=== PATIENT | female | born 1945 | race Caucasian/White ===

== ENCOUNTER 2017-05-06 08:13 | Inpatient (IN) | payer MEDICARE ==
[~2017-05-06] VITALS: Ht 162.6 cm; Wt 113.0 kg
[~2017-05-06 08:13] MED LIST: AMLODIPINE BESY10 MG PO; CEFDINIR300 MG PO; GABAPENTIN300 MG PO; GOLYTELY SOLU4000 ML PO; HUMALOG100 UNIT/1 SC; HYDROCODON-ACE1 EA11 PO; ISOSORBIDE MONO30 M1 PO; LEVEMIR100 UNIT/1 SC; LOSARTAN POTAS100 MG PO; METRONIDAZOLE500 MG PO; OMEPRAZOLE40 MG PO; SIMVASTATIN40 MG PO; TOPROL XL100 MG PO; TRESIBA; TRIAMTERENE-HCTZ1 EA PO; VICTOZA 2-0.6 MG/0.1 SQ
[2017-05-06] MEDS ORDERED: DILTIAZEM HCL 100 ML IV STA (08:25)
[2017-05-06] MEDS ORDERED: DILTIAZEM HCL 100 ML IV ONE (08:30)
[2017-05-06] MEDS ORDERED: DILTIAZEM HCL 5 MG/ML 5 ML VIAL IV ONE ×2 (08:30)
[2017-05-06] MEDS ORDERED: SODIUM CHLORIDE 0.9% 1000ML 1,000 ML IV SCH (08:30)
[2017-05-06 08:39] LABS: BASOPHILS % 0.2 % (0.0-1.0); EOSINOPHILS % 0.1 % (0.0-6.0); HEMATOCRIT 47.3 % (34.2-44.1); HEMOGLOBIN 15.9 g/dL (12.0-16.0); LYMPHOCYTES # (AUTO) 3.3 (1.0-3.2); LYMPHOCYTES % 21.8 % (18.0-39.1); MEAN CORPUSCULAR HEMOGLOBIN 29.8 pg (28-32); MEAN CORPUSCULAR HGB CONC 33.6 g/dL (31-35); MEAN CORPUSCULAR VOLUME 88.7 fL (81-99); MONOCYTES # (AUTO) 0.8 (0.2-0.8); MONOCYTES % 5.2 % (4.4-11.3); NEUTROPHILS # (AUTO) 10.9 (2.1-6.9); NEUTROPHILS % 72.3 % (38.7-80.0); PLATELET COUNT 213 x10e3/uL (140-360); RED BLOOD COUNT 5.33 x10e6/uL (3.6-5.1); RED CELL DISTRIBUTION WIDTH 13.5 % (11.7-14.4)
[2017-05-06] MEDS ORDERED: AMIODARONE HCL 100 ML IV ONE (08:41)
[2017-05-06] MEDS ORDERED: METOPROLOL TARTRATE INJ 1 MG/ML VIAL IV ONE (08:45)
[2017-05-06 08:51] LABS: ALANINE AMINOTRANSFERASE 13 IU/L (0-55); ALBUMIN 4.2 g/dL (3.5-5.0); ALBUMIN/GLOBULIN RATIO 1.2 (0.8-2.0); ALKALINE PHOSPHATASE 69 IU/L (40-150); ANION GAP 19.2 mmol/L (8-16); BLOOD UREA NITROGEN 6 mg/dL (7-26); BUN/CREATININE RATIO 8 (6-25); CALCIUM 9.2 mg/dL (8.4-10.2); CARBON DIOXIDE 25 mmol/L (22-29); CHLORIDE 101 mmol/L (98-107); CREATININE, SERUM 0.79 mg/dL (0.57-1.11); EST GLOMERULAR FILTRATION RATE > 60 ML/MIN (60-); GLUCOSE 167 mg/dL (74-118); MAGNESIUM 1.3 MG/DL (1.3-2.1); PHOSPHORUS 3.6 MG/DL (2.3-4.7); POTASSIUM 3.2 mmol/L (3.5-5.1); SODIUM 142 mmol/L (136-145)
[2017-05-06 09:10] LABS: THYROID STIMULATING HORMONE 1.904 uIU/mL (0.350-4.940); TROPONIN I 0.009 ng/mL (0-0.300)
[2017-05-06 09:21] LABS: BILIRUBIN,URINE NEGATIVE (NEGATIVE); CLARITY,URINE CLEAR (CLEAR); COLOR,URINE YELLOW (YELLOW); KETONES,URINE 1+ (NEGATIVE); LEUKOCYTE ESTERASE ,URINE NEGATIVE (NEGATIVE); NITRITE,URINE NEGATIVE (NEGATIVE); PROTEIN,URINE DIPSTICK NEGATIVE (NEGATIVE); URINE UROBILINOGEN 0.2 mg/dL (0.2 - 1)
[2017-05-06 09:33] LABS: EPITHELIAL CELLS,URINE RARE /LPF
[2017-05-06] MEDS: SODIUM CHLORIDE 0.9% 1000ML 1,000 ML IV SCH ×3 (09:34→19:10)
[2017-05-06] MEDS ORDERED: DILTIAZEM HCL 100 ML IV SCH (09:45)
[2017-05-06] MEDS ORDERED: POTASSIUM CHLORIDE 20 MEQ TAB CR PO NR (10:00)
[2017-05-06] MEDS ORDERED: DICYCLOMINE HCL 20 MG/2 ML VIAL IM ONE (10:00)
[2017-05-06] MEDS ORDERED: FAMOTIDINE 20 MG/2 ML VIAL IV NR (10:00)
[2017-05-06] MEDS: DILTIAZEM HCL 100 ML IV SCH ×2 (10:13→12:04)
--- NOTE | 2017-05-06 11:24 | Diagnostic Imaging Report ---
PROCEDURE: A single AP view of the chest. COMPARISON: 12/20/2015 INDICATIONS: SHORTNESS OF BREATH FINDINGS: Lines/tubes: None. Lungs: Bibasilar subsegmental atelectasis. No consolidation or edema. Pleura: There is no pleural effusion or pneumothorax. Heart and mediastinum: Tortuous aorta. The pulmonary arteries are prominent. Bones: No acute bony abnormality. IMPRESSION: No evidence of infection or edema. Dictated by: Michel Chua M.D. on 05/06/2017 at 11:33 Electronically approved by: Michel Chua M.D. on 05/06/2017 at 11:33
[2017-05-06] MEDS ORDERED: ASPIRIN 81 MG CHEW TAB PO ONE (12:30)
[2017-05-06] MEDS ORDERED: MORPHINE SULFATE 2 MG/ML SYR IV PRN (12:30)
[2017-05-06] MEDS ORDERED: SODIUM CHLORIDE FLUSH 10 ML SYR INJ PRN (12:30)
[2017-05-06 13:31] VITALS: BP 132/97
[2017-05-06] MEDS: FAMOTIDINE 20 MG/2 ML VIAL IV SCH (17:29)
[2017-05-06 17:51] LABS: CREATINE KINASE MB 1.2 ng/mL (0.00-5.00); TROPONIN I 0.03 ng/mL (0-0.300)
[2017-05-06] MEDS: MORPHINE SULFATE 4 MG/ML SYR IV PRN (19:11)
[2017-05-06] MEDS: ONDANSETRON HCL INJ 2 MG/ML VIAL IV PRN (19:11)
[2017-05-06] MEDS ORDERED: METFORMIN HCL500 MG PO (19:16)
[2017-05-07 02:01] LABS: BASOPHILS % 0.1 % (0.0-1.0); EOSINOPHILS # (AUTO) 0.1 (0.0-0.4); EOSINOPHILS % 0.8 % (0.0-6.0); HEMATOCRIT 39.1 % (34.2-44.1); LYMPHOCYTES # (AUTO) 2.3 (1.0-3.2); LYMPHOCYTES % 25.7 % (18.0-39.1); MEAN CORPUSCULAR HGB CONC 33.2 g/dL (31-35); MEAN CORPUSCULAR VOLUME 90.3 fL (81-99); MONOCYTES # (AUTO) 0.5 (0.2-0.8); MONOCYTES % 5.3 % (4.4-11.3); NEUTROPHILS # (AUTO) 6.1 (2.1-6.9); NEUTROPHILS % 67.9 % (38.7-80.0); PLATELET COUNT 156 x10e3/uL (140-360); RED BLOOD COUNT 4.33 x10e6/uL (3.6-5.1); RED CELL DISTRIBUTION WIDTH 13.7 % (11.7-14.4)
[2017-05-07] MEDS: ONDANSETRON HCL INJ 2 MG/ML VIAL IV PRN ×3 (02:01→17:07)
[2017-05-07] MEDS: MORPHINE SULFATE 4 MG/ML SYR IV PRN ×3 (02:01→17:07)
[2017-05-07 02:10] LABS: INR 0.97; PROTHROMBIN TIME 13.4 seconds (11.9-14.5)
[2017-05-07 02:11] LABS: PARTIAL THROMBOPLASTIN TIME 30.5 seconds (23.8-35.5)
[2017-05-07 02:21] LABS: ALANINE AMINOTRANSFERASE 10 IU/L (0-55); ALBUMIN 3.4 g/dL (3.5-5.0); ALBUMIN/GLOBULIN RATIO 1.2 (0.8-2.0); ALKALINE PHOSPHATASE 55 IU/L (40-150); ANION GAP 14.5 mmol/L (8-16); BLOOD UREA NITROGEN 6 mg/dL (7-26); BUN/CREATININE RATIO 9 (6-25); CALCIUM 8.1 mg/dL (8.4-10.2); CARBON DIOXIDE 27 mmol/L (22-29); CHLORIDE 106 mmol/L (98-107); CHOL/HDL RATIO 1.7 (3.0-3.6); CHOLESTEROL 76 MD/DL (0-199); CREATINE KINASE 81 IU/L (29-168); CREATININE, SERUM 0.67 mg/dL (0.57-1.11); EST GLOMERULAR FILTRATION RATE > 60 ML/MIN (60-); GLUCOSE 117 mg/dL (74-118); HDL CHOLESTEROL 45 MG/DL (40-60); POTASSIUM 3.5 mmol/L (3.5-5.1); SODIUM 144 mmol/L (136-145); TRIGLYCERIDES 108 MG/DL (0-149)
[2017-05-07 02:22] LABS: LDL CHOLESTEROL 9 MG/DL (60-130)
[2017-05-07 02:27] LABS: TROPONIN I 0.016 ng/mL (0-0.300)
[2017-05-07] MEDS ORDERED: DIPHENHYDRAMINE HCL 25 MG CAP PO ONE (06:00)
--- NOTE | 2017-05-07 06:49 | Diagnostic Imaging Report ---
CHEST SINGLE (PORTABLE), 05/07/2017 5:00 AM Technique: CHEST SINGLE (PORTABLE) Comparison: None available. Clinical history: Shortness of breath Findings: See Impression Impression: 1. Mildly enlarged cardiac silhouette. 2. Bibasilar opacities which may reflect atelectasis. Aspiration or infection could be considered in the proper clinical context. 3. No significant effusion. No pneumothorax. Signed by: Dr Nancy Rizzo MD on 05/07/2017 6:45 AM
[2017-05-07 07:16] VITALS: BP 127/63
[2017-05-07] MEDS: SODIUM CHLORIDE 0.9% 1000ML 1,000 ML IV SCH ×2 (07:30→20:43)
[2017-05-07] MEDS: ASPIRIN 81 MG ENTERIC COATED PO SCH (08:54)
[2017-05-07] MEDS: FAMOTIDINE 20 MG/2 ML VIAL IV SCH ×2 (08:54→20:41)
[2017-05-07] MEDS ORDERED: DEXTROSE 50% SYRINGE 50 ML IV PRN (10:15)
--- NOTE | 2017-05-07 10:56 | History and Physical ---
PRIMARY CARE PHYSICIAN: Dr. Griffin Zuniga CHIEF COMPLAINT: Chest palpitations and shortness of breath. HISTORY OF PRESENT ILLNESS: This is a 72-year-old woman with a history of diabetes mellitus, type 2 and hypertension, now developing shortness of breath and chest palpitations prompting her visit to the hospital. She does admit to some discomfort with urination. No fever, chills or sweats. She has no history of atrial fibrillation or heart disease. Here, she was found to be in atrial fibrillation with rapid ventricular response. She received Cardizem drip and this has been turned off. She has converted to a normal sinus rhythm. PAST MEDICAL HISTORY: Diabetes mellitus, type 2, hypertension, IBS. PAST SURGICAL HISTORY: Hysterectomy, tonsillectomy, cholecystectomy, appendectomy, stomach stapling. ALLERGIES: PER ELECTRONIC MEDICAL RECORDS. FAMILY HISTORY/SOCIAL HISTORY: Patient is . She has 2 children. No alcohol, illicits or cigarettes. MEDICATIONS: Per electronic medical record. REVIEW OF SYSTEMS: Denies any dizziness. PHYSICAL EXAMINATION VITAL SIGNS: Have been reviewed. GENERAL: A tired-appearing woman resting in bed. HEENT: Anicteric. Pupils respond to light. No oral lesions. CARDIOVASCULAR: Normal S1 and S2. ABDOMEN: Soft, nontender and nondistended. BACK: She has mild erythema of the midback region, but no rashes visible. EXTREMITIES: No edema. She has dry skin. NEUROLOGICAL: Alert and oriented times 3. Moving all extremities. LABS: Reviewed. MEDICATIONS: Reviewed. ASSESSMENT AND PLAN: This is a 72-year-old woman with: 1. Sepsis with hypotension, tachycardia, low-grade fever, and leukocytosis: She did have dysuria, but her urinalysis is negative. Will start her on ceftriaxone. She received intravenous fluids, and will follow up cultures. 2. Atrial fibrillation with rapid ventricular response: Received Cardizem drip, and now heart rate is better. Will continue diltiazem. Echocardiogram showed normal left ventricular ejection fraction. Will place cardiology consultation. TSH was normal at 1.9. 3. Diabetes mellitus, type 2: Will obtain hemoglobin A1c and lipid panel. 4. Rash on the back secondary to medications: She received Benadryl yesterday, and now rash has resolved. Will monitor closely. 5. Physical deconditioning: Will get physical therapy on board. 6. Hypertension: Treated. She is currently on calcium channel lindsay. Will monitor blood pressure. 7. Hypokalemia: Has been treated and resolved. 8. Prophylaxis: Will use Pepcid and will anticoagulate with Lovenox. 9. Disposition: Follow up. Job#: [id number] RI
[2017-05-07] MEDS ORDERED: CEFTRIAXONE SOD 1 GM VIAL IV SCH (11:00)
[2017-05-07] MEDS: INSULIN REGULAR, HUMAN 100 UNIT/1 ML 3ML VIAL SQ SCH ×3 (11:14→21:00)
[2017-05-07] MEDS: ENOXAPARIN SODIUM INJ 100 MG/ML SYR SC SCH (11:20)
[2017-05-07] MEDS ORDERED: CEFTRIAXONE SOD 1 GM VIAL ONE (11:23)
[2017-05-07 11:45] VITALS: BP 96/75
[2017-05-07] MEDS ORDERED: DIPHENHYDRAMINE HCL INJ 1 ML ONE (16:59)
[2017-05-07 17:54] VITALS: BP 151/74
[2017-05-07 18:00] VITALS: BP 151/74
[2017-05-07 20:00] VITALS: BP 138/67
[2017-05-07 20:13] VITALS: BP 138/67
[2017-05-08] VITALS (8 sets, daily range): BP systolic 142–166; BP diastolic 67–83
[2017-05-08] MEDS: MORPHINE SULFATE 4 MG/ML SYR IV PRN ×3 (06:03→20:58)
[2017-05-08] MEDS: SODIUM CHLORIDE 0.9% 1000ML 1,000 ML IV SCH (06:07)
[2017-05-08] MEDS: INSULIN REGULAR, HUMAN 100 UNIT/1 ML 3ML VIAL SQ SCH ×4 (07:30→20:48)
[2017-05-08 08:31] LABS: ANION GAP 11.5 mmol/L (8-16); BLOOD UREA NITROGEN 5 mg/dL (7-26); BUN/CREATININE RATIO 8 (6-25); CALCIUM 8.1 mg/dL (8.4-10.2); CARBON DIOXIDE 27 mmol/L (22-29); CHLORIDE 105 mmol/L (98-107); CREATININE, SERUM 0.64 mg/dL (0.57-1.11); EST GLOMERULAR FILTRATION RATE > 60 ML/MIN (60-); GLUCOSE 120 mg/dL (74-118); POTASSIUM 3.5 mmol/L (3.5-5.1); SODIUM 140 mmol/L (136-145)
[2017-05-08 08:41] LABS: BASOPHILS % 0.2 % (0.0-1.0); EOSINOPHILS # (AUTO) 0.3 (0.0-0.4); EOSINOPHILS % 4.4 % (0.0-6.0); HEMATOCRIT 36.8 % (34.2-44.1); HEMOGLOBIN 12.1 g/dL (12.0-16.0); LYMPHOCYTES # (AUTO) 1.4 (1.0-3.2); LYMPHOCYTES % 24.3 % (18.0-39.1); MEAN CORPUSCULAR HGB CONC 32.9 g/dL (31-35); MEAN CORPUSCULAR VOLUME 91.1 fL (81-99); MONOCYTES # (AUTO) 0.4 (0.2-0.8); MONOCYTES % 6.5 % (4.4-11.3); NEUTROPHILS # (AUTO) 3.7 (2.1-6.9); NEUTROPHILS % 64.4 % (38.7-80.0); PLATELET COUNT 175 x10e3/uL (140-360); RED BLOOD COUNT 4.04 x10e6/uL (3.6-5.1); RED CELL DISTRIBUTION WIDTH 13.7 % (11.7-14.4)
--- NOTE | 2017-05-08 08:47 | Consultation ---
DATE OF CONSULTATION: REQUESTING PHYSICIAN: REASON FOR CONSULTATION: Chest pain. HISTORY OF PRESENT ILLNESS: Ms. Jiang is a 72-year-old lady with a past medical history as listed below. Reportedly, developed chest pain on Tuesday, and she had some severe chest pain on . Patient states that the chest pain lasted for about an hour or so all across her chest. She was short of breath. She felt like her heart was pounding. However, she states that she decided not to come to the hospital. She had more episodes yesterday, and so came here. She gets weak and tired. No abdominal pain, vomiting or diarrhea. Patient was noted to be in AFib with rapid ventricular rate. She was given Cardizem and started on a Cardizem drip. She was also given metoprolol. REVIEW OF SYSTEMS CONSTITUTIONAL: Has some fatigue and weakness. HEENT: No headache, blurring of vision, seizures, or syncope. CARDIOVASCULAR: Had chest pain and some dyspnea. Had palpitations. No orthopnea or PND. RESPIRATORY: No cough, fever or expectoration. GI: No abdominal pain, vomiting or diarrhea. : No dysuria, frequency or incontinence. ALLERGIES: LISINOPRIL. MEDICATIONS: See list. PAST MEDICAL HISTORY: History of hypertension and history of diabetes mellitus. She has had a stress test, however, years back. SOCIAL HISTORY: Does not smoke. Drinks alcohol occasionally. FAMILY HISTORY: Noncontributory. PHYSICAL EXAMINATION GENERAL: Obese lady, alert, oriented, and not in any obvious distress. VITALS: Heart rate is 76, blood pressure 96/75, respiratory rate 20. HEENT: Atraumatic. NECK: No JVD, bruit, thyromegaly, or lymphadenopathy. CARDIOVASCULAR: First and 2nd heart sounds heard. No murmurs, rubs or gallops appreciated. CHEST: Decreased air entry at the bases. No adventitious sounds appreciated. ABDOMEN: Obese and nontender. EXTREMITIES: No edema. LABS: Initial EKG showed atrial fibrillation at 185 beats per minute. Normal axis. Normal intervals. Nonspecific ST-T changes. EKG from today showed sinus rhythm at 69 beats per minute. Normal axis. Normal intervals. Poor R-wave progression V1 to V3, nonspecific ST-T changes. Sodium is 144, potassium 3.5, chloride 106, bicarb is 27, BUN is 6, creatinine 0.67, glucose is 117. INR 0.7. Total bilirubin 0.9, AST is 15, ALT 10, alk phos is 55. Chest x-ray shows mild enlarged cardiac silhouette and bibasilar opacities. May reflect atelectasis. IMPRESSION 1. Atrial fibrillation with rapid ventricular rate. 2. Chest pain. 3. History of hypertension. 4. History of diabetes mellitus. 5. Obesity. PLAN 1. Patient has converted to a sinus rhythm. 2. Cardiac enzymes are normal. 3. Discontinue Cardizem drip and continue low-dose metoprolol. 4. If blood pressure is on the lower side, will add digoxin. 5. Continue with Lovenox. 6. Get echocardiogram to assess LV function and valvular function. 7. TSH is normal. 8. Further cardiac workup depending on clinical course. Discussed my impression and plan of manage with the patient. She understands. As always, I appreciate and thank you very much for the referral. Job#: [id number] APRIL
[2017-05-08] MEDS: ENOXAPARIN SODIUM INJ 100 MG/ML SYR SC SCH ×2 (09:11→20:48)
[2017-05-08] MEDS: FAMOTIDINE 20 MG/2 ML VIAL IV SCH ×2 (09:11→17:30)
[2017-05-08] MEDS: ASPIRIN 81 MG ENTERIC COATED PO SCH (09:11)
--- NOTE | 2017-05-08 12:16 | Progress Note ---
DATE: May 08, 2017 TIME: 10:50 a.m. OVERNIGHT: Feeling better. REVIEW OF SYSTEMS: Denies any dizziness. PHYSICAL EXAMINATION VITAL SIGNS: Reviewed. GENERAL: A tired-appearing woman resting in bed. HEENT: Anicteric. CARDIOVASCULAR: Normal S1 and S2. LUNGS: Moderate breath sounds. BACK: She has mild erythema, which is resolving. EXTREMITIES: No edema. SKIN: Dry. PSYCHIATRIC: Normal affect. NEUROLOGICAL: Alert and oriented times 3. Moving all extremities. LABS: Reviewed. MEDICATIONS: Reviewed. ASSESSMENT: A 72-year-old woman with: 1. Sepsis. 2. Atrial fibrillation with rapid ventricular response. 3. Diabetes mellitus, type 2. 4. Rash on the back. 5. Physical deconditioning. 6. Hypertension. 7. Hypokalemia. PLAN 1. Leukocytosis has resolved. 2. Hemoglobin A1c is 5.1, LDL 9 and triglycerides 108. 3. Remove Hawk. 4. All cultures remain negative. 5. Continue Lovenox treatment dose. Likely transition her to vitamin K or oral anticoagulant. Will defer to cardiology. 6. Continue ceftriaxone. Job#: [id number] APRIL
[2017-05-08] MEDS ORDERED: CEFTRIAXONE SOD 1 GM VIAL IV SCH (12:45)
[2017-05-08] MEDS: CEFTRIAXONE SOD 1 GM VIAL IV SCH (13:01)
[2017-05-09 00:31] VITALS: BP 133/66
[2017-05-09 05:07] VITALS: BP 128/60
--- NOTE | 2017-05-09 06:36 | Progress Note ---
DATE: May 09, 2017 TIME: 5:15 a.m. OVERNIGHT: Feeling a little better. REVIEW OF SYSTEMS: Denies any dizziness. No bowel movement. Denies any shortness of breath. PHYSICAL EXAMINATION VITAL SIGNS: Reviewed. GENERAL: A tired-appearing woman resting in bed. HEENT: Anicteric. CARDIOVASCULAR: Normal S1 and S2. LUNGS: Moderate breath sounds. ABDOMEN: Soft, nontender and nondistended. EXTREMITIES: No edema. SKIN: Dry. PSYCHIATRIC: Normal affect. NEUROLOGICAL: Alert and oriented times 3. LABS: Reviewed. MEDICATIONS: Reviewed. ASSESSMENT: A 72-year-old woman with: 1. Sepsis. 2. Atrial fibrillation with rapid ventricular response. 3. Diabetes mellitus, type 2. 4. Rash on back. 5. Physical deconditioning. 6. Hypertension. 7. Hypokalemia. 8. Constipation. PLAN 1. Hemoglobin A1c is 5.1, LDL 90 and triglycerides 108. 2. Cardizem drip has since been discontinued. Patient is on low-dose beta lindsay. Add bowel regimen. 3. Obtain labs this morning. 4. Patient can be transitioned to non-vitamin K oral anticoagulant. Possible discharge home. Will follow up cardiology recommendations in this regard. 5. Echocardiogram showed normal left ventricular ejection fraction. No pericardial effusion. Job#: [id number] APRIL
[2017-05-09 07:10] LABS: BASOPHILS % 0.2 % (0.0-1.0); EOSINOPHILS # (AUTO) 0.2 (0.0-0.4); EOSINOPHILS % 4.4 % (0.0-6.0); HEMATOCRIT 38.7 % (34.2-44.1); HEMOGLOBIN 12.7 g/dL (12.0-16.0); LYMPHOCYTES # (AUTO) 1.9 (1.0-3.2); LYMPHOCYTES % 35.1 % (18.0-39.1); MEAN CORPUSCULAR HEMOGLOBIN 29.9 pg (28-32); MEAN CORPUSCULAR HGB CONC 32.8 g/dL (31-35); MEAN CORPUSCULAR VOLUME 91.1 fL (81-99); MONOCYTES # (AUTO) 0.4 (0.2-0.8); MONOCYTES % 7.2 % (4.4-11.3); NEUTROPHILS # (AUTO) 2.9 (2.1-6.9); NEUTROPHILS % 52.5 % (38.7-80.0); PLATELET COUNT 190 x10e3/uL (140-360); RED BLOOD COUNT 4.25 x10e6/uL (3.6-5.1); RED CELL DISTRIBUTION WIDTH 13.7 % (11.7-14.4)
[2017-05-09] MEDS: INSULIN REGULAR, HUMAN 100 UNIT/1 ML 3ML VIAL SQ SCH ×4 (07:30→20:22)
[2017-05-09 07:41] LABS: ANION GAP 14.5 mmol/L (8-16); BLOOD UREA NITROGEN 5 mg/dL (7-26); BUN/CREATININE RATIO 8 (6-25); CALCIUM 8.6 mg/dL (8.4-10.2); CARBON DIOXIDE 27 mmol/L (22-29); CHLORIDE 105 mmol/L (98-107); CREATININE, SERUM 0.64 mg/dL (0.57-1.11); EST GLOMERULAR FILTRATION RATE > 60 ML/MIN (60-); GLUCOSE 112 mg/dL (74-118); POTASSIUM 3.5 mmol/L (3.5-5.1); SODIUM 143 mmol/L (136-145)
[2017-05-09] MEDS: ENOXAPARIN SODIUM INJ 100 MG/ML SYR SC SCH ×2 (08:26→20:32)
[2017-05-09] MEDS: ASPIRIN 81 MG ENTERIC COATED PO SCH (08:26)
[2017-05-09] MEDS: SENNOSIDES 8.6 MG TAB PO SCH ×2 (08:26→17:24)
[2017-05-09] MEDS: DOCUSATE SODIUM 100 MG CAP PO SCH ×2 (08:26→17:24)
[2017-05-09] MEDS: FAMOTIDINE 20 MG/2 ML VIAL IV SCH ×2 (08:26→17:24)
[2017-05-09 08:45] VITALS: BP 195/84
[2017-05-09] MEDS: ISOSORBIDE MONONITRATE 30 MG TAB CR PO SCH (11:33)
[2017-05-09] MEDS: AMLODIPINE BESYLATE 10 MG TAB PO SCH (11:33)
[2017-05-09] MEDS: LOSARTAN POTASSIUM 100 MG TAB PO SCH (11:33)
[2017-05-09] MEDS: CEFTRIAXONE SOD 1 GM VIAL IV SCH (13:02)
[2017-05-09] MEDS ORDERED: HYDRALAZINE HCL 20 MG/ML VIAL IV PRN (13:15)
[2017-05-09] MEDS ORDERED: TRIAMTERENE/HCTZ 37.5-25 MG TAB PO ONE (13:15)
[2017-05-09] MEDS: ONDANSETRON HCL INJ 2 MG/ML VIAL IV PRN (13:47)
[2017-05-09] MEDS: MORPHINE SULFATE 4 MG/ML SYR IV PRN (13:47)
[2017-05-09] MEDS ORDERED: METOPROLOL SUCCINATE 50 MG PO SCH (17:00)
[2017-05-09] MEDS: METOPROLOL SUCCINATE 50 MG TAB XL PO SCH (17:24)
[2017-05-09 20:00] VITALS: BP 148/83
[2017-05-10] VITALS (8 sets, daily range): BP systolic 144–183; BP diastolic 71–86
[2017-05-10] MEDS: INSULIN REGULAR, HUMAN 100 UNIT/1 ML 3ML VIAL SQ SCH ×4 (07:30→20:25)
[2017-05-10] MEDS ORDERED: COLACE100 M1 PO (07:57)
[2017-05-10] MEDS ORDERED: SENOKOT8.6 MG PO (07:57)
[2017-05-10] MEDS ORDERED: TRIAMTERENE-HCTZ1 EA PO (07:57)
[2017-05-10] MEDS ORDERED: ASPIRIN EC81 MG PO (07:57)
[2017-05-10] MEDS ORDERED: REGADENOSON 0.4 MG/5 ML SYR IV ONE (08:13)
[2017-05-10] MEDS: FAMOTIDINE 20 MG/2 ML VIAL IV SCH ×2 (09:00→16:45)
[2017-05-10] MEDS: DOCUSATE SODIUM 100 MG CAP PO SCH ×2 (09:00→16:45)
[2017-05-10] MEDS: ASPIRIN 81 MG ENTERIC COATED PO SCH (09:00)
[2017-05-10] MEDS: METOPROLOL SUCCINATE 50 MG TAB XL PO SCH ×2 (09:00→16:45)
[2017-05-10] MEDS: SENNOSIDES 8.6 MG TAB PO SCH ×2 (09:00→16:45)
[2017-05-10] MEDS ORDERED: LOSARTAN POTASSIUM 100 MG TAB PO SCH (09:00)
[2017-05-10] MEDS: GABAPENTIN 300 MG CAP PO SCH ×3 (09:00→20:25)
[2017-05-10] MEDS ORDERED: ISOSORBIDE MONONITRATE 30 MG TAB CR PO SCH (09:00)
[2017-05-10] MEDS ORDERED: AMLODIPINE BESYLATE 10 MG TAB PO SCH (09:00)
[2017-05-10] MEDS ORDERED: POTASSIUM CHLORIDE 20 MEQ TAB CR PO STA (09:02)
--- NOTE | 2017-05-10 09:04 | Progress Note ---
DATE: May 10, 2017 TIME: 7:56 a.m. OVERNIGHT: No events. REVIEW OF SYSTEMS: Denies any dizziness. PHYSICAL EXAMINATION: VITAL SIGNS: Reviewed. GENERAL APPEARANCE: Tired-appearing woman resting in bed. HEENT: Anicteric. CARDIOVASCULAR: Normal S1 and S2. LUNGS: Moderate breath sounds. ABDOMEN: Soft, nontender, nondistended. EXTREMITIES: No edema. SKIN: Dry. PSYCHIATRIC: Normal affect. LABS: Reviewed. MEDICATIONS: Reviewed. ASSESSMENT: A 72-year-old woman: 1. Sepsis. 2. Atrial fibrillation with rapid ventricular response. 3. Diabetes mellitus type 2. 4. Rash on back. 5. Physical deconditioning. 6. Hypertension. 7. Hypokalemia. 8. Constipation. PLAN: 1. Hemoglobin A1c 5.1, LDL 90, triglycerides 108. 2. Received Cardizem drip, doing better now. Continue beta lindsay. 3. Follow up completion of stress testing. 4. Echocardiogram showed normal left ventricular ejection fraction, no pericardial effusion. 5. Discharge planning if stress test negative today. Plan to discharge later today. Job#: [id number]
--- NOTE | 2017-05-10 12:21 | Cardiology Report ---
DATE OF STUDY: LEXISCAN NUCLEAR STRESS TEST INDICATION: Chest pain. DESCRIPTION OF PROCEDURE: After informed consent, patient was brought to the stress lab. She was given 28 mCi of technetium 99 Myoview and myocardial perfusion SPECT images obtained in the horizontal long axis, short axis, and vertical long axis. The next day, patient was given 0.4 mg of Lexiscan over 10 seconds. Patient was given 28 mCi of technetium 99 Myoview and myocardial perfusion SPECT images were obtained in horizontal long axis, short axis, and vertical long axis. Gating images were also obtained. Patient tolerated the procedure without any complications. A 2-day protocol was performed because patient was obese. REPORT: Baseline EKG shows sinus rhythm at 61 beats per minute. Normal axis. Normal intervals. No acute ST-T changes. PARAMETERS 1. Resting heart rate is 70 beats per minute. 2. Maximum heart rate is 96 beats per minute. 3. Resting blood pressure 175/81 mmHg. 4. Maximum blood pressure 175/81 mmHg. REASON FOR TERMINATION: Endpoint obtained. INTERPRETATION 1. Negative chest pain. 2. Negative for arrhythmias. 3. Blood pressure response consistent with Lexiscan. 4. No significant ST-T changes seen during Lexiscan infusion compared to baseline. 5. Analysis of SPECT images reveals uniform radioisotope uptake in all segments of myocardium without any significant perfusion defects. CONCLUSION 1. No evidence significant ischemia or infarction on this study. 2. No wall motion abnormalities. 3. Overall ejection fraction is 76%. Job#: [id number] PAT
[2017-05-10] MEDS ORDERED: POTASSIUM CHLORIDE 20 MEQ TAB CR PO SCH (12:30)
[2017-05-10] MEDS: LOSARTAN POTASSIUM 100 MG TAB PO SCH (12:30)
[2017-05-10] MEDS: ISOSORBIDE MONONITRATE 30 MG TAB CR PO SCH (12:31)
[2017-05-10] MEDS: TRIAMTERENE/HCTZ 37.5-25 MG TAB PO SCH (12:31)
[2017-05-10] MEDS: AMLODIPINE BESYLATE 10 MG TAB PO SCH (12:32)
[2017-05-10] MEDS: ENOXAPARIN SODIUM INJ 100 MG/ML SYR SC SCH ×2 (12:32→20:25)
[2017-05-10] MEDS ORDERED: MORPHINE SULFATE 2 MG/ML SYR ONE (13:27)
[2017-05-10] MEDS: ONDANSETRON HCL INJ 2 MG/ML VIAL IV PRN (13:36)
[2017-05-10] MEDS: CEFTRIAXONE SOD 1 GM VIAL IV SCH (13:36)
[2017-05-10] MEDS: MORPHINE SULFATE 4 MG/ML SYR IV PRN (13:37)
[2017-05-10] MEDS ORDERED: MORPHINE SULFATE 2 MG/ML SYR IV PRN (16:15)
[2017-05-10] MEDS: METRONIDAZOLE 500MG/NS 100ML 100 ML IV SCH (22:23)
[2017-05-11] VITALS: BP 142/66
[2017-05-11 04:00] VITALS: BP 132/60
[2017-05-11] MEDS: METRONIDAZOLE 500MG/NS 100ML 100 ML IV SCH (06:08)
[2017-05-11] MEDS ORDERED: FLAGYL500 MG PO (06:38)
[2017-05-11] MEDS ORDERED: XARELTO20 MG PEG (06:46)
[2017-05-11] MEDS: INSULIN REGULAR, HUMAN 100 UNIT/1 ML 3ML VIAL SQ SCH (07:30)
[2017-05-11 07:41] VITALS: BP 146/76
--- NOTE | 2017-05-11 08:01 | Discharge Summary ---
PRINCIPAL DIAGNOSES: 1. Sepsis. 2. Atrial fibrillation with rapid ventricular response. 3. Diabetes mellitus type 2. 4. Rash on the back due to drug reaction. 5. Physical deconditioning. 6. Negative stress test. 7. Constipation and diarrhea. 8. Electrolyte derangement with hypokalemia. SECONDARY DIAGNOSIS: Diabetes mellitus type 2. CHIEF COMPLAINT: Chest palpitation. HISTORY OF PRESENT ILLNESS: A 72-year-old woman with chest palpitation. Please refer to the H and P for further details. HOSPITAL COURSE: Patient found to have chest palpitation, found to have atrial fibrillation with rapid ventricular response, treated with medication regimen, Cardizem drip, beta blockade. She underwent stress testing, which was negative. She had developed a rash on her back due to antibiotic reaction. Physical deconditioning treated with physical therapy. She had also constipation and then diarrhea, likely this is just related to medication regimen. I have given her Flagyl and obtained stool for C. diff testing. Hypokalemia was replaced. Echocardiogram showed normal left ventricular ejection fraction, no pericardial effusion. Patient is doing better and currently appropriate for discharge. Will follow up. DISCHARGE MEDICATIONS: Per electronic medical record. Discharge medications include Xarelto and omeprazole. FOLLOWUP: With primary care doctor in 1 week and follow up with ground equipment mechanic in 2 weeks. CONDITION ON DISCHARGE: Stable and improving. DISCHARGE LOCATION: Home. PRANAV BUCKLEY MD Job#: [id number]
[2017-05-11] MEDS: FAMOTIDINE 20 MG/2 ML VIAL IV SCH (08:41)
[2017-05-11] MEDS: ASPIRIN 81 MG ENTERIC COATED PO SCH (08:41)
[2017-05-11] MEDS: AMLODIPINE BESYLATE 10 MG TAB PO SCH (08:42)
[2017-05-11] MEDS: GABAPENTIN 300 MG CAP PO SCH (08:42)
[2017-05-11] MEDS: DOCUSATE SODIUM 100 MG CAP PO SCH (08:42)
[2017-05-11] MEDS: TRIAMTERENE/HCTZ 37.5-25 MG TAB PO SCH (08:42)
[2017-05-11] MEDS: SENNOSIDES 8.6 MG TAB PO SCH (08:42)
[2017-05-11] MEDS: ISOSORBIDE MONONITRATE 30 MG TAB CR PO SCH (08:42)
[2017-05-11] MEDS: LOSARTAN POTASSIUM 100 MG TAB PO SCH (08:42)
[2017-05-11] MEDS: METOPROLOL SUCCINATE 50 MG TAB XL PO SCH (08:44)
[2017-05-11 09:59] VITALS: BP 146/76
== END 2017-05-11 10:27 | disposition home or self-care (01) | DRG 872 ==
LOC: ER 08:13 → ERHOLD 13:26 → MED/SURG3 05-07 17:18
PROVIDERS: ADMIT Internal Medicine; ATTEND Internal Medicine
DX: A41.9 Sepsis, unspecified organism (principal); E11.9 Type 2 diabetes mellitus without complications; I48.91 Unspecified atrial fibrillation; Z68.41 Body mass index [BMI] 40.0-44.9, adult; I10 Essential (primary) hypertension; E66.9 Obesity, unspecified; K59.00 Constipation, unspecified; E87.6 Hypokalemia; L27.0 Generalized skin eruption due to drugs and medicaments taken internally; Z79.01 Long term (current) use of anticoagulants; Z79.82 Long term (current) use of aspirin; Z79.4 Long term (current) use of insulin; Y92.230 Patient room in hospital as the place of occurrence of the external cause; R19.7 Diarrhea, unspecified; T50.905A Adverse effect of unspecified drugs, medicaments and biological substances, initial encounter
CPT/HCPCS: 36415; 71045; 78452; 80048; 80053; 80061; 81001; 82550; 82553; 82948; 83036; 83605; 83735; 83880; 84100; 84443; 84484; 85025; 85610; 85730; 87040; 87071; 87086; 87205; 93005; 93017; 93306; 99284; A9502; J0500; J0696; J1200; J1650; J2270; J2405; J7030

== ENCOUNTER → 2017-07-27 | Day surgery (SDC) | payer MEDICARE ==
[2017-07-25 10:22] LABS: BASOPHILS % 0.2 % (0.0-1.0); EOSINOPHILS # (AUTO) 0.1 (0.0-0.4); EOSINOPHILS % 1.5 % (0.0-6.0); LYMPHOCYTES # (AUTO) 2.4 (1.0-3.2); LYMPHOCYTES % 28.7 % (18.0-39.1); MEAN CORPUSCULAR HEMOGLOBIN 29.3 pg (28-32); MEAN CORPUSCULAR HGB CONC 32.5 g/dL (31-35); MEAN CORPUSCULAR VOLUME 90.3 fL (81-99); MONOCYTES # (AUTO) 0.6 (0.2-0.8); MONOCYTES % 7.8 % (4.4-11.3); NEUTROPHILS # (AUTO) 5.1 (2.1-6.9); NEUTROPHILS % 61.6 % (38.7-80.0); PLATELET COUNT 171 x10e3/uL (140-360); RED BLOOD COUNT 4.43 x10e6/uL (3.6-5.1)
[2017-07-25 10:45] LABS: ANION GAP 12.4 mmol/L (8-16); BLOOD UREA NITROGEN 12 mg/dL (7-26); BUN/CREATININE RATIO 15 (6-25); CALCIUM 9.3 mg/dL (8.4-10.2); CARBON DIOXIDE 32 mmol/L (22-29); CHLORIDE 98 mmol/L (98-107); CREATININE, SERUM 0.79 mg/dL (0.57-1.11); EST GLOMERULAR FILTRATION RATE > 60 ML/MIN (60-); GLUCOSE 85 mg/dL (74-118); POTASSIUM 4.4 mmol/L (3.5-5.1); SODIUM 138 mmol/L (136-145)
[~2017-07-27] MED LIST changes: +ASPIRIN EC81 MG PO; +BUPIVACAINE 0.5%/EPI 30 ML SDV INJ ONE; +CLINDAMYCIN PHOS 900MG/ D5W 50 50 ML IV ONE; +COLACE100 M1 PO; +COLESTID1 G PO; +DEXAMETHASONE SOD PHOS INJ 4 MG/ML VIAL ONE; +FENTANYL CITRATE/PF 100MCG/2 ML INJ ONE; +FLAGYL500 MG PO; +KETAMINE HCL INJ 50 MG/ML 10 ML VIAL ONE; +LIDOCAINE 2%/ EPINEPHRINE 20ML MDV ONE; +LIDOCAINE HCL 2% LOCAL INJ 5 ML SDV VIAL INJ ONE; +METFORMIN HCL500 MG PO; +MIDAZOLAM HCL 2 MG/2 ML VIAL ONE; +MYRBETRIQ50 MG PO; +ONDANSETRON HCL INJ 2 MG/ML VIAL ONE; +PIPER-TAZ 3.375 GM 100 ML ONE; +PROPOFOL IV EMULSION 10 MG/ML 20 ML VIAL ONE; +SENOKOT8.6 MG PO; +SEVOFLURANE INHAL SOLN 250 ML PEN BTL ONE; +XARELTO20 MG PEG; +XARELTO20 MG PO; +XIFAXAN550 MG PO; +ZOFRAN ODT4 MG PO
--- OUTSIDE RECORDS SUMMARY | 2017-07-27 06:47 | XMS REPORT | Continuity of Care Document ---
Author Author [facility] Organization [facility] Address [address] [place] [address] Phone Unavailable Care Team Providers Care Distance Education Faculty Liaison Name Role Phone INA JIMENEZ MD PCP Insurance Providers Guarantor Mary Ellen Betancourt Address [address] [place] [address] Email NONE Payer [facility] Policy Number [id number] Subscriber's Name Mary Ellen Betancourt Relationship 18 Self / Same As Patient Group Name RETIRED Effective Date [address] [facility] Policy Number [id number] Subscriber's Name Mary Ellen Betancourt Relationship 18 Self / Same As Patient Group Number [id number] Group Name [facility] Advance Directives Directive Response Recorded Date/Time Does the patient have an advance directive? No 05/07/17 6:00pm If yes, is advance directive on file with [facility]? No 05/07/17 6:00pm If not on file with [facility] will patient provide a copy? No 05/07/17 6:00pm Do you have a Directive to Physician? No 05/06/17 9:52am Do you have a Medical Power of Chemical Research Worker? No 05/06/17 9:52am Do you have an out of hospital Do Not Resuscitate Order? No 05/06/17 9:52am Do you have any special needs we should be aware of? No 05/06/17 9:52am Do you have a support person here with you today? No 05/06/17 9:52am Did patient receive Notice of Privacy Practices? Yes 05/06/17 9:52am Did patient receive patient rights and responsibilities? Yes 05/06/17 9:52am Problems Medical Problem Onset Date Status Atrial fibrillation with rapid ventricular response Unknown COPD (chronic obstructive pulmonary disease) 02/20/2014 Acute Chest pain 02/20/2014 Acute Dehydration 06/21/2015 Acute Diarrhea 12/20/2015 Acute UTI (urinary tract infection) 06/21/2015 Acute Medications Current Home Medications Medication Dose Units Route Directions Days Qty Instructions Start Date Amlodipine Besylate 10 Mg Tablet 10 Mg Oral Daily Aspirin (Aspirin Ec) 81 Mg Tablet.dr 81 Mg Oral Every Morning 30 Days 05/10/17 Docusate Sodium (Colace) 100 Mg Capsule 100 Mg Oral Twice A Day 30 Days 05/10/17 Gabapentin 300 Mg Capsule 300 Mg Oral Three Times A Day 60 Cap Insulin Detemir (Levemir) 100 Unit/1 Ml Vial 50 Subcutaneously Bedtime Insulin Lispro (Humalog) 100 Unit/1 Ml Cartridge 15 Subcutaneously Three Times A Day Isosorbide Mononitrate 30 Mg Tab.er.24h 30 Mg Oral Daily Liraglutide (Victoza 2-Juan Carlos) 0.6 Mg/0.1 Ml Pen.injctr 2.1 Mg Sub-Q Daily Losartan Potassium 100 Mg Tablet 100 Mg Oral Daily Metformin Hcl 500 Mg Tablet 100 Mg Oral Twice A Day 60 Tab Metoprolol Succinate (Toprol Xl) 100 Mg Tab.er.24h 50 Mg Oral Twice A Day Metronidazole (Flagyl) 500 Mg Tablet 250 Mg Oral Three Times A Day 7 Days 05/11/17 Omeprazole 40 Mg Capsule.dr 40 Mg Oral As Needed Rivaroxaban (Xarelto) 20 Mg Tablet 20 Mg Peg Tube Daily 30 Days Sennosides (Senokot) 8.6 Mg Tablet 8.6 Mg Oral Twice A Day 30 Days 05/10/17 Simvastatin 40 Mg Tablet 10 Mg Oral Daily 30 Tab Tresiba 40 Daily Triamterene/Hctz (Triamterene-Hctz 37.5-25 Mg Tb) 1 Ea Tab Mg Oral Daily Triamterene/Hctz (Triamterene-Hctz 37.5-25 Mg Tb) 1 Ea Tab 1 Ea Oral Daily 30 Days 05/10/17 Past Home Medications Medication Directions Ordered Status Cefdinir (Omnicef) 300 Mg Capsule, 300 Mg Oral Twice A Day Discontinued Metronidazole 500 Mg Tablet, 500 Mg Oral Three Times A Day 12/25/15 Discontinued Peg 3350/Na Sulf,Bicarb,Cl/Kcl (Golytely Solution) 4,000 Ml Soln.recon, 4 Ml Oral Once Discontinued Social History Social History Problem Response Recorded Date/Time Onset Date Status Hx Psychiatric Problems No 05/07/2017 6:00pm Not Applicable Not Applicable Hx Eating Disorder No 05/07/2017 6:00pm Not Applicable Not Applicable Hx Substance Use Disorder No 05/07/2017 6:00pm Not Applicable Not Applicable Hx Depression No 05/07/2017 6:00pm Not Applicable Not Applicable Hx Alcohol Use No 05/07/2017 6:00pm Not Applicable Not Applicable Hx Substance Use Treatment No 05/07/2017 6:00pm Not Applicable Not Applicable Hx Physical Abuse No 05/07/2017 6:00pm Not Applicable Not Applicable Smoking Status Start Date Stop Date Never Smoker Hospital Discharge Instructions No hospital discharge instruction information available. Plan of Care Discharge Date 05/11/17 10:27am Disposition HOME, SELF-CARE Instructions/Education Provided Atrial Fibrillation Prescriptions See Medication Section Referrals pcp (Internal Medicine) Order Date: 5-7 Days Entered Date: 05/10/2017 7:59am MAHAD ASHRAF MD (Cardiology) Order Date: 5-7 Days Entered Date: 05/10/2017 7:59am Address: [address] [place] [phone] Additional Instructions/Education Anticoagulant on discharge will be decided by PRIOR to d/c Functional Status Query Response Date Recorded Assistive Devices None May 07, 2017 6:00pm Ambulation Ability Independent May 07, 2017 6:00pm Toileting Ability Independent May 11, 2017 8:59am Allergies, Adverse Reactions, Alerts Allergen Type Severity Reaction Status Last Updated Lisinopril Allergy Mild TONGUE SWELLING, GEN. EDEMA Active 12/31/15 Immunizations No immunization information available. Vital Signs Acute Vital Signs Vital Response Date/Time Temperature (Fahrenheit) 97.0 degrees F (97.6 - 99.5) 05/11/2017 9:59am Pulse Pulse Rate (adult) 61 bpm (60 - 90) 05/11/2017 9:59am Respiratory Rate 18 bpm (12 - 24) 05/11/2017 9:59am Blood Pressure 146/76 mm Hg 05/11/2017 9:59am Height 5 ft 4 in 05/07/2017 6:00pm Weight 249.03 lb 05/10/2017 12:09pm Body Mass Index 42.7 kg/m^2 05/10/2017 12:09pm Results Laboratory Results Test Name Result Units Flags Reference Collection Date/Time Result Date/ Time Comments White Blood Count 5.42 x10e3/uL 4.8-10.8 05/09/2017 6:43am 05/09/2017 7 :23am Red Blood Count 4.25 x10e6/uL 3.6-5.1 05/09/2017 6:43am 05/09/2017 7: 23am Hemoglobin 12.7 g/dL 12.0-16.0 05/09/2017 6:43am 05/09/2017 7:23am Hematocrit 38.7 % 34.2-44.1 05/09/2017 6:43am 05/09/2017 7:23am Mean Corpuscular Volume 91.1 fL 81-99 05/09/2017 6:43am 05/09/2017 7: 23am Mean Corpuscular Hemoglobin 29.9 pg 28-32 05/09/2017 6:43am 05/09/2017 7:23am Mean Corpuscular Hemoglobin Concent 32.8 g/dL 31-35 05/09/2017 6:43am 05/09/2017 7:23am Red Cell Distribution Width 13.7 % 11.7-14.4 05/09/2017 6:43am 2017 7:23am Platelet Count 190 x10e3/uL 140-360 05/09/2017 6:43am 05/09/2017 7: 23am Neutrophils (%) (Auto) 52.5 % 38.7-80.0 05/09/2017 6:43am 05/09/2017 7: 23am Lymphocytes (%) (Auto) 35.1 % 18.0-39.1 05/09/2017 6:43am 05/09/2017 7: 23am Monocytes (%) (Auto) 7.2 % 4.4-11.3 05/09/2017 6:43am 05/09/2017 7: 23am Eosinophils (%) (Auto) 4.4 % 0.0-6.0 05/09/2017 6:43am 05/09/2017 7: 23am Basophils (%) (Auto) 0.2 % 0.0-1.0 05/09/2017 6:43am 05/09/2017 7:23am IM GRANULOCYTES % 0.6 % 0.0-1.0 05/09/2017 6:43am 05/09/2017 7:23am Neutrophils # (Auto) 2.9 2.1-6.9 05/09/2017 6:43am 05/09/2017 7:23am Lymphocytes # (Auto) 1.9 1.0-3.2 05/09/2017 6:43am 05/09/2017 7:23am Monocytes # (Auto) 0.4 0.2-0.8 05/09/2017 6:43am 05/09/2017 7:23am Eosinophils # (Auto) 0.2 0.0-0.4 05/09/2017 6:43am 05/09/2017 7:23am Basophils # (Auto) 0.0 0.0-0.1 05/09/2017 6:43am 05/09/2017 7:23am Absolute Immature Granulocyte (auto 0.03 x10e3/uL 0-0.1 05/09/2017 6: 43am 05/09/2017 7:23am Prothrombin Time 13.4 seconds 11.9-14.5 05/07/2017 1:50am 05/07/2017 2: 13am Prothromb Time International Ratio 0.97 05/07/2017 1:50am 2017 2:13am Oral Anticoagulant Therapy INR Values: 1. Low Intensity Therapy 1.5 - 2.0 2. Moderate Intensity Therapy 2.0 - 3.0 3. High Intensity Therapy(1) 2.5 - 3.5 4. High Intensity Therapy(2) 3.0 - 4.0 5. Panic Value INR > 5.0 Activated Partial Thromboplast Time 30.5 seconds 23.8-35.5 05/07/2017 1: 50am 05/07/2017 2:13am Urine Color YELLOW YELLOW 05/06/2017 9:00am 05/06/2017 9:22am Urine Clarity CLEAR CLEAR 05/06/2017 9:00am 05/06/2017 9:22am Urine Specific [place] 1.015 1.010-1.025 05/06/2017 9:00am 2017 9:22am Urine pH 6 5 - 7 05/06/2017 9:00am 05/06/2017 9:22am Urine Leukocyte Esterase NEGATIVE NEGATIVE 05/06/2017 9:00am 2017 9:22am Urine Nitrite NEGATIVE NEGATIVE 05/06/2017 9:00am 05/06/2017 9:22am Urine Protein NEGATIVE NEGATIVE 05/06/2017 9:00am 05/06/2017 9:22am Urine Glucose (UA) NEGATIVE NEGATIVE 05/06/2017 9:00am 05/06/2017 9: 22am Urine Ketones 1+ H NEGATIVE 05/06/2017 9:00am 05/06/2017 9:22am Urine Urobilinogen 0.2 mg/dL 0.2 - 1 05/06/2017 9:00am 05/06/2017 9: 22am Urine Bilirubin NEGATIVE NEGATIVE 05/06/2017 9:00am 05/06/2017 9: 22am Urine Blood NEGATIVE NEGATIVE 05/06/2017 9:00am 05/06/2017 9:22am Urine WBC NONE /HPF 0-5 05/06/2017 9:00am 05/06/2017 9:33am Urine RBC NONE /HPF 0-5 05/06/2017 9:00am 05/06/2017 9:33am Urine Bacteria NONE /HPF NONE 05/06/2017 9:00am 05/06/2017 9:33am Urine Epithelial Cells RARE /LPF NONE 05/06/2017 9:00am 05/06/2017 9: 33am Sodium Level 143 mmol/L 136-145 05/09/2017 6:43am 05/09/2017 7:45am Potassium Level 3.5 mmol/L 3.5-5.1 05/09/2017 6:43am 05/09/2017 7:45am Chloride Level 105 mmol/L 98-107 05/09/2017 6:43am 05/09/2017 7:45am Carbon Dioxide Level 27 mmol/L 22-29 05/09/2017 6:43am 05/09/2017 7: 45am Anion Gap 14.5 mmol/L 8-16 05/09/2017 6:43am 05/09/2017 7:45am Blood Urea Nitrogen 5 mg/dL L 7-05/09/2017 6:43am 05/09/2017 7:45am Creatinine 0.64 mg/dL 0.57-1.11 05/09/2017 6:43am 05/09/2017 7:45am BUN/Creatinine Ratio 8 6-05/09/2017 6:43am 05/09/2017 7:45am Estimat Glomerular Filtration Rate > 60 ML/MIN 60- 05/09/2017 6:43am 7:45am Ranges were taken from the National Kidney Disease Education Program and the National Kidney Foundation literature. Reference ranges: 60 or greater: Normal 16-59 (for 3 consecutive months): Chronic kidney disease 15 or less: Kidney failure Glucose Level 112 mg/dL 74-118 05/09/2017 6:43am 05/09/2017 7:45am Calcium Level 8.6 mg/dL 8.4-10.2 05/09/2017 6:43am 05/09/2017 7:45am Bedside Glucose 116 mg/dL 70-120 05/11/2017 7:07am 05/11/2017 7:24am Meter ID: [id number] Hemoglobin A1c Percent 5.1 % 4.0-7.0 05/07/2017 1:50am 05/07/2017 10: 42am Lactic Acid Level 25.1 MG/DL H 4.5-19.8 05/06/2017 8:20am 05/06/2017 9: 39am Phosphorus Level 3.6 MG/DL 2.3-4.7 05/06/2017 8:20am 05/06/2017 8:52am Magnesium Level 1.3 MG/DL 1.3-2.1 05/06/2017 8:20am 05/06/2017 8:52am Total Bilirubin 0.9 mg/dL 0.2-1.2 05/07/2017 1:50am 05/07/2017 2:23am Aspartate Amino Transf (AST/SGOT) 15 IU/L 5-34 05/07/2017 1:50am 2017 2:23am Alanine Aminotransferase (ALT/SGPT) 10 IU/L 0-55 05/07/2017 1:50am 2:23am Total Protein 6.2 g/dL L 6.5-8.1 05/07/2017 1:50am 05/07/2017 2:23am Albumin 3.4 g/dL L 3.5-5.0 05/07/2017 1:50am 05/07/2017 2:23am Globulin 2.8 g/dL 2.3-3.5 05/07/2017 1:50am 05/07/2017 2:23am Albumin/Globulin Ratio 1.2 0.8-2.0 05/07/2017 1:50am 05/07/2017 2: 23am Alkaline Phosphatase 55 IU/L 40-150 05/07/2017 1:50am 05/07/2017 2: 23am Triglycerides Level 108 MG/DL 0-149 05/07/2017 1:50am 05/07/2017 2: 23am Cholesterol Level 76 MD/DL 0-199 05/07/2017 1:50am 05/07/2017 2:23am Less than 200 mg/dL Low Risk 201 - 239 mg/dL Borderline Risk 240 mg/dl and greater High Risk LDL Cholesterol 9 MG/DL L 60-130 05/07/2017 1:50am 05/07/2017 2:23am HDL Cholesterol 45 MG/DL 40-60 05/07/2017 1:50am 05/07/2017 2:23am Cholesterol/HDL Ratio 1.7 L 3.0-3.6 05/07/2017 1:50am 05/07/2017 2: 23am B-Type Natriuretic Peptide 25.5 pg/mL 0-100 05/06/2017 8:20am 2017 9:14am Creatine Kinase 81 IU/L 29-168 05/07/2017 1:50am 05/07/2017 2:23am Creatine Kinase MB 1.30 ng/mL 0.00-5.00 05/07/2017 1:50am 05/07/2017 2: 29am Troponin I 0.016 ng/mL 0-0.300 05/07/2017 1:50am 05/07/2017 2:29am Thyroid Stimulating Hormone (TSH) 1.904 uIU/mL 0.350-4.940 05/06/2017 8: 20am 05/06/2017 9:14am Microbiology Results Procedure Source Organism/Result Collection Date/Time Result Date/Time Result Status Blood Culture Blood NO GROWTH AFTER 5 DAYS, FINAL REPORT 05/06/2017 8:20am 05/11/2017 9:29am Final Procedures Procedure Status Date Provider(s) UPPR GI SCOPE W/SUBMUC INJ Completed 12/29/16 ALAN VILLEDA MD Encounters Encounter Location Arrival/Admit Date Discharge/Depart Date Attending Provider Discharged Inpatient [facility] 05/06/17 1:26pm 05/11/17 10:27am PRANAV BUCKLEY MD Registered Surgical Day Care [facility] 12/29/16 8:51am ALAN VILLEDA MD Registered Clinic [facility] 11/18/16 7:24am ALAN VILLEDA MD
--- OUTSIDE RECORDS SUMMARY | 2017-07-27 06:47 | XMS REPORT ---
Author Author [facility] Address Unknown Phone Unavailable Care Team Providers Care Comfort Station Attendant Name Role Phone PRANAV BUCKLEY Unavailable Unavailable Problems This patient has no known problems. Allergies, Adverse Reactions, Alerts This patient has no known allergies or adverse reactions. Medications This patient has no known medications. Results Test Description Test Time Test Comments Text Results Atomic Results Result Comments Stress Test - Treadmill ONLY [address] [address] Patient Name : JARVIS BETANCOURT MR #: [id number] : 1945 Age/Sex: 72/F Adm Physician : PRANAV BUCKLEY MD Admit Date : 05/06/17 Location : [facility]/SURG[facility] Room/Bed : [facility] REPORT: Cardiology Report DATE OF STUDY: LEXISCAN NUCLEAR STRESS TEST INDICATION: Chest pain. DESCRIPTION OF PROCEDURE: After informed consent, patient was brought to the stress lab. She was given 28 mCi of technetium 99 Myoview and myocardial perfusion SPECT images obtained in the horizontal long axis, short axis, and vertical long axis. The next day, patient was given 0.4 mg of Lexiscan over 10 seconds. Patient was given 28 mCi of technetium 99 Myoview and myocardial perfusion SPECT images were obtained in horizontal long axis, short axis, and vertical long axis. Gating images were also obtained. Patient tolerated the procedure without any complications. A 2-day protocol was performed because patient was obese. REPORT: Baseline EKG shows sinus rhythm at 61 beats per minute. Normal axis. Normal intervals. No acute ST-T changes. PARAMETERS 1. Resting heart rate is 70 beats per minute. 2. Maximum heart rate is 96 beats per minute. 3. Resting blood pressure 175/81 mmHg. 4. Maximum blood pressure 175/81 mmHg. REASON FOR TERMINATION: Endpoint obtained. INTERPRETATION 1. Negative chest pain. 2. Negative for arrhythmias. 3. Blood pressure response consistent with Lexiscan. 4. No significant ST-T changes seen during Lexiscan infusion compared to baseline. 5. Analysis of SPECT images reveals uniform radioisotope uptake in all segments of myocardium without any significant perfusion defects. CONCLUSION 1. No evidence significant ischemia or infarction on this study. 2. No wall motion abnormalities. 3. Overall ejection fraction is 76%. Job#: [id number] PAT Signature Date Dictated By: MAHAD ASHRAF MD Transcribed By: SMEDS on 05/10/17 <Electronically signed by MAHAD ASHRAF MD><<Signature on File>>05/18/17 0957 COPY TO: CHEST SINGLE (PORTABLE) [place] [address] Patient Name: JARVIS BETANCOURT MR #: [id number] : 1945 Age/Sex: 72/F Req #: [id number] Adm Physician: PRANAV BUCKLEY MD Ordered by: CL QUILES MD Report #: [id number] Location: [facility] Room/Bed: [place] [address] Procedure: [id number] DX/CHEST SINGLE (PORTABLE) Exam Date: 05/07/17 Exam Time: 0605 REPORT STATUS: Signed CHEST SINGLE (PORTABLE), 05/07/2017 5:00 AM Technique: CHEST SINGLE (PORTABLE) Comparison: None available. Clinical history: Shortness of breath Findings: See Impression Impression: 1. Mildly enlarged cardiac silhouette. 2. Bibasilar opacities which may reflect atelectasis. Aspiration or infection could be considered in the proper clinical context. 3. No significant effusion. No pneumothorax. Signed by : Dr Marleny Rizzo MD on 05/07/2017 6:45 AM Dictated By: MARLENY RIZZO MD 4 Transcribed By: CLIFFORD on 05/07/17644 COPY TO: CL QUILES MD CHEST SINGLE (PORTABLE) [place] [address] Patient Name: JARVIS BETANCOURT MR #: [id number] : 1945 Age/Sex: 72/F Req #: [id number] Adm Physician: Ordered by: CL QUILES MD Report #: [id number] Location: ER Room/Bed: Procedure: [id number] DX/CHEST SINGLE (PORTABLE) Exam Date: 05/06/17 Exam Time: 1000 REPORT STATUS: Signed PROCEDURE: A single AP view of the chest. COMPARISON: 12/20/2015 INDICATIONS: SHORTNESS OF BREATH FINDINGS: Lines/tubes: None. Lungs: Bibasilar subsegmental atelectasis. No consolidation or edema. Pleura: There is no pleural effusion or pneumothorax. Heart and mediastinum: Tortuous aorta. The pulmonary arteries are prominent. Bones: No acute bony abnormality. IMPRESSION: No evidence of infection or edema. Dictated by: Arnaldo Chua M.D. on 05/06/2017 at 11:33 Electronically approved by: Arnaldo Chua M.D. on 05/06/2017 at 11:33 Dictated By: ARNALDO CHUA MD 1133 Transcribed By: JIMMY on 05/06/17 1133 COPY TO: CL QUILES MD
--- NOTE | 2017-08-16 00:06 | Operative Report ---
DATE OF PROCEDURE: July 27, 2017 PREOPERATIVE DIAGNOSIS: Refractory urge incontinence. POSTOPERATIVE DIAGNOSIS: Refractory urge incontinence. OPERATIONS PERFORMED 1. Complete InterStim system implantation with incision and implantation of sudha quadripolar lead electrodes into the left foramen, S3. 2. Fluoroscopic guidance for needle placement. 3. Supervision of fluoroscopy. No radiologist present. 4. Subcutaneous implantation of left sacral nerve neurostimulator. 5. Electronic analysis and complex programming. ANESTHESIA: General. CLINICAL SUMMARY: Mary Ellen Jiang is a 72-year-old woman with refractory urge incontinence. She has failed medications. She failed behavioral therapy. She has failed Kegel exercises. The patient had an excellent test done percutaneously by the office with significant decrease of her urinary symptomatology and incontinence. The patient elected to proceed with implant as planned. She is aware of the risks of bleeding, infection, injury to adjacent structures, need for additional procedures, and the fact she will have a permanent implant. She also understands that she will not be able to undergo MRI testing. She understood all these risks and elected to proceed. OPERATIVE PROCEDURE IN DETAIL: Informed consent was verified. Mary Ellen Jiang was properly identified, taken to operating room, placed on the operating table in the prone position with all pressure points carefully well padded. Pillows were placed under lower abdomen to flatten the sacrum and under the shins to allow the toes to dangle freely. The patient was prepped and draped in usual sterile fashion. C-arm was utilized. Throughout this procedure Marcaine and lidocaine with epinephrine were utilized as a local anesthetic. A needle was introduced into the left foramen S3. The depth was verified fluoroscopically. We also identified proper position by identification of direct observation of the lifting of the perineum or "bellowing" and direct observation of plantar flexion of the great toe utilizing the test stimulator box. The needle stylet was then removed and directional guidewire was then placed confirmed fluoroscopically. The foramen needle was then removed. An incision was then made peripherally to the directional guide and the dilator and introducer sheath were then placed over the directional guidewire and directed to foramen until the opaque marker of the dilator was seen at the midpoint of the sacrum. The dilator obturator was then unlocked and removed. The lead was then placed through the introducer sheath to the 1st white line. Position was checked fluoroscopically. The lead was further tested. The lead was then introduced until 3 electrodes were visible anterior to the sacrum. Each electrode was tested for the same response as above. After satisfactory positioning was confirmed, the introducer sheath was retracted under continuous fluoroscopy. Thus, deploying the lead tines into the perisacral tissue. Further incision was then made into subcutaneous tissues posterior to the iliac crest in the left-hand side and a pocket was developed for the neurostimulator. A tunneling tool was then utilized to take the lead and bring it to the pocket site. The tunneling tool was then removed. The lead was cleansed thoroughly of bodily fluids with sterile water and dried thoroughly. The lead was then inserted into the InterStim pulse generator header with the metal bands aligned and the blue tip clearly visible in the distal portion of pulse generator header. The single set screw was tightened with a hex wrench. The pulse generator was then placed in the subcutaneous pocket following copious irrigation. The programming head was then placed over the implanted neurostimulator and all impedance parameters were within acceptable limits. Both incisions were approximated with absorbable suture in 2 layers. Mastisol, Steri-Strips, and bio-occlusive dressings were applied. The patient was then uneventfully reversed from anesthesia and taken to recovery room in stable condition. There were no complications of procedure. Patient tolerated the procedure well. Sponge, needle, instrument count were correct times 2 at the end of the case. Estimated blood loss was minimal. The patient was then transferred to the recovery room in stable position and then, utilizing the clinician system programmer, the patient was programmed to the lead of optimum sensation and given explicit instructions on utilization of the patient system programmer prior to discharge. Plans will be to follow the patient up in the office and evaluate the success of the procedure. Job#: [id number] CQ cc:INA JIMENEZ MD
== END | disposition home or self-care (01) ==
LOC: OR 06:44
PROVIDERS: ATTEND Urology
DX: N39.46 Mixed incontinence (principal); R35.1 Nocturia; N28.1 Cyst of kidney, acquired; E66.01 Morbid (severe) obesity due to excess calories; Z87.442 Personal history of urinary calculi; N81.89 Other female genital prolapse; N95.2 Postmenopausal atrophic vaginitis; G47.33 Obstructive sleep apnea (adult) (pediatric); I10 Essential (primary) hypertension; I48.91 Unspecified atrial fibrillation; E11.9 Type 2 diabetes mellitus without complications; K31.84 Gastroparesis; K21.9 Gastro-esophageal reflux disease without esophagitis; R15.9 Full incontinence of feces; Z01.812 Encounter for preprocedural laboratory examination; Z79.4 Long term (current) use of insulin; Z79.02 Long term (current) use of antithrombotics/antiplatelets; Z68.41 Body mass index [BMI] 40.0-44.9, adult
CPT/HCPCS: 36415 ×2; 64581; 64590; 76000; 80048; 82948; 85025; 93005; 95972; C1778; C1787; C1894; J1100; J2001 ×2; J2250; J2405; J2543; L8679; L8696

== ENCOUNTER → 2017-08-17 | Day surgery (SDC) | payer MEDICARE ==
[~2017-08-17] MED LIST changes: +BOTULINUM TOXIN TYPE A 100 UNIT VIAL IM ONE; -BUPIVACAINE 0.5%/EPI 30 ML SDV INJ ONE; -CLINDAMYCIN PHOS 900MG/ D5W 50 50 ML IV ONE; -DEXAMETHASONE SOD PHOS INJ 4 MG/ML VIAL ONE; +EPHEDRINE SULFATE INJ 50 MG/10 ML SYR ONE; -KETAMINE HCL INJ 50 MG/ML 10 ML VIAL ONE; -LIDOCAINE 2%/ EPINEPHRINE 20ML MDV ONE; -LIDOCAINE HCL 2% LOCAL INJ 5 ML SDV VIAL INJ ONE; -ONDANSETRON HCL INJ 2 MG/ML VIAL ONE; -PIPER-TAZ 3.375 GM 100 ML ONE; -SEVOFLURANE INHAL SOLN 250 ML PEN BTL ONE
--- OUTSIDE RECORDS SUMMARY | 2017-08-17 10:04 | XMS REPORT ---
Author Author [facility] Address Unknown Phone Unavailable Care Team Providers Care Retail Business Development Manager Name Role Phone PRANAV BUCKLEY Unavailable Unavailable Problems This patient has no known problems. Allergies, Adverse Reactions, Alerts This patient has no known allergies or adverse reactions. Medications This patient has no known medications. Results Test Description Test Time Test Comments Text Results Atomic Results Result Comments Stress Test - Treadmill ONLY [address] [address] Patient Name : JARVIS BETANCOURT MR #: [id number] : 1945 Age/Sex: 72/F Adm Physician : PRANAV BUCKLEY MD Admit Date : 05/06/17 Location : [facility]/SURG[facility] Room/Bed : [facility] REPORT: Cardiology Report DATE OF STUDY: [...] 3. Overall ejection fraction is 76%. Job#: [id number] PAT Signature Date Dictated By: MAHAD ASHRAF MD Transcribed By: SMEDS on 05/10/17 <Electronically signed by MAHAD ASHRAF MD><<Signature on File>>05/18/17 0957 COPY TO: CHEST SINGLE (PORTABLE) [place] [address] Patient Name: JARVIS BETANCOURT MR #: [id number] : 1945 Age/Sex: 72/F Req #: [id number] Adm Physician: PRANAV BUCKLEY MD Ordered by: CL QUILES MD Report #: [id number] Location: [facility] Room/Bed: [place] [address] Procedure: [id number] DX/CHEST SINGLE (PORTABLE) Exam Date: 05/07/17 Exam [...] TO: CL QUILES MD CHEST SINGLE (PORTABLE) [place] [address] Patient Name: JARVIS BETANCOURT MR #: [id number] : 1945 Age/Sex: 72/F Req #: [id number] Adm Physician: Ordered by: CL QUILES MD Report #: [id number] Location: ER Room/Bed: Procedure: [id number] DX/CHEST SINGLE (PORTABLE) Exam Date: 05/06/17 Exam [...] evidence of infection or edema. Dictated by: Arnlado Chua M.D. on 05/06/2017 at 11:33 Electronically approved by: Arnaldo Chua M.D. on 05/06/2017 at 11:33 Dictated By: ARNALDO CHUA MD 1133 Transcribed By: JIMMY on 05/06/17 1133 COPY TO: CL QUILES MD
== END | disposition home or self-care (01) ==
LOC: OR 10:02 → MERGE 11:30
PROVIDERS: ATTEND Internal Medicine Gastroenterology
DX: K29.70 Gastritis, unspecified, without bleeding (principal); K31.84 Gastroparesis; K21.0 Gastro-esophageal reflux disease with esophagitis; K58.0 Irritable bowel syndrome with diarrhea; K44.9 Diaphragmatic hernia without obstruction or gangrene; E11.9 Type 2 diabetes mellitus without complications; I10 Essential (primary) hypertension; E66.01 Morbid (severe) obesity due to excess calories; G47.33 Obstructive sleep apnea (adult) (pediatric); Z79.4 Long term (current) use of insulin; Z68.41 Body mass index [BMI] 40.0-44.9, adult
CPT/HCPCS: 36415; 43236; 43239; 82948; J0587; J2250; 43235

== ENCOUNTER 2018-06-03 09:45 | Inpatient (IN) | payer MEDICARE ==
[~2018-06-03] VITALS: Ht 162.6 cm; Wt 115.4 kg
[~2018-06-03 09:45] MED LIST changes: -BOTULINUM TOXIN TYPE A 100 UNIT VIAL IM ONE; -EPHEDRINE SULFATE INJ 50 MG/10 ML SYR ONE; -FENTANYL CITRATE/PF 100MCG/2 ML INJ ONE; -MIDAZOLAM HCL 2 MG/2 ML VIAL ONE; -PROPOFOL IV EMULSION 10 MG/ML 20 ML VIAL ONE
[2018-06-03] MEDS ORDERED: SODIUM CHLORIDE 0.9% 1000ML 1,000 ML IV STA (10:03)
[2018-06-03 10:22] LABS: BASOPHILS % 0.3 % (0.0-1.0); EOSINOPHILS % 0.4 % (0.0-6.0); HEMATOCRIT 47.1 % (34.2-44.1); HEMOGLOBIN 15.9 g/dL (12.0-16.0); LYMPHOCYTES # (AUTO) 2.9 (1.0-3.2); LYMPHOCYTES % 32.3 % (18.0-39.1); MEAN CORPUSCULAR HEMOGLOBIN 29.2 pg (28-32); MEAN CORPUSCULAR HGB CONC 33.8 g/dL (31-35); MEAN CORPUSCULAR VOLUME 86.4 fL (81-99); MONOCYTES # (AUTO) 0.6 (0.2-0.8); MONOCYTES % 6.9 % (4.4-11.3); NEUTROPHILS # (AUTO) 5.4 (2.1-6.9); NEUTROPHILS % 59.9 % (38.7-80.0); PLATELET COUNT 246 x10e3/uL (140-360); RED BLOOD COUNT 5.45 x10e6/uL (3.6-5.1); RED CELL DISTRIBUTION WIDTH 14.1 % (11.7-14.4)
[2018-06-03 10:43] LABS: ALBUMIN 5.1 g/dL (3.5-5.0); ALBUMIN/GLOBULIN RATIO 1.6 (0.8-2.0); ANION GAP 17.5 mmol/L (8-16); CALCIUM 10.3 mg/dL (8.4-10.2); CREATININE, SERUM 0.92 mg/dL (0.57-1.11); POTASSIUM 3.5 mmol/L (3.5-5.1)
[2018-06-03] MEDS ORDERED: KETOROLAC TROMETHAMINE 30 MG/ML VIAL IV NR (11:00)
[2018-06-03 11:46] LABS: BILIRUBIN,URINE NEGATIVE (NEGATIVE); CLARITY,URINE SL CLOUDY (CLEAR); COLOR,URINE YELLOW (YELLOW); KETONES,URINE NEGATIVE (NEGATIVE); LEUKOCYTE ESTERASE ,URINE 1+ (NEGATIVE); NITRITE,URINE POSITIVE (NEGATIVE); PROTEIN,URINE DIPSTICK NEGATIVE (NEGATIVE); URINE UROBILINOGEN 0.2 mg/dL (0.2 - 1)
[2018-06-03 12:06] LABS: BACTERIA,URINE MANY /HPF; EPITHELIAL CELLS,URINE FEW /LPF; MUCUS,URINE FEW (RARE); RBC,URINE 0-5 /HPF (0-5)
[2018-06-03 12:10] LABS: OCCULT BLOOD STOOL NEGATIVE (NEGATIVE)
[2018-06-03] MEDS ORDERED: METRONIDAZOLE 500MG/NS 100ML 100 ML IV STA (12:43)
[2018-06-03] MEDS ORDERED: CEFTRIAXONE SOD 1 GM/NS 50 ML 50 ML IV ONE (12:45)
[2018-06-03] MEDS ORDERED: MORPHINE SULFATE 5 MG/ML VIAL IV NR (12:45)
[2018-06-03] MEDS ORDERED: ONDANSETRON HCL INJ 2MG/ML 2ML 2 MG/ML VIAL IV NR ×2 (13:00→14:29)
[2018-06-03 13:09] LABS: C DIFFICILE TOXIN A&B AMP PROB **POSITIVE** (NEGATIVE)
[2018-06-03] MEDS ORDERED: MORPHINE SULFATE INJ 4 MG/ML INJ 1ML IV NR (13:15)
--- NOTE | 2018-06-03 13:45 | NUR ---
PATIENT DIAPHORETIC AND NSUSEATED AFTER RECEVING MORPHINE, COOL WASH CLOTH AND EMESIS BAG PROVIDED. NOTIFIED DR BOUDREAUX. NO NEW ORDERS NOTED AT THIS TIME. PATIENT AWAKE AND ALERT. RESP EVEN AND UNLABORED. NO SIGNS OF ACUTE DISTERSS NOTED AT THIS TIME.
--- NOTE | 2018-06-03 13:50 | NUR ---
NOTIFIED DR BOUDREAUX PATIENT C/O CHEST PAIN AND PALPATIONS, SOB AFTER RECEIVING MORPHINE, PATIENT PALE AND DIAPHORETIC. RESP RAPID, EVEN AND UNLABORED.
--- NOTE | 2018-06-03 13:51 | NUR ---
DR BOUDREAUX AT BEDSIDE FOR RE-EVAL. REPEAT EKG ORDERED AT THIS TIME.
--- NOTE | 2018-06-03 13:54 | NUR ---
NOTIFIED DR BOUDREAUX PATIENT IN AFIB RVR.
[2018-06-03] MEDS ORDERED: DILTIAZEM HCL 5 MG/ML 5 ML VIAL IV NR ×4 (14:01→14:29)
[2018-06-03] MEDS ORDERED: DILTIAZEM HCL VIAL 5 ML ONE (14:02)
[2018-06-03] MEDS ORDERED: SODIUM CHLORIDE 0.9% 1000ML 1,000 ML ONE (14:10)
[2018-06-03] MEDS ORDERED: SODIUM CHLORIDE 0.9% 1000ML 1,000 ML IV ONE (14:10)
--- NOTE | 2018-06-03 14:20 | NUR ---
DR BOUDREAUX AT BEDSIDE FOR RE-EVAL AFTER CARDIZEM BOLUS, PATIENT REPORTS DECREASE IN CHEST PAIN AND SOB AFTER RECEIVING CARDIZEM. VERBAL ORDER RECEIVED FOR CARDIZEM 5MG IV BOLUS ONCE.
[2018-06-03] MEDS ORDERED: METOPROLOL TARTRATE 50 MG TAB PO SCH (14:45)
[2018-06-03] MEDS ORDERED: ONDANSETRON HCL INJ 2MG/ML 2ML 2 MG/ML VIAL IV PRN (15:00)
[2018-06-03] MEDS ORDERED: NITROGLYCERIN 0.4 MG SUBL SL PRN (15:00)
[2018-06-03] MEDS ORDERED: SODIUM CHLORIDE FLUSH 10 ML SYR INJ PRN (15:00)
--- NOTE | 2018-06-03 15:00 | NUR ---
PATIENT AWAKE AND ALERT SITTING UP IN BED. RESP EVEN AND UNLABORED. SKIN WARM AND DRY. NO SIGNS OF ACUTE DISTRESS NOTED AT THIS TIME.
[2018-06-03] MEDS: METOPROLOL TARTRATE 25 MG TAB PO SCH (15:34)
[2018-06-03] MEDS: PANTOPRAZOLE 40 MG 10ML VIAL IV SCH (16:20)
--- NOTE | 2018-06-03 17:05 | NUR ---
LATE ENTRY: PATIENT CONVERTED TO SINUS RHYTHM, NOTIFIED DR BOUDREAUX.
--- NOTE | 2018-06-03 17:20 | NUR ---
patient arrived on unit on stretcher. Patient in no distress, call cunningham within reach and bed in lowest position.
[2018-06-03 17:30] VITALS: BP 113/59
[2018-06-03 18:21] VITALS: BP 113/59
[2018-06-03 18:37] VITALS: BP 113/59
[2018-06-03] MEDS: VANCOMYCIN 250MG/5ML ORAL SOLN PO SCH (18:58)
[2018-06-03] MEDS ORDERED: METRONIDAZOLE 500MG/NS 100ML 100 ML IV NR (19:15)
--- NOTE | 2018-06-03 19:20 | NUR ---
walking rounds made with slot shift supervisor nurse, patient aware of change and in no distress. Call cunningham within reach and bed in lowest position.
--- NOTE | 2018-06-03 19:45 | NUR ---
Received patient from day nurse, patient is alert and oriented, introduced myself to patient and patient made aware of the importance of calling for help, patient verbalized understanding. safety and fall precaution maintained as per hospital protocol:bed in lowest position and locked, needed items beside bed and call cunningham placed close to patient, yellow socks on patient, bed alarm set, and room made free of clutter. patient is currently stable will continue to monitor.
[2018-06-03 20:37] VITALS: BP 99/54
--- NOTE | 2018-06-03 22:00 | NUR ---
2000: patient rounded : bed in lowest position and locked, needed items beside bed and call cunningham placed close to patient, yellow socks on patient, bed alarm is on, room is free of clutter. patient is currently stable will continue to monitor. 2200: patient rounded : bed in lowest position and locked, needed items beside bed and call cunningham placed close to patient, yellow socks on patient, bed alarm is on, room is free of clutter. patient is currently stable will continue to monitor.
[2018-06-04] VITALS (8 sets, daily range): BP systolic 102–150; BP diastolic 51–68
[2018-06-04] MEDS: METOPROLOL TARTRATE 25 MG TAB PO SCH ×2 (03:55→18:08)
--- NOTE | 2018-06-04 04:15 | NUR ---
0400: Patient rounded and stable. 0600: patient rounded and stable.
[2018-06-04 05:09] LABS: CREATINE KINASE MB 2.1 ng/mL (0-5.0)
[2018-06-04] MEDS: VANCOMYCIN 250MG/5ML ORAL SOLN PO SCH ×4 (05:26→18:08)
--- NOTE | 2018-06-04 05:51 | NUR ---
Dr. Mattson called for consult, spoke to Sintia at the office.
[2018-06-04 05:57] LABS: BASOPHILS % 0.3 % (0.0-1.0); EOSINOPHILS % 0.3 % (0.0-6.0); HEMATOCRIT 39.8 % (34.2-44.1); LYMPHOCYTES # (AUTO) 2.2 (1.0-3.2); LYMPHOCYTES % 31.6 % (18.0-39.1); MEAN CORPUSCULAR HEMOGLOBIN 29.3 pg (28-32); MEAN CORPUSCULAR HGB CONC 32.7 g/dL (31-35); MEAN CORPUSCULAR VOLUME 89.6 fL (81-99); MONOCYTES # (AUTO) 0.6 (0.2-0.8); MONOCYTES % 7.9 % (4.4-11.3); NEUTROPHILS # (AUTO) 4.2 (2.1-6.9); NEUTROPHILS % 59.8 % (38.7-80.0); PLATELET COUNT 196 x10e3/uL (140-360); RED BLOOD COUNT 4.44 x10e6/uL (3.6-5.1); RED CELL DISTRIBUTION WIDTH 14.2 % (11.7-14.4)
[2018-06-04 06:04] LABS: CREATINE KINASE MB 1.2 ng/mL (0-5.0)
[2018-06-04 06:18] LABS: ANION GAP 13.6 mmol/L (8-16); BLOOD UREA NITROGEN 14 mg/dL (7-26); BUN/CREATININE RATIO 19 (6-25); CALCIUM 8.5 mg/dL (8.4-10.2); CARBON DIOXIDE 25 mmol/L (22-29); CHLORIDE 106 mmol/L (98-107); CHOL/HDL RATIO 1.6 (3.0-3.6); CHOLESTEROL 82 MD/DL (0-199); CREATININE, SERUM 0.75 mg/dL (0.57-1.11); EST GLOMERULAR FILTRATION RATE > 60 ML/MIN (60-); GLUCOSE 106 mg/dL (74-118); HDL CHOLESTEROL 51 MG/DL (40-60); LDL CHOLESTEROL 10 MG/DL (60-130); POTASSIUM 3.6 mmol/L (3.5-5.1); SODIUM 141 mmol/L (136-145); TRIGLYCERIDES 104 MG/DL (0-149)
--- NOTE | 2018-06-04 07:00 | NUR ---
walking rounds done with saw operator nurse, patient aware of change. Call cunningham within reach, patient sitting in bedside chair
--- NOTE | 2018-06-04 07:11 | NUR ---
Patient endorsed to next shift for continuity of care.
[2018-06-04] MEDS: PANTOPRAZOLE 40 MG 10ML VIAL IV SCH ×2 (09:05→18:08)
[2018-06-04 09:27] LABS: CREATINE KINASE MB 2.2 ng/mL (0-5.0)
--- NOTE | 2018-06-04 14:30 | NUR ---
History and Physical CHIEF COMPLAINT: diarrhea HISTORY OF PRESENT ILLNESS: This is a 72-year-old woman, PCP , developed diarrhea for 1 week, and subjective fevers, and A.fib with RVR. PAST MEDICAL HISTORY: Diabetes mellitus, type 2, hypertension, IBS, PAF PAST SURGICAL HISTORY: Hysterectomy, tonsillectomy, cholecystectomy, appendectomy, stomach stapling. ALLERGIES: PER ELECTRONIC MEDICAL RECORDS. FAMILY HISTORY/SOCIAL HISTORY: Patient is . She has 2 children. No alcohol, illicits or cigarettes. MEDICATIONS: Per electronic medical record. REVIEW OF SYSTEMS: Denies any dizziness. PHYSICAL EXAMINATION VITAL SIGNS: Have been reviewed. GENERAL: A tired-appearing woman resting in bed. HEENT: Anicteric. Pupils respond to light. No oral lesions. CARDIOVASCULAR: Normal S1 and S2. ABDOMEN: Soft, Mild tenderness epigastrium; BACK: She has mild erythema of the midback region, but no rashes visible. EXTREMITIES: No edema. She has dry skin. NEUROLOGICAL: Alert and oriented times 3. Moving all extremities. LABS: Reviewed. MEDICATIONS: Reviewed. ASSESSMENT AND PLAN: This is a 72-year-old woman with: 1. C.diff diarrhea 2.A.fib with RVR 3.DM2 4.Dehydration 5.Physical deconditioning 6.HTN PLAN 1.flagyl+vanco 2.IVF 3.Rate control 4.hba1c/lipids 5. 1/2 insulin dose Jonas Moya MD, PhD.
[2018-06-04] MEDS: METRONIDAZOLE 500MG/NS 100ML 100 ML IV SCH ×2 (15:57→21:18)
[2018-06-04] MEDS: GABAPENTIN 300 MG CAP PO SCH ×2 (15:57→21:18)
[2018-06-04] MEDS ORDERED: ACETAMINOPHEN 325 MG TAB PO PRN (16:15)
--- NOTE | 2018-06-04 19:04 | NUR ---
Received patient from day nurse, patient is alert and oriented, introduced myself to patient and patient made aware of the importance of calling for help, patient verbalized understanding. safety and fall precaution maintained as per hospital protocol:bed in lowest position and locked, needed items beside bed and call cunningham placed close to patient, yellow socks on patient, bed alarm set, and room made free of clutter. patient is currently stable will continue to monitor.patient complained of abd pain, Dr. Moya was made aware and he ordered norco, patient also complained of difficulty sleepy, was made aware and he ordered ambien.
--- NOTE | 2018-06-04 19:05 | NUR ---
report given to material handler 2nd shift nurse, patient aware of change. Call cunningham within reach and bed in lowest position
[2018-06-04] MEDS: HYDROCODONE/APAP 5MG-325MG TAB PO PRN (21:18)
[2018-06-04] MEDS: ZOLPIDEM TARTRATE 5 MG TAB PO PRN (21:19)
[2018-06-04] MEDS: INSULIN GLARGINE 100 UNITS/ML VIAL SQ SCH (21:27)
[2018-06-05] VITALS (8 sets, daily range): BP systolic 127–185; BP diastolic 58–89
[2018-06-05] MEDS: VANCOMYCIN 250MG/5ML ORAL SOLN PO SCH ×4 (00:27→18:41)
[2018-06-05] MEDS: METRONIDAZOLE 500MG/NS 100ML 100 ML IV SCH ×3 (05:24→22:00)
--- NOTE | 2018-06-05 06:15 | NUR ---
Report given to day nurse(Masood) for continuity of care.
[2018-06-05] MEDS: PROMETHAZINE 12.5MG/ NACL 0.9% 12.5 MG/50 ML BAG IV PRN ×3 (06:45→20:55)
[2018-06-05] MEDS: HYDROCODONE/APAP 5MG-325MG TAB PO PRN ×3 (06:46→20:55)
--- NOTE | 2018-06-05 09:50 | NUR ---
Pt received resting in bed. Alert and oriented x4 on enteric isolation for C. Diff. Oriented to staff and surroundings, encouraged to press call cunningham if help needed. All meds given as ordered. Emotional support given. Fall precautions maintained. Will monitor
[2018-06-05] MEDS: GABAPENTIN 300 MG CAP PO SCH ×3 (09:59→21:00)
[2018-06-05] MEDS: LOSARTAN POTASSIUM 100 MG TAB PO SCH (09:59)
[2018-06-05] MEDS: PANTOPRAZOLE 40 MG 10ML VIAL IV SCH ×2 (09:59→18:40)
[2018-06-05] MEDS: AMLODIPINE BESYLATE 10 MG TAB PO SCH (10:00)
[2018-06-05] MEDS ORDERED: SODIUM CHLORIDE 0.9% 250ML 250 ML ONE (12:59)
--- NOTE | 2018-06-05 14:05 | NUR ---
Im- Progress note O/N; no events REVIEW OF SYSTEMS: Denies any dizziness. PHYSICAL EXAMINATION VITAL SIGNS: Have been reviewed. GENERAL: A tired-appearing woman resting in bed. HEENT: Anicteric. Pupils respond to light. No oral lesions. CARDIOVASCULAR: Normal S1 and S2. ABDOMEN: Soft, Mild tenderness epigastrium; BACK: She has mild erythema of the midback region, but no rashes visible. EXTREMITIES: No edema. She has dry skin. NEUROLOGICAL: Alert and oriented times 3. Moving all extremities. LABS: Reviewed. MEDICATIONS: Reviewed. ASSESSMENT AND PLAN: This is a 72-year-old woman with: 1. C.diff diarrhea 2.A.fib with RVR 3.DM2 4.Dehydration 5.Physical deconditioning 6.HTN PLAN 1.flagyl+vanco 2.IVF 3.Rate control 4.hba1c/lipids 5. 1/2 insulin dose GNR UTI; cont abx; Jonas Moya MD, PhD.
[2018-06-05] MEDS: METOPROLOL TARTRATE 25 MG TAB PO SCH ×2 (14:16→18:41)
[2018-06-05] MEDS ORDERED: SODIUM CHLORIDE 0.9% 50ML 50 ML ONE (14:25)
[2018-06-05] MEDS ORDERED: CEFTRIAXONE SOD 1 GM/NS 50 ML 50 ML IV SCH (14:30)
--- NOTE | 2018-06-05 16:41 | NUR ---
Nutrition Screen Note RD Recommendation for Physician: -Rec adding GI soft to ADA diet as medically appropriate -Rec probiotics for gut health Plan of Care: RD following, monitoring for tolerance and adequacy Nutrition reason for involvement: Nutrition Risk Trigger MST Primary Diagnose(s): C diff diarrhea PMH: Diabetes mellitus, type 2, hypertension, IBS, PAF Ht: 64in Wt: 244.31lb BMI: 41.9kg/m2 IBW: 120lb RD Assessment: (06/05) Chart reviewed. Labs and meds reviewed. 73yo F, who was admitted for acute diarrhea x 1 week. + C diff. Visited pt in the room. Pt reported fair appetite with 75-100% meal intake. No nausea or vomiting reported. Diarrhea has improved. Pt denied any chewing or swallowing difficulty. No recent weight loss noted with reported UBW ~238lbs. Will continue to monitor and follow. Current Diet: ADA diet Malnutrition Evaluation (06/05) The patient does not meet criteria for a specified degree of malnutrition at this time. Will re-evaluate at follow-up as appropriate. Diet Education Needs Assessment: Diet education not indicated. Nutrition Care Level: low Signed: Marielle Guzman, MS, RD, LD
--- NOTE | 2018-06-05 17:13 | NUR ---
CASE MANAGEMENT INITIAL ASSESSMENT Cyber Software Engineer to bedside to discuss plan of care with patient/family. CM/SW role and care transitions discussed. Anticipated discharge plan discussed along with duration of care. CM/SW discussed patients right to make decisions in care. CM/SW work hours given. Patient lives: HOME Admit/Transfer: ER Hospital/ER visits since last admit: NONE POA/Emergency contact: CHINTAN CEDEÑO / SISTER [phone] Current/Previous Home Health: NONE PCP/Follow-up Care: JIMENEZ Current/Previous DME: NONE Other Services: NONE Employment Status: RETIRED Areas of Concerns: DIARRHEA STOPS Referral Needs: SNF VS HOME HEALTH Education Needs: NONE IMM/MEHTA given and signed (if applicable): Goal for discharge: RETURN HOME SAFELY CM/SW left business card at the bedside with contact information. Name and number was also written on the patients whiteboard. Patient verbalized understanding of discussion. CM will follow-up with ongoing discharge and transition of care needs.
--- NOTE | 2018-06-05 19:20 | NUR ---
Report received from morning nurse. Pt alert and orient to name. Pt lying in bed HOB 60 degrees. c/o lower abdomen throbbing pain, 8/10. No acute distress noted. Call cunningham within reach. Will continue to monitor.
[2018-06-05] MEDS: ZOLPIDEM TARTRATE 5 MG TAB PO PRN (20:55)
[2018-06-05] MEDS: INSULIN GLARGINE 100 UNITS/ML VIAL SQ SCH (21:00)
[2018-06-06] VITALS (8 sets, daily range): BP systolic 121–169; BP diastolic 56–70
[2018-06-06] MEDS: VANCOMYCIN 250MG/5ML ORAL SOLN PO SCH ×4 (00:14→16:46)
[2018-06-06] MEDS: METRONIDAZOLE 500MG/NS 100ML 100 ML IV SCH ×3 (05:45→23:01)
[2018-06-06] MEDS: HYDROCODONE/APAP 5MG-325MG TAB PO PRN ×2 (05:54→17:25)
[2018-06-06 06:16] LABS: BASOPHILS % 0.5 % (0.0-1.0); EOSINOPHILS # (AUTO) 0.2 (0.0-0.4); EOSINOPHILS % 3.8 % (0.0-6.0); HEMOGLOBIN 12.8 g/dL (12.0-16.0); LYMPHOCYTES # (AUTO) 2.1 (1.0-3.2); LYMPHOCYTES % 36.2 % (18.0-39.1); MEAN CORPUSCULAR HEMOGLOBIN 29.4 pg (28-32); MEAN CORPUSCULAR HGB CONC 32.8 g/dL (31-35); MEAN CORPUSCULAR VOLUME 89.7 fL (81-99); MONOCYTES # (AUTO) 0.5 (0.2-0.8); MONOCYTES % 8.1 % (4.4-11.3); NEUTROPHILS % 51.2 % (38.7-80.0); PLATELET COUNT 206 x10e3/uL (140-360); RED BLOOD COUNT 4.35 x10e6/uL (3.6-5.1); RED CELL DISTRIBUTION WIDTH 14.5 % (11.7-14.4)
[2018-06-06 06:37] LABS: ALANINE AMINOTRANSFERASE 12 IU/L (0-55); ALBUMIN 3.9 g/dL (3.5-5.0); ALBUMIN/GLOBULIN RATIO 1.7 (0.8-2.0); ALKALINE PHOSPHATASE 60 IU/L (40-150); ANION GAP 11.7 mmol/L (8-16); BLOOD UREA NITROGEN 10 mg/dL (7-26); BUN/CREATININE RATIO 13 (6-25); CARBON DIOXIDE 26 mmol/L (22-29); CHLORIDE 110 mmol/L (98-107); CREATININE, SERUM 0.78 mg/dL (0.57-1.11); EST GLOMERULAR FILTRATION RATE > 60 ML/MIN (60-); GLUCOSE 121 mg/dL (74-118); MAGNESIUM 1.8 MG/DL (1.3-2.1); POTASSIUM 3.7 mmol/L (3.5-5.1); SODIUM 144 mmol/L (136-145)
[2018-06-06] MEDS ORDERED: KEFLEX500 MG PO (06:51)
[2018-06-06] MEDS ORDERED: FLAGYL500 MG PO (06:51)
[2018-06-06] MEDS ORDERED: VANCOCIN HCL250 MG PO (06:51)
--- NOTE | 2018-06-06 06:53 | NUR ---
Discharge summary ASSESSMENT AND PLAN: This is a 72-year-old woman with: 1. C.diff diarrhea 2.A.fib with RVR 3.DM2 4.Dehydration 5.Physical deconditioning 6.HTN PLAN 1.flagyl+vanco 2.IVF 3.Rate control 4.hba1c/lipids 5. 1/2 insulin dose GNR UTI; cont abx; d/c home f/u pcp 1 week condition Stable d/c >35mins Jonas Moya MD, PhD.
[2018-06-06] MEDS: LOSARTAN POTASSIUM 100 MG TAB PO SCH (09:09)
[2018-06-06] MEDS: PANTOPRAZOLE 40 MG 10ML VIAL IV SCH ×2 (09:09→16:45)
[2018-06-06] MEDS: AMLODIPINE BESYLATE 10 MG TAB PO SCH (09:10)
[2018-06-06] MEDS: GABAPENTIN 300 MG CAP PO SCH ×3 (09:10→20:30)
[2018-06-06] MEDS: METOPROLOL TARTRATE 25 MG TAB PO SCH ×2 (09:10→16:46)
[2018-06-06] MEDS: CHOLESTYRAMINE 4 GM PACKET PO SCH ×4 (09:10→21:30)
--- NOTE | 2018-06-06 09:15 | NUR ---
Pt received resting in bed. Saline lock infiltrated. Saline lock #20 inserted into left AC. All meds given. Call cunningham within reach. Pt is on Contact & Enteric isolation for ESBL in urine & C. Diff. Emotional support given. Call cunningham within reach. Will monitor
[2018-06-06] MEDS: PROMETHAZINE 12.5MG/ NACL 0.9% 12.5 MG/50 ML BAG IV PRN ×2 (09:33→17:25)
[2018-06-06] MEDS: PIPER-TAZ 3.375 GM 50 ML IV SCH ×2 (14:00→21:33)
--- NOTE | 2018-06-06 19:10 | NUR ---
Report received from morning nurse. Pt alert and orient to name. Pt lying right side in bed. Denies pain at this time. No acute distress noted. Call cunningham within reach. Will continue to monitor.
[2018-06-06] MEDS: INSULIN GLARGINE 100 UNITS/ML VIAL SQ SCH (21:33)
[2018-06-07] VITALS (9 sets, daily range): BP systolic 126–178; BP diastolic 58–76
[2018-06-07] MEDS: VANCOMYCIN 250MG/5ML ORAL SOLN PO SCH ×5 (00:30→23:40)
[2018-06-07] MEDS: PROMETHAZINE 12.5MG/ NACL 0.9% 12.5 MG/50 ML BAG IV PRN ×2 (02:15→09:19)
[2018-06-07] MEDS: HYDROCODONE/APAP 5MG-325MG TAB PO PRN ×3 (02:16→20:12)
[2018-06-07] MEDS: PIPER-TAZ 3.375 GM 50 ML IV SCH (06:44)
[2018-06-07] MEDS: METRONIDAZOLE 500MG/NS 100ML 100 ML IV SCH ×3 (07:00→22:02)
--- NOTE | 2018-06-07 07:00 | NUR ---
SHIFT REPORT GIVEN BY NIGHT RN WHILE ROUNDING BS. PT DENIES NEEDS AT THIS TIME.
--- NOTE | 2018-06-07 07:11 | NUR ---
Im- Progress note O/N; no events REVIEW OF SYSTEMS: Denies any dizziness. PHYSICAL EXAMINATION VITAL SIGNS: Have been reviewed. GENERAL: A tired-appearing woman resting in bed. HEENT: Anicteric. Pupils respond to light. No oral lesions. CARDIOVASCULAR: Normal S1 and S2. ABDOMEN: Soft, Mild tenderness epigastrium; BACK: She has mild erythema of the midback region, but no rashes visible. EXTREMITIES: No edema. She has dry skin. NEUROLOGICAL: Alert and oriented times 3. Moving all extremities. LABS: Reviewed. MEDICATIONS: Reviewed. ASSESSMENT AND PLAN: This is a 72-year-old woman with: 1. C.diff diarrhea 2.A.fib with RVR 3.DM2 4.Dehydration 5.Physical deconditioning 6.HTN PLAN 1.flagyl+vanco 2.IVF 3.Rate control 4.hba1c/lipids 5. 1/2 insulin dose GNR UTI; cont abx; ESBL E.coli UTI- start merrem D#04/24; cont questran/vanco/flagyl for c.diff; Pt will consider [facility] for continued care. Jonas Moya MD, PhD.
[2018-06-07] MEDS: METOPROLOL TARTRATE 25 MG TAB PO SCH ×2 (09:00→17:46)
[2018-06-07] MEDS: PANTOPRAZOLE 40 MG 10ML VIAL IV SCH ×2 (09:17→17:45)
[2018-06-07] MEDS: GABAPENTIN 300 MG CAP PO SCH ×3 (09:18→20:12)
[2018-06-07] MEDS: LOSARTAN POTASSIUM 100 MG TAB PO SCH (09:18)
[2018-06-07] MEDS: AMLODIPINE BESYLATE 10 MG TAB PO SCH (09:19)
[2018-06-07] MEDS: CHOLESTYRAMINE 4 GM PACKET PO SCH ×4 (09:19→21:10)
[2018-06-07] MEDS: MEROPENEM 500MG 500 MG in SODIUM CHLORIDE 0.9% 50ML 50 ML IV SCH ×2 (14:57→21:10)
--- NOTE | 2018-06-07 19:05 | NUR ---
SHIFT REPORT RECEIVED BY DAY NURSE. PATIENT C/O PAIN TO ABD. PRN PAIN MED AVAILABLE AT THIS TIME. CALL LIGHT WITHIN REACH AND INSTRUCTED TO CALL FOR ASSISTANCE. PATIENT VERBALIZED UNDERSTANDING.
[2018-06-07] MEDS: INSULIN GLARGINE 100 UNITS/ML VIAL SQ SCH (20:45)
[2018-06-08] VITALS (8 sets, daily range): BP systolic 131–162; BP diastolic 58–76
[2018-06-08] MEDS: VANCOMYCIN 250MG/5ML ORAL SOLN PO SCH ×4 (05:07→23:09)
[2018-06-08] MEDS: MEROPENEM 500MG 500 MG in SODIUM CHLORIDE 0.9% 50ML 50 ML IV SCH ×3 (05:07→21:01)
[2018-06-08] MEDS: METRONIDAZOLE 500MG/NS 100ML 100 ML IV SCH ×3 (05:35→21:56)
[2018-06-08] MEDS: HYDROCODONE/APAP 5MG-325MG TAB PO PRN ×3 (05:45→21:02)
--- NOTE | 2018-06-08 06:44 | NUR ---
Im- Progress note O/N; no events REVIEW OF SYSTEMS: Denies any dizziness. PHYSICAL EXAMINATION VITAL SIGNS: Have been reviewed. GENERAL: A tired-appearing woman resting in bed. HEENT: Anicteric. Pupils respond to light. No oral lesions. CARDIOVASCULAR: Normal S1 and S2. ABDOMEN: Soft, Mild tenderness epigastrium; BACK: She has mild erythema of the midback region, but no rashes visible. EXTREMITIES: No edema. She has dry skin. NEUROLOGICAL: Alert and oriented times 3. Moving all extremities. LABS: Reviewed. MEDICATIONS: Reviewed. ASSESSMENT AND PLAN: This is a 72-year-old woman with: 1. C.diff diarrhea 2.A.fib with RVR 3.DM2 4.Dehydration 5.Physical deconditioning 6.HTN PLAN 1.flagyl+vanco 2.IVF 3.Rate control 4.hba1c/lipids 5. 1/2 insulin dose GNR UTI; cont abx; ESBL E.coli UTI- start merrem D#04/24; cont questran/vanco/flagyl for c.diff; Pt will consider [facility] SNF for continued care. 06/08 D#2 merrem; d/c to snf soon; PICC today. Jonas Moya MD, PhD.
--- NOTE | 2018-06-08 07:00 | NUR ---
SHIFT REPORT GIVEN BY NIGHT RN WHILE ROUNDING BS. PT DENIES NEEDS AT THIS TIME.
[2018-06-08] MEDS: METOPROLOL TARTRATE 25 MG TAB PO SCH ×2 (09:00→17:36)
[2018-06-08] MEDS: PANTOPRAZOLE 40 MG 10ML VIAL IV SCH ×2 (09:13→17:36)
[2018-06-08] MEDS: GABAPENTIN 300 MG CAP PO SCH ×3 (09:14→21:01)
[2018-06-08] MEDS: LOSARTAN POTASSIUM 100 MG TAB PO SCH (09:14)
[2018-06-08] MEDS: AMLODIPINE BESYLATE 10 MG TAB PO SCH (09:15)
[2018-06-08] MEDS: CHOLESTYRAMINE 4 GM PACKET PO SCH ×4 (09:22→21:40)
--- NOTE | 2018-06-08 17:10 | Diagnostic Imaging Report ---
EXAMINATION: CHEST XRAY LINE PLACEMENT INDICATION: Status post PICC COMPARISON: Chest radiograph 05/07/17. FINDINGS: TUBES and LINES: Interval placement of right-sided PICC which terminates in the lower SVC. LUNGS: Lungs are well inflated. Mild patchy bibasilar opacities. PLEURA: No pleural effusion or pneumothorax. HEART AND MEDIASTINUM: The cardiomediastinal silhouette is mildly enlarged and unchanged. There is prominence of the bilateral jeannette, unchanged from prior radiographs, and could reflect pulmonary arterial hypertension. BONES AND SOFT TISSUES: No acute osseous abnormality. UPPER ABDOMEN: No free air under the diaphragm. IMPRESSION: Interval placement of right-sided PICC, which terminates in the lower SVC. No evidence of pneumothorax. Patchy bibasilar opacities, more likely atelectasis than pneumonia. Signed by: Dr. Tyron Sosa MD on 06/08/2018 5:06 PM
--- NOTE | 2018-06-08 19:00 | NUR ---
SHIFT REPORT RECEIVED BY DAY NURSE. PATIENT DENIES NEEDS AT THIS TIME. CALL LIGHT WITHIN REACH AND INSTRUCTED TO CALL FOR ASSISTANCE. PATIENT VERBALIZED UNDERSTANDING.
[2018-06-08] MEDS: ZOLPIDEM TARTRATE 5 MG TAB PO PRN (21:40)
[2018-06-08] MEDS: INSULIN GLARGINE 100 UNITS/ML VIAL SQ SCH (21:51)
[2018-06-09] VITALS (7 sets, daily range): BP systolic 145–197; BP diastolic 65–77
--- NOTE | 2018-06-09 05:25 | NUR ---
Im- Progress note O/N; no events REVIEW OF SYSTEMS: Denies any dizziness. PHYSICAL EXAMINATION VITAL SIGNS: Have been reviewed. GENERAL: A tired-appearing woman resting in bed. HEENT: Anicteric. Pupils respond to light. No oral lesions. CARDIOVASCULAR: Normal S1 and S2. ABDOMEN: Soft, Mild tenderness epigastrium; BACK: She has mild erythema of the midback region, but no rashes visible. EXTREMITIES: No edema. She has dry skin. NEUROLOGICAL: Alert and oriented times 3. Moving all extremities. LABS: Reviewed. MEDICATIONS: Reviewed. ASSESSMENT AND PLAN: This is a 72-year-old woman with: 1. C.diff diarrhea 2.A.fib with RVR 3.DM2 4.Dehydration 5.Physical deconditioning 6.HTN PLAN 1.flagyl+vanco 2.IVF 3.Rate control 4.hba1c/lipids 5. 1/2 insulin dose GNR UTI; cont abx; ESBL E.coli UTI- start merrem D#04/24; cont questran/vanco/flagyl for c.diff; Pt will consider [facility] SNF for continued care. 06/08 D#05/25 merrem; d/c to snf soon; PICC today. 06/09 D#06/22 merrem; cont c.diff tx. Jonas Moya MD, PhD.
--- NOTE | 2018-06-09 05:25 | NUR ---
Im- Progress note O/N; no events REVIEW OF SYSTEMS: Denies any dizziness. PHYSICAL EXAMINATION VITAL SIGNS: Have been reviewed. GENERAL: A tired-appearing woman resting in bed. HEENT: Anicteric. Pupils respond to light. No oral lesions. CARDIOVASCULAR: Normal S1 and S2. ABDOMEN: Soft, Mild tenderness epigastrium; BACK: She has mild erythema of the midback region, but no rashes visible. EXTREMITIES: No edema. She has dry skin. NEUROLOGICAL: Alert and oriented times 3. Moving all extremities. LABS: Reviewed. MEDICATIONS: Reviewed. ASSESSMENT AND PLAN: This is a 72-year-old woman with: 1. C.diff diarrhea 2.A.fib with RVR 3.DM2 4.Dehydration 5.Physical deconditioning 6.HTN PLAN 1.flagyl+vanco 2.IVF 3.Rate control 4.hba1c/lipids 5. 1/2 insulin dose GNR UTI; cont abx; ESBL E.coli UTI- start merrem D#04/24; cont questran/vanco/flagyl for c.diff; Pt will consider [facility] SNF for continued care. 06/08 D#05/25 merrem; d/c to snf soon; PICC today. 06/09 D#06/22 merrem; cont c.diff tx. Jonas Moya MD, PhD.
[2018-06-09] MEDS: VANCOMYCIN 250MG/5ML ORAL SOLN PO SCH ×4 (05:31→23:52)
[2018-06-09] MEDS: PROMETHAZINE 12.5MG/ NACL 0.9% 12.5 MG/50 ML BAG IV PRN ×2 (05:59→22:02)
[2018-06-09] MEDS: MEROPENEM 500MG 500 MG in SODIUM CHLORIDE 0.9% 50ML 50 ML IV SCH (06:10)
[2018-06-09] MEDS: METRONIDAZOLE 500MG/NS 100ML 100 ML IV SCH ×3 (07:07→22:02)
[2018-06-09] MEDS: LOSARTAN POTASSIUM 100 MG TAB PO SCH (08:43)
[2018-06-09] MEDS: GABAPENTIN 300 MG CAP PO SCH ×3 (08:44→21:31)
[2018-06-09] MEDS: AMLODIPINE BESYLATE 10 MG TAB PO SCH (08:44)
[2018-06-09] MEDS: CHOLESTYRAMINE 4 GM PACKET PO SCH ×4 (08:44→21:31)
[2018-06-09] MEDS: METOPROLOL TARTRATE 25 MG TAB PO SCH ×2 (08:44→16:42)
[2018-06-09] MEDS: HYDROCODONE/APAP 5MG-325MG TAB PO PRN (08:54)
[2018-06-09] MEDS: PANTOPRAZOLE 40 MG 10ML VIAL IV SCH ×2 (09:00→16:42)
--- NOTE | 2018-06-09 13:29 | NUR ---
SPOKE WITH PATIENT ABOUT CHOICE FOR SNF, SHE IS WANTING TO CONTINUE CARE WITH DR BUCKLEY AND SELECTED [facility]. SIGNED CHOICE FORM FILED IN CHART. FAXING CLINICALS TO [facility]
[2018-06-09] MEDS: MEROPENEM 500MG/ NS 50ML BAG IV SCH ×2 (14:07→22:02)
[2018-06-09] MEDS: INSULIN GLARGINE 100 UNITS/ML VIAL SQ SCH (21:20)
[2018-06-10] VITALS (9 sets, daily range): BP systolic 141–180; BP diastolic 59–81
[2018-06-10] MEDS: HYDROCODONE/APAP 5MG-325MG TAB PO PRN ×2 (05:37→20:52)
[2018-06-10] MEDS: METRONIDAZOLE 500MG/NS 100ML 100 ML IV SCH ×3 (05:42→22:10)
[2018-06-10] MEDS: MEROPENEM 500MG/ NS 50ML BAG IV SCH ×3 (05:42→22:10)
[2018-06-10] MEDS: VANCOMYCIN 250MG/5ML ORAL SOLN PO SCH ×2 (05:42→12:30)
--- NOTE | 2018-06-10 07:01 | NUR ---
Report given to oncoming nurse,walking round done.
[2018-06-10] MEDS: METOPROLOL TARTRATE 25 MG TAB PO SCH ×2 (08:31→17:59)
[2018-06-10] MEDS: PANTOPRAZOLE 40 MG 10ML VIAL IV SCH ×2 (08:31→17:59)
[2018-06-10] MEDS: LOSARTAN POTASSIUM 100 MG TAB PO SCH (08:31)
[2018-06-10] MEDS: GABAPENTIN 300 MG CAP PO SCH ×3 (08:32→20:52)
[2018-06-10] MEDS: CHOLESTYRAMINE 4 GM PACKET PO SCH ×4 (08:32→20:52)
[2018-06-10] MEDS: AMLODIPINE BESYLATE 10 MG TAB PO SCH (08:32)
--- NOTE | 2018-06-10 09:29 | NUR ---
Im- Progress note O/N; no events REVIEW OF SYSTEMS: Denies any dizziness. PHYSICAL EXAMINATION VITAL SIGNS: Have been reviewed. GENERAL: A tired-appearing woman resting in bed. HEENT: Anicteric. Pupils respond to light. No oral lesions. CARDIOVASCULAR: Normal S1 and S2. ABDOMEN: Soft, Mild tenderness epigastrium; BACK: She has mild erythema of the midback region, but no rashes visible. EXTREMITIES: No edema. She has dry skin. NEUROLOGICAL: Alert and oriented times 3. Moving all extremities. LABS: Reviewed. MEDICATIONS: Reviewed. ASSESSMENT AND PLAN: This is a 72-year-old woman with: 1. C.diff diarrhea 2.A.fib with RVR 3.DM2 4.Dehydration 5.Physical deconditioning 6.HTN PLAN 1.flagyl+vanco 2.IVF 3.Rate control 4.hba1c/lipids 5. 1/2 insulin dose GNR UTI; cont abx; ESBL E.coli UTI- start merrem D#04/24; cont questran/vanco/flagyl for c.diff; Pt will consider [facility] SNF for continued care. 06/08 D#05/25 merrem; d/c to snf soon; PICC today. 06/09 D#06/22 merrem; cont c.diff tx.; 06/10 check UA and labs; possible d/c Jonas Moya MD, PhD.
[2018-06-10 09:45] LABS: BASOPHILS % 0.4 % (0.0-1.0); EOSINOPHILS # (AUTO) 0.3 (0.0-0.4); EOSINOPHILS % 4.2 % (0.0-6.0); HEMATOCRIT 40.9 % (34.2-44.1); HEMOGLOBIN 13.4 g/dL (12.0-16.0); LYMPHOCYTES # (AUTO) 2.1 (1.0-3.2); LYMPHOCYTES % 27.4 % (18.0-39.1); MEAN CORPUSCULAR HEMOGLOBIN 28.5 pg (28-32); MEAN CORPUSCULAR HGB CONC 32.8 g/dL (31-35); MONOCYTES # (AUTO) 0.5 (0.2-0.8); NEUTROPHILS # (AUTO) 4.7 (2.1-6.9); NEUTROPHILS % 61.7 % (38.7-80.0); PLATELET COUNT 177 x10e3/uL (140-360); RED CELL DISTRIBUTION WIDTH 14.1 % (11.7-14.4)
[2018-06-10 10:00] LABS: ANION GAP 13.4 mmol/L (8-16); BLOOD UREA NITROGEN 8 mg/dL (7-26); BUN/CREATININE RATIO 11 (6-25); CARBON DIOXIDE 22 mmol/L (22-29); CHLORIDE 110 mmol/L (98-107); CREATININE, SERUM 0.73 mg/dL (0.57-1.11); EST GLOMERULAR FILTRATION RATE > 60 ML/MIN (60-); GLUCOSE 180 mg/dL (74-118); POTASSIUM 3.4 mmol/L (3.5-5.1); SODIUM 142 mmol/L (136-145)
[2018-06-10 13:06] LABS: BILIRUBIN,URINE NEGATIVE (NEGATIVE); CLARITY,URINE HAZY (CLEAR); COLOR,URINE YELLOW (YELLOW); KETONES,URINE NEGATIVE (NEGATIVE); LEUKOCYTE ESTERASE ,URINE TRACE (NEGATIVE); NITRITE,URINE NEGATIVE (NEGATIVE); PROTEIN,URINE DIPSTICK NEGATIVE (NEGATIVE); URINE UROBILINOGEN 0.2 mg/dL (0.2 - 1)
[2018-06-10] MEDS: PROMETHAZINE 12.5MG/ NACL 0.9% 12.5 MG/50 ML BAG IV PRN (20:02)
[2018-06-10] MEDS: INSULIN GLARGINE 100 UNITS/ML VIAL SQ SCH (20:53)
[2018-06-10] MEDS ORDERED: SODIUM CHLORIDE 0.9% 250ML 250 ML ONE (21:23)
[2018-06-11 00:41] VITALS: BP 132/66
[2018-06-11 04:06] VITALS: BP 138/76
[2018-06-11] MEDS: MEROPENEM 500MG/ NS 50ML BAG IV SCH (06:03)
[2018-06-11] MEDS: METRONIDAZOLE 500MG/NS 100ML 100 ML IV SCH (06:03)
--- NOTE | 2018-06-11 06:50 | NUR ---
Report given to oncoming nurse.
[2018-06-11] MEDS ORDERED: CHOLESTYRAMINE L4 GM PO (07:05)
[2018-06-11] MEDS ORDERED: NITROFURANTOIN100 MG PO (07:05)
--- NOTE | 2018-06-11 07:06 | NUR ---
DISCHARGE SUMMARY ASSESSMENT AND PLAN: This is a 72-year-old woman with: 1. C.diff diarrhea 2.A.fib with RVR 3.DM2 4.Dehydration 5.Physical deconditioning 6.HTN PLAN 1.flagyl+vanco 2.IVF 3.Rate control 4.hba1c/lipids 5. 1/2 insulin dose GNR UTI; cont abx; ESBL E.coli UTI- start merrem D#04/24; cont questran/vanco/flagyl for c.diff; Pt will consider [facility] for continued care. 06/08 D#05/25 merrem; d/c to snf soon; PICC today. 06/09 D#06/22 merrem; cont c.diff tx.; 06/10 check UA and labs; possible d/c D/C HOME D/C >35MINS F/U PCP 1 WEEK STABLE Jonas Moya MD, PhD.
[2018-06-11 07:19] VITALS: BP 176/85
[2018-06-11 08:00] VITALS: BP 176/85
[2018-06-11] MEDS: GABAPENTIN 300 MG CAP PO SCH (08:55)
[2018-06-11] MEDS: LOSARTAN POTASSIUM 100 MG TAB PO SCH (08:55)
[2018-06-11] MEDS: METOPROLOL TARTRATE 25 MG TAB PO SCH (08:55)
[2018-06-11] MEDS: PANTOPRAZOLE 40 MG 10ML VIAL IV SCH (08:55)
[2018-06-11] MEDS: AMLODIPINE BESYLATE 10 MG TAB PO SCH (08:55)
[2018-06-11] MEDS: CHOLESTYRAMINE 4 GM PACKET PO SCH (09:00)
[2018-06-11 11:26] VITALS: BP 153/73
--- NOTE | 2018-06-11 12:30 | NUR ---
Pt discharged at this time. All discharge instructions given to pt and pt verbalized understanding of discharge instructions. 4 prescriptions given to pt and education provided about education. Right upper arm PICC line removed per physician instructions. Pressure dressing applied of insertion site. Minimal bleeding noted to site.
== END 2018-06-11 12:30 | disposition home or self-care (01) | DRG 372 ==
LOC: ER 09:45 → ERHOLD 15:41 → MED/SURG3 17:25
PROVIDERS: ADMIT Internal Medicine; ATTEND Internal Medicine
PROC: 02HV33Z Insertion of Infusion Device into Superior Vena Cava, Percutaneous Approach (ICD-10-PCS; principal; 2018-06-08)
DX: A04.72 Enterocolitis due to Clostridium difficile, not specified as recurrent (principal); N39.0 Urinary tract infection, site not specified; Z68.41 Body mass index [BMI] 40.0-44.9, adult; I48.0 Paroxysmal atrial fibrillation; Z79.01 Long term (current) use of anticoagulants; E11.9 Type 2 diabetes mellitus without complications; E86.0 Dehydration; I10 Essential (primary) hypertension; B96.20 Unspecified Escherichia coli [E. coli] as the cause of diseases classified elsewhere; Z16.12 Extended spectrum beta lactamase (ESBL) resistance; E66.01 Morbid (severe) obesity due to excess calories
CPT/HCPCS: 36415; 36569; 71045; 80048; 80053; 80061; 81001; 81003; 82150; 82270; 82550; 82553; 82948; 83036; 83690; 83735; 84484; 85025; 87045; 87086; 87186; 87493; 93005; 99284; J0696; J1885; J2185; J2270; J2405; J2543; J2550; J7030; J7050

== ENCOUNTER 2018-08-11 10:56 | Emergency (ER) | payer MEDICARE ==
[~2018-08-11] VITALS: Ht 162.6 cm; Wt 115.2 kg
[~2018-08-11 10:56] MED LIST changes: +CHOLESTYRAMINE L4 GM PO; +KEFLEX500 MG PO; +NITROFURANTOIN100 MG PO; +VANCOCIN HCL250 MG PO
--- NOTE | 2018-08-11 11:43 | NUR ---
REC'D PT IN RM 11 WITH C/O "I HURT ALL OVER." PLACED ON THE MONITOR AND VITALS TAKEN. BED LOW/LOCKED AND CALL SANDHU IN HAND. FAMILY AT SIDE
[2018-08-11 11:58] LABS: CLARITY,URINE CLOUDY (CLEAR); COLOR,URINE YELLOW (YELLOW); LEUKOCYTE ESTERASE ,URINE 1+ (NEGATIVE)
[2018-08-11 11:59] LABS: BILIRUBIN,URINE NEGATIVE (NEGATIVE); KETONES,URINE NEGATIVE (NEGATIVE); NITRITE,URINE NEGATIVE (NEGATIVE); PROTEIN,URINE DIPSTICK NEGATIVE (NEGATIVE); URINE UROBILINOGEN 0.2 mg/dL (0.2 - 1)
[2018-08-11 12:01] LABS: BACTERIA,URINE MODERATE /HPF; EPITHELIAL CELLS,URINE MODERATE /LPF
[2018-08-11 12:02] LABS: TRANSITIONAL EPI CELLS,URINE FEW
--- NOTE | 2018-08-11 12:08 | Diagnostic Imaging Report ---
EXAMINATION: CHEST 2 VIEWS INDICATION: Body aches. COMPARISON: Chest radiograph 06/08/2018. FINDINGS: TUBES and LINES: Interval removal of right arm PICC. LUNGS: Lungs are well inflated. Mild patchy bibasilar opacities. No evidence of pulmonary edema. PLEURA: No pleural effusion or pneumothorax. There is possible pleural thickening in the right mid thorax. Unchanged pleural calcifications on the left. HEART AND MEDIASTINUM: The cardiomediastinal silhouette is mildly enlarged and unchanged. There is prominence of the bilateral jeannette, unchanged from prior radiographs, and could reflect pulmonary arterial hypertension. BONES AND SOFT TISSUES: No acute osseous abnormality. UPPER ABDOMEN: No free air under the diaphragm. IMPRESSION: Patchy bibasilar opacities, more likely atelectasis than pneumonia. Possible pleural thickening in the right mid thorax. Chest CT is suggested for further evaluation, and could be performed in the non urgent setting. Signed by: Dr. Tyron Sosa MD on 08/11/2018 12:05 PM
[2018-08-11 12:10] LABS: INFLUENZAE A&B ANTIGEN (RAPID) NEGATIVE (NEGATIVE); STREPTOCOCCUS GRP A ANTIGEN NEGATIVE (NEGATIVE)
[2018-08-11] MEDS ORDERED: CEFTRIAXONE SOD 1 GM VIAL IM ONE (12:30)
== END 2018-08-11 13:06 | disposition home or self-care (01) ==
LOC: ER 10:56
DX: R50.9 Fever, unspecified (principal); N30.91 Cystitis, unspecified with hematuria; I10 Essential (primary) hypertension; E11.9 Type 2 diabetes mellitus without complications; I51.9 Heart disease, unspecified; E78.5 Hyperlipidemia, unspecified
CPT/HCPCS: 71046; 81001; 83518; 87070; 87086; 87186; 87400; 99284; J0696

== ENCOUNTER 2018-10-31 09:47 | Observation (INO) | payer MEDICARE ==
[~2018-10-31] VITALS: Ht 162.6 cm; Wt 99.8 kg
[2018-10-31] MEDS ORDERED: ONDANSETRON HCL INJ 2MG/ML 2ML 2 MG/ML VIAL IV STA (10:47)
[2018-10-31 10:49] LABS: BASOPHILS % 0.3 % (0.0-1.0); EOSINOPHILS % 0.5 % (0.0-6.0); HEMOGLOBIN 14.9 g/dL (12.0-16.0); LYMPHOCYTES # (AUTO) 2.3 (1.0-3.2); LYMPHOCYTES % 28.7 % (18.0-39.1); MEAN CORPUSCULAR HEMOGLOBIN 28.7 pg (28-32); MEAN CORPUSCULAR HGB CONC 33.1 g/dL (31-35); MEAN CORPUSCULAR VOLUME 86.5 fL (81-99); MONOCYTES # (AUTO) 0.5 (0.2-0.8); MONOCYTES % 6.4 % (4.4-11.3); NEUTROPHILS # (AUTO) 5.1 (2.1-6.9); NEUTROPHILS % 63.8 % (38.7-80.0); PLATELET COUNT 197 x10e3/uL (140-360); RED CELL DISTRIBUTION WIDTH 14.1 % (11.7-14.4)
[2018-10-31] MEDS ORDERED: SODIUM CHLORIDE 0.9% 1000ML 1,000 ML IV ONE (11:00)
[2018-10-31 11:09] LABS: ALBUMIN 4.8 g/dL (3.5-5.0); ALBUMIN/GLOBULIN RATIO 1.7 (0.8-2.0); ANION GAP 18.6 mmol/L (8-16); CALCIUM 10.5 mg/dL (8.4-10.2); CREATININE, SERUM 0.95 mg/dL (0.57-1.11); POTASSIUM 3.6 mmol/L (3.5-5.1)
[2018-10-31] MEDS: INSULIN REGULAR, HUMAN 100 UNIT/1 ML 3ML VIAL SQ SCH ×2 (12:00→21:00)
[2018-10-31 12:20] LABS: BILIRUBIN,URINE NEGATIVE (NEGATIVE); CLARITY,URINE CLOUDY (CLEAR); COLOR,URINE YELLOW (YELLOW); KETONES,URINE NEGATIVE (NEGATIVE); LEUKOCYTE ESTERASE ,URINE SMALL (NEGATIVE); NITRITE,URINE POSITIVE (NEGATIVE); PROTEIN,URINE DIPSTICK NEGATIVE (NEGATIVE); URINE UROBILINOGEN 0.2 mg/dL (0.2 - 1)
[2018-10-31] MEDS: VANCOMYCIN 250MG/5ML ORAL SOLN PO SCH ×2 (12:45→17:55)
[2018-10-31] MEDS: SODIUM CHLORIDE 0.9% 1000ML 1,000 ML IV SCH (12:45)
[2018-10-31] MEDS: METRONIDAZOLE 500 MG TAB PO SCH ×2 (12:45→22:25)
[2018-10-31 12:48] LABS: BACTERIA,URINE MANY /HPF; EPITHELIAL CELLS,URINE RARE /LPF; RBC,URINE 0-5 /HPF (0-5); WBC,URINE (MAN) >50 /HPF (0-5)
[2018-10-31] MEDS ORDERED: DEXTROSE 50% SYRINGE 50 ML IV PRN (13:00)
[2018-10-31] MEDS ORDERED: MORPHINE SULFATE 2 MG/ML SYR 1ML IV PRN (13:00)
--- NOTE | 2018-10-31 13:01 | NUR ---
PATIENT STATES SHE IS NOT ALLERGIC TO MORPHINE. SHE HAS REPEATED HERSELF MULTIPLE TIMES AND DOES NOT UNDERSTAND WHY THAT WAS LISTED. REMOVED FROM ALLERGY /ADV REACTIONS
--- NOTE | 2018-10-31 13:38 | NUR ---
ISOLATION PLACED AT BEDSIDE. PATIENT SITTING UP EATING MEAL TRAY
[2018-10-31] MEDS: HYDROMORPHONE 1MG/1ML INJ IV PRN ×2 (15:09→21:26)
[2018-10-31 15:40] VITALS: BP 188/79
[2018-10-31 15:54] VITALS: BP 188/79
--- NOTE | 2018-10-31 16:10 | NUR ---
patient received from ER via stretcher. ambulates well. see admit assess. BP elevated. no complaints or signs of distress at this time.
[2018-10-31 16:16] VITALS: BP 188/79
[2018-10-31] MEDS ORDERED: METFORMIN HCL500 MG PO (16:17)
[2018-10-31] MEDS ORDERED: OMEPRAZOLE40 MG PO (16:17)
[2018-10-31] MEDS ORDERED: HUMALOG100 UNIT/1 SQ (16:17)
[2018-10-31] MEDS ORDERED: XARELTO20 MG PO (16:19)
[2018-10-31] MEDS ORDERED: VICTOZA 2-0.6 MG/0.1 SQ (16:19)
--- NOTE | 2018-10-31 17:40 | NUR ---
History and Physical CHIEF COMPLAINT: diarrhea HISTORY OF PRESENT ILLNESS: This is a 72-year-old woman, PCP , developed diarrhea. Pt has had C.diff in past. PAST MEDICAL HISTORY: Diabetes mellitus, type 2, hypertension, IBS, PAF, C.diff, A.fib PAST SURGICAL HISTORY: Hysterectomy, tonsillectomy, cholecystectomy, appendectomy, stomach stapling. ALLERGIES: PER ELECTRONIC MEDICAL RECORDS. FAMILY HISTORY/SOCIAL HISTORY: Patient is . She has 2 children. No alcohol, illicits or cigarettes. MEDICATIONS: Per electronic medical record. REVIEW OF SYSTEMS: no cp/sob/f/c/s/N/V/REDMAN/vision changes/skin rash/back pain. PHYSICAL EXAMINATION VITAL SIGNS: Have been reviewed. GENERAL: A tired-appearing woman resting in bed. HEENT: Anicteric. Pupils respond to light. No oral lesions. CARDIOVASCULAR: Normal S1 and S2. ABDOMEN: diffuse tenderness, no rebound BACK: nontender EXTREMITIES: No edema. She has dry skin. NEUROLOGICAL: Alert and oriented times 3. Moving all extremities. LABS: Reviewed. MEDICATIONS: Reviewed. ASSESSMENT AND PLAN: This is a 72-year-old woman with: C.diff diarrhea A.fib UTI CARLEY DM2 Severe Obesity BMI 37.8 HTN DM-neuropathy PLAN vanco/flagyl ivf hab1c/lipids AV blockade. SNF [facility]. Jonas Moya MD, PhD.
[2018-10-31] MEDS: PANTOPRAZOLE 40 MG 10ML VIAL IV SCH (17:55)
[2018-10-31 18:02] LABS: CHOL/HDL RATIO 1.4 (3.0-3.6)
[2018-10-31 20:00] VITALS: BP 157/69
[2018-10-31] MEDS: ONDANSETRON HCL INJ 2MG/ML 2ML 2 MG/ML VIAL IV PRN (21:26)
[2018-10-31] MEDS: SIMVASTATIN 20 MG TAB PO SCH (22:25)
[2018-10-31] MEDS: GABAPENTIN 300 MG CAP PO SCH (22:25)
[2018-11-01] VITALS: BP 118/58
--- NOTE | 2018-11-01 | NUR ---
Midnight dose of scheduled PO vancomycin is not available.
[2018-11-01 04:00] VITALS: BP 125/58
[2018-11-01] MEDS: SODIUM CHLORIDE 0.9% 1000ML 1,000 ML IV SCH ×3 (04:20→12:04)
[2018-11-01] MEDS: METRONIDAZOLE 500 MG TAB PO SCH ×3 (05:09→21:59)
[2018-11-01] MEDS: VANCOMYCIN 250MG/5ML ORAL SOLN PO SCH ×5 (06:12→23:59)
--- NOTE | 2018-11-01 06:13 | NUR ---
Spoke with pharmacist regarding PO vancomycin availability. Pharmacist has instructed newspaper writer where vancomycin PO may be obtained. 0600am dose of vancomycin has been administered.
--- NOTE | 2018-11-01 06:41 | NUR ---
report given to day nurse. patient is resting comfortably in bed. bed is in lowest position and call cunningham is within reach.
[2018-11-01 06:44] LABS: BASOPHILS % 0.3 % (0.0-1.0); EOSINOPHILS # (AUTO) 0.1 (0.0-0.4); EOSINOPHILS % 1.5 % (0.0-6.0); HEMATOCRIT 37.8 % (34.2-44.1); HEMOGLOBIN 12.5 g/dL (12.0-16.0); LYMPHOCYTES # (AUTO) 1.8 (1.0-3.2); LYMPHOCYTES % 29.9 % (18.0-39.1); MEAN CORPUSCULAR HEMOGLOBIN 29.1 pg (28-32); MEAN CORPUSCULAR HGB CONC 33.1 g/dL (31-35); MEAN CORPUSCULAR VOLUME 88.1 fL (81-99); MONOCYTES # (AUTO) 0.6 (0.2-0.8); MONOCYTES % 10.1 % (4.4-11.3); NEUTROPHILS # (AUTO) 3.5 (2.1-6.9); NEUTROPHILS % 57.9 % (38.7-80.0); PLATELET COUNT 142 x10e3/uL (140-360); RED BLOOD COUNT 4.29 x10e6/uL (3.6-5.1); RED CELL DISTRIBUTION WIDTH 14.2 % (11.7-14.4)
[2018-11-01 06:46] LABS: ANION GAP 14.2 mmol/L (8-16); BLOOD UREA NITROGEN 9 mg/dL (7-26); BUN/CREATININE RATIO 13 (6-25); CALCIUM 8.8 mg/dL (8.4-10.2); CARBON DIOXIDE 26 mmol/L (22-29); CHLORIDE 104 mmol/L (98-107); EST GLOMERULAR FILTRATION RATE > 60 ML/MIN (60-); GLUCOSE 112 mg/dL (74-118); POTASSIUM 3.2 mmol/L (3.5-5.1); SODIUM 141 mmol/L (136-145)
--- NOTE | 2018-11-01 06:52 | NUR ---
IM- progress note O/N no events REVIEW OF SYSTEMS: no cp/sob/f/c/s/N/V/REDMAN/vision changes/skin rash/back pain. PHYSICAL EXAMINATION VITAL SIGNS: Have been reviewed. GENERAL: A tired-appearing woman resting in bed. HEENT: Anicteric. Pupils respond to light. No oral lesions. CARDIOVASCULAR: Normal S1 and S2. ABDOMEN: diffuse tenderness, no rebound BACK: nontender EXTREMITIES: No edema. She has dry skin. NEUROLOGICAL: Alert and oriented times 3. Moving all extremities. LABS: Reviewed. MEDICATIONS: Reviewed. ASSESSMENT AND PLAN: This is a 72-year-old woman with: C.diff diarrhea A.fib UTI CARLEY DM2 Severe Obesity BMI 37.8 HTN DM-neuropathy PLAN vanco/flagyl ivf hab1c/lipids AV blockade. SNF eval. 11/01 cont care; d/c to snf when approved. Hba1c/LDL 5.2 Jonas Moya MD, PhD.
[2018-11-01 07:30] VITALS: BP 141/63
[2018-11-01] MEDS ORDERED: NON-FORMULARY MEDICATION (Insulin Lispro (Humalog) 15 UNITS) SQ SCH (08:00)
[2018-11-01] MEDS: HYDROMORPHONE 1MG/1ML INJ IV PRN ×2 (08:10→18:07)
[2018-11-01] MEDS: ONDANSETRON HCL INJ 2MG/ML 2ML 2 MG/ML VIAL IV PRN ×2 (08:11→18:06)
[2018-11-01] MEDS: AMLODIPINE BESYLATE 10 MG TAB PO SCH (08:25)
[2018-11-01] MEDS: GABAPENTIN 300 MG CAP PO SCH ×3 (08:25→21:54)
[2018-11-01] MEDS: RIVAROXABAN 20 MG TABLET PO SCH (08:26)
[2018-11-01] MEDS: ISOSORBIDE MONONITRATE 30 MG TAB CR PO SCH (08:26)
[2018-11-01] MEDS: PANTOPRAZOLE 40 MG 10ML VIAL IV SCH (08:26)
[2018-11-01] MEDS: INSULIN LISPRO 100 UNIT/1 ML 3ML VIAL SQ SCH ×3 (08:32→16:51)
[2018-11-01] MEDS: INSULIN REGULAR, HUMAN 100 UNIT/1 ML 3ML VIAL SQ SCH ×4 (08:39→21:56)
[2018-11-01] MEDS ORDERED: SIMVASTATIN 40 MG TAB PO SCH (09:00)
--- NOTE | 2018-11-01 09:40 | NUR ---
Visit made by the Spiritual Care Department Pastoral Visitor, Skye Hidalgo. PV provided pastoral presence, prayer, hospitality, and supportive listening. Pastoral Visitor informed pt/family of the scope of [facility] and availability. WALLACE GUO Signal Integrity Engineer Spiritual Care Department O: [phone] Pager: [phone] ([phone] number calling from)
[2018-11-01 11:30] VITALS: BP 135/60
--- NOTE | 2018-11-01 11:49 | NUR ---
PT SIGNED CHOICE FOR [facility] FILED IN CHART. COPIED CLINICALS, WAITING ON PT NOTES TO BE PUT IN SO I CAN FORWARD TO FACILITY.
--- NOTE | 2018-11-01 17:39 | NUR ---
received report from aJmel, pt arrived to the unit via wheelchair with the tech. no s/s of distress. pt ambulated from wheelchair to bed. complaining of pain. L ac 20g with NS, set pump to 125cc/hr.
--- NOTE | 2018-11-01 19:15 | NUR ---
BS rounds completed with morning nurse. Pt alert to name. Persian Speaking. Pt sitting up in bed HOB 90 degrees. Denies pain at this time. Call cunningham within reach. Bed low and locked. Will continue to monitor. Addendum: 11/01/18 at 1947 by Niko Nevarez RN Not Persian Speaking
[2018-11-01 20:00] VITALS: BP 147/67
[2018-11-01 21:00] VITALS: BP 147/67
[2018-11-01] MEDS: SIMVASTATIN 20 MG TAB PO SCH (21:54)
[2018-11-02] VITALS (8 sets, daily range): BP systolic 133–194; BP diastolic 60–87
[2018-11-02] MEDS: SODIUM CHLORIDE 0.9% 1000ML 1,000 ML IV SCH ×2 (00:09→06:53)
[2018-11-02] MEDS: VANCOMYCIN 250MG/5ML ORAL SOLN PO SCH ×3 (06:00→17:51)
[2018-11-02] MEDS: METRONIDAZOLE 500 MG TAB PO SCH ×3 (06:00→22:00)
[2018-11-02 06:33] LABS: ANION GAP 11.5 mmol/L (8-16); BLOOD UREA NITROGEN 7 mg/dL (7-26); BUN/CREATININE RATIO 9 (6-25); CARBON DIOXIDE 28 mmol/L (22-29); CHLORIDE 106 mmol/L (98-107); CREATININE, SERUM 0.74 mg/dL (0.57-1.11); EST GLOMERULAR FILTRATION RATE > 60 ML/MIN (60-); GLUCOSE 141 mg/dL (74-118); POTASSIUM 3.5 mmol/L (3.5-5.1); SODIUM 142 mmol/L (136-145)
--- NOTE | 2018-11-02 06:34 | NUR ---
IM- progress note O/N no events REVIEW OF SYSTEMS: no cp/sob/f/c/s/N/V/REDMAN/vision changes/skin rash/back pain. PHYSICAL EXAMINATION VITAL SIGNS: Have been reviewed. GENERAL: A tired-appearing woman resting in bed. HEENT: Anicteric. Pupils respond to light. No oral lesions. CARDIOVASCULAR: Normal S1 and S2. ABDOMEN: diffuse tenderness, no rebound BACK: nontender EXTREMITIES: No edema. She has dry skin. NEUROLOGICAL: Alert and oriented times 3. Moving all extremities. LABS: Reviewed. MEDICATIONS: Reviewed. ASSESSMENT AND PLAN: This is a 72-year-old woman with: C.diff diarrhea A.fib UTI CARLEY DM2 Severe Obesity BMI 37.8 HTN DM-neuropathy PLAN vanco/flagyl ivf hab1c/lipids AV blockade. SNF eval. 11/01 cont care; d/c to snf when approved. Hba1c/LDL 5.2/8 11/02 labs pending; d/c to snf when approved Jonas Moya MD, PhD.
[2018-11-02] MEDS ORDERED: FLAGYL500 MG PO (06:36)
[2018-11-02] MEDS ORDERED: VANCOCIN HCL250 MG PO (06:36)
[2018-11-02] MEDS: HYDROMORPHONE 1MG/1ML INJ IV PRN ×2 (06:45→12:40)
--- NOTE | 2018-11-02 07:00 | NUR ---
received am report from nurse, morning rounds done. pt is alert sitting up in bed, no s/s of distress. call light within reach, side rails up.
--- NOTE | 2018-11-02 07:05 | NUR ---
Report given to morning nurse. Pt alert to name. Admin prn Dilaudid for 8/10 generalized pain. No acute distress noted. Call cunningham within reach.
[2018-11-02] MEDS: INSULIN REGULAR, HUMAN 100 UNIT/1 ML 3ML VIAL SQ SCH ×4 (07:30→21:00)
[2018-11-02] MEDS: INSULIN LISPRO 100 UNIT/1 ML 3ML VIAL SQ SCH ×3 (08:00→17:00)
[2018-11-02] MEDS: ISOSORBIDE MONONITRATE 30 MG TAB CR PO SCH (08:00)
[2018-11-02] MEDS: PANTOPRAZOLE 40 MG 10ML VIAL IV SCH (08:00)
[2018-11-02] MEDS: AMLODIPINE BESYLATE 10 MG TAB PO SCH (08:00)
[2018-11-02] MEDS: RIVAROXABAN 20 MG TABLET PO SCH (08:00)
[2018-11-02] MEDS: GABAPENTIN 300 MG CAP PO SCH ×3 (08:00→21:00)
[2018-11-02] MEDS: ONDANSETRON HCL INJ 2MG/ML 2ML 2 MG/ML VIAL IV PRN (12:40)
--- NOTE | 2018-11-02 14:04 | NUR ---
PT DISCUSSED IN BARRIER ROUNDS; WAITING ON AUTH FOR [employer] [place] FOR 14 DAYS OF ABX.
[2018-11-02] MEDS: SIMVASTATIN 20 MG TAB PO SCH (21:00)
[2018-11-03] VITALS: BP 134/64
[2018-11-03] MEDS: SODIUM CHLORIDE 0.9% 1000ML 1,000 ML IV SCH (00:07)
[2018-11-03] MEDS: VANCOMYCIN 250MG/5ML ORAL SOLN PO SCH ×2 (00:41→06:00)
[2018-11-03 04:00] VITALS: BP 158/74
[2018-11-03] MEDS ORDERED: FLAGYL500 MG PO (05:35)
[2018-11-03] MEDS ORDERED: PROBIOTIC & AC1 EACH PO (05:36)
[2018-11-03] MEDS: HYDROMORPHONE 1MG/1ML INJ IV PRN (06:00)
[2018-11-03] MEDS: METRONIDAZOLE 500 MG TAB PO SCH (06:00)
--- NOTE | 2018-11-03 07:33 | NUR ---
Hand off report received at pt's bedside from VALENTINA Moreno. Pt is AAOx4, in no acute distress noted, resp even and unlabored. Pt educated on safety, instructed to use the call light for assistance, bed is in lowest position, locked, SR upx2 and all personal items are within reach. Pt informed of discharge order and waiting for family member for transport.
[2018-11-03 07:58] VITALS: BP 152/72
--- NOTE | 2018-11-03 08:15 | NUR ---
Discharge instructions, prescriptions for new home meds discussed with pt, instructed her on indication, action, and possible side effects of meds, she is also instructed to make make an appointment to see her primary care physician for after hospitalization follow up. She provided with written discharge instructions. Pt verbalized understanding of all instructions given.
--- NOTE | 2018-11-03 08:20 | NUR ---
Discharge order clarified with Dr Griffin Mcdaniel by Teodora, Charge nurse, per Dr Mcdaniel, pt is going home and not to rehab.
--- NOTE | 2018-11-03 08:25 | NUR ---
CALLED FLOOR AND GAVE ROOM NUMBER AT 356 PM YESTERDAY FOR PT TO GO TO [facility], ROOM [address] INA ROSS. CALLED THIS MORNING TO SEE WHY PT DID NOT GO TO FACILITY, NURSE WILL GET INFORMATION AND UPDATE.
--- NOTE | 2018-11-03 09:06 | NUR ---
CALLED DR BUCKLEY, HE STATES PT CAN GO HOME WITH PO, CALLED FACILITY AND LET THEM KNOW.
--- NOTE | 2018-11-03 21:33 | NUR ---
D/C summary Principal dx: C.diff diarrhea A.fib UTI CARLEY Secondary Dx: DM2 Severe Obesity BMI 37.8 HTN DM-neuropathy PLAN vanco/flagyl ivf hab1c/lipids AV blockade. SNF eval. 11/01 cont care; d/c to snf when approved. Hba1c/LDL 5.2/8 11/02 labs pending; d/c to snf when approved d/c home f/u pcp 1 week stable d/c>35mins Jonas Moya MD, PhD.
[2018-11-13] MEDS ORDERED: LOPERAMIDE2 MG PO (18:02)
[2018-11-13] MEDS ORDERED: CEFDINIR300 MG PO (18:05)
== END 2018-11-03 10:29 | disposition home or self-care (01) ==
LOC: ER 09:47 → ERHOLD 12:20 → IMCU 15:20 → MED/SURG3 11-01 17:28
PROVIDERS: ADMIT Internal Medicine; ATTEND Internal Medicine
DX: A04.72 Enterocolitis due to Clostridium difficile, not specified as recurrent (principal); E86.0 Dehydration; N39.0 Urinary tract infection, site not specified; E11.40 Type 2 diabetes mellitus with diabetic neuropathy, unspecified; E66.9 Obesity, unspecified; Z68.37 Body mass index [BMI] 37.0-37.9, adult; E66.01 Morbid (severe) obesity due to excess calories; N17.9 Acute kidney failure, unspecified
CPT/HCPCS: 36415 ×4; 80048 ×2; 80053; 80061; 81001; 82948 ×4; 83036; 85025 ×2; 87493; 93005; 96361; 97110; 97116 ×2; 97162; 99284; C9113 ×3; G0378 ×4; J1170 ×4; J1817; J2270; J2405 ×3; J7030 ×3; 96360

== ENCOUNTER 2018-11-07 10:24 | Inpatient (IN) | payer MEDICARE ==
[~2018-11-07] VITALS: Ht 162.6 cm; Wt 99.8 kg
[~2018-11-07 10:24] MED LIST changes: +HUMALOG100 UNIT/1 SQ; +PROBIOTIC & AC1 EACH PO
[2018-11-07] MEDS ORDERED: ONDANSETRON HCL INJ 2MG/ML 2ML 2 MG/ML VIAL IV STA (10:30)
[2018-11-07] MEDS ORDERED: DICYCLOMINE HCL 20 MG/2 ML VIAL IM ONE (10:30)
[2018-11-07] MEDS ORDERED: SODIUM CHLORIDE 0.9% 1000ML 1,000 ML IV STA (10:30)
--- NOTE | 2018-11-07 10:54 | NUR ---
PATIENT AMBULATORY TO ER ROOM 2 WITH STANDBY ASSISTANCE,TOELRATED WELL. DISROBED GOWNED, PLACED ON BEDSIDE CARDIAC,NIBP AND SPO2 MONITOR. NO SIGNS OF ACUTE DISTRESS NOTED AT THIS TIME. RESP EVEN AND UNLABORED. SKIN WARM AND DRY. EDUCATED PATIENT ON THE CUURENT PLAN OF CARE, VERBALIZED UNDERSTANDING.
--- NOTE | 2018-11-07 11:09 | NUR ---
XRAY AT BEDSIDE FOR CXR.
--- NOTE | 2018-11-07 11:19 | NUR ---
LAB CALLED TO NOTIFY BLOOD SPECIMEN HEMOLYZED, NOTIFIED LAB PATIENT STUCK MULTIPLE TIMES. NOTIFIED RAIL DOWELING MACHINE OPERATOR TO RECOLLECT.
--- NOTE | 2018-11-07 11:30 | Diagnostic Imaging Report ---
EXAMINATION: CHEST SINGLE (PORTABLE) INDICATION: Pain COMPARISON: Chest radiograph of 08/11/2018 FINDINGS: LINES/TUBES:None LUNGS:The lungs are well-inflated. There is perihilar fullness and indistinctness of the pulmonary vasculature. New approximately 1 cm nodular opacities at the right lung base. PLEURA:No pleural effusion or pneumothorax. MEDIASTINUM:Cardiomediastinal silhouette is stably enlarged. BONES/SOFT TISSUES:No acute osseous injury. ABDOMEN:No free air under the diaphragm. IMPRESSION: Mild pulmonary edema. Approximately 1 cm nodular opacities at the right lung base were nonvisualized on prior chest radiographs. Follow-up with chest CT on a nonurgent basis is recommended for further evaluation. Signed by: Jovon Amaral MD on 11/07/2018 11:27 AM
--- NOTE | 2018-11-07 11:35 | NUR ---
BLOOD RECOLLECTED FROM RIGHT UPPER ARM, TOLERATED WELL. NO SIGNS OF ACUTE DISTRESS NOTED AT THIS TIME.
[2018-11-07 11:45] LABS: BASOPHILS % 0.3 % (0.0-1.0); EOSINOPHILS # (AUTO) 0.1 (0.0-0.4); EOSINOPHILS % 0.6 % (0.0-6.0); HEMATOCRIT 43.9 % (34.2-44.1); HEMOGLOBIN 14.6 g/dL (12.0-16.0); LYMPHOCYTES # (AUTO) 3.1 (1.0-3.2); LYMPHOCYTES % 30.6 % (18.0-39.1); MEAN CORPUSCULAR HGB CONC 33.3 g/dL (31-35); MEAN CORPUSCULAR VOLUME 87.3 fL (81-99); MONOCYTES # (AUTO) 0.7 (0.2-0.8); MONOCYTES % 7.2 % (4.4-11.3); NEUTROPHILS # (AUTO) 6.2 (2.1-6.9); PLATELET COUNT 221 x10e3/uL (140-360); RED BLOOD COUNT 5.03 x10e6/uL (3.6-5.1); RED CELL DISTRIBUTION WIDTH 14.4 % (11.7-14.4)
--- NOTE | 2018-11-07 11:47 | NUR ---
NOTIFIED DR HUNTER PULMONARY EDEMA NOTED ON CXR AND NS BOLUS STOPPED, 300ML NS GIVEN. VERBAL ORDER RECEIVED: NS IV @ 125ML/HR.
[2018-11-07] MEDS: SODIUM CHLORIDE 0.9% 1000ML 1,000 ML IV SCH ×5 (11:57→21:18)
[2018-11-07 12:23] LABS: ALANINE AMINOTRANSFERASE 13 IU/L (0-55); ALBUMIN 4.5 g/dL (3.5-5.0); ALBUMIN/GLOBULIN RATIO 1.6 (0.8-2.0); ALKALINE PHOSPHATASE 64 IU/L (40-150); ANION GAP 18.6 mmol/L (8-16); BLOOD UREA NITROGEN 11 mg/dL (7-26); BUN/CREATININE RATIO 14 (6-25); CALCIUM 9.8 mg/dL (8.4-10.2); CARBON DIOXIDE 23 mmol/L (22-29); CHLORIDE 100 mmol/L (98-107); CREATINE KINASE 85 IU/L (29-168); EST GLOMERULAR FILTRATION RATE > 60 ML/MIN (60-); GLUCOSE 75 mg/dL (74-118); LIPASE 46 U/L (8-78); POTASSIUM 3.6 mmol/L (3.5-5.1); SODIUM 138 mmol/L (136-145)
[2018-11-07 13:16] LABS: BILIRUBIN,URINE NEGATIVE (NEGATIVE); CLARITY,URINE SL CLOUDY (CLEAR); COLOR,URINE YELLOW (YELLOW); KETONES,URINE NEGATIVE (NEGATIVE); LEUKOCYTE ESTERASE ,URINE MODERATE (NEGATIVE); NITRITE,URINE POSITIVE (NEGATIVE); PROTEIN,URINE DIPSTICK NEGATIVE (NEGATIVE); URINE UROBILINOGEN 0.2 mg/dL (0.2 - 1)
[2018-11-07 13:23] LABS: BACTERIA,URINE MODERATE /HPF; RBC,URINE 0-5 /HPF (0-5)
--- NOTE | 2018-11-07 13:40 | NUR ---
PAITENT AWAKE AND ALERT TALKING TO FAMILY AT BEDSIDE. RESP EVEN AND UNLABORED. SKIN WARM AND DRY. NO SIGNS OF ACUTE DISTRESS NOTED AT THIS TIME. DENIES ANY C/O AT THIS TIME.
--- NOTE | 2018-11-07 13:52 | Diagnostic Imaging Report ---
EXAM: CT Abdomen and Pelvis WITH intravenous contrast INDICATION: Abdominal pain COMPARISON: None. TECHNIQUE: Abdomen and pelvis were scanned utilizing a multidetector helical scanner from the lung base to the pubic symphysis after administration of IV contrast. Coronal and sagittal reformations were obtained. Routine protocol was performed. Scan was performed when during portal venous phase. IV CONTRAST: 100mL of Isovue 370 ORAL CONTRAST: Water COMPLICATIONS: None RADIATION DOSE: Total DLP: 751.9 mGy*cm Dose modulation, iterative reconstruction, and/or weight based adjustment of the mA/kV was utilized to reduce the radiation dose to as low as reasonably achievable. FINDINGS: LOWER THORAX: 9 mm right lower lobe lateral pleural nodularity. No focal consolidation. Fabius pleural calcification along the dome of the left hemidiaphragm. HEPATOBILIARY: No focal liver lesions. Common bile duct is dilated to 11 mm, which can be normal status post cholecystectomy. SPLEEN: No splenomegaly. PANCREAS: No focal masses or ductal dilatation. ADRENALS: No adrenal nodules. KIDNEYS/URETERS: Numerous bilateral renal cysts, the largest of which measure up to 1.7 cm on the left and 1.1 cm on the right. No renal calculi or hydronephrosis. PELVIC ORGANS/BLADDER: Status post hysterectomy. PERITONEUM / RETROPERITONEUM: No free air or fluid. LYMPH NODES: No lymphadenopathy. VESSELS: Unremarkable. GI TRACT: Status post gastric bypass. No abnormal bowel wall thickening. No bowel obstruction. Sigmoid and descending colon diverticulosis with no CT evidence of diverticulitis. BONES AND SOFT TISSUES: No acute osseous injury. Diffuse osteopenia. Moderate degenerative changes of the visualized spine. No suspicious lytic or blastic lesions. Partially visualized implanted neurostimulator device at the left flank with single lead terminating in the presacral soft tissues. IMPRESSION: No acute process in the abdomen or pelvis. Right lower lobe pleural nodularity and chunky pleural calcification along the dome of the left hemidiaphragm. Findings may be related to prior asbestos exposure. Signed by: Jovon Amaral MD on 11/07/2018 1:49 PM
[2018-11-07] MEDS ORDERED: CEFTRIAXONE SOD 1 GM VIAL IV ONE (14:00)
[2018-11-07] MEDS ORDERED: CEFTRIAXONE SOD 1 GM/NS 50 ML 50 ML IV ONE ×2 (14:00→14:01)
--- NOTE | 2018-11-07 14:05 | NUR ---
NOTIFIED DR HUNTER PATIENT C/O ABD PAIN, REQUESTING PAIN MEDICATION. VERBAL ORDER RECEIVED: MORPHINE 4MG IV ONCE AND ZOFRAN 4MG IV ONCE.
[2018-11-07] MEDS ORDERED: DEXTROSE 50% SYRINGE 50 ML IV PRN (14:15)
[2018-11-07] MEDS ORDERED: MORPHINE SULFATE INJ 4 MG/ML INJ 1ML IV NR (14:15)
[2018-11-07] MEDS ORDERED: IOPAMIDOL 370 MG/ML 200 ML INFUS..BTL INJ ONE (14:18)
[2018-11-07] MEDS ORDERED: SODIUM CHLORIDE 0.9% 50ML 50 ML ONE (14:18)
[2018-11-07] MEDS ORDERED: ONDANSETRON HCL INJ 2MG/ML 2ML 2 MG/ML VIAL IV ONE (14:30)
[2018-11-07] MEDS ORDERED: CEFTRIAXONE SOD 1 GM/NS 50 ML 50 ML IV SCH (14:30)
--- NOTE | 2018-11-07 14:30 | NUR ---
PATIENT C/O SYSTEMIC ITCHING AND BILATERAL HANDS "BURNING" AFTER RECEIVING DOSE OF ROCEPHINE,DENIES ITCHING AT THIS TIME. DENIES C/O CHEST PAIN AND SOB. NO SIGNS OF ACUTE DISTRESS NOTED. NOTIFIED ADRIANA SANTOROSMELTER CHARGER, NO NEW ORDERS NOTED AT THIS TIME.
[2018-11-07 15:25] VITALS: BP 133/61
--- NOTE | 2018-11-07 16:00 | NUR ---
pt arrived to unit resp even and unlabored at this time no distress noted , pt has no c/o pain no nausea , no diarrhea, iv site CDI. pt oriented to room and call light , bed in lowest position, bed rail up X2, call light in reach.
[2018-11-07] MEDS: INSULIN REGULAR, HUMAN 100 UNIT/1 ML 3ML VIAL SQ SCH ×2 (16:18→21:00)
[2018-11-07 16:30] VITALS: BP 133/61
[2018-11-07] MEDS: FAMOTIDINE 20 MG/2 ML VIAL IV SCH (17:01)
--- NOTE | 2018-11-07 19:09 | NUR ---
WALKING ROUNDS PERFORMED, RECEIVED PT LAYING SEMI FOWLERS IN BED, AAOX3, RR EVEN AND NON-LABORED, ON ROOM AIR. NO S.SX OF DISTRESS NOTED. LEFT PT LAYING SEMI FOWLERS IN BED, BED IN LOW LOCKED POSITION, SIDE RAILS UPX2, CALL LIGHT AND PHONE WITHIN REACH.
--- NOTE | 2018-11-07 19:41 | NUR ---
pt alert resp even and unlabored at this time no distress noted. pt able to make needs known, call light in reach.
[2018-11-07 19:54] VITALS: BP 121/58
[2018-11-07] MEDS ORDERED: ACETAMINOPHEN 325 MG TAB PO PRN (21:00)
[2018-11-07] MEDS: TRAZODONE HCL 50 MG TAB PO PRN (21:18)
[2018-11-07 21:21] VITALS: BP 121/58
[2018-11-07] MEDS: ONDANSETRON HCL INJ 2MG/ML 2ML 2 MG/ML VIAL IV PRN (21:26)
[2018-11-07] MEDS: MORPHINE SULFATE INJ 4 MG/ML INJ 1ML IV PRN (21:26)
[2018-11-08] VITALS (8 sets, daily range): BP systolic 116–137; BP diastolic 56–64
[2018-11-08] MEDS: SODIUM CHLORIDE 0.9% 1000ML 1,000 ML IV SCH ×3 (05:39→23:51)
[2018-11-08 06:42] LABS: BASOPHILS % 0.3 % (0.0-1.0); EOSINOPHILS # (AUTO) 0.2 (0.0-0.4); EOSINOPHILS % 3.1 % (0.0-6.0); HEMATOCRIT 40.1 % (34.2-44.1); LYMPHOCYTES # (AUTO) 1.9 (1.0-3.2); LYMPHOCYTES % 26.6 % (18.0-39.1); MEAN CORPUSCULAR HEMOGLOBIN 28.6 pg (28-32); MEAN CORPUSCULAR HGB CONC 32.4 g/dL (31-35); MEAN CORPUSCULAR VOLUME 88.1 fL (81-99); MONOCYTES # (AUTO) 0.6 (0.2-0.8); MONOCYTES % 8.7 % (4.4-11.3); NEUTROPHILS # (AUTO) 4.3 (2.1-6.9); NEUTROPHILS % 61.2 % (38.7-80.0); PLATELET COUNT 179 x10e3/uL (140-360); RED BLOOD COUNT 4.55 x10e6/uL (3.6-5.1); RED CELL DISTRIBUTION WIDTH 14.4 % (11.7-14.4)
[2018-11-08 07:12] LABS: ALANINE AMINOTRANSFERASE 12 IU/L (0-55); ALBUMIN 3.8 g/dL (3.5-5.0); ALBUMIN/GLOBULIN RATIO 1.5 (0.8-2.0); ALKALINE PHOSPHATASE 53 IU/L (40-150); ANION GAP 14.3 mmol/L (8-16); BLOOD UREA NITROGEN 6 mg/dL (7-26); BUN/CREATININE RATIO 8 (6-25); CALCIUM 8.8 mg/dL (8.4-10.2); CARBON DIOXIDE 26 mmol/L (22-29); CHLORIDE 101 mmol/L (98-107); CREATININE, SERUM 0.73 mg/dL (0.57-1.11); EST GLOMERULAR FILTRATION RATE > 60 ML/MIN (60-); GLUCOSE 88 mg/dL (74-118); LIPASE 37 U/L (8-78); POTASSIUM 3.3 mmol/L (3.5-5.1); SODIUM 138 mmol/L (136-145)
--- NOTE | 2018-11-08 07:27 | NUR ---
PATIENT IN BED WITH HEAD OF BED ELEVATED WATCHING TV, NO DISTRESS NOTED. IV FLUID INFUSING ORDERED. ENCOURAGE TO CALL WITH STOOL SPECIMEN. BED IN LOWER POSITION, CALL LIGHT AT REACH.
[2018-11-08] MEDS: INSULIN REGULAR, HUMAN 100 UNIT/1 ML 3ML VIAL SQ SCH ×4 (07:30→21:00)
[2018-11-08] MEDS: FAMOTIDINE 20 MG/2 ML VIAL IV SCH ×2 (09:05→16:52)
[2018-11-08] MEDS: MORPHINE SULFATE INJ 4 MG/ML INJ 1ML IV PRN ×2 (11:25→20:20)
[2018-11-08] MEDS: ONDANSETRON HCL INJ 2MG/ML 2ML 2 MG/ML VIAL IV PRN ×2 (11:25→20:20)
--- NOTE | 2018-11-08 11:42 | NUR ---
STOOL SPECIMEN COLLECTED AND SENT TO THE LAB. PATIENT C/O ABDOMINAL PAIN. MEDICATED ORDERED. IN BED WITH CALL LIGHT AT REACH.
[2018-11-08] MEDS ORDERED: CEFTRIAXONE SOD 1 GM/NS 50 ML 50 ML IV SCH (14:00)
[2018-11-08] MEDS ORDERED: POTASSIUM CHLORIDE 20 MEQ TAB CR PO ONE (15:15)
[2018-11-08] MEDS ORDERED: BISMUTH SUBSALICYLATE 262 MG TAB PO PRN (15:30)
[2018-11-08] MEDS ORDERED: CHOLESTYRAMINE 4 GM PACKET PO PRN (15:30)
--- NOTE | 2018-11-08 16:08 | NUR ---
SPOKE WITH MD REGARDING ABNORMAL LAB RESULT, NEW ORDER RECEIVED AND IMPLEMENTED. IN BED WITH CALL LIGHT AT REACH.
[2018-11-08] MEDS: METOPROLOL SUCCINATE 50 MG TAB XL PO SCH (18:00)
[2018-11-08] MEDS: METRONIDAZOLE 500MG/NS 100ML 100 ML IV SCH (18:11)
[2018-11-08] MEDS: RIVAROXABAN 20 MG TABLET PO SCH (18:47)
--- NOTE | 2018-11-08 19:19 | NUR ---
WALKING ROUND MADE AND REPORT GIVEN TO ON COMING NURSE.
[2018-11-08] MEDS: LACTOBACILLUS ACIDOPHILUS CAPSULE PO SCH (20:20)
[2018-11-08] MEDS: GABAPENTIN 300 MG CAP PO SCH (20:20)
[2018-11-08] MEDS: SIMVASTATIN 20 MG TAB PO SCH (20:20)
--- NOTE | 2018-11-08 20:20 | NUR ---
PATIENT IS AOX4, NO DISTRESS NOTED. VOICES COMPLAINTS OF PAIN OF 7 IN THE RIGHT ABDOMEN, AND MEDICATED ORDERED. BED IS IN LOWEST POSITION, CALL LIGHT WITHIN EASY REACH, WILL CONTINUE TO MONITOR.
[2018-11-08] MEDS: TRAZODONE HCL 50 MG TAB PO PRN (21:00)
[2018-11-08] MEDS: VANCOMYCIN 250MG/5ML ORAL SOLN PO SCH (21:41)
--- NOTE | 2018-11-08 23:55 | NUR ---
PATIENT VOICED COMPLAINTS OF TROUBLE BREATHING. PATIENT READ AN O2 SAT OF 90%, AND PLACED PATIENT ON O2 NASAL CANNULA AT 2L. WILL CONTINUE TO MONITOR.
[2018-11-09] VITALS (7 sets, daily range): BP systolic 101–144; BP diastolic 53–65
--- NOTE | 2018-11-09 00:15 | NUR ---
PATIENT VOICED THAT SHE BREATHING A LOT BETTER AND RELAXING COMFORTABLY. CONTINUING TO MONITOR THE SITUATION.
[2018-11-09] MEDS: METRONIDAZOLE 500MG/NS 100ML 100 ML IV SCH ×5 (00:37→23:40)
[2018-11-09] MEDS ORDERED: CHOLESTYRAMINE 4 GM PACKET PO STA (00:51)
[2018-11-09] MEDS ORDERED: DICYCLOMINE HCL 20 MG TAB PO ONE (01:00)
--- NOTE | 2018-11-09 01:00 | History and Physical ---
CHIEF COMPLAINT: Diarrhea, Clostridium difficile colitis. HISTORY OF PRESENT ILLNESS: A 73-year-old female with recent diagnosis of Clostridium difficile colitis, treated accordingly with oral vancomycin and Flagyl, presents back to the ED with associated dehydration and severe profound diarrhea. The patient was just discharged last Tuesday. Since then, she reports still worsening diarrhea and decreased oral intake. Denies any fever or any other complaints. Reports some occasional abdominal pain. 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 The patient was seen and evaluated at bedside on the medical floor. She is currently doing well with no other issues at this time. REVIEW OF SYSTEMS: 1. Pertinent positives: Abdominal pain, diarrhea, decreased oral intake. 2. Pertinent negatives: Denies any chest pain, palpitation, dysuria, hematuria, frequency, urgency, lightheadedness, dizziness, cough, congestion, fever, shortness of breath, or any other complaints. The rest of 14-point review of systems have been reviewed with the patient and are negative. ALLERGIES: NO KNOWN DRUG ALLERGIES. HOME MEDICATIONS: 1. Amlodipine 10 mg daily. 2. Gabapentin 300 mg p.o. t.i.d. 3. Isosorbide mononitrate 30 mg daily. 4. 100 mg daily. 5. Metformin 1000 mg p.o. b.i.d. 6. Omeprazole 40 mg daily. 7. Xarelto 20 mg daily. 8. Simvastatin 10 mg daily. 9. Toprol-XL 100 mg p.o. b.i.d. PAST MEDICAL HISTORY: Clostridium difficile colitis, hypertension, peripheral neuropathy, hyperlipidemia. PAST SURGICAL HISTORY: None. FAMILY HISTORY: hypertension and diabetes. SOCIAL HISTORY: No drugs. No alcohol. Does not smoke. LABORATORY FINDINGS: Show white count 7, hemoglobin 13, hematocrit 40, platelets above 179. Chemistry reviewed. Sodium 138, potassium 3.3, chloride 101, bicarb 26, anion gap of 14. BUN 6, creatinine is 0.73, glucose is 88, calcium 8.8, total bilirubin was 0.7. LFTs within normal range. . Troponins were negative. Lipase 37. Urinalysis, nitrite positive. Clostridium difficile toxin is negative. PHYSICAL EXAMINATION: VITAL SIGNS: Temperature 98.3, pulse 61, respiratory rate is 18, blood pressure is 127/61, pulse ox 95% on room air. GENERAL: Not in acute distress. Alert and oriented x3. Cooperative on examination. HEENT: Head is normocephalic and atraumatic. Eyes; pupils are equal, round, and reactive to light bilaterally. Extraocular muscles are intact bilaterally. Throat, no evidence of erythema or exudates in the posterior pharynx. Has poor dentition. NECK: Supple. Good range of motion. PULMONARY: Clear to auscultation bilaterally. No wheezing, no rales, no rhonchi, no crackles appreciated. CARDIOVASCULAR: Positive S1, S2. No murmurs, rubs, or gallops appreciated. ABDOMEN: Soft, nondistended, and nontender to palpation. Bowel sounds present. MUSCULOSKELETAL: Strength is 5/5 throughout. No evidence of any muscle deficits on examination. No weakness appreciated. NEUROLOGIC: Cranial nerves 2 through 12 grossly intact. No evidence of any neurological deficits on exam. SKIN: Intact. Warm to touch. Good cap refill. PSYCHIATRIC: Normal affect and mood. EXTREMITIES: No edema. Good range of motion throughout. IMPRESSION: 1. Abdominal pain with associated diarrhea with negative Clostridium difficile toxin with a history of recurring Clostridium difficile colitis. 2. Hypertension. 3. Urinary tract infection. 4. Decreased oral intake. 5. Generalized weakness. PLAN: At this time, ID was consulted and started on p.o. vancomycin as well as IV Flagyl. Rocephin was discontinued by ID. We will follow ID recommendations. Continue with cholestyramine. Resume same home medications. CONSULTANTS: Infectious Disease. I spoke with ID about the case and he recommends a GI consultation as the patient continues to have significant diarrhea. GI consulted for possible colonoscopy. Otherwise, continue same plan of care. She is on Xarelto for DVT prophylaxis. MD ANGELA Rees/KARISSA /[id number]
[2018-11-09] MEDS ORDERED: DICYCLOMINE HCL 20 MG TAB PO SCH (06:00)
[2018-11-09] MEDS: VANCOMYCIN 250MG/5ML ORAL SOLN PO SCH (06:04)
[2018-11-09 06:11] LABS: BASOPHILS % 0.4 % (0.0-1.0); EOSINOPHILS # (AUTO) 0.2 (0.0-0.4); EOSINOPHILS % 3.9 % (0.0-6.0); HEMATOCRIT 40.1 % (34.2-44.1); HEMOGLOBIN 13.2 g/dL (12.0-16.0); LYMPHOCYTES % 35.6 % (18.0-39.1); MEAN CORPUSCULAR HEMOGLOBIN 29.3 pg (28-32); MEAN CORPUSCULAR HGB CONC 32.9 g/dL (31-35); MEAN CORPUSCULAR VOLUME 89.1 fL (81-99); MONOCYTES # (AUTO) 0.5 (0.2-0.8); MONOCYTES % 9.4 % (4.4-11.3); NEUTROPHILS # (AUTO) 2.9 (2.1-6.9); NEUTROPHILS % 50.5 % (38.7-80.0); PLATELET COUNT 174 x10e3/uL (140-360); RED CELL DISTRIBUTION WIDTH 14.4 % (11.7-14.4)
[2018-11-09 06:29] LABS: ANION GAP 15.5 mmol/L (8-16); BLOOD UREA NITROGEN < 5 mg/dL (7-26); CALCIUM 8.7 mg/dL (8.4-10.2); CARBON DIOXIDE 23 mmol/L (22-29); CHLORIDE 107 mmol/L (98-107); CREATININE, SERUM 0.65 mg/dL (0.57-1.11); EST GLOMERULAR FILTRATION RATE > 60 ML/MIN (60-); GLUCOSE 94 mg/dL (74-118); POTASSIUM 3.5 mmol/L (3.5-5.1); SODIUM 142 mmol/L (136-145)
[2018-11-09 06:30] LABS: BUN/CREATININE RATIO 8 (6-25)
--- NOTE | 2018-11-09 07:05 | NUR ---
Walking rounds done and report received. Patient is awake, alert, and able to make needs known. Patient just got out of the shower and was connected back to for IV as ordered. Bed in lowest position, locked, and call cunningham within reach.
[2018-11-09] MEDS: INSULIN REGULAR, HUMAN 100 UNIT/1 ML 3ML VIAL SQ SCH ×4 (07:30→21:00)
[2018-11-09] MEDS ORDERED: METOPROLOL SUCCINATE 100 MG PO SCH (09:00)
[2018-11-09] MEDS ORDERED: SIMVASTATIN 40 MG TAB PO SCH (09:00)
[2018-11-09] MEDS: FAMOTIDINE 20 MG/2 ML VIAL IV SCH (09:32)
[2018-11-09] MEDS: DICYCLOMINE HCL 20 MG TAB PO SCH ×3 (09:32→21:35)
[2018-11-09] MEDS: GABAPENTIN 300 MG CAP PO SCH ×3 (09:33→21:35)
[2018-11-09] MEDS: AMLODIPINE BESYLATE 10 MG TAB PO SCH (09:33)
[2018-11-09] MEDS: ONDANSETRON HCL INJ 2MG/ML 2ML 2 MG/ML VIAL IV PRN (09:34)
[2018-11-09] MEDS: MORPHINE SULFATE INJ 4 MG/ML INJ 1ML IV PRN ×2 (09:34→21:38)
[2018-11-09] MEDS: METOPROLOL SUCCINATE 50 MG TAB XL PO SCH ×2 (09:34→17:00)
[2018-11-09] MEDS: CHOLESTYRAMINE 4 GM PACKET PO SCH (09:34)
[2018-11-09] MEDS: LACTOBACILLUS ACIDOPHILUS CAPSULE PO SCH ×2 (09:34→21:35)
[2018-11-09] MEDS: SODIUM CHLORIDE 0.9% 1000ML 1,000 ML IV SCH ×3 (11:50→21:39)
--- NOTE | 2018-11-09 11:53 | Consultation ---
DATE OF CONSULTATION: 11/08/2018 REASON FOR CONSULTATION: Recurrent diarrhea, recurrent C. diff colitis. HISTORY OF PRESENT ILLNESS: This patient is a 73-year-old white female. She is telling me she had C difficile colitis 4 times in the last year. Last time she was here for 9 days in May and then she was discharged home with oral vancomycin. She took oral medication, came back with diarrhea again and she was admitted and she was here for 3 days. She was then discharge home with oral vancomycin and Flagyl. Now, she has come back with really bad diarrhea, not feeling well. The patient was admitted because she said that the diarrhea was really bad and not doing well. I was asked to see her. PAST MEDICAL HISTORY: Recently she had C difficile colitis as mentioned above. Her urine culture is showing gram-negative rods. Her white count is 10.10, hemoglobin 14, hematocrit 43. Sodium 138, potassium 3.3, creatinine 0.73. PHYSICAL EXAMINATION: GENERAL: She is currently alert, oriented, does not seem to be in acute distress. VITAL SIGNS: Stable, afebrile. HEENT: She is normocephalic. Not icteric. NECK: Supple. CHEST: Clear bilateral. HEART: S1 and S2. No S3, S4, or murmur. ABDOMEN: Soft. Bowel sounds present. No tenderness. EXTREMITIES: No edema. SKIN: No rash. IMPRESSION: 1. Severe diarrhea. She said she had continuous 8 loose stools yesterday. It is either resistant C difficile colitis or something else such as colitis from different pathology. I would recommend to put her on mg p.o. b.i.d. In the meantime, vancomycin at her dose 500 mg p.o. q.i.d., to use Pepto-Bismol 1 p.o. q.4 hours p.r.n., Questran pack to be used for symptomatic relief from diarrhea, but to make sure at least 2 hours away from other antibiotic. I also recommend to do a colonoscopy to see if she has C difficile colitis versus other. 2. Bacteriuria, asymptomatic. We will address once we can resolve the issue of the diarrhea. 3. Other medical problems as above. 4. We will follow with you. Discussed with Internal Medicine. Discussed with the patient at length. We will follow. MD KARSON Ritchie /[id number]
[2018-11-09] MEDS: ISOSORBIDE MONONITRATE 30 MG TAB CR PO SCH (12:06)
[2018-11-09] MEDS: LOSARTAN POTASSIUM 100 MG TAB PO SCH (12:06)
[2018-11-09] MEDS ORDERED: ONDANSETRON HCL 4 MG ORAL DISINTEGRATING TAB PO PRN (12:30)
[2018-11-09] MEDS ORDERED: CEFEPIME HCL 1 GM VIAL IV SCH (14:00)
[2018-11-09] MEDS: CEFEPIME 1GM/NS 0.9% 50 ML 50 ML IV SCH ×2 (14:30→21:35)
[2018-11-09] MEDS: FAMOTIDINE 20 MG TAB PO SCH (17:36)
[2018-11-09] MEDS: RIVAROXABAN 20 MG TABLET PO SCH (17:36)
--- NOTE | 2018-11-09 19:00 | NUR ---
Received patient awake, with ongoing IVF, still having diarrhea, not in distress. Call light within easy reach, advised to call anytime when needed. Will continue to monitor
--- NOTE | 2018-11-09 19:15 | NUR ---
Walking rounds done and report given. Call cunningham within reach.
--- NOTE | 2018-11-09 20:51 | Progress Note ---
DATE: 11/09/2018 Medicine Progress Note SUBJECTIVE: The patient is doing well today. Still has diarrhea on examination. I am not sure if Dr. Wiggins of GI must do a colonoscopy. I discussed with the nurse to talk to GI if they need to advance diet or possibly do a colonoscopy tomorrow. She will discuss this with the GI specialist. PHYSICAL EXAMINATION: VITAL SIGNS: Temperature is 97.6, pulse on room air. GENERAL: In no acute distress, alert, and oriented x3. Cooperative on examination. HEENT: Head is normocephalic and atraumatic. Eyes; pupils are equal, round, and reactive to light bilaterally. Extraocular movements are intact bilaterally. Neck is supple and good range of motion. Throat, no evidence of erythema or exudates in the posterior pharynx. Has poor dentition. PULMONARY: Clear to auscultation bilaterally. No wheezing, no rales, no rhonchi, no crackles appreciated. CARDIOVASCULAR: Positive S1, S2. No murmurs, rubs, or gallops appreciated. ABDOMEN: Soft, nondistended, and nontender to palpation. Bowel sounds present. MUSCULOSKELETAL: Strength is 5/5 throughout. No evidence of any muscle deficits on examination. No weakness appreciated. NEUROLOGICAL: Cranial nerves II through XII grossly intact. No evidence of any neurological deficits on exam. SKIN: Intact. Warm to touch. Good cap refill. PSYCHIATRIC: Normal affect and mood. EXTREMITIES: No edema. Good range of motion throughout. LABORATORY DATA: CBC; reviewed and stable. Chemistry; reviewed and stable. Urine cultures were positive for Klebsiella oxytoca IMPRESSION: 1. Abdominal pain with associated diarrhea with negative Clostridium difficile colitis. 2. Hypertension. 3. Urinary tract infection. 4. Decreased oral intake. 5. Generalized weakness. 6. Dehydration. PLAN: At this time, continue with antibiotics as per Infectious Disease recommendations. She is on clear liquid diet. Would like to talk with Cardiology and we also talk with GI about advancement of diet if colonoscopy is not the option. Otherwise, we will continue with same plan of care. She is on Xarelto for deep venous thrombosis prophylaxis. We will get a.m. labs. MD ANGELA Rees/BRADL /[id number]
[2018-11-09] MEDS: TRAZODONE HCL 50 MG TAB PO PRN (21:35)
[2018-11-09] MEDS: SIMVASTATIN 20 MG TAB PO SCH (21:35)
[2018-11-10] VITALS (8 sets, daily range): BP systolic 119–158; BP diastolic 59–71
--- NOTE | 2018-11-10 03:30 | NUR ---
Dr. Wiggins seen pt, placed pt on full liquid diet for now
[2018-11-10] MEDS ORDERED: DICYCLOMINE HCL 20 MG TAB PO STA (03:37)
[2018-11-10] MEDS: SODIUM CHLORIDE 0.9% 1000ML 1,000 ML IV SCH ×2 (04:00→14:39)
[2018-11-10] MEDS: CEFEPIME 1GM/NS 0.9% 50 ML 50 ML IV SCH ×3 (05:17→23:00)
[2018-11-10] MEDS: MORPHINE SULFATE INJ 4 MG/ML INJ 1ML IV PRN ×3 (05:32→21:35)
[2018-11-10] MEDS: METRONIDAZOLE 500MG/NS 100ML 100 ML IV SCH ×3 (06:16→19:17)
[2018-11-10 07:05] LABS: ANION GAP 12.4 mmol/L (8-16); BLOOD UREA NITROGEN < 5 mg/dL (7-26); CALCIUM 8.7 mg/dL (8.4-10.2); CARBON DIOXIDE 26 mmol/L (22-29); CHLORIDE 110 mmol/L (98-107); CREATININE, SERUM 0.66 mg/dL (0.57-1.11); EST GLOMERULAR FILTRATION RATE > 60 ML/MIN (60-); GLUCOSE 106 mg/dL (74-118); POTASSIUM 3.4 mmol/L (3.5-5.1); SODIUM 145 mmol/L (136-145)
[2018-11-10 07:17] LABS: BUN/CREATININE RATIO 8 (6-25)
--- NOTE | 2018-11-10 07:25 | NUR ---
PT UP IN BED ,DENIES PAIN ,STATED HAS SOFT STOOL.
[2018-11-10] MEDS: INSULIN REGULAR, HUMAN 100 UNIT/1 ML 3ML VIAL SQ SCH ×4 (07:30→21:00)
[2018-11-10] MEDS: DICYCLOMINE HCL 20 MG TAB PO SCH ×4 (08:38→21:25)
[2018-11-10] MEDS: FAMOTIDINE 20 MG TAB PO SCH ×2 (08:38→17:02)
[2018-11-10] MEDS: LOSARTAN POTASSIUM 100 MG TAB PO SCH (08:39)
[2018-11-10] MEDS: GABAPENTIN 300 MG CAP PO SCH ×3 (08:40→21:25)
[2018-11-10] MEDS: METOPROLOL SUCCINATE 50 MG TAB XL PO SCH ×2 (08:40→17:08)
[2018-11-10] MEDS: AMLODIPINE BESYLATE 10 MG TAB PO SCH (08:40)
[2018-11-10] MEDS: ISOSORBIDE MONONITRATE 30 MG TAB CR PO SCH (08:40)
[2018-11-10] MEDS: CHOLESTYRAMINE 4 GM PACKET PO SCH (08:40)
[2018-11-10] MEDS: LACTOBACILLUS ACIDOPHILUS CAPSULE PO SCH ×2 (08:40→21:25)
--- NOTE | 2018-11-10 16:50 | Progress Note ---
DATE: SUBJECTIVE: Ms. Jiang continued to have diarrhea. No new complaints. REVIEW OF SYSTEMS: Otherwise unremarkable. She has no fever. PHYSICAL EXAMINATION: GENERAL: She is currently alert, oriented, does not seem to be in acute distress. VITAL SIGNS: Stable, currently afebrile. HEENT: She is not icteric. NECK: Supple. CHEST: Clear. ABDOMEN: Soft. IMPRESSION: Diarrhea. I do not think it is due to Clostridium difficile, concerned about colitis. Recommend colonoscopy. Discussed with the above. MD KAREN Ritchie/BRADL /[id number]
[2018-11-10] MEDS: RIVAROXABAN 20 MG TABLET PO SCH (17:07)
[2018-11-10] MEDS: SIMVASTATIN 20 MG TAB PO SCH (21:25)
--- NOTE | 2018-11-10 21:26 | Progress Note ---
DATE: 11/10/2018 Medicine Progress Note SUBJECTIVE: The patient is doing well today with no complaints. She does endorse that she has significant amount of diarrhea. Awaiting for GI for possible need for colonoscopy. PHYSICAL EXAMINATION: VITAL SIGNS: Temperature, she is afebrile, normotensive. Respiratory rate is good. GENERAL: Not in acute distress. Alert and oriented x3. Cooperative on examination. HEENT: Head is normocephalic and atraumatic. Eyes; pupils equal, round, and reactive to light bilaterally. Extraocular movements are intact bilaterally. Throat; no evidence of erythema or exudates in the posterior pharynx. Has poor dentition. NECK: Supple. Good range of motion. PULMONARY: Clear to auscultation bilaterally. No wheezing, no rales, no rhonchi, and no crackles appreciated. CARDIOVASCULAR: Positive S1 and S2. No murmurs, rubs, or gallops appreciated. ABDOMEN: Soft, nondistended, and nontender to palpation. Bowel sounds are present. MUSCULOSKELETAL: Strength is 5/5 throughout. No evidence of any muscle deficits on examination. No weakness appreciated. NEUROLOGIC: Cranial nerves II through XII grossly intact. No evidence of any neurological deficits on exam. SKIN: Intact. Warm to touch. Good cap refill. PSYCHIATRIC: Normal affect and mood. EXTREMITIES: No edema. Good range of motion throughout. LABORATORY DATA: CBC within normal range. Chemistry stable except for low potassium, which was replaced. Urine cultures noted. Blood cultures, no growth. IMPRESSION: 1. Abdominal pain with associated diarrhea with negative for Clostridium difficile colitis. Continues to have worsening diarrhea with no resolve. 2. Hypertension. 3. Urinary tract infection. 4. Decreased oral intake. 5. Generalized weakness. 6. Dehydration. PLAN: I will continue with antibiotics with cefepime and Flagyl per ID recommendations. The patient will likely need a colonoscopy, which we leave up to GI. She is on a clear liquid diet. She wants to advance it as well. She is currently doing well with no other issues. She is on Xarelto for DVT prophylaxis. Get a.m. labs. MD ANGELA Rees/KARISSA /[id number]
[2018-11-10] MEDS: TRAZODONE HCL 50 MG TAB PO PRN (21:30)
[2018-11-10] MEDS ORDERED: BISACODYL 5 MG TAB EC PO ONE (23:30)
[2018-11-11] VITALS (8 sets, daily range): BP systolic 121–166; BP diastolic 59–87
--- NOTE | 2018-11-11 00:10 | NUR ---
DR. GUZMAN HAS SEEN PATIENT AND ORDERED HER BACK TO CLEAR LIQUID DIET. HE ALSO ORDERED DUCOLAX AND MAGNESIUM CITRATE FOR PATIENT. WILL CONTINUE TO MONITOR.
[2018-11-11] MEDS: METRONIDAZOLE 500MG/NS 100ML 100 ML IV SCH ×5 (00:59→23:42)
--- NOTE | 2018-11-11 03:30 | NUR ---
PATIENT HAS GONE TO RESTROOM TWICE. SHE DEFECATED AT BEDSIDE COMMODE AND WENT TO TOILET TO FINISH. PATIENT HAS ALSO SHOWERED, WILL CONTINUE TO MONITOR.
[2018-11-11] MEDS: ONDANSETRON HCL INJ 2MG/ML 2ML 2 MG/ML VIAL IV PRN (03:50)
[2018-11-11] MEDS: MORPHINE SULFATE INJ 4 MG/ML INJ 1ML IV PRN (04:35)
[2018-11-11] MEDS ORDERED: CITRATE OF MAGNESIA 300ML BOTTLE PO ONE ×3 (05:00→10:30)
[2018-11-11 06:56] LABS: ANION GAP 13.6 mmol/L (8-16); BLOOD UREA NITROGEN < 5 mg/dL (7-26); CALCIUM 9.2 mg/dL (8.4-10.2); CARBON DIOXIDE 25 mmol/L (22-29); CHLORIDE 108 mmol/L (98-107); CREATININE, SERUM 0.75 mg/dL (0.57-1.11); EST GLOMERULAR FILTRATION RATE > 60 ML/MIN (60-); GLUCOSE 100 mg/dL (74-118); POTASSIUM 3.6 mmol/L (3.5-5.1); SODIUM 143 mmol/L (136-145)
[2018-11-11] MEDS: CEFEPIME 1GM/NS 0.9% 50 ML 50 ML IV SCH ×3 (06:56→21:41)
[2018-11-11 06:57] LABS: BASOPHILS % 0.3 % (0.0-1.0); EOSINOPHILS # (AUTO) 0.3 (0.0-0.4); EOSINOPHILS % 3.7 % (0.0-6.0); HEMATOCRIT 39.3 % (34.2-44.1); HEMOGLOBIN 12.5 g/dL (12.0-16.0); MEAN CORPUSCULAR HEMOGLOBIN 28.6 pg (28-32); MEAN CORPUSCULAR HGB CONC 31.8 g/dL (31-35); MEAN CORPUSCULAR VOLUME 89.9 fL (81-99); MONOCYTES # (AUTO) 0.6 (0.2-0.8); MONOCYTES % 8.5 % (4.4-11.3); NEUTROPHILS # (AUTO) 4.2 (2.1-6.9); NEUTROPHILS % 59.2 % (38.7-80.0); PLATELET COUNT 214 x10e3/uL (140-360); RED BLOOD COUNT 4.37 x10e6/uL (3.6-5.1); RED CELL DISTRIBUTION WIDTH 14.5 % (11.7-14.4)
[2018-11-11 06:58] LABS: BUN/CREATININE RATIO 7 (6-25)
[2018-11-11] MEDS: INSULIN REGULAR, HUMAN 100 UNIT/1 ML 3ML VIAL SQ SCH ×4 (07:30→21:00)
--- NOTE | 2018-11-11 07:30 | NUR ---
PT UP AMBULATING IN ROOM ,PREP STARTED FOR POSSIBLE COLONSCOPY,DENIES PAIN
[2018-11-11] MEDS: DICYCLOMINE HCL 20 MG TAB PO SCH ×4 (08:53→21:41)
[2018-11-11] MEDS: FAMOTIDINE 20 MG TAB PO SCH ×2 (08:53→16:30)
[2018-11-11] MEDS: LOSARTAN POTASSIUM 100 MG TAB PO SCH (08:53)
[2018-11-11] MEDS: CHOLESTYRAMINE 4 GM PACKET PO SCH (09:00)
[2018-11-11] MEDS: GABAPENTIN 300 MG CAP PO SCH ×3 (09:02→21:41)
[2018-11-11] MEDS: METOPROLOL SUCCINATE 50 MG TAB XL PO SCH ×2 (09:02→17:00)
[2018-11-11] MEDS: ISOSORBIDE MONONITRATE 30 MG TAB CR PO SCH (09:02)
[2018-11-11] MEDS: LACTOBACILLUS ACIDOPHILUS CAPSULE PO SCH ×2 (09:02→21:41)
[2018-11-11] MEDS: AMLODIPINE BESYLATE 10 MG TAB PO SCH (09:02)
--- NOTE | 2018-11-11 10:00 | NUR ---
SPOKE WITH DR GUZMAN ,MORE PREP ORDERED.
[2018-11-11] MEDS: SODIUM CHLORIDE 0.9% 1000ML 1,000 ML IV SCH ×3 (12:00→21:41)
[2018-11-11] MEDS ORDERED: PROPOFOL IV EMULSION 10 MG/ML 50 ML VIAL ONE (14:51)
[2018-11-11] MEDS ORDERED: MIDAZOLAM HCL 2 MG/2 ML VIAL ONE (15:27)
[2018-11-11] MEDS ORDERED: FENTANYL CITRATE/PF 100MCG/2 ML INJ ONE (15:27)
[2018-11-11] MEDS: RIVAROXABAN 20 MG TABLET PO SCH (17:00)
--- NOTE | 2018-11-11 18:11 | NUR ---
PT GIVEN ENEMAS LAST BM CLEAR,DENIES PAIN.SPOKE WITH DR GUZMAN
--- NOTE | 2018-11-11 18:30 | NUR ---
pt transported to or via bed stable condition
[2018-11-11] MEDS ORDERED: HYOSCYAMINE 0.125 MG TAB ONE (18:37)
--- NOTE | 2018-11-11 19:40 | Progress Note ---
DATE: 11/11/2018 Medicine Progress Note SUBJECTIVE: The patient is scheduled for colonoscopy later today by Dr. Wiggins. States she continues to still have diarrhea. LAB FINDINGS: CBC within normal range. Chemistry stable. PHYSICAL EXAMINATION: VITAL SIGNS: Temperature is 96.7, pulse 52, respiratory rate is 20, blood pressure is 128/60, pulse ox 96% on room air. GENERAL: Not in acute distress. Alert and oriented x3. Cooperative on examination. HEENT: Head is normocephalic and atraumatic. Eyes; pupils are equal, round, and reactive to light bilaterally. Extraocular movements are intact bilaterally. Neck is supple and good range of motion. Throat, no evidence of erythema or exudates in the posterior pharynx. Has poor dentition. PULMONARY: Clear to auscultation bilaterally. No wheezing, no rales, no rhonchi, no crackles appreciated. CARDIOVASCULAR: Positive S1, S2. No murmurs, rubs, or gallops appreciated. ABDOMEN: Soft, nondistended and nontender to palpation. Bowel sounds present. MUSCULOSKELETAL: Strength is 5/5 throughout. No evidence of any muscle deficits on examination. No weakness appreciated. NEUROLOGIC: Cranial nerves II through XII grossly intact. No evidence of any neurological deficits on exam. SKIN: Intact. Warm to touch. Good cap refill. PSYCHIATRIC: Normal affect and mood. EXTREMITIES: No edema. Good range of motion throughout. IMPRESSION: 1. Abdominal pain with associated diarrhea, negative for Clostridium difficile colitis scheduled for colonoscopy later today. 2. Hypertension. 3. Urinary tract infection. 4. Decreased oral intake. 5. We had the dehydration. PLAN: At this time, continue with antibiotics with cefepime and Flagyl per ID recommendations. Colonoscopy scheduled later today by GI. Diet per GI. Labs reviewed and stable. Continue with Xarelto for DVT prophylaxis. Hopefully, get can more answers for this patient's underlying diarrhea from today's colonoscopy MD ANGELA Rees/KARISSA /[id number]
[2018-11-11 20:06] LABS: WBC,FECAL (FECAL LACTOFERRIN) NEGATIVE (NEGATIVE)
[2018-11-11] MEDS: SIMVASTATIN 20 MG TAB PO SCH (21:41)
--- NOTE | 2018-11-11 22:41 | Operative Report ---
DATE OF PROCEDURE: 11/11/2018 SURGEON: Viral Wiggins MD PROCEDURES: Colonoscopy with biopsies. ADDITIONAL REFERRING PHYSICIAN: Andrea Lopez MD INDICATIONS FOR COLONOSCOPY: Chronic diarrhea, fecal incontinence. MEDICATIONS: The patient was done under MAC. Please see anesthesiologist's note. PROCEDURE IN DETAIL: With the patient in left lateral decubitus position, flexible fiberoptic Olympus colonoscope was inserted into the rectum with ease and advanced all the way to the cecum. The ileocecal valve was intubated and the scope was advanced into the terminal ileum. Biopsies were obtained. The scope was then withdrawn back into the colon. Diverticular disease was noted throughout the colon and prep overall was suboptimal with some retained stools in the colon, but visualization was fair. Other than for diverticular disease in the ascending and transverse, the mucosa overall appeared to be grossly within normal limits. There were some mild patchy inflammatory changes noted in the left colon and the rectum and random biopsies were obtained. The scope was then retroflexed into the distal rectum and the area around the dentate line appeared to be within normal limits. The scope was then straightened out. It was subsequently withdrawn. After securing an adequate stool specimen that was sent for the appropriate stool studies. The patient tolerated procedure well. IMPRESSION: 1. Pandiverticulosis. 2. Mild patchy left-sided colitis. 3. Proctitis, mild. PLAN: Follow up histology. Follow up stool studies. Continue full liquid diet. Viral Wiggins MD [facility] [place][id number] cc: MD Andrea Blancas MD
[2018-11-12] VITALS (8 sets, daily range): BP systolic 104–149; BP diastolic 49–85
[2018-11-12] MEDS: SODIUM CHLORIDE 0.9% 1000ML 1,000 ML IV SCH ×3 (04:04→20:00)
[2018-11-12] MEDS ORDERED: DIPHENOXYLATE/ATROPINE TAB PO ONE ×2 (04:30→22:45)
[2018-11-12] MEDS ORDERED: DIPHENOXYLATE/ATROPINE TAB PO PRN (04:30)
[2018-11-12] MEDS: CEFEPIME 1GM/NS 0.9% 50 ML 50 ML IV SCH (05:09)
[2018-11-12] MEDS: ONDANSETRON HCL INJ 2MG/ML 2ML 2 MG/ML VIAL IV PRN ×3 (05:11→21:28)
[2018-11-12] MEDS: MORPHINE SULFATE INJ 4 MG/ML INJ 1ML IV PRN ×3 (05:11→21:28)
[2018-11-12] MEDS: METRONIDAZOLE 500MG/NS 100ML 100 ML IV SCH (06:21)
[2018-11-12] MEDS: INSULIN REGULAR, HUMAN 100 UNIT/1 ML 3ML VIAL SQ SCH ×4 (07:30→20:39)
--- NOTE | 2018-11-12 07:30 | NUR ---
PT UP IN CHAIR ,DENIES PAIN,NO DISTRESS MOTEDC/O DIARRHEA
[2018-11-12] MEDS: FAMOTIDINE 20 MG TAB PO SCH ×2 (08:34→16:30)
[2018-11-12] MEDS: LOSARTAN POTASSIUM 100 MG TAB PO SCH (08:35)
[2018-11-12] MEDS: DICYCLOMINE HCL 20 MG TAB PO SCH ×4 (08:35→21:18)
[2018-11-12] MEDS: ISOSORBIDE MONONITRATE 30 MG TAB CR PO SCH (08:36)
[2018-11-12] MEDS: LACTOBACILLUS ACIDOPHILUS CAPSULE PO SCH ×2 (08:36→21:18)
[2018-11-12] MEDS: GABAPENTIN 300 MG CAP PO SCH ×3 (08:36→21:18)
[2018-11-12] MEDS: CHOLESTYRAMINE 4 GM PACKET PO SCH (08:36)
[2018-11-12] MEDS: AMLODIPINE BESYLATE 10 MG TAB PO SCH (08:36)
[2018-11-12] MEDS: METOPROLOL SUCCINATE 50 MG TAB XL PO SCH ×2 (08:37→17:00)
[2018-11-12 13:18] LABS: C DIFFICILE TOXIN A&B AMP PROB NEGATIVE (NEGATIVE)
[2018-11-12] MEDS: RIVAROXABAN 20 MG TABLET PO SCH (17:00)
--- NOTE | 2018-11-12 17:19 | NUR ---
PT UP IN BED TOLERATING SOFT DIET WELL,PAIN LEVEL 3.
[2018-11-12] MEDS: SIMVASTATIN 20 MG TAB PO SCH (21:18)
--- NOTE | 2018-11-12 21:56 | Progress Note ---
DATE: 11/12/2018 Medicine Progress Note SUBJECTIVE: The patient is doing well today with no complaints. She still has some diarrhea today as well. OBJECTIVE: VITAL SIGNS: Temperature is 96.8, pulse is 48, respiratory rate is 18, blood pressure is 140/62, and pulse ox is 92% on room air. LABORATORY FINDINGS: Showed a white count of 7, hemoglobin is 12, hematocrit is 39, platelets of 214. Chemistries reviewed. Urinalysis reviewed. Stool occult was negative. Stool lactoferrin is negative. Stool calprotectin negative. Atypical p-ANCA is pending. C diff toxin negative x2. Some other serologies are pending. MICROBIOLOGY: Urine cultures are noted. Blood cultures are negative. Stool cultures are pending. Colonoscopy with biopsies was performed, shows mild patchy left colitis. Proctitis very mild. No evidence of any findings. Pandiverticulitis. PHYSICAL EXAMINATION: GENERAL: Not in acute distress. Alert and oriented x3. Cooperative on examination. HEENT: Head is normocephalic and atraumatic. Eyes; pupils are equal, round, and reactive to light bilaterally. Extraocular movements are intact bilaterally. NECK: Supple. Good range of motion. Throat; no evidence of erythema or exudates in the posterior pharynx. Has poor dentition. PULMONARY: Clear to auscultation bilaterally. No wheezing, no rales, no rhonchi, no crackles appreciated. CARDIOVASCULAR: Positive S1, S2. No murmurs, rubs, or gallops appreciated. ABDOMEN: Soft, nondistended, and nontender to palpation. Bowel sounds present. MUSCULOSKELETAL: Strength is 5/5 throughout. No evidence of any muscle deficits on examination. No weakness appreciated. NEUROLOGIC: Cranial nerves II through XII grossly intact. No evidence of any neurological deficits on exam. SKIN: Intact. Warm to touch. Good cap refill. PSYCHIATRIC: Normal affect and mood. EXTREMITIES: No edema. Good range of motion throughout. IMPRESSION: 1. Abdominal pain with associated diarrhea. Negative C diff colitis status post colonoscopy, which showed some prior mild sigmoid colitis and proctitis. 2. Hypertension. 3. Urinary tract infection. 4. Decreased oral intake with underlying dehydration. PLAN: At this time, the patient continues to be on antibiotics as per management by ID. She is on Lomotil for now as well and Questran. Follow up with GI recommendations. Continue with same antihypertensive medications. If she is stable, she can likely be discharged home tomorrow. MD ANGELA Rees/KARISSA /[id number]
[2018-11-12] MEDS: TRAZODONE HCL 50 MG TAB PO PRN (22:54)
[2018-11-13] VITALS: BP 134/64
[2018-11-13 04:00] VITALS: BP 111/56
[2018-11-13 05:40] LABS: BASOPHILS % 0.4 % (0.0-1.0); EOSINOPHILS # (AUTO) 0.3 (0.0-0.4); EOSINOPHILS % 3.7 % (0.0-6.0); HEMATOCRIT 39.5 % (34.2-44.1); HEMOGLOBIN 12.8 g/dL (12.0-16.0); LYMPHOCYTES # (AUTO) 2.5 (1.0-3.2); LYMPHOCYTES % 34.3 % (18.0-39.1); MEAN CORPUSCULAR HEMOGLOBIN 28.6 pg (28-32); MEAN CORPUSCULAR HGB CONC 32.4 g/dL (31-35); MEAN CORPUSCULAR VOLUME 88.2 fL (81-99); MONOCYTES # (AUTO) 0.6 (0.2-0.8); MONOCYTES % 8.5 % (4.4-11.3); NEUTROPHILS # (AUTO) 3.8 (2.1-6.9); NEUTROPHILS % 52.8 % (38.7-80.0); PLATELET COUNT 222 x10e3/uL (140-360); RED BLOOD COUNT 4.48 x10e6/uL (3.6-5.1); RED CELL DISTRIBUTION WIDTH 14.7 % (11.7-14.4)
[2018-11-13] MEDS: SODIUM CHLORIDE 0.9% 1000ML 1,000 ML IV SCH (05:45)
[2018-11-13] MEDS: RIFAXIMIN 550 MG TABLET PO SCH ×2 (05:50→13:52)
[2018-11-13 06:02] LABS: ANION GAP 14.5 mmol/L (8-16); BLOOD UREA NITROGEN < 5 mg/dL (7-26); CALCIUM 8.9 mg/dL (8.4-10.2); CARBON DIOXIDE 25 mmol/L (22-29); CHLORIDE 107 mmol/L (98-107); CREATININE, SERUM 0.73 mg/dL (0.57-1.11); EST GLOMERULAR FILTRATION RATE > 60 ML/MIN (60-); GLUCOSE 112 mg/dL (74-118); POTASSIUM 3.5 mmol/L (3.5-5.1); SODIUM 143 mmol/L (136-145)
[2018-11-13 06:04] LABS: BUN/CREATININE RATIO 7 (6-25)
[2018-11-13] MEDS: ONDANSETRON HCL INJ 2MG/ML 2ML 2 MG/ML VIAL IV PRN ×2 (06:12→13:08)
[2018-11-13] MEDS: MORPHINE SULFATE INJ 4 MG/ML INJ 1ML IV PRN ×2 (06:12→13:08)
--- NOTE | 2018-11-13 07:00 | NUR ---
received am report from rn, morning rounds done. pt is alert and resting in bed, no s/s of distress. pt has no complaints at this time. call light within reach, instructed to call rn for help
[2018-11-13] MEDS: INSULIN REGULAR, HUMAN 100 UNIT/1 ML 3ML VIAL SQ SCH ×3 (07:30→15:39)
[2018-11-13 07:46] VITALS: BP 140/67
[2018-11-13] MEDS: METOPROLOL SUCCINATE 50 MG TAB XL PO SCH ×2 (08:07→16:40)
[2018-11-13 08:50] VITALS: BP 140/67
[2018-11-13] MEDS: DICYCLOMINE HCL 20 MG TAB PO SCH ×3 (08:54→18:00)
[2018-11-13] MEDS: FAMOTIDINE 20 MG TAB PO SCH ×2 (08:54→16:48)
[2018-11-13] MEDS: LACTOBACILLUS ACIDOPHILUS CAPSULE PO SCH (08:55)
[2018-11-13] MEDS: ISOSORBIDE MONONITRATE 30 MG TAB CR PO SCH (08:55)
[2018-11-13] MEDS: CHOLESTYRAMINE 4 GM PACKET PO SCH (08:55)
[2018-11-13] MEDS: AMLODIPINE BESYLATE 10 MG TAB PO SCH (08:55)
[2018-11-13] MEDS: GABAPENTIN 300 MG CAP PO SCH ×2 (08:55→16:48)
[2018-11-13] MEDS: LOSARTAN POTASSIUM 100 MG TAB PO SCH (08:55)
[2018-11-13 11:25] VITALS: BP 148/92
--- NOTE | 2018-11-13 12:15 | NUR ---
IMM LETTER EXPLAINED TO PT. VERBALIZED UNDERSTANDING. IMM LETTER WAS SIGNED. COPY TO PT. COPY TO THE CHART.
[2018-11-13 16:13] VITALS: BP 153/66
--- NOTE | 2018-11-13 16:34 | NUR ---
Nutrition LOS Note RD Recommendation(s) for Physician / Nutrition Prescription: continue with diet as prescribed Plan of Care: Patient has been screened and assessed for nutrition risk. At this time, the patient does not pose any nutrition risk. No further nutrition intervention is warranted at this time. Will re-evaluate if consulted by medical staff. Nutrition reason for involvement: LOS Primary Dx: Abdominal pain with associated diarrhea. PMH: Clostridium difficile colitis, hypertension, peripheral neuropathy, hyperlipidemia. Ht: 64in Wt: 220lb BMI: 37.8kg/m2 IBW: 120lb +/- 10% RD Assessment: (11/13) 73yo F, who was admitted for abdominal pain with diarrhea. Negative C diff colitis status post colonoscopy, which showed some prior mild sigmoid colitis and proctitis. Visited pt in the room. Pt reported good appetite with 75-100% recorded meal intake. No complains of nausea or vomiting. Pt reported of 2 episodes of diarrhea this AM; probiotics have been ordered. Pt denied any chewing or swallowing difficulty. Weight has been stable. Pt also provided food preferences, which have been recorded in [facility]. Current diet is adequate and appropriate. Current diet: ADA 1800/ GI soft Malnutrition Evaluation (11/13/2018) The patient does not meet criteria for a specified degree of malnutrition at this time. Will re-evaluate at follow-up as appropriate. Diet Education Needs Assessment: Diet education not indicated. Nutrition Care Level: Low Marielle Guzman, MS, RD, LD
--- NOTE | 2018-11-13 16:45 | NUR ---
Dr. Marsh is at the bedside. pt's questions/concerns addressed. Dr. Marsh will discuss with Dr. reynaga if it is ok to discharge the pt home.
[2018-11-13] MEDS: RIVAROXABAN 20 MG TABLET PO SCH (16:48)
[2018-11-13] MEDS ORDERED: LOPERAMIDE2 MG PO (18:02)
[2018-11-13] MEDS ORDERED: CEFDINIR300 MG PO (18:05)
--- NOTE | 2018-11-13 19:08 | NUR ---
PT IS RESTING IN BED. RESPIRATION IS EVEN AND UNLABORED, NO DISTRESS NOTED. BED IN THE LOWEST POSITION, LOCKED, AND CALL LIGHT WITHIN REACH. WILL CONTINUE TO MONITOR.
[2018-11-13] MEDS ORDERED: CEFDINIR 300 MG CAP PO ONE (19:30)
--- NOTE | 2018-11-14 00:41 | Discharge Summary ---
FINAL DISCHARGE DIAGNOSES: 1. Abdominal pain with associated diarrhea, negative for Clostridium difficile colitis, status post colonoscopy that showed mild sigmoid colitis and proctitis. 2. Hypertension. 3. Urinary tract infection. 4. Decreased oral intake. 5. Dehydration. CONSULTANTS: 1. GI. 2. Infectious Disease. PHYSICAL EXAMINATION: VITAL SIGNS: Temperature is 98.5, pulse 51, respiratory rate is 18, blood pressure is 152/66. LABORATORY DATA: Labs show white count of 7.2, hemoglobin 12.8, hematocrit 39.5, platelets of 222. Chemistry; sodium of 143, potassium 3.5, chloride 107, bicarb 25, anion gap of 14, BUN is 5, creatinine is 0.73, glucose is 112, calcium is 8.9, total bilirubin is 0.7, AST 13, ALT 12. Troponins are negative. Albumin 3.8, lipase is 37. BNP is 11.6. Urinalysis consistent with UTI. Blood cultures were negative. Urine culture was consistent with Klebsiella oxytoca x2 species sensitive to Omnicef. She still has some stool studies Giardia and ova and parasites, which were pending, which we will follow up as an outpatient. IMAGING STUDIES: Chest x-ray shows mild pulmonary edema. She does have some 1 cm nodular opacity that needs to be followed up as an outpatient. I discussed this with the patient. She verbalized understanding. Follow up with her PCP with outpatient followup with close monitoring and stabilization and change in size if indicated. CT abdomen and pelvis, no acute process in the abdomen and pelvis. Right lower lobe along the dome of the left hemidiaphragm. Possibly may be related to prior asbestos exposure. I did discuss this with her as well. She is to follow up as an outpatient with the primary care physician. We would likely refer to Pulmonary. HOSPITAL COURSE: A 73-year-old female, who came in with complaints of underlying abdominal pain and profound diarrhea. She was recently treated for underlying C difficile colitis and was discharged to home last Tuesday. The patient did report here back to the hospital with complaints of worsening diarrhea. I did consult with Infectious Disease and at this time, during this hospital stay, her C difficile toxin was found to be negative. CT imaging was found to be normal with no acute process. At this time, I spoke with ID and they recommended a GI consultation. The patient's GI was consulted. Colonoscopy performed showed evidence of a mild sigmoid colitis with proctitis. While here, the patient was on IV antibiotics throughout the hospital course. She was found to have positive urine culture and was treated accordingly and discharged on oral Omnicef, which it is sensitive too. Cultures were found to be negative. The patient was cleared for discharge by both GI and Infectious Disease. On the day of discharge, vital signs were stable, labs reviewed and stable. The patient seen and evaluated, examined thoroughly on the day of discharge. No other complaints. The patient verbalized understanding and agrees to plan of care to follow up as an outpatient with primary care physician in 1 week and GI in 1-2 weeks to get the final results on her biopsy report from colonoscopy as well as stool studies and serologies and further workup if indicated. MEDICATIONS: See med reconciliation form including Omnicef. DISPOSITION: To home. CONDITION: Stable. DIET: Heart healthy. In the event of any worsening symptoms, the patient was advised to come back to the ED for further evaluation. Discharge summary took greater than 35 minutes. MD ANGELA Rees/MODL /[id number]
== END 2018-11-13 20:07 | disposition home or self-care (01) | DRG 394 ==
LOC: ER 10:24 → ERHOLD 14:03 → MED/SURG3 15:23
PROVIDERS: ADMIT Internal Medicine; ATTEND Internal Medicine
PROC: 0DBP8ZX Excision of Rectum, Via Natural or Artificial Opening Endoscopic, Diagnostic (ICD-10-PCS; 2018-11-11)
PROC: 0DBB8ZX Excision of Ileum, Via Natural or Artificial Opening Endoscopic, Diagnostic (ICD-10-PCS; principal; 2018-11-11 18:50)
PROC: 0DBE8ZX Excision of Large Intestine, Via Natural or Artificial Opening Endoscopic, Diagnostic (ICD-10-PCS; 2018-11-11 18:50)
DX: K62.89 Other specified diseases of anus and rectum (principal); N39.0 Urinary tract infection, site not specified; K52.89 Other specified noninfective gastroenteritis and colitis; E86.0 Dehydration; I10 Essential (primary) hypertension; E78.5 Hyperlipidemia, unspecified; R15.2 Fecal urgency; E11.9 Type 2 diabetes mellitus without complications; B96.1 Klebsiella pneumoniae [K. pneumoniae] as the cause of diseases classified elsewhere; E66.9 Obesity, unspecified; Z68.37 Body mass index [BMI] 37.0-37.9, adult
CPT/HCPCS: 36415; 45378; 45380; 71045; 74177; 80048; 80053; 81001; 82270; 82550; 82553; 82948; 83605; 83630; 83690; 83880; 83993; 84484; 85025; 85651; 86140; 86256; 86671; 87040; 87045; 87086; 87177; 87186; 87328; 87493; 88305; 93005; 97139; 99284; J0500; J0692; J0696; J2250; J2270; J2405; J3010; J7030; Q0162; Q9967

== ENCOUNTER 2018-12-08 10:00 | Emergency (ER) | payer MEDICARE ==
[~2018-12-08] VITALS: Ht 162.6 cm; Wt 99.8 kg
[~2018-12-08 10:00] MED LIST changes: +LOPERAMIDE2 MG PO
[2018-12-08 12:32] LABS: BASOPHILS % 0.3 % (0.0-1.0); EOSINOPHILS % 0.2 % (0.0-6.0); HEMATOCRIT 44.6 % (34.2-44.1); LYMPHOCYTES % 23.3 % (18.0-39.1); MEAN CORPUSCULAR HGB CONC 33.6 g/dL (31-35); MEAN CORPUSCULAR VOLUME 86.1 fL (81-99); MONOCYTES # (AUTO) 0.7 (0.2-0.8); MONOCYTES % 7.6 % (4.4-11.3); NEUTROPHILS # (AUTO) 5.9 (2.1-6.9); NEUTROPHILS % 68.4 % (38.7-80.0); PLATELET COUNT 224 x10e3/uL (140-360); RED BLOOD COUNT 5.18 x10e6/uL (3.6-5.1); RED CELL DISTRIBUTION WIDTH 13.9 % (11.7-14.4)
[2018-12-08 12:33] LABS: BILIRUBIN,URINE NEGATIVE (NEGATIVE); CLARITY,URINE SL CLOUDY (CLEAR); COLOR,URINE YELLOW (YELLOW); KETONES,URINE NEGATIVE (NEGATIVE); LEUKOCYTE ESTERASE ,URINE TRACE (NEGATIVE); NITRITE,URINE NEGATIVE (NEGATIVE); PROTEIN,URINE DIPSTICK TRACE (NEGATIVE); URINE UROBILINOGEN 0.2 mg/dL (0.2 - 1)
[2018-12-08 12:38] LABS: INR 0.99; PROTHROMBIN TIME 13.6 seconds (11.9-14.5)
[2018-12-08 12:39] LABS: PARTIAL THROMBOPLASTIN TIME 35.5 seconds (23.8-35.5)
[2018-12-08 12:46] LABS: ALBUMIN 4.5 g/dL (3.5-5.0); ALBUMIN/GLOBULIN RATIO 1.5 (0.8-2.0); ALKALINE PHOSPHATASE 73 IU/L (40-150); AMYLASE 45 U/L (25-125); ANION GAP 21.8 mmol/L (8-16); BLOOD UREA NITROGEN 13 mg/dL (7-26); BUN/CREATININE RATIO 16 (6-25); CALCIUM 9.9 mg/dL (8.4-10.2); CARBON DIOXIDE 28 mmol/L (22-29); CHLORIDE 95 mmol/L (98-107); CREATININE, SERUM 0.79 mg/dL (0.57-1.11); EST GLOMERULAR FILTRATION RATE > 60 ML/MIN (60-); GLUCOSE 93 mg/dL (74-118); LIPASE 31 U/L (8-78); MAGNESIUM 1.4 MG/DL (1.3-2.1); POTASSIUM 3.8 mmol/L (3.5-5.1); SODIUM 141 mmol/L (136-145)
[2018-12-08 13:00] LABS: ALANINE AMINOTRANSFERASE < 6 IU/L (0-55)
[2018-12-08 13:12] LABS: BACTERIA,URINE RARE /HPF; EPITHELIAL CELLS,URINE MODERATE /LPF; RENAL EPITHELIAL CELLS,URINE RARE
--- NOTE | 2018-12-08 14:07 | Diagnostic Imaging Report ---
CT of the abdomen and pelvis, with contrast, 12/08/2018. History: Lower abdominal pain. Comparison: 11/07/2018. Technique: Multidetector CT scanning of the abdomen and pelvis was performed from the level of the lung bases to the inferior pubic rami after intravenous administration of contrast. No oral contrast given. Coronal and sagittal multiplanar reformations were obtained. RADIATION DOSE: Total DLP: 743 mGy*cm Dose modulation, iterative reconstruction, and/or weight based adjustment of the mA/kV was utilized to reduce the radiation dose to as low as reasonably achievable. Discussion: LUNG BASES: Left pleural calcifications is again noted. ABDOMEN: The liver is enlarged measuring over 18 cm in length. There is no focal hepatic abnormality. Cholecystectomy clips are present. CBD is mildly prominent measuring 12 mm. Bilateral renal cysts are again noted. The spleen, pancreas, and adrenal glands are normal. The hepatic vein, portal vein, and splenic vein are patent. The abdominal aorta is within normal limits for size. Evaluation bowel is limited without oral contrast. There is no bowel dilatation. Surgical sutures present in the stomach. Diverticuli are present within the sigmoid colon without evidence of adjacent inflammation. There is no evidence of adenopathy or free fluid. PELVIS: The bladder is unremarkable. The uterus and adnexa are not visualized. There is no evidence of free fluid or adenopathy. Posterior stimulator device is present with lead entering the sacrum on the left. BONES AND SOFT TISSUES: Degenerative changes are present throughout the lumbar spine without evidence of lytic or sclerotic lesion. IMPRESSION: 1. Hepatomegaly without focal hepatic abnormality. 2. Status post cholecystectomy with prominence of the CBD likely related to reservoir effect. 3. Bilateral renal cysts again noted. 4. Colonic diverticulosis without evidence of diverticulitis. 5. Status post hysterectomy. Signed by: Hal Ny on 12/08/2018 2:04 PM
[2018-12-08] MEDS ORDERED: SODIUM CHLORIDE 0.9% 50ML 50 ML ONE (14:08)
[2018-12-08] MEDS ORDERED: IOPAMIDOL 370 MG/ML 200 ML INFUS..BTL INJ ONE (14:09)
[2018-12-08] MEDS ORDERED: DICYCLOMINE HCL 20 MG/2 ML VIAL IM ONE (16:15)
[2018-12-08 17:00] VITALS: BP 158/65
[2018-12-08] MEDS ORDERED: MACRODANTIN100 MG PO (17:06)
[2018-12-08] MEDS ORDERED: DICYCLOMINE HCL10 MG PO (17:06)
== END 2018-12-08 17:24 | disposition home or self-care (01) ==
LOC: ER 10:00
DX: R10.31 Right lower quadrant pain (principal); R10.32 Left lower quadrant pain; R11.2 Nausea with vomiting, unspecified; R19.7 Diarrhea, unspecified; K57.90 Diverticulosis of intestine, part unspecified, without perforation or abscess without bleeding; R16.0 Hepatomegaly, not elsewhere classified; N28.1 Cyst of kidney, acquired; I10 Essential (primary) hypertension; E11.9 Type 2 diabetes mellitus without complications; J44.9 Chronic obstructive pulmonary disease, unspecified; I48.91 Unspecified atrial fibrillation; I50.9 Heart failure, unspecified
CPT/HCPCS: 36415; 74177; 80053; 81001; 82150; 83690; 83735; 85025; 85610; 85730; 87045; 87493; 99284; J0500; Q9967

== ENCOUNTER 2019-02-05 06:49 | Emergency (ER) | payer MEDICARE ==
[~2019-02-05] VITALS: Ht 162.6 cm; Wt 99.8 kg
[~2019-02-05 06:49] MED LIST changes: +DICYCLOMINE HCL10 MG PO; +MACRODANTIN100 MG PO
[2019-02-05 07:39] LABS: BASOPHILS % 0.2 % (0.0-1.0); EOSINOPHILS % 0.5 % (0.0-6.0); HEMATOCRIT 44.2 % (34.2-44.1); HEMOGLOBIN 14.5 g/dL (12.0-16.0); LYMPHOCYTES # (AUTO) 2.3 (1.0-3.2); LYMPHOCYTES % 27.1 % (18.0-39.1); MEAN CORPUSCULAR HGB CONC 32.8 g/dL (31-35); MEAN CORPUSCULAR VOLUME 88.4 fL (81-99); MONOCYTES # (AUTO) 0.7 (0.2-0.8); MONOCYTES % 7.8 % (4.4-11.3); NEUTROPHILS # (AUTO) 5.3 (2.1-6.9); PLATELET COUNT 213 x10e3/uL (140-360); RED CELL DISTRIBUTION WIDTH 14.5 % (11.7-14.4)
[2019-02-05 07:54] LABS: INR 1.02; PROTHROMBIN TIME 13.9 seconds (11.9-14.5)
[2019-02-05 07:55] LABS: PARTIAL THROMBOPLASTIN TIME 41.7 seconds (23.8-35.5)
[2019-02-05 07:58] LABS: BILIRUBIN,URINE NEGATIVE (NEGATIVE); CLARITY,URINE CLEAR (CLEAR); COLOR,URINE YELLOW (YELLOW); KETONES,URINE NEGATIVE (NEGATIVE); LEUKOCYTE ESTERASE ,URINE SMALL (NEGATIVE); NITRITE,URINE NEGATIVE (NEGATIVE); PROTEIN,URINE DIPSTICK NEGATIVE (NEGATIVE); URINE UROBILINOGEN 0.2 mg/dL (0.2 - 1)
[2019-02-05 08:05] LABS: ALANINE AMINOTRANSFERASE 11 IU/L (0-55); ALBUMIN 4.5 g/dL (3.5-5.0); ALBUMIN/GLOBULIN RATIO 1.5 (0.8-2.0); ALKALINE PHOSPHATASE 58 IU/L (40-150); ANION GAP 16.7 mmol/L (8-16); BLOOD UREA NITROGEN 11 mg/dL (7-26); BUN/CREATININE RATIO 14 (6-25); CALCIUM 9.3 mg/dL (8.4-10.2); CARBON DIOXIDE 27 mmol/L (22-29); CHLORIDE 99 mmol/L (98-107); CREATINE KINASE 89 IU/L (29-168); EST GLOMERULAR FILTRATION RATE > 60 ML/MIN (60-); GLUCOSE 108 mg/dL (74-118); POTASSIUM 3.7 mmol/L (3.5-5.1); SODIUM 139 mmol/L (136-145)
[2019-02-05 08:11] LABS: BACTERIA,URINE FEW /HPF; EPITHELIAL CELLS,URINE FEW /LPF; RBC,URINE 0-5 /HPF (0-5)
[2019-02-05] MEDS ORDERED: ONDANSETRON HCL INJ 2MG/ML 2ML 2 MG/ML VIAL IV STA (08:19)
[2019-02-05] MEDS ORDERED: KETOROLAC TROMETHAMINE 30 MG/ML VIAL IV STA (08:19)
--- NOTE | 2019-02-05 10:19 | Diagnostic Imaging Report ---
EXAM: CT Abdomen and Pelvis WITH intravenous contrast INDICATION: Abdominal pain COMPARISON: CT abdomen and pelvis of 12/08/2018 TECHNIQUE: Abdomen and pelvis were scanned utilizing a multidetector helical scanner from the lung base to the pubic symphysis after administration of IV contrast. Coronal and sagittal reformations were obtained. Routine protocol was performed. Scan was performed during portal venous phase. IV CONTRAST: 100mL of Isovue 370 ORAL CONTRAST: Water RADIATION DOSE: Total DLP: (DLP x 0.015 x size factor) mGy*cm Dose modulation, iterative reconstruction, and/or weight based adjustment of the mA/kV was utilized to reduce the radiation dose to as low as reasonably achievable. FINDINGS: LOWER THORAX: Unchanged 6.5 mm subpleural right lower lobe pulmonary nodule (series 2 image 10). Right basilar focal pleural calcification. HEPATOBILIARY: Mild diffuse hepatic steatosis and unchanged hepatomegaly. No focal liver lesion. No biliary ductal dilation. Status post cholecystectomy. SPLEEN: No splenomegaly. PANCREAS: No focal masses or ductal dilatation. ADRENALS: No adrenal nodules. KIDNEYS/URETERS: Bilateral subcentimeter renal cysts, unchanged. No renal calculi or hydronephrosis. PELVIC ORGANS/BLADDER: Status post hysterectomy. PERITONEUM / RETROPERITONEUM: No free air or fluid. LYMPH NODES: No lymphadenopathy. VESSELS: Mild scattered atherosclerotic calcifications of the nonaneurysmal abdominal aorta and major branches. GI TRACT: Postoperative findings of gastric bypass surgery. Diverticulosis without CT evidence of diverticulitis. No abnormal bowel wall thickening. No bowel obstruction. BONES AND SOFT TISSUES: No acute osseous injury. No suspicious or blastic lesions. Prominent multilevel degenerative changes of the visualized spine. Grade 1 retrolisthesis at L1-2. Left flank subcutaneous implanted nerve stimulator device terminates beyond the left S3 neural foramen. IMPRESSION: No acute findings in the abdomen or pelvis. Unchanged hepatomegaly and diffuse hepatic steatosis. Right lower lobe pulmonary nodule measuring 6.5 mm. If the patient is low risk, no further imaging follow-up is required. If the patient is high risk, CT chest is optional at 12 months. Signed by: Jovon Amaral MD on 02/05/2019 10:15 AM
[2019-02-05] MEDS ORDERED: ZOFRAN4 MG SL (10:45)
[2019-02-05] MEDS ORDERED: PROBIOTIC & AC1 EACH PO (10:45)
[2019-02-05 11:09] VITALS: BP 136/66
[2019-02-05] MEDS ORDERED: IBUPROFEN 600 MG TAB PO STA (11:19)
[2019-02-05] MEDS ORDERED: IOPAMIDOL 370 MG/ML 200 ML INFUS..BTL INJ ONE (13:51)
[2019-02-05] MEDS ORDERED: SODIUM CHLORIDE 0.9% 50ML 50 ML ONE (13:51)
== END 2019-02-05 11:33 | disposition home or self-care (01) ==
LOC: ER 06:49
DX: R10.31 Right lower quadrant pain (principal); R10.84 Generalized abdominal pain; R11.2 Nausea with vomiting, unspecified; K52.9 Noninfective gastroenteritis and colitis, unspecified
CPT/HCPCS: 36415; 74177; 80053; 81001; 82270; 82550; 82553; 84484; 85025; 85610; 85730; 87045; 87493; 93005; 99284; J1885; J2405; Q9967

== ENCOUNTER → 2019-10-08 | Outpatient (CLI) | payer MEDICARE ==
[~2019-10-08] MED LIST changes: +PANTOPRAZOLE SO40 MG PO; +TRESIBA100 UNIT/1 SQ; +ZOFRAN4 MG SL
--- NOTE | 2019-10-08 09:27 | Diagnostic Imaging Report ---
EXAM: CT Abdomen and Pelvis WITHOUT intravenous contrast INDICATION: Renal cyst, renal calculus, lower abdominal pain COMPARISON: CT abdomen and pelvis of 02/05/2019 TECHNIQUE: Abdomen and pelvis were scanned utilizing a multidetector helical scanner from the lung base to the pubic symphysis without administration of IV contrast. Coronal and sagittal reformations were obtained. IV CONTRAST: None ORAL CONTRAST: Water COMPLICATIONS: None RADIATION DOSE: Total DLP: 827 mGy*cm Dose modulation, iterative reconstruction, and/or weight based adjustment of the mA/kV was utilized to reduce the radiation dose to as low as reasonably achievable. FINDINGS: LOWER THORAX: Bibasilar dependent subsegmental atelectasis. HEPATOBILIARY: No focal liver lesion. Status post cholecystectomy. Unchanged common bile duct dilation to 14 mm, likely related to reservoir effect status post cholecystectomy. SPLEEN: No splenomegaly. PANCREAS: No focal masses or ductal dilatation. ADRENALS: No adrenal nodules. KIDNEYS/URETERS: 2 mm nonobstructive left lower pole renal calculus. No hydronephrosis or hydroureter. Bilateral subcentimeter renal cysts. PELVIC ORGANS/BLADDER: Status post hysterectomy. PERITONEUM / RETROPERITONEUM: No free air or fluid. LYMPH NODES: No lymphadenopathy. VESSELS: Mild scattered atherosclerotic calcifications of the nonaneurysmal abdominal aorta. GI TRACT: Diverticulosis without CT evidence of diverticulitis. No abnormal bowel thickening. No bowel obstruction. Increased stool burden throughout the colon. BONES AND SOFT TISSUES: Diffuse osteopenia. No acute osseous injury. No suspicious lytic or blastic lesions. Degenerative changes of the visualized spine. Left flank subcutaneous implanted nerve stimulator device terminates beyond the left S3 neural foramen. IMPRESSION: 2mm nonobstructive left lower pole renal calculus. No hydronephrosis. Signed by: Jovon Amaral MD on 10/08/2019 9:24 AM
== END ==
LOC: CT 07:10
PROVIDERS: ATTEND Urology
DX: N28.1 Cyst of kidney, acquired (principal)
CPT/HCPCS: 74176

== ENCOUNTER 2019-11-15 09:27 | Emergency (ER) | payer MEDICARE ==
[~2019-11-15] VITALS: Ht 162.6 cm; Wt 99.8 kg
[2019-11-15] MEDS ORDERED: CLINDAMYCIN PHOS 900MG/ 50ML 50 ML IV STA (10:04)
[2019-11-15] MEDS ORDERED: METHYLPREDNISOLONE SOD SUCC 125 MG/2ML VIAL IV ONE (10:15)
--- OUTSIDE RECORDS SUMMARY | 2019-11-15 10:29 | XMS REPORT | Continuity of Care Document ---
Author Author [facility] t Organization [facility] Address [address] [place] [address] Phone Unavailable Care Team Providers Care Computer Peripheral Equipment Operator Name Role Phone INA JIMENEZ MD PCP HAMPEL, ASHLYN Attphys Unavailable SANDHIR, S AMBICA Attphys Unavailable SWEET, A LAIRD Attphys Unavailable RACQUEL HUNTER Attphys Unavailable NIA JIMENEZ Attphys Unavailable JONAS BUCKLEY Attphys Unavailable INA JIMENEZ Admphys Unavailable JONAS BUCKLEY Admphys Unavailable Payers Payer Name Policy Type Policy Number Effective Date Expiration Date Lopez mazariegos [facility] [id number] 2018 00:00:00 [facility] [id number] 2017 00:00:00 [facility] [id number] 2017 00:00:00 [facility] Problems Condition Name Condition Details Condition Category Status Onset Date Resolution Date Last Treatment Date Treating Clinician Comments Source Diarrhea Diarrhea Problem Active 2015-12-20 00:00:00 [facility] Dehydration Dehydration Problem Active 2015-06-21 00:00:00 [facility] Urinary tract infection UTI (urinary tract infection) Problem Active 2015-06-21 00:00:00 [facility] Chronic obstructive pulmonary disease COPD (chronic ob structive pulmonary disease) Problem Active 2014-02-20 00:00:00 [facility] Chest pain Chest pain Problem Active 2014-02-20 00:00:00 [facility] Atrial fibrillation with rapid ventricular response At rial fibrillation with rapid ventricular response Problem Active [facility] Abdominal pain Abdominal pain Problem Active [facility] Nausea Nausea Problem Active [facility] Allergies, Adverse Reactions, Alerts Allergy Name Allergy Type Status Severity Reaction(s) Onset Date Inacti ve Date Treating Clinician Comments Source No Known Allergies DA Active U 2019-09-20 00:00:00 [facility] lisinopril DA Active U 2019-04-07 00:00:00 [facility] lisinopril DA Active U 2013-10-15 00:00:00 [facility] Medications Ordered Medication Name Filled Medication Name Start Date Stop Da te Current Medication? Ordering Clinician Indication Dosage Frequency Signature (SIG) Comments Components Source Lactobac Cmb #3/Fos/Pantethine (Probiotic & Acidophilu s Cap) 1 Each Capsule Lactobac Cmb #3/Fos/Pantethine (Probiotic & Acidophilus Cap) 1 Each Capsule 2019-02-05 00:00:00 Yes Marina Fish Md 1 Daily [facility] Ondansetron Hcl (Zofran*) 4 Mg Tablet Ondansetron Hcl (Zofra n*) 4 Mg Tablet 2019-02-05 00:00:00 Yes Marina Fish Md 4 Every 6 Hours as needed for Nausea [facility] Dicyclomine Hcl 10 Mg Capsule Dicyclomine Hcl 10 Mg Capsule 2018 00:00:00 Yes Ke Machado Bulk Plant Agent 10 Every 6 Hours [facility] Nitrofurantoin Macrocrystal (Macrodantin) 100 Mg Capsu le Nitrofurantoin Macrocrystal (Macrodantin) 100 Mg Capsule 2018-12-08 00:00:00 Ajith Machado Bulk Plant Agent 100 Four Times Daily [facility] Cefdinir (Omnicef) 300 Mg Capsule Cefdinir (Omnicef) 300 Mg Capsule 2018-11-13 00:00:00 Yes Bhupendra Marsh Md 300 Twice A Day [facility] Loperamide Hcl (Loperamide) 2 Mg Tablet Loperamide Hcl (Macy ramide) 2 Mg Tablet 2018-11-13 00:00:00 Yes Bhupendra Marsh Md 2 Every 6 Hours as needed for Diarrhea [facility] Lactobac Cmb #3/Fos/Pantethine (Probiotic & Acidophilu s Cap) 1 Each Capsule Lactobac Cmb #3/Fos/Pantethine (Probiotic & Acidophilus Cap) 1 Each Capsule 2018-11-03 00:00:00 Yes Jonas Buckley Md 1 Every 12 H ours [facility] Metronidazole (Flagyl) 500 Mg Tablet, 500 Mg Oral Metr onidazole (Flagyl) 500 Mg Tablet, 500 Mg Oral 2018-11-03 00:00:00 2018-11-13 00:00:00 No Jonas hu Md 500 Three Times A Day [facility] Metronidazole (Flagyl) 500 Mg Tablet, 500 Mg Oral Metr onidazole (Flagyl) 500 Mg Tablet, 500 Mg Oral 2018-11-02 00:00:00 2018-11-13 00:00:00 No Jonas hu Md 500 Every 8 Hours [facility] Vancomycin Hcl (Vancocin Hcl) 250 Mg Capsule, 125 Mg O ral Vancomycin Hcl (Vancocin Hcl) 250 Mg Capsule, 125 Mg Oral 2018-11-02 00:00:00 2018-11-13 00:00:00 Haydee Buckley Md 125 Every 6 Hours [facility] Cholestyramine (Cholestyramine Light Packet) 4 Gm Pack , 4 Gm Oral Cholestyramine (Cholestyramine Light Packet) 4 Gm Pack, 4 Gm Oral 2018-06-11 00:00:00 2018-10-31 00:00:00 Haydee Buckley Md 4 Four Times Da chris [facility] Nitrofurantoin Macrocrystal (Nitrofurantoin) 100 Mg Ca psule, 100 Mg Oral Nitrofurantoin Macrocrystal (Nitrofurantoin) 100 Mg Capsule, 100 Mg Oral 2018-06-11 00:00:00 2018-10-31 00:00:00 No Jonas Buckley Md 100 Twice A Day [facility] Metronidazole (Flagyl) 500 Mg Tablet, 500 Mg Oral Metr onidazole (Flagyl) 500 Mg Tablet, 500 Mg Oral 2018-06-06 00:00:00 2018-10-31 00:00:00 Haydee hu Md 500 Three Times A Day [facility] Vancomycin Hcl (Vancocin Hcl) 250 Mg Capsule, 250 Mg O ral Vancomycin Hcl (Vancocin Hcl) 250 Mg Capsule, 250 Mg Oral 2018-06-06 00:00:00 2018-10-31 00:00:00 No Jonas Buckley Md 250 Every 6 Hours [facility] Metronidazole (Flagyl) 500 Mg Tablet, 250 Mg Oral Metr onidazole (Flagyl) 500 Mg Tablet, 250 Mg Oral 2017-05-11 00:00:00 2017-07-25 00:00:00 No Jonas hu Md 250 Three Times A Day [facility] Rivaroxaban (Xarelto) 20 Mg Tablet, 20 Mg Peg Tube Steven aroxaban (Xarelto) 20 Mg Tablet, 20 Mg Peg Tube 2017-05-11 00:00:00 2017-07-25 00:00:00 Haydee Buckley Md 20 Daily [facility] Aspirin (Aspirin Ec) 81 Mg Tablet., 81 Mg Oral Aspir in (Aspirin Ec) 81 Mg Tablet.dr, 81 Mg Oral 2017-05-10 00:00:00 2017-07-25 00:00:00 Haydee Buckley Md 81 Every Morning [facility] Docusate Sodium (Colace) 100 Mg Capsule, 100 Mg Oral D ocusate Sodium (Colace) 100 Mg Capsule, 100 Mg Oral 2017-05-10 00:00:00 2017-07-25 00:00:00 Haydee Buckley Md 100 Twice A Day [facility] Sennosides (Senokot) 8.6 Mg Tablet, 8.6 Mg Oral Sennos ides (Senokot) 8.6 Mg Tablet, 8.6 Mg Oral 2017-05-10 00:00:00 2017-07-25 00:00:00 No Jonas hu Md 8.6 Twice A Day [facility] Triamterene/Hctz (Triamterene-Hctz 37.5-25 Mg Tb) 1 Ea Tab, 1 Ea Oral Triamterene/Hctz (Triamterene-Hctz 37.5-25 Mg Tb) 1 Ea Tab, 1 Ea Oral 2017-05-10 00:00:00 2017-07-25 00:00:00 No Jonas Buckley Md 1 Daily [facility] Metronidazole 500 Mg Tablet, 500 Mg Oral Metronidazole 500 Mg Tablet, 500 Mg Oral 2015-12-25 00:00:00 2015-12-31 00:00:00 No Jg lennon Md 500 Three Times A Day [facility] Amlodipine Besylate 10 Mg Tablet Amlodipine Besylate 10 Mg Tablet Yes 10 Daily [facility] Gabapentin 300 Mg Capsule Gabapentin 300 Mg Capsule Yes 300 Three Times A Day [facility] Insulin Lispro (Humalog) 100 Unit/1 Ml Cartridge Insul in Lispro (Humalog) 100 Unit/1 Ml Cartridge Yes 15 Three Times Daily With Meals [facility] Isosorbide Mononitrate 30 Mg Tab.er.24h Isosorbide Mononitra te 30 Mg Tab.er.24h Yes 30 Daily [facility] Liraglutide (Victoza 2-Juan Carlos) 0.6 Mg/0.1 Ml Pen.injctr L iraglutide (Victoza 2-Juan Carlos) 0.6 Mg/0.1 Ml Pen.injctr Yes 1.25 Daily [facility] Losartan Potassium 100 Mg Tablet Losartan Potassium 100 Mg Tablet Yes 100 Daily [facility] Metformin Hcl 500 Mg Tablet Metformin Hcl 500 Mg Tablet Yes 1000 Twice A Day [facility] Metoprolol Succinate (Toprol Xl) 100 Mg Tab.er.24h Met oprolol Succinate (Toprol Xl) 100 Mg Tab.er.24h Yes 100 Twice A Day [facility] Omeprazole 40 Mg Capsule. Omeprazole 40 Mg Capsule.dr Yes 40 Daily [facility] Ondansetron (Zofran Odt) 4 Mg Tab.rapdis Ondansetron ( Zofran Odt) 4 Mg Tab.rapdis Yes 4 As Needed [facility] Rivaroxaban (Xarelto) 20 Mg Tablet Rivaroxaban (Xarelto) 20 Mg Tablet Yes Daily [facility] Simvastatin 40 Mg Tablet Simvastatin 40 Mg Tablet Yes 10 Daily [facility] Triamterene/Hctz (Triamterene-Hctz 37.5-25 Mg Tb) 1 Ea Tab Triamterene/Hctz (Triamterene-Hctz 37.5-25 Mg Tb) 1 Ea Tab Yes 1 Daily [facility] Insulin Detemir (Levemir) 100 Unit/1 Ml Vial, 50 Units Subcutaneously Insulin Detemir (Levemir) 100 Unit/1 Ml Vial, 50 Units Subcutaneously 2018-10-31 00:00:00 No 50 Bedtime [facility] Rifaximin (Xifaxan) 550 Mg Tablet, 1 Tab Oral Rifaximi n (Xifaxan) 550 Mg Tablet, 1 Tab Oral 2018-10-31 00:00:00 No 1 Three Times A Day [facility] Colestipol Hcl (Colestid) 1 G Tab, 1 Gm Oral Colestipo l Hcl (Colestid) 1 G Tab, 1 Gm Oral 2017-08-17 00:00:00 No 1 Twice A Day [facility] Insulin Lispro (Humalog) 100 Unit/1 Ml Cartridge, 15 Subcutaneously Insulin Lispro (Humalog) 100 Unit/1 Ml Cartridge, 15 Subcutaneously 2017-08-15 00:00:00 No 15 Three Times A Day [facility] Liraglutide (Victoza 2-Juan Carlos) 0.6 Mg/0.1 Ml Pen.injctr, 1.25 Units Sub-Q Liraglutide (Victoza 2-Juan Carlos) 0.6 Mg/0.1 Ml Pen.injctr, 1.25 Units Sub-Q 2017-08-15 00:00:00 No 1.25 Daily [facility] Metformin Hcl 500 Mg Tablet, 500 Mg Oral Metformin Hcl 500 Mg Tablet, 500 Mg Oral 2017-08-15 00:00:00 No 500 Twice A Day [facility] Mirabegron (Myrbetriq) 50 Mg Tab.er.24h, 50 Mg Oral Mi rabegron (Myrbetriq) 50 Mg Tab.er.24h, 50 Mg Oral 2017-08-15 00:00:00 No 50 D aily [facility] Rivaroxaban (Xarelto) 20 Mg Tablet, 20 Mg Oral Rivarox aban (Xarelto) 20 Mg Tablet, 20 Mg Oral 2017-08-15 00:00:00 No 20 Daily [facility] Tresiba , 40 Tresiba , 40 2017-08-15 00:00:00 No 40 Daily [facility] Insulin Detemir (Levemir) 100 Unit/1 Ml Vial, 50 Subc utaneously Insulin Detemir (Levemir) 100 Unit/1 Ml Vial, 50 Subcutaneously 2017-07-25 00:00:00 No 50 Bedtime [facility] Omeprazole 40 Mg Capsule., 40 Mg Oral Omeprazole 40 Mg Cap michael., 40 Mg Oral 2017-07-25 00:00:00 No 40 As Needed [facility] Triamterene/Hctz (Triamterene-Hctz 37.5-25 Mg Tb) 1 Ea Tab, Mg Oral Triamterene/Hctz (Triamterene-Hctz 37.5-25 Mg Tb) 1 Ea Tab, Mg Oral 2017-07-25 00:00:00 No Daily [facility] Cefdinir (Omnicef) 300 Mg Capsule, 300 Mg Oral Cefdini r (Omnicef) 300 Mg Capsule, 300 Mg Oral 2016-12-29 00:00:00 No 300 Twi ce A Day [facility] Peg 3350/Na Sulf,Bicarb,Cl/Kcl (Golytely Solution) 4,000 Ml Soln.recon, 4 Ml Oral Peg 3350/Na Sulf,Bicarb,Cl/Kcl (Golytely Solution) 4,000 Ml Soln.recon, 4 Ml Oral 2016-12-29 00:00:00 No 4 Once [facility] Procedures Procedure Date / Time Performed Performing Clinician Trevor tiburcio Computed tomography of abdomen and pelvis with contrast 2018 00:00:00 JASPER MARINA Marroquin [facility] Computed tomography of abdomen and pelvis with contrast 2018 00:00:00 KE MACHADO [facility] EXCISION OF ILEUM, ENDO, DIAGN 2018-11-11 00:00:00 GUZMANPENELOPE MCKINLEY [facility] EXCISION OF LARGE INTESTINE, ENDO, DIAGN 2018-11-11 00:00:00 CLEMENCIA DINERO [facility] EXCISION OF RECTUM, ENDO, DIAGN 2018-11-11 00:00:00 GUZMANJULIENNE MCKINLEY [facility] Computed tomography of abdomen and pelvis with contrast 2018 00:00:00 HAL SANTORO [facility] X-ray of chest, two views 2018-08-11 00:00:00 PRISCILA ARREGUIN CH I [facility] INSERTION OF INFUSION DEV INTO SUP VENA CAVA, PERC APPROACH 2018-06-08 00:00:00 KI SAENZ [facility] Encounters Start Date/Time End Date/Time Encounter Type Admission Type [facility] Care Department Encounter ID Source 2019-02-05 06:49:00 2019-02-05 11:33:00 Departed Emergency Room 1 MARINA FISH [facility] [id number] [facility] 2018-12-08 10:00:00 2018-12-08 17:24:00 Departed Emergency Room 1 DARIN TEMPLE [facility] [id number] [facility] 2018-11-07 14:03:00 2018-11-13 20:07:00 Discharged Inpatient 1 DALE RACQUEL [facility] [id number] [facility] 2018-10-31 12:20:00 2018-11-03 10:29:00 Discharged Inpatient (obs) [facility] [id number] [facility] 2018-08-11 10:56:00 2018-08-11 13:06:00 Departed Emergency Room 1 DARIN TEMPLE [facility] [id number] [facility] 2018-06-03 15:41:00 2018-06-11 12:30:00 Discharged Inpatient 1 INA JIMENEZ [facility] [id number] [facility] 2017-08-17 10:02:00 2017-08-17 10:02:00 Registered Surgical Day Care [facility] [id number] [facility] 2017-05-06 13:26:00 2017-05-11 10:27:00 Discharged Inpatient ER JONAS BUCKLEY [facility] [id number] [facility] 2016-12-29 08:51:00 2016-12-29 08:51:00 Registered Surgical Day Care [facility] [id number] [facility] 2016-11-18 07:24:00 2016-11-18 07:24:00 Registered Clinic [facility] [id number] [facility] Results Test Description Test Time Test Comments Results Result Comments Source CT ABDOMEN/PELVIS WO 2019-10-08 08:54:00 [place] [address] Patient Name: JARVIS BETANCOURT MR #: [id number] : 1945 Age/Sex: 74/F Req #: [id number] Adm Physician: Ordered by: ASHLYN GARCIA MD Report #: [id number] Location: [place] Room/Bed: Procedure: [id number] CT/CT ABDOMEN/PELVIS WO Exam Date: 10/08/19 Exam Time: 719 REPORT STATUS: Signed EXAM: CT Abdomen and Pelvis WITHOUT intravenous contrast INDICATION: Renal cyst, renal calculus, lower abdominal pain COMPARISON: CT abdomen and pelvis of 02/05/2019 TECHNIQUE: Abdomen and pelvis were scanned utilizing a multidetector helical scanner from the lung base to the pubic symphysis without administration of IV contrast. Coronal and sagittal reformations were obtained. IV CONTRAST: None ORAL CONTRAST: Water COMPLICATIONS: None RADIATION DOSE: Total DLP: 827 mGy*cm Dose modulation, iterative reconstruction, and/or weight based adjustment of the mA/kV was utilized to reduce the radiation dose to as low as reasonably achievable. FINDINGS: LOWER THORAX: Bibasilar dependent subsegmental atelectasis. HEPATOBILIARY: No focal liver lesion. Status post cholecystectomy. Unchanged common bile duct dilation to 14 mm, likely related to reservoir effect status post cholecystectomy. SPLEEN: No splenomegaly. PANCREAS: No focal masses or ductal dilatation. ADRENALS: No adrenal nodules. KIDNEYS/URETERS: 2 mm nonobstructive left lower pole renal calculus. No hydronephrosis or hydroureter. Bilateral subcentimeter renal cysts. PELVIC ORGANS/BLADDER: Status post hysterectomy. PERITONEUM / RETROPERITONEUM: No free air or fluid. LYMPH NODES: No lymphadenopathy. VESSELS: Mild scattered atherosclerotic calcifications of the nonaneurysmal abdominal aorta. GI TRACT: Diverticulosis without CT evidence of diverticulitis. No abnormal bowel thickening. No bowel obstruction. Increased stool burden throughout the colon. BONES AND SOFT TISSUES: Diffuse osteopenia. No acute osseous injury. No suspicious lytic or blastic lesions. Degenerative changes of the visualized spine. Left flank subcutaneous implanted nerve stimulator device terminates beyond the left S3 neural foramen. IMPRESSION: 2mm nonobstructive left lower pole renal calculus. No hydronephrosis. Signed by: Mary Ash MD on 10/08/2019 9:24 AM Dictated By: MARY ASH MD 3 Transcribed By: CLIFFORD on 10/08/19923 COPY TO: ASHLYN GARCIA MD GLUBED 2019-09-26 07:13:00 Test Item GLUBED (test code = GLUBED) 77 mg/dL 74-106 N Performed by certified dedicated owner operator at [facility] Novel Coronavirus 2019 [id number] 16:27:00* Test Item Value Reference Range Interpretation Comments Novel Coronavirus 2019 Inhouse (test code = COVNONPUI) Negative Negative Testing Criteria: Preprocedure ScreeningNovel Coronavirus 2019 Inhouse 2019-09-21 16:27:00* Test Item Value Reference Range Interpretation Comments Novel Coronavirus 2019 Inhouse (test code = COVNONPUI) Negative Negative Testing Criteria: Preprocedure ScreeningBASIC METABOLIC [id number] 13:29:00* Test Item Value Reference Range Interpretation Comments SODIUM (test code = NA) 140 mmol/L 136-145 N POTASSIUM (test code = K) 3.9 mmol/L 3.5-5.1 N CHLORIDE (test code = CL) 102.0 mmol/L 98-107 N CARBON DIOXIDE (test code = CO2) 30.0 mmol/L 21-32 N ANION GAP (test code = GAP) 11.9 10-20 N GLUCOSE (test code = GLU) 69 mg/dL 74-106 L BLOOD UREA NITROGEN (test code = BUN) 16 mg/dL 7-18 N GLOMERULAR FILTRATION RATE (test code = GFR) > 60 mL/min >=60 Estimated GFR by using Modified MDRD formula.Chronic kidney disease is defined as either kidney damageor GFR <60 mL/min/1.73 m2 for >3 months. CREATININE (test code = CREAT) 0.80 mg/dL 0.55-1.02 N Note change in reference range due to change in reagent. BUN/CREATININE RATIO (test code = BUN/CREA) 18.9 10-20 N CALCIUM (test code = CA) 8.7 mg/dL 8.5-10.1 N BASIC METABOLIC [id number] 13:20:00* Test Item Value Reference Range Interpretation Comments SODIUM (test code = NA) 140 mmol/L 136-145 N POTASSIUM (test code = K) 3.9 mmol/L 3.5-5.1 N CHLORIDE (test code = CL) 102.0 mmol/L 98-107 N CARBON DIOXIDE (test code = CO2) mmol/L 21-32 ANION GAP (test code = GAP) 10-20 GLUCOSE (test code = GLU) mg/dL 74-106 BLOOD UREA NITROGEN (test code = BUN) mg/dL 7-18 GLOMERULAR FILTRATION RATE (test code = GFR) mL/min >=60 CREATININE (test code = CREAT) mg/dL 0.55-1.02 BUN/CREATININE RATIO (test code = BUN/CREA) 10-20 CALCIUM (test code = CA) mg/dL 8.5-10.1 PROTHROMBIN [id number] 12:52:00* Test Item Value Reference Range Interpretation Comments PROTHROMBIN TIME PATIENT (test code = PTP) 27.6 seconds 9.0-14.0 H INTERNATIONAL NORMAL RATIO (test code = INR) 2.3 0.8-1.2 H The therapeutic range for oral anticoagulant therapy formost indications is an international normalized ratio (INR)of between 2.0 and 3.0. The recommended therapeutic INRrange for various clinical situations is listed below: Clinical Situation INR range Pulmonary e mbolism treatment (2.0-3.0)Venous thrombosis treatmentVenous thrombosis prophylaxis (high risk surgery)Prevention of systemic embolism from: Acute myocardial infarction Valvular heart disease Atrial fibrillation Mechanical prosthetic heart valves (2.5-3.5) IS PATIENT ON ANTICOAGULANTS? YLIST ANTICOAGULANTS XARELTO THROMBOPLASTIN TIME [id number] 12:52:00* Test Item Value Reference Range Interpretation Comments THROMBOPLASTIN TIME PARTIAL (test code = PTT) 58.1 seconds 23.0-37. 0 H IS PATIENT ON ANTICOAGULANTS? YLIST ANTICOAGULANTS XARELTO CBC W/AUTO DIFF 2019-09-20 12:46:00* Test Item Value Reference Range Interpretation Comments WHITE BLOOD CELL (test code = WBC) 8.4 K/mm3 4.5-12.5 N RED BLOOD CELL (test code = RBC) 4.84 mill/mm3 3.7-5.2 N HEMOGLOBIN (test code = HGB) 13.8 gram/dL 11.5-15.5 N HEMATOCRIT (test code = HCT) 43.7 % 36.0-46.0 N MEAN CELL VOLUME (test code = MCV) 90.3 fL 80-98 N MEAN CELL HGB (test code = MCH) 28.5 picogram 27.0-33.0 N MEAN CELL HGB CONCETRATION (test code = MCHC) 31.6 gram/dL 33.0-36. 0 L RED CELL DISTRIBUTION WIDTH (test code = RDW) 13.9 % 11.6-16. 2 N RED CELL DISTRIBUTION WIDTH SD (test code = RDW-SD) 45.8 fL 37 .0-51.0 N PLATELET COUNT (test code = PLT) 226 K/mm3 150-450 N MEAN PLATELET VOLUME (test code = MPV) 10.4 fL 6.7-11.0 N NEUTROPHIL % (test code = NT%) 64.2 % 39.0-69.0 N IMMATURE GRANULOCYTE % (test code = IG%) 0.2 % 0.0-5.0 N LYMPHOCYTE % (test code = LY%) 26.7 % 25.0-55.0 N MONOCYTE % (test code = MO%) 7.3 % 0.0-10.0 N EOSINOPHIL % (test code = EO%) 1.2 % 0.0-5.0 N BASOPHIL % (test code = BA%) 0.4 % 0.0-1.0 N NUCLEATED RBC % (test code = NRBC%) 0.0 % 0-0 N NEUTROPHIL # (test code = NT#) 5.36 K/mm3 1.8-7.7 N IMMATURE GRANULOCYTE # (test code = IG#) 0.02 x10 3/uL 0-0.03 N LYMPHOCYTE # (test code = LY#) 2.23 K/mm3 1.0-5.0 N MONOCYTE # (test code = MO#) 0.61 K/mm3 0-0.8 N EOSINOPHIL # (test code = EO#) 0.10 K/mm3 0.0-0.5 N BASOPHIL # (test code = BA#) 0.03 K/mm3 0.0-0.2 N NUCLEATED RBC # (test code = NRBC#) 0.00 K/mm3 0.0-0.1 N MANUAL DIFF REQUIRED (test code = MDIFF) NO - CT ABD PELVIS [id number] 03:40:00 Name: NATHALIA BETANCOURT [facility] : 1945 Age/S: 74 / F [address] Unit #: [id number] Loc: [place] [address] Phys: Maurisio Amaya MD Acct: [id number] Dis Date: Status: REG ER PHONE #: [phone] Exam Date: 04/07/2019309 FAX #: [phone] Reason: RLQ pain EXAMS: CPT CODE: [id number] CT ABD PELVIS W/CONT 15976 CT abdomen and pelvis with IV contrast. Indication: Right lower quadrant pain Location: R16 Comparison: May 20, 2012 Technique: CT images of the abdomen and pelvis were obtained from the diaphragm to the pubic symphysis after the administration of intravenous contrast contrast. Coronal reformats are provided. One or more of the following dose reduction techniques were used: Automated exposure control, adjustment of the mA and/or kV according to patient size, and/or utilization of iterative reconstruction technique. Findings: Lungs bases: Unremarkable. Upper GI: Post gastric surgery changes are noted Liver: Unremarkable. Gallbladder: Surgically absent Pancreas: Unremarkable. Spleen: Unremarkable. Adrenal glands: Unremarkable. Kidneys: Unremarkable. Bowel: No bowel obstruction. The appendix is unremarkable.. A very large volume of stool seen throughout the very colon nonspecific but compatible clinical diagnosis of constipation. Peritoneum: No ascites. No free air Skeletal: No acute fracture.. Impression: Very large stool burden seen throughout the redundant colon limits the examination, specifically appendix is not seen. Diverticulosis is noted. Additional findings as detailed above PAGE 1 Signed Report (CONTINUED) Name: NATHALIA BETANCOURT [facility] : 1945 Age/S: 74 / F [address] Unit #: [id number] Loc: [place] [address] Phys: Maurisio Amaya MD Acct: [id number] Dis Date: Status: REG ER PHONE #: [phone] Exam Date: 04/07/2019309 FAX #: [phone] Reason: RLQ pain EXAMS: CPT CODE: [id number] ABD PELVIS W/CONT 19531 <Continued > at 0340 Reported and signed by: Kathe Francisco M.D. CC: Maurisio Amaya MD Technologist:Flaco Obando, RT(R)(CT) CTDI: DLP: Trnscb Date/Time: 04/07/2019 (034) [id number] Orig Print D/T: S: 04/07/2019 (0348) PAGE 2 Signed Report URINALYSIS [id number] 03:32:00* Test Item Value Reference Range Interpretation Comments UA COLOR (test code = COLU) YELLOW YELLOW UA APPEARANCE (test code = APPU) Cloudy CLEAR A UA GLUCOSE DIPSTICK (test code = DGLUU) NEGATIVE mg/dL NEGATIVE UA BILIRUBIN DIPSTICK (test code = BILU) NEGATIVE mg/dL NEGATIVE UA KETONE DIPSTICK (test code = KETU) 60 (2+) mg/dL NEGATIVE A UA SPECIFIC GRAVITY (test code = SGU) 1.015 1.001-1.035 UA BLOOD DIPSTICK (test code = PANCHITO) Negative mg/dL NEGATIVE UA PH DIPSTICK (test code = ROMANA) 6.0 5.0-8.0 UA PROTEIN DIPSTICK (test code = PROU) 30 (1+) mg/dL NEGATIVE A UA UROBILINIOGEN DIPSTICK (test code = URO) Normal mg/dL NEGATIVE UA NITRITE DIPSTICK (test code = LAURITA) POSITIVE NEGATIVE A UA LEUKOCYTE ESTERASE W REFLEX (test code = LEUUR) 500 Rick/u L (3+) Rick/uL NEGATIVE A UA WBC (test code = WBCU) 21-50 per HPF 0-5 A UA RBC (test code = RBCU) 6-10 #/HPF 0-5 A UA EPITHELIAL CELLS (test code = EPIU) MOD per HPF FEW UA BACTERIA (test code = BACU) MANY #/HPF NONE A UA RENAL CELLS (test code = JULIA) 3-5 #/HPF 0-5 UA HYALINE CAST (test code = HYALU) 0-2 #/LPF 0-5 UA MUCUS (test code = MUCU) FEW #/LPF FEW Urine Source? Clean CatchURINALYSIS [id number] 03:27:00* Test Item Value Reference Range Interpretation Comments UA COLOR (test code = COLU) YELLOW YELLOW UA APPEARANCE (test code = APPU) Cloudy CLEAR A UA GLUCOSE DIPSTICK (test code = DGLUU) NEGATIVE mg/dL NEGATIVE UA BILIRUBIN DIPSTICK (test code = BILU) NEGATIVE mg/dL NEGATIVE UA KETONE DIPSTICK (test code = KETU) 60 (2+) mg/dL NEGATIVE A UA SPECIFIC GRAVITY (test code = SGU) 1.015 1.001-1.035 UA BLOOD DIPSTICK (test code = PANCHITO) Negative mg/dL NEGATIVE UA PH DIPSTICK (test code = ROMANA) 6.0 5.0-8.0 UA PROTEIN DIPSTICK (test code = PROU) 30 (1+) mg/dL NEGATIVE A UA UROBILINIOGEN DIPSTICK (test code = URO) Normal mg/dL NEGATIVE UA NITRITE DIPSTICK (test code = LAURITA) POSITIVE NEGATIVE A UA LEUKOCYTE ESTERASE W REFLEX (test code = LEUUR) 500 Rick/u L (3+) Rick/uL NEGATIVE A UA WBC (test code = WBCU) per HPF 0-5 UA RBC (test code = RBCU) per HPF 0-5 UA EPITHELIAL CELLS (test code = EPIU) per HPF Few UA BACTERIA (test code = BACU) per HPF NONE Urine Source? Clean CatchBASIC METABOLIC [id number] 03:00:00* Test Item Value Reference Range Interpretation Comments SODIUM (test code = NA) 143 mmol/L 136-145 N POTASSIUM (test code = K) 3.3 mmol/L 3.5-5.1 L CHLORIDE (test code = CL) 104.0 mmol/L 98-107 N CARBON DIOXIDE (test code = CO2) 27.0 mmol/L 21-32 N ANION GAP (test code = GAP) 15.3 10-20 N GLUCOSE (test code = GLU) 120 mg/dL 74-106 H BLOOD UREA NITROGEN (test code = BUN) 8 mg/dL 7-18 N GLOMERULAR FILTRATION RATE (test code = GFR) > 60 mL/min >=60 Estimated GFR by using Modified MDRD formula.Chronic kidney disease is defined as either kidney damageor GFR <60 mL/min/1.73 m2 for >3 months. CREATININE (test code = CREAT) 0.60 mg/dL 0.55-1.02 N Note change in reference range due to change in reagent. BUN/CREATININE RATIO (test code = BUN/CREA) 13.3 10-20 N CALCIUM (test code = CA) 9.3 mg/dL 8.5-10.1 N HEPATIC FUNCTION [id number] 03:00:00* Test Item Value Reference Range Interpretation Comments TOTAL PROTEIN (test code = PROT) 7.7 gram/dL 6.4-8.2 N ALBUMIN (test code = ALB) 4.1 g/dL 3.4-5.0 N GLOBULIN (test code = GLOB) 3.6 gram/dL 2.7-4.2 N ALBUMIN/GLOBULIN RATIO (test code = A/G) 1.1 0.75-1.50 N BILIRUBIN TOTAL (test code = BILT) 1.00 mg/dL 0.0-1.0 N BILIRUBIN DIRECT (test code = BILD) 0.36 mg/dL 0.0-0.20 H SGOT/AST (test code = AST) 14 IUnit/L 15-37 L SGPT/ALT (test code = ALT) 20 IUnit/L 12-78 N ALKALINE PHOSPHATASE TOTAL (test code = ALKP) 65 IUnit/L 45-117 N Note change in reference range due to change in reagent. [id number] 03:00:00* Test Item Value Reference Range Interpretation Comments LIPASE (test code = LIP) 56 U/L 73.0-393.0 L [id number] 03:00:00* Test Item Value Reference Range Interpretation Comments TROPONIN-I (test code = TROPI) <0.015 ng/mL 0-0.045 N BASIC METABOLIC [id number] 02:52:00* Test Item Value Reference Range Interpretation Comments SODIUM (test code = NA) 143 mmol/L 136-145 N POTASSIUM (test code = K) 3.3 mmol/L 3.5-5.1 L CHLORIDE (test code = CL) 104.0 mmol/L 98-107 N CARBON DIOXIDE (test code = CO2) mmol/L 21-32 ANION GAP (test code = GAP) 10-20 GLUCOSE (test code = GLU) mg/dL 74-106 BLOOD UREA NITROGEN (test code = BUN) mg/dL 7-18 GLOMERULAR FILTRATION RATE (test code = GFR) mL/min >=60 CREATININE (test code = CREAT) mg/dL 0.55-1.02 BUN/CREATININE RATIO (test code = BUN/CREA) 10-20 CALCIUM (test code = CA) mg/dL 8.5-10.1 HEPATIC FUNCTION [id number] 02:52:00* Test Item Value Reference Range Interpretation Comments TOTAL PROTEIN (test code = PROT) gram/dL 6.4-8.2 ALBUMIN (test code = ALB) g/dL 3.4-5.0 GLOBULIN (test code = GLOB) gram/dL 2.7-4.2 ALBUMIN/GLOBULIN RATIO (test code = A/G) 0.75-1.50 BILIRUBIN TOTAL (test code = BILT) mg/dL 0.0-1.0 BILIRUBIN DIRECT (test code = BILD) mg/dL 0.0-0.20 SGOT/AST (test code = AST) IUnit/L 15-37 SGPT/ALT (test code = ALT) IUnit/L 12-78 ALKALINE PHOSPHATASE TOTAL (test code = ALKP) IUnit/L 45-117 [id number] 02:52:00* Test Item Value Reference Range Interpretation Comments LIPASE (test code = LIP) U/L 73.0-393.0 [id number] 02:52:00* Test Item Value Reference Range Interpretation Comments TROPONIN-I (test code = TROPI) ng/mL 0-0.045 CBC W/O [id number] 02:40:00* Test Item Value Reference Range Interpretation Comments WHITE BLOOD CELL (test code = WBC) 8.2 K/mm3 4.5-12.5 N RED BLOOD CELL (test code = RBC) 4.87 mill/mm3 3.7-5.2 N HEMOGLOBIN (test code = HGB) 14.1 gram/dL 11.5-15.5 N HEMATOCRIT (test code = HCT) 43.8 % 36.0-46.0 N MEAN CELL VOLUME (test code = MCV) 89.9 fL 80-98 N MEAN CELL HGB (test code = MCH) 29.0 picogram 27.0-33.0 N MEAN CELL HGB CONCETRATION (test code = MCHC) 32.2 gram/dL 33.0-36. 0 L RED CELL DISTRIBUTION WIDTH (test code = RDW) 13.9 % 11.6-16. 2 N PLATELET COUNT (test code = PLT) 190 K/mm3 150-450 N MEAN PLATELET VOLUME (test code = MPV) 8.8 fL 6.7-11.0 N CBC W/O [id number] 02:34:00* Test Item Value Reference Range Interpretation Comments WHITE BLOOD CELL (test code = WBC) K/mm3 4.5-12.5 RED BLOOD CELL (test code = RBC) mill/mm3 3.7-5.2 HEMOGLOBIN (test code = HGB) 14.1 gram/dL 11.5-15.5 N HEMATOCRIT (test code = HCT) 43.8 % 36.0-46.0 N MEAN CELL VOLUME (test code = MCV) fL 80-98 MEAN CELL HGB (test code = MCH) picogram 27.0-33.0 MEAN CELL HGB CONCETRATION (test code = MCHC) gram/dL 33.0-36. 0 RED CELL DISTRIBUTION WIDTH (test code = RDW) % 11.6-16. 2 PLATELET COUNT (test code = PLT) K/mm3 150-450 MEAN PLATELET VOLUME (test code = MPV) fL 6.7-11.0 SCR MAMM BILATERAL MERLIN CAD [id number] 10:42:29 - SCR MAMM BILATERAL MERLIN CAD DIGITALBILATERAL DIGITAL SCREENING MAMMOGRAM 3D/2D WITH CAD: 03/06/2019CLINICAL: Asymptomatic. Digital breast tomosynthesis was performed in addition to routine CC and MLO views. Current mammographic images were evaluated by either a [email or web address] M-Vu or a [employer] ImageChecker CAD (computer aided detection system). Comparison is made to exams dated 09/23/2017 mammogram, 05/17/2016 mammogram, 04/09/2014 mammogram - [facility]-, and 2010 mammogram - [facility]. There are scattered fibroglandular t issues in both breasts. No suspicious mass, architectural distortion, malignant type calcification, or lymph node abnormality detected. Breast architecture is stable compared to prior exams.IMPRESSION: NEGATIVEThere is no mammographic micheal dence of malignancy. Resume annual screening mammography in one year. Thomas carlson/penrad:03/06/2019 10:42:29 Metalworking Instructor: René Murphy, [facility]-FWletter sent: BIRADS 1-2 Normal Mammogram BI-RADS: 1 NegativeCT ABDOMEN/PELVIS [id number] 10:05:00 [place] [id number] Patient Name: JARVIS BETANCOURT MR #: [id number] : 1945 Age/Sex: 73/F Req #: [id number] Adm Physician: Ordered by: MARINA FISH MD Report #: [id number] Location: ER Room/Bed: Procedure: [id number] CT /CT ABDOMEN/PELVIS W Exam Date: 02/05/19 Exam Time: 0909 REPORT STATUS: Signed EXAM: CT Abdomen and Pelvis WITH intravenous contrast INDICATION: Abdominal pa in COMPARISON: CT abdomen and pelvis of 12/08/2018 TECHNIQUE: Abdomen a nd pelvis were scanned utilizing a multidetector helical scanner from the lung base to the pubic symphysis after administration of IV contrast. Coronal and sagittal reformations were obtained. Routine protocol was performed. Scan was performed during portal venous phase. IV CONTRAST: 100mL of Isovue 370 ORAL CONTRAST: Water RADIATION DOSE: Total DLP: (DLP x 0.015 x size f actor) mGy*cm Dose modulation, iterative reconstruction, and/or weight base d adjustment of the mA/kV was utilized to reduce the radiation dose to as low as reasonably achievable. FINDINGS: LOWER THORAX: Unchanged 6.5 mm sub pleural right lower lobe pulmonary nodule (series 2 image 10). Right basilar f ocal pleural calcification. HEPATOBILIARY: Mild diffuse hepatic steatosis and unchanged hepatomegaly. No focal liver lesion. No biliary ductal dilation. Status post cholecystectomy. SPLEEN: No splenomegaly. PANCREAS: No fo frances masses or ductal dilatation. ADRENALS: No adrenal nodules. KIDNEYS/UR ETERS: Bilateral subcentimeter renal cysts, unchanged. No renal calculi or hyd ronephrosis. PELVIC ORGANS/BLADDER: Status post hysterectomy. PERITONEUM / RETROPERITONEUM: No free air or fluid. LYMPH NODES: No lymphadenopathy. VE SSELS: Mild scattered atherosclerotic calcifications of the nonaneurysmal abdo gaurang aorta and major branches. GI TRACT: Postoperative findings of gastric bypass surgery. Diverticulosis without CT evidence of diverticulitis. No abno rmal bowel wall thickening. No bowel obstruction. BONES AND SOFT TISSUES: No acute osseous injury. No suspicious or blastic lesions. Prominent multilev el degenerative changes of the visualized spine. Grade 1 retrolisthesis at L1- 2. Left flank subcutaneous implanted nerve stimulator device terminates beyond the left S3 neural foramen. IMPRESSION: No acute findings in the abdomen or pelvis. Unchanged hepatomegaly and diffuse hepatic steatosis. Right lower lobe pulmonary nodule measuring 6.5 mm. If the patient is low risk, no further imaging follow-up is required. If the patient is high risk, CT chest is optional at 12 months. Signed by: Mary Ash MD on 02/05/2019 10:15 AM Dictated By: MARY ASH MD 1015 COPY TO: MARINA FISH MD Stool Occult [id number] 09:59:00* Test Item Value Reference Range Interpretation Comments Stool Occult Blood (test code = 2335-8) POSITIVE NEGATIVE H [facility] HospitalCreatine Kinase [id number] 09:12:00* Test Item Value Reference Range Interpretation Comments Creatine Kinase MB (test code = 70613-4) 1.70 0-4.3 [facility] [id number] 08:14:00* Test Item Value Reference Range Interpretation Comments Sodium Level (test code = 2951-2) 139 136-145 [facility] HospitalPotassium Pxrgv8925-03-23 08:14:00* Test Item Value Reference Range Interpretation Comments Potassium Level (test code = 2823-3) 3.7 3.5-5.1 [facility] HospitalChloride [id number] 08:14:00* Test Item Value Reference Range Interpretation Comments Chloride Level (test code = 2075-0) 99 98-107 [facility] HospitalCarbon Dioxide [id number] 08:14:00* Test Item Value Reference Range Interpretation Comments Carbon Dioxide Level (test code = 2028-9) 27 22-29 [facility] HospitalAnion [id number] 08:14:00* Test Item Value Reference Range Interpretation Comments Anion Gap (test code = 16560-0) 16.7 8-16 H [facility] HospitalBlood Urea [id number] 08:14:00* Test Item Value Reference Range Interpretation Comments Blood Urea Nitrogen (test code = 3094-0) 11 7-26 [facility] HospitalCreatinine2019-10-28 08:14:00* Test Item Value Reference Range Interpretation Comments Creatinine (test code = 2160-0) 0.80 0.57-1.11 [facility] HospitalBUN/Creatinine [id number] 08:14:00* Test Item Value Reference Range Interpretation Comments BUN/Creatinine Ratio (test code = 3097-3) 14 6-25 [facility] HospitalEstimat Glomerular Filtration Rate 2019-02-05 08:14:00* Test Item Value Reference Range Interpretation Comments Estimat Glomerular Filtration Rate (test code = 030366373) > 60 >60 Ranges were taken from the National Kidney Disease Education Program and the [facility] literature.Reference ranges:60 or greater: Bcpjov31-87 ( for 3 consecutive months): Chronic kidney disease 15 or less: Kidney failureHarris Health System Ben Taub HospitalGlucose Ljqmq2736-75-32 08:14:00* Test Item Value Reference Range Interpretation Comments Glucose Level (test code = PIZ1718) 108 74-118 [facility] HospitalCalcium Lcmtf7547-50-51 08:14:00* Test Item Value Reference Range Interpretation Comments Calcium Level (test code = 11592-2) 9.3 8.4-10.2 [facility] HospitalTotal Suhtrfviz1325-91-84 08:14:00* Test Item Value Reference Range Interpretation Comments Total Bilirubin (test code = 1975-2) 0.8 0.2-1.2 [facility] HospitalAspartate Amino Transf (AST/SGOT) 2019-02-05 08:14:00* Test Item Value Reference Range Interpretation Comments Aspartate Amino Transf (AST/SGOT) (test code = Aspartate Amino Transf (AST/SGOT)) 13 5-34 [facility] HospitalAlanine Aminotransferase (ALT/SGPT) 2019-02-05 08:14:00* Test Item Value Reference Range Interpretation Comments Alanine Aminotransferase (ALT/SGPT) (test code = 1742-6) 11 0-55 [facility] HospitalTotal [id number] 08:14:00* Test Item Value Reference Range Interpretation Comments Total Protein (test code = 2885-2) 7.6 6.5-8.1 [facility] HospitalAlbumin2019-10-28 08:14:00* Test Item Value Reference Range Interpretation Comments Albumin (test code = 1751-7) 4.5 3.5-5.0 [facility] HospitalGlobulin2019-10-28 08:14:00* Test Item Value Reference Range Interpretation Comments Globulin (test code = 94031-5) 3.1 2.3-3.5 [facility] HospitalAlbumin/Globulin [id number] 08:14:00 * Test Item Value Reference Range Interpretation Comments Albumin/Globulin Ratio (test code = 1759-0) 1.5 0.8-2.0 [facility] HospitalAlkaline Prhprvneazr8052-12-77 08:14:00* Test Item Value Reference Range Interpretation Comments Alkaline Phosphatase (test code = 6768-6) 58 40-150 [facility] HospitalCreatine Bhhnkd6050-74-82 08:14:00* Test Item Value Reference Range Interpretation Comments Creatine Kinase (test code = 2157-6) 89 29-168 [facility] HospitalTroponin [id number] 08:14:00* Test Item Value Reference Range Interpretation Comments Troponin I (test code = UUZ9193) < 0.001 0-0.300 [facility] HospitalUrine [id number] 08:11:00* Test Item Value Reference Range Interpretation Comments Urine WBC (test code = 5821-4) 6-10 0-5 H [facility] HospitalUrine [id number] 08:11:00* Test Item Value Reference Range Interpretation Comments Urine RBC (test code = 08135-6) 0-5 0-5 [facility] HospitalUrine Dfthcxjs2471-43-87 08:11:00* Test Item Value Reference Range Interpretation Comments Urine Bacteria (test code = 69678-8) FEW NONE [facility] HospitalUrine Epithelial Qhwup5009-75-10 08:11:00 * Test Item Value Reference Range Interpretation Comments Urine Epithelial Cells (test code = 46409-9) FEW NONE [facility] HospitalUrine Yeaha9957-29-00 08:01:00* Test Item Value Reference Range Interpretation Comments Urine Color (test code = 5778-6) YELLOW YELLOW [facility] HospitalUrine Frfeaqh0886-74-28 08:01:00* Test Item Value Reference Range Interpretation Comments Urine Clarity (test code = 54095-9) CLEAR CLEAR [facility] HospitalUrine Specific Oxhcbyb7870-30-21 08:01:00 * Test Item Value Reference Range Interpretation Comments Urine Specific Palmer (test code = 5811-5) 1.020 1.010-1.02 5 [facility] HospitalUrine [id number] 08:01:00* Test Item Value Reference Range Interpretation Comments Urine pH (test code = 08686-3) 6 5-7 [facility] HospitalUrine Leukocyte Fqlfwtfm6393-08-61 08:01:00* Test Item Value Reference Range Interpretation Comments Urine Leukocyte Esterase (test code = 98264-9) SMALL NEGATIV E [facility] HospitalUrine Kftkoao1462-56-66 08:01:00* Test Item Value Reference Range Interpretation Comments Urine Nitrite (test code = 39212-9) NEGATIVE NEGATIVE [facility] HospitalUrine Xkcqqvg2789-06-38 08:01:00* Test Item Value Reference Range Interpretation Comments Urine Protein (test code = 77469-4) NEGATIVE NEGATIVE [facility] HospitalUrine Glucose (UA)2019-02-05 08:01:00* Test Item Value Reference Range Interpretation Comments Urine Glucose (UA) (test code = 88869-0) NEGATIVE NEGATIVE [facility] HospitalUrine Jisteqf2642-99-07 08:01:00* Test Item Value Reference Range Interpretation Comments Urine Ketones (test code = 69697-1) NEGATIVE NEGATIVE [facility] Smouvqfbdiio1132-04-91 08:01:00* Test Item Value Reference Range Interpretation Comments Urine Urobilinogen (test code = 36503-2) 0.2 0.2-1 [facility] HospitalUrine Ycejsmgre5787-55-93 08:01:00* Test Item Value Reference Range Interpretation Comments Urine Bilirubin (test code = 1977-8) NEGATIVE NEGATIVE [facility] HospitalUrine Ounwg2921-43-98 08:01:00* Test Item Value Reference Range Interpretation Comments Urine Blood (test code = 82250-0) NEGATIVE NEGATIVE [facility] HospitalProthrombin Vuwu7036-69-78 07:58:00* Test Item Value Reference Range Interpretation Comments Prothrombin Time (test code = 5902-2) 13.9 11.9-14.5 [facility] HospitalProthromb Time International Ratio 2019-02-05 07:58:00* Test Item Value Reference Range Interpretation Comments Prothromb Time International Ratio (test code = 6301-6) 1.02 Oral Anticoagulant Therapy INR Values:1. Low Intensity Therapy 1.5 - 2.02 . Moderate Intensity Therapy 2.0 - 3.03. High Intensity Therapy(1) 2.5 - 3. 54. High Intensity Therapy(2) 3.0 - 4.05. Panic Value INR > 5.0 [facility] HospitalActivated Partial Thromboplast Time 2019-02-05 07:58:00* Test Item Value Reference Range Interpretation Comments Activated Partial Thromboplast Time (test code = 61064-1) 41.7 23.8-35.5 H [facility] HospitalWhite Blood Lbddk4773-18-39 07:40:00* Test Item Value Reference Range Interpretation Comments White Blood Count (test code = 6690-2) 8.31 4.8-10.8 [facility] HospitalRed Blood Zlsys9677-15-96 07:40:00* Test Item Value Reference Range Interpretation Comments Red Blood Count (test code = 789-8) 5.00 3.6-5.1 [facility] HospitalHemoglobin2019-10-28 07:40:00* Test Item Value Reference Range Interpretation Comments Hemoglobin (test code = 15303-9) 14.5 12.0-16.0 [facility] HospitalHematocrit2019-10-28 07:40:00* Test Item Value Reference Range Interpretation Comments Hematocrit (test code = 4544-3) 44.2 34.2-44.1 H [facility] HospitalMean Corpuscular Jmahyn7529-35-99 07:40:00* Test Item Value Reference Range Interpretation Comments Mean Corpuscular Volume (test code = 787-2) 88.4 81-99 [facility] HospitalMean Corpuscular Uoyvytojtl5635-34-27 07:40:00* Test Item Value Reference Range Interpretation Comments Mean Corpuscular Hemoglobin (test code = 785-6) 29.0 28-32 [facility] HospitalMean Corpuscular Hemoglobin Concent 2019-02-05 07:40:00* Test Item Value Reference Range Interpretation Comments Mean Corpuscular Hemoglobin Concent (test code = 786-4) 32.8 31-35 [facility] HospitalRed Cell Distribution Omgcm6284-17-36 07:40:00* Test Item Value Reference Range Interpretation Comments Red Cell Distribution Width (test code = 53640-1) 14.5 11.7 -14.4 H [facility] HospitalPlatelet Adfoc5294-41-51 07:40:00* Test Item Value Reference Range Interpretation Comments Platelet Count (test code = 777-3) 213 140-360 [facility] HospitalNeutrophils (%) (Auto)2019-02-05 07:40:00 * Test Item Value Reference Range Interpretation Comments Neutrophils (%) (Auto) (test code = 28444-7) 64.0 38.7-80.0 [facility] HospitalLymphocytes (%) (Auto)2019-02-05 07:40:00 * Test Item Value Reference Range Interpretation Comments Lymphocytes (%) (Auto) (test code = 736-9) 27.1 18.0-39.1 [facility] HospitalMonocytes (%) (Auto)2019-02-05 07:40:00* Test Item Value Reference Range Interpretation Comments Monocytes (%) (Auto) (test code = 5905-5) 7.8 4.4-11.3 [facility] HospitalEosinophils (%) (Auto)2019-02-05 07:40:00 * Test Item Value Reference Range Interpretation Comments Eosinophils (%) (Auto) (test code = 713-8) 0.5 0.0-6.0 [facility] HospitalBasophils (%) (Auto)2019-02-05 07:40:00* Test Item Value Reference Range Interpretation Comments Basophils (%) (Auto) (test code = 706-2) 0.2 0.0-1.0 [facility] HospitalIM GRANULOCYTES %2019-02-05 07:40:00* Test Item Value Reference Range Interpretation Comments IM GRANULOCYTES % (test code = IM GRANULOCYTES %) 0.4 0.0- 1.0 [facility] HospitalNeutrophils # (Auto)2019-02-05 07:40:00* Test Item Value Reference Range Interpretation Comments Neutrophils # (Auto) (test code = 751-8) 5.3 2.1-6.9 [facility] HospitalLymphocytes # (Auto)2019-02-05 07:40:00* Test Item Value Reference Range Interpretation Comments Lymphocytes # (Auto) (test code = 13479-8) 2.3 1.0-3.2 [facility] HospitalMonocytes # (Auto)2019-02-05 07:40:00* Test Item Value Reference Range Interpretation Comments Monocytes # (Auto) (test code = 742-7) 0.7 0.2-0.8 [facility] HospitalEosinophils # (Auto)2019-02-05 07:40:00* Test Item Value Reference Range Interpretation Comments Eosinophils # (Auto) (test code = 711-2) 0.0 0.0-0.4 [facility] HospitalBasophils # (Auto)2019-02-05 07:40:00* Test Item Value Reference Range Interpretation Comments Basophils # (Auto) (test code = 704-7) 0.0 0.0-0.1 [facility] HospitalAbsolute Immature Granulocyte (auto 2019-02-05 07:40:00* Test Item Value Reference Range Interpretation Comments Absolute Immature Granulocyte (auto (pia t code = Absolute Immature Granulocyte (auto) 0.03 0-0.1 [facility] HospitalClostridium Difficile Toxin A & B 2018-12-08 15:18:00* Test Item Value Reference Range Interpretation Comments Clostridium Difficile Toxin A & B (test code = 807293870) NEGATIVE NEGATIVE Testing on stool aspirate specimens is outside water pumping station engineer claims since specime n type not validated on this assay.[facility] Clostridium Difficile Toxin A & [id number] 15:18:00* Test Item Value Reference Range Interpretation Comments Clostridium Difficile Toxin A & B (test code = 861762243) NEGATIVE NEGATIVE Testing on stool aspirate specimens is outside water pumping station engineer claims since specime n type not validated on this assay.[facility] HospitalCT ABDOMEN/PELVIS [id number] 13:57:00 [facility] [address] [place] [address] Patient Name: JARVIS BETANCOURT MR #: [id number] : 1945 Age/Sex: 73/F Req #: [id number] Adm Physician: Ordered by: KE MACHADO AGRICULTURE TECHNICIAN Report #: [id number] Location: ER Room/Bed: Procedure: [id number] CT /CT ABDOMEN/PELVIS W Exam Date: 12/08/18 Exam Time: 1354 REPORT STATUS: Signed CT of the abdomen and pelvis, with contrast, 12/08/2018. History: Lower abdominal pain. Comparison: 11/07/2018. Technique: Multidetector CT sc anning of the abdomen and pelvis was performed from the level of the lung base s to the inferior pubic rami after intravenous administration of contrast. No oral contrast given. Coronal and sagittal multiplanar reformations were obtain ed. RADIATION DOSE: Total DLP: 743 mGy*cm Dose modulation, iterative reconstruction, and/or weight based adjustment of the mA/kV was uti lized to reduce the radiation dose to as low as reasonably achievable. D iscussion: LUNG BASES: Left pleural calcifications is again noted. ABDOM EN: The liver is enlarged measuring over 18 cm in length. There is no focal he patic abnormality. Cholecystectomy clips are present. CBD is mildly prominent measuring 12 mm. Bilateral renal cysts are again noted. The spleen, pancreas, and adrenal glands are normal. The hepatic vein, portal vein, and splenic vein are patent. The abdominal aorta is within normal limits for size. Evaluation bowel is limited without oral contrast. There is no bowel dilatation. Surgical sutures present in the stomach. Diverticuli are present within the sigmoid c olon without evidence of adjacent inflammation. There is no evidence of adeno govind or free fluid. PELVIS: The bladder is unremarkable. The uterus and adnexa are not visualized. There is no evidence of free fluid or adenopathy. Posterior stimulator device is present with lead entering the sacrum on the le ft. BONES AND SOFT TISSUES: Degenerative changes are present throughout the lumbar spine without evidence of lytic or sclerotic lesion. IMPRESSIO N: 1. Hepatomegaly without focal hepatic abnormality. 2. Status post chol ecystectomy with prominence of the CBD likely related to reservoir effect. 3 . Bilateral renal cysts again noted. 4. Colonic diverticulosis without evidenc e of diverticulitis. 5. Status post hysterectomy. Signed by: Hal keene on 12/08/2018 2:04 PM Dictated By: HAL RIZO MD Electronically Si gned By: HAL RIZO MD on 12/08/181403 Transcribed By: CLIFFORD on 12/08/181403 COPY TO: KE MACHADO A[employer]IC[employer]URE TECHNICIAN Urine [id number] 13:12:00* Test Item Value Reference Range Interpretation Comments Urine WBC (test code = 5821-4) 6-10 0-5 H [facility] Hospital[facility] [id number] 13:12:00* Test Item Value Reference Range Interpretation Comments Urine RBC (test code = 19646-1) NONE 0-5 [facility] HospitalUrine Ykarzequ9338-67-66 13:12:00* Test Item Value Reference Range Interpretation Comments Urine Bacteria (test code = 69324-5) RARE NONE [facility] HospitalU[facility] Epithelial Dukan1505-75-72 13:12:00 * Test Item Value Reference Range Interpretation Comments Urine Epithelial Cells (test code = 53267-0) MODERATE NONE [facility] HospitalUrine Renal Epithelial Qpesy3219-75-98 13:12:00* Test Item Value Reference Range Interpretation Comments Urine Renal Epithelial Cells (test code = 04058-8) RARE NON E H [facility] HospitalUrine Renal Epithelial Eplez1669-85-05 13:12:00* Test Item Value Reference Range Interpretation Comments Urine Renal Epithelial Cells (test code = 38525-5) RARE NON E [facility] Orzwu3329-04-81 13:00:00* Test Item Value Reference Range Interpretation Comments Sodium Level (test code = 2951-2) 141 136-145 [facility] HospitalPotassium Njott3812-03-47 13:00:00* Test Item Value Reference Range Interpretation Comments Potassium Level (test code = 2823-3) 3.8 3.5-5.1 [facility] HospitalChloride Qnrmp1622-16-68 13:00:00* Test Item Value Reference Range Interpretation Comments Chloride Level (test code = 2075-0) 95 98-107 L [facility] HospitalCarbon Dioxide Cehdk7642-56-62 13:00:00* Test Item Value Reference Range Interpretation Comments Carbon Dioxide Level (test code = 2028-9) 28 -29 [facility] HospitalAnion Yei8394-08-84 13:00:00* Test Item Value Reference Range Interpretation Comments Anion Gap (test code = 66182-0) 21.8 8-16 H [facility] HospitalBlood Urea Wbikzwbj4894-55-48 13:00:00* Test Item Value Reference Range Interpretation Comments Blood Urea Nitrogen (test code = 3094-0) 13 7- [facility] HospitalCreatinine2019-08-30 13:00:00* Test Item Value Reference Range Interpretation Comments Creatinine (test code = 2160-0) 0.79 0.57-1.11 [facility] HospitalBUN/Creatinine Wmjek5988-92-06 13:00:00* Test Item Value Reference Range Interpretation Comments BUN/Creatinine Ratio (test code = 3097-3) 16 6- [facility] HospitalEstimat Glomerular Filtration Rate 2018-12-08 13:00:00* Test Item Value Reference Range Interpretation Comments Estimat Glomerular Filtration Rate (test code = 227398957) > 60 >60 Ranges were taken from the National Kidney Disease Education Program and the [facility] literature.Reference ranges:60 or greater: Jvjflz36-71 ( for 3 consecutive months): Chronic kidney disease 15 or less: Kidney failureHarris Health System Ben [facility] HospitalGlucose Sydur0973-29-82 13:00:00* Test Item Value Reference Range Interpretation Comments Glucose Level (test code = GIS8088) 93 74-118 [facility] HospitalCalcium Dyieg9703-63-95 13:00:00* Test Item Value Reference Range Interpretation Comments Calcium Level (test code = 14409-2) 9.9 8.4-10.2 [facility] HospitalMagnesium Efykz2751-61-40 13:00:00* Test Item Value Reference Range Interpretation Comments Magnesium Level (test code = 76655-2) 1.4 1.3-2.1 [facility] HospitalTotal Dyokrufbw6560-34-52 13:00:00* Test Item Value Reference Range Interpretation Comments Total Bilirubin (test code = 1975-2) 0.8 0.2-1.2 [facility] HospitalAspartate Amino Transf (AST/SGOT) 2018-12-08 13:00:00* Test Item Value Reference Range Interpretation Comments Aspartate Amino Transf (AST/SGOT) (test code = Aspartate Amino Transf (AST/SGOT)) 13 5-34 [facility] HospitalAlanine Aminotransferase (ALT/SGPT) 2018-12-08 13:00:00* Test Item Value Reference Range Interpretation Comments Alanine Aminotransferase (ALT/SGPT) (test code = 1742-6) < 6 0-55 [facility] HospitalTotal Wmrcasm9383-03-75 13:00:00* Test Item Value Reference Range Interpretation Comments Total Protein (test code = 2885-2) 7.5 6.5-8.1 [facility] HospitalAlbumin2019-08-30 13:00:00* Test Item Value Reference Range Interpretation Comments Albumin (test code = 1751-7) 4.5 3.5-5.0 [facility] HospitalGlobulin2019-08-30 13:00:00* Test Item Value Reference Range Interpretation Comments Globulin (test code = 57306-6) 3.0 2.3-3.5 [facility] HospitalAlbumin/Globulin Qnkpr6677-79-92 13:00:00 * Test Item Value Reference Range Interpretation Comments Albumin/Globulin Ratio (test code = 1759-0) 1.5 0.8-2.0 [facility] HospitalAlkaline Iednmggokhx4568-74-17 13:00:00* Test Item Value Reference Range Interpretation Comments Alkaline Phosphatase (test code = 6768-6) 73 40-150 [facility] HospitalAmylase Fgvrn5776-69-47 13:00:00* Test Item Value Reference Range Interpretation Comments Amylase Level (test code = 1798-8) 45 25-125 [facility] HospitalLipase2019-08-30 13:00:00* Test Item Value Reference Range Interpretation Comments Lipase (test code = 3040-3) 31 8-78 [facility] HospitalMagnesium Virqh2849-42-17 13:00:00* Test Item Value Reference Range Interpretation Comments Magnesium Level (test code = 06500-4) 1.4 1.3-2.1 [facility] HospitalAmylase Imwjt1925-92-79 13:00:00* Test Item Value Reference Range Interpretation Comments Amylase Level (test code = 1798-8) 45 25-125 [facility] HospitalLipase2019-08-30 13:00:00* Test Item Value Reference Range Interpretation Comments Lipase (test code = 3040-3) 31 8-78 [facility] HospitalUrine Qfnxb2426-11-77 12:56:00* Test Item Value Reference Range Interpretation Comments Urine Color (test code = 5778-6) YELLOW YELLOW [facility] HospitalUrine Xtxubuv0139-06-81 12:56:00* Test Item Value Reference Range Interpretation Comments Urine Clarity (test code = 45894-2) SL CLOUDY CLEAR [facility] HospitalUrine Specific Xeuciyp8275-60-45 12:56:00 * Test Item Value Reference Range Interpretation Comments Urine Specific Palmer (test code = 5811-5) >=1.030 1.010-1.02 5 [facility] HospitalUrine bV6640-21-63 12:56:00* Test Item Value Reference Range Interpretation Comments Urine pH (test code = 45391-8) 5.5 5-7 [facility] HospitalUrine Leukocyte Xqpfgmlp9214-97-64 12:56:00* Test Item Value Reference Range Interpretation Comments Urine Leukocyte Esterase (test code = 15611-5) TRACE NEGATIV E H [facility] HospitalUrine Cdssqss6348-13-95 12:56:00* Test Item Value Reference Range Interpretation Comments Urine Nitrite (test code = 92078-4) NEGATIVE NEGATIVE [facility] HospitalUrine Nlohalw0826-97-71 12:56:00* Test Item Value Reference Range Interpretation Comments Urine Protein (test code = 41766-7) TRACE NEGATIVE H [facility] HospitalUrine Glucose (UA)2018-12-08 12:56:00* Test Item Value Reference Range Interpretation Comments Urine Glucose (UA) (test code = 21947-2) NEGATIVE NEGATIVE [facility] HospitalUrine Xmquaiu7453-59-13 12:56:00* Test Item Value Reference Range Interpretation Comments Urine Ketones (test code = 81202-2) NEGATIVE NEGATIVE [facility] HospitalUrine Lxcfplcjayoj6563-67-42 12:56:00* Test Item Value Reference Range Interpretation Comments Urine Urobilinogen (test code = 52980-9) 0.2 0.2-1 [facility] HospitalUrine Izojehked6082-01-58 12:56:00* Test Item Value Reference Range Interpretation Comments Urine Bilirubin (test code = 1977-8) NEGATIVE NEGATIVE [facility] HospitalUrine Rgknn6185-20-28 12:56:00* Test Item Value Reference Range Interpretation Comments Urine Blood (test code = 34360-4) NEGATIVE NEGATIVE [facility] HospitalWhite Blood Tipaj8117-36-37 12:45:00* Test Item Value Reference Range Interpretation Comments White Blood Count (test code = 6690-2) 8.58 4.8-10.8 [facility] HospitalRed Blood Bzqpl3464-66-35 12:45:00* Test Item Value Reference Range Interpretation Comments Red Blood Count (test code = 789-8) 5.18 3.6-5.1 H [facility] HospitalHemoglobin2019-08-30 12:45:00* Test Item Value Reference Range Interpretation Comments Hemoglobin (test code = 96568-1) 15.0 12.0-16.0 [facility] HospitalHematocrit2019-08-30 12:45:00* Test Item Value Reference Range Interpretation Comments Hematocrit (test code = 4544-3) 44.6 34.2-44.1 H [facility] HospitalMean Corpuscular Wiprqo3399-74-21 12:45:00* Test Item Value Reference Range Interpretation Comments Mean Corpuscular Volume (test code = 787-2) 86.1 81-99 [facility] HospitalMean Corpuscular Nnbhukcaxs5724-32-90 12:45:00* Test Item Value Reference Range Interpretation Comments Mean Corpuscular Hemoglobin (test code = 785-6) 29.0 28-32 [facility] HospitalMean Corpuscular Hemoglobin Concent 2018-12-08 12:45:00* Test Item Value Reference Range Interpretation Comments Mean Corpuscular Hemoglobin Concent (test code = 786-4) 33.6 31-35 [facility] HospitalRed Cell Distribution Gkbzk1125-99-50 12:45:00* Test Item Value Reference Range Interpretation Comments Red Cell Distribution Width (test code = 80130-5) 13.9 11.7 -14.4 [facility] HospitalPlatelet Pnskp7157-08-30 12:45:00* Test Item Value Reference Range Interpretation Comments Platelet Count (test code = 777-3) 224 140-360 [facility] HospitalNeutrophils (%) (Auto)2018-12-08 12:45:00 * Test Item Value Reference Range Interpretation Comments Neutrophils (%) (Auto) (test code = 98675-9) 68.4 38.7-80.0 [facility] HospitalLymphocytes (%) (Auto)2018-12-08 12:45:00 * Test Item Value Reference Range Interpretation Comments Lymphocytes (%) (Auto) (test code = 736-9) 23.3 18.0-39.1 [facility] HospitalMonocytes (%) (Auto)2018-12-08 12:45:00* Test Item Value Reference Range Interpretation Comments Monocytes (%) (Auto) (test code = 5905-5) 7.6 4.4-11.3 [facility] HospitalEosinophils (%) (Auto)2018-12-08 12:45:00 * Test Item Value Reference Range Interpretation Comments Eosinophils (%) (Auto) (test code = 713-8) 0.2 0.0-6.0 [facility] HospitalBasophils (%) (Auto)2018-12-08 12:45:00* Test Item Value Reference Range Interpretation Comments Basophils (%) (Auto) (test code = 706-2) 0.3 0.0-1.0 [facility] HospitalIM GRANULOCYTES %2018-12-08 12:45:00* Test Item Value Reference Range Interpretation Comments IM GRANULOCYTES % (test code = IM GRANULOCYTES %) 0.2 0.0- 1.0 [facility] HospitalNeutrophils # (Auto)2018-12-08 12:45:00* Test Item Value Reference Range Interpretation Comments Neutrophils # (Auto) (test code = 751-8) 5.9 2.1-6.9 [facility] HospitalLymphocytes # (Auto)2018-12-08 12:45:00* Test Item Value Reference Range Interpretation Comments Lymphocytes # (Auto) (test code = 74742-0) 2.0 1.0-3.2 [facility] HospitalMonocytes # (Auto)2018-12-08 12:45:00* Test Item Value Reference Range Interpretation Comments Monocytes # (Auto) (test code = 742-7) 0.7 0.2-0.8 [facility] HospitalEosinophils # (Auto)2018-12-08 12:45:00* Test Item Value Reference Range Interpretation Comments Eosinophils # (Auto) (test code = 711-2) 0.0 0.0-0.4 [facility] HospitalBasophils # (Auto)2018-12-08 12:45:00* Test Item Value Reference Range Interpretation Comments Basophils # (Auto) (test code = 704-7) 0.0 0.0-0.1 [facility] HospitalAbsolute Immature Granulocyte (auto 2018-12-08 12:45:00* Test Item Value Reference Range Interpretation Comments Absolute Immature Granulocyte (auto (pia t code = Absolute Immature Granulocyte (auto) 0.02 0-0.1 [facility] HospitalProthrombin Egmq4522-56-44 12:45:00* Test Item Value Reference Range Interpretation Comments Prothrombin Time (test code = 5902-2) 13.6 11.9-14.5 [facility] HospitalProthromb Time International Ratio 2018-12-08 12:45:00* Test Item Value Reference Range Interpretation Comments Prothromb Time International Ratio (test code = 6301-6) 0.99 Oral Anticoagulant Therapy INR Values:1. Low Intensity Therapy 1.5 - 2.02 . Moderate Intensity Therapy 2.0 - 3.03. High Intensity Therapy(1) 2.5 - 3. 54. High Intensity Therapy(2) 3.0 - 4.05. Panic Value INR > 5.0 [facility] HospitalActivated Partial Thromboplast Time 2018-12-08 12:45:00* Test Item Value Reference Range Interpretation Comments Activated Partial Thromboplast Time (test code = 45051-1) 35.5 23.8-35.5 [facility] Bhheolievwcq8925-91-40 16:30:00* Test Item Value Reference Range Interpretation Comments Stool Calprotectin (test code = 50493-7) <16 0-120 Concentration Interpretation Follow-Up<16 - 50 ug/g Normal None>50 -120 ug/g Borderline Re-evaluate in 4-6 weeks >120 ug/g Abnormal Repeat as clinically indicatedPerformed at: [facility] [employer] [facility] [id number] Director: Glen Chamberlain MD, Phone: [phone] Health [facility]entool Fblcrkayqecu9490-16-93 16:30:00* Test Item Value Reference Range Interpretation Comments Stool Calprotectin (test code = 16476-2) <16 0-120 Concentration Interpretation Follow-Up<16 - 50 ug/g Normal None>50 -120 ug/g Borderline Re-evaluate in 4-6 weeks >120 ug/g Abnormal Repeat as clinically indicatedPerformed at: [facility] [facility] [id number] Director: Glen Chamberlain MD, Phone: [phone] Health Allenaccharomyces cerevisiae IgG Gy6746-17-41 21:23:00* Test Item Value Reference Range Interpretation Comments Saccharomyces cerevisiae IgG Ab (test code = 6713-2) 51.9 0 .0-24.9 H Negative <20.0 Equivocal 20.1 - 24.9 Positive >or= 25.0[facility] Allenaccharomyces cerevisiae IgA Ab 2018-11-13 21:23:00* Test Item Value Reference Range Interpretation Comments Saccharomyces cerevisiae IgA Ab (test code = 92417-1) <20.0 0.0-24.9 Negative <20.0 Equivocal 20.1 - 24.9 Positive >or= 25.0IgA and IgG antibody testing for S. cerevisiae isuseful adjunct testing for differentiating Crohn'sdisease and ulcerative colitis. Close to 80% ofCrohn's disease patients are positive for eitherIgA or IgG. In ulcerative colitis, less than 15% arepositive for IgG and less than 2% are positive forIgA. Fewer than 5% are positive for either IgG orIgA antibody, and no healthy controls had antib odyfor both.[facility] HospitalAtypical v-[id number] 21:23:00* Test Item Value Reference Range Interpretation Comments Atypical p-ANCA (test code = 24504-1) <1:20 Neg:<1:20 The atypical pANCA pattern has been observed in asignificant percentage of patie nts with ulcerative colitis,primary sclerosing cholangitis and autoimmune hepati tis. ASCA+/PANCA- Suggestive of Crohn's disease ASCA-/PANCA+ S uggestive of Ulcerative colitisPerformed at: [address] [id number] Director: Glen Chamberlain MD, Phone: [phone] 590[facility] Allenaccharomyces cerevisiae IgG Ab 2018-11-13 21:23:00* Test Item Value Reference Range Interpretation Comments Saccharomyces cerevisiae IgG Ab (test code = 6713-2) 51.9 0 .0-24.9 H Negative <20.0 Equivocal 20.1 - 24.9 Positive >or= 25.0[facility] Center[facility] IgA Ab 2018-11-13 21:23:00* Test Item Value Reference Range Interpretation Comments Saccharomyces cerevisiae IgA Ab (test code = 73808-4) <20.0 0.0-24.9 Negative <20.0 Equivocal 20.1 - 24.9 Positive >or= 25.0IgA and IgG antibody testing for S. cerevisiae isuseful adjunct testing for differentiating Crohn'sdisease and ulcerative colitis. Close to 80% ofCrohn's disease patients are positive for eitherIgA or IgG. In ulcerative colitis, less than 15% arepositive for IgG and less than 2% are positive forIgA. Fewer than 5% are positive for either IgG orIgA antibody, and no healthy controls had antib odyfor both.[facility] HospitalAtypical t-[id number] 21:23:00* Test Item Value Reference Range Interpretation Comments Atypical p-ANCA (test code = 61555-7) <1:20 Neg:<1:20 The atypical pANCA pattern has been observed in asignificant percentage of patie nts with ulcerative colitis,primary sclerosing cholangitis and autoimmune hepati tis. ASCA+/PANCA- Suggestive of Crohn's disease ASCA-/PANCA+ S uggestive of Ulcerative colitisPerformed at: [facility] [address] [id number] Director: Glen Chamberlain MD, Phone: [phone] Eownahb1054-24-32 20:12:00* Test Item Value Reference Range Interpretation Comments Bedside Glucose (test code = 09850-4) 118 70-120 Meter ID: [id number] Medical Center [place] Glucose 2018-11-13 20:12:00* Test Item Value Reference Range Interpretation Comments Bedside Glucose (test code = 51587-8) 118 70-120 Meter ID: [id number] Medical Center [place] Glucose 2018-11-13 15:47:00* Test Item Value Reference Range Interpretation Comments Bedside Glucose (test code = 16819-1) 130 70-120 H Meter ID: [id number] Health Allenodium Level 2018-11-13 06:05:00* Test Item Value Reference Range Interpretation Comments Sodium Level (test code = 2951-2) 143 136-145 [facility] HospitalPotassium Aooer2332-10-43 06:05:00* Test Item Value Reference Range Interpretation Comments Potassium Level (test code = 2823-3) 3.5 3.5-5.1 [facility] HospitalChloride Uxrah1756-69-33 06:05:00* Test Item Value Reference Range Interpretation Comments Chloride Level (test code = 2075-0) 107 98-107 [facility] HospitalCarbon Dioxide Sdgwe7906-70-94 06:05:00* Test Item Value Reference Range Interpretation Comments Carbon Dioxide Level (test code = 2028-9) 25 22-29 [facility] HospitalAnion Wsk1182-09-95 06:05:00* Test Item Value Reference Range Interpretation Comments Anion Gap (test code = 44559-6) 14.5 8-16 [facility] HospitalBlood Urea Zpdwjuyo1970-96-61 06:05:00* Test Item Value Reference Range Interpretation Comments Blood Urea Nitrogen (test code = 3094-0) < 5 7-26 L [facility] HospitalCreatinine2019-08-05 06:05:00* Test Item Value Reference Range Interpretation Comments Creatinine (test code = 2160-0) 0.73 0.57-1.11 [facility] HospitalBUN/Creatinine Eazlb7416-25-03 06:05:00* Test Item Value Reference Range Interpretation Comments BUN/Creatinine Ratio (test code = 3097-3) 7 6-25 [facility] HospitalEstimat Glomerular Filtration Rate 2018-11-13 06:05:00* Test Item Value Reference Range Interpretation Comments Estimat Glomerular Filtration Rate (test code = 092917016) > 60 >60 Ranges were taken from the National Kidney Disease Education Program and the [facility] literature.Reference ranges:60 or greater: Unsqnt95-12 ( for 3 consecutive months): Chronic kidney disease 15 or less: Kidney failureHarris Health System Ben Taub HospitalGlucose Ofyws9574-03-67 06:05:00* Test Item Value Reference Range Interpretation Comments Glucose Level (test code = JON8009) 112 74-118 [facility] HospitalCalcium Ddcll9570-06-21 06:05:00* Test Item Value Reference Range Interpretation Comments Calcium Level (test code = 27833-9) 8.9 8.4-10.2 [facility] HospitalWhite Blood Peyms0697-20-96 05:42:00* Test Item Value Reference Range Interpretation Comments White Blood Count (test code = 6690-2) 7.26 4.8-10.8 [facility] HospitalRed Blood Qrben8743-94-51 05:42:00* Test Item Value Reference Range Interpretation Comments Red Blood Count (test code = 789-8) 4.48 3.6-5.1 [facility] HospitalHemoglobin2019-08-05 05:42:00* Test Item Value Reference Range Interpretation Comments Hemoglobin (test code = 47660-5) 12.8 12.0-16.0 [facility] HospitalHematocrit2019-08-05 05:42:00* Test Item Value Reference Range Interpretation Comments Hematocrit (test code = 4544-3) 39.5 34.2-44.1 [facility] HospitalMean Corpuscular Zpnyjk6927-90-18 05:42:00* Test Item Value Reference Range Interpretation Comments Mean Corpuscular Volume (test code = 787-2) 88.2 81-99 [facility] HospitalMean Corpuscular Ikedytfsmf5713-26-95 05:42:00* Test Item Value Reference Range Interpretation Comments Mean Corpuscular Hemoglobin (test code = 785-6) 28.6 28-32 [facility] Corp[facility] Hemoglobin Concent 2018-11-13 05:42:00* Test Item Value Reference Range Interpretation Comments Mean Corpuscular Hemoglobin Concent (test code = 786-4) 32.4 31-35 [facility] HospitalRed Cell Distribution Swqua7281-95-13 05:42:00* Test Item Value Reference Range Interpretation Comments Red Cell Distribution Width (test code = 85767-4) 14.7 11.7 -14.4 H [facility] HospitalPlatelet Nljvs8776-33-71 05:42:00* Test Item Value Reference Range Interpretation Comments Platelet Count (test code = 777-3) 222 140-360 [facility] HospitalNeutrophils (%) (Auto)2018-11-13 05:42:00 * Test Item Value Reference Range Interpretation Comments Neutrophils (%) (Auto) (test code = 14650-8) 52.8 38.7-80.0 [facility] HospitalLymphocytes (%) (Auto)2018-11-13 05:42:00 * Test Item Value Reference Range Interpretation Comments Lymphocytes (%) (Auto) (test code = 736-9) 34.3 18.0-39.1 [facility] HospitalMonocytes (%) (Auto)2018-11-13 05:42:00* Test Item Value Reference Range Interpretation Comments Monocytes (%) (Auto) (test code = 5905-5) 8.5 4.4-11.3 [facility] HospitalEosinophils (%) (Auto)2018-11-13 05:42:00 * Test Item Value Reference Range Interpretation Comments Eosinophils (%) (Auto) (test code = 713-8) 3.7 0.0-6.0 [facility] HospitalBasophils (%) (Auto)2018-11-13 05:42:00* Test Item Value Reference Range Interpretation Comments Basophils (%) (Auto) (test code = 706-2) 0.4 0.0-1.0 [facility] HospitalIM GRANULOCYTES %2018-11-13 05:42:00* Test Item Value Reference Range Interpretation Comments IM GRANULOCYTES % (test code = IM GRANULOCYTES %) 0.3 0.0- 1.0 [facility] HospitalNeutrophils # (Auto)2018-11-13 05:42:00* Test Item Value Reference Range Interpretation Comments Neutrophils # (Auto) (test code = 751-8) 3.8 2.1-6.9 [facility] HospitalLymphocytes # (Auto)2018-11-13 05:42:00* Test Item Value Reference Range Interpretation Comments Lymphocytes # (Auto) (test code = 38727-1) 2.5 1.0-3.2 [facility] HospitalMonocytes # (Auto)2018-11-13 05:42:00* Test Item Value Reference Range Interpretation Comments Monocytes # (Auto) (test code = 742-7) 0.6 0.2-0.8 [facility] HospitalEosinophils # (Auto)2018-11-13 05:42:00* Test Item Value Reference Range Interpretation Comments Eosinophils # (Auto) (test code = 711-2) 0.3 0.0-0.4 [facility] HospitalBasophils # (Auto)2018-11-13 05:42:00* Test Item Value Reference Range Interpretation Comments Basophils # (Auto) (test code = 704-7) 0.0 0.0-0.1 [facility] HospitalAbsolute Immature Granulocyte (auto 2018-11-13 05:42:00* Test Item Value Reference Range Interpretation Comments Absolute Immature Granulocyte (auto (pia t code = Absolute Immature Granulocyte (auto) 0.02 0-0.1 [facility] HospitalC-Reactive Jugpeiv1760-80-67 23:04:00* Test Item Value Reference Range Interpretation Comments C-Reactive Protein (test code = 1987-5) 3 0-10 Performed at: [facility] [address] [id number] Director: Oswaldo Fenton MD, Phone: [phone] Health System Ben [facility] HospitalC-Reactive Nliansn7535-26-08 23:04:00* Test Item Value Reference Range Interpretation Comments C-Reactive Protein (test code = 1987-5) 3 0-10 Performed at: [facility] [address] [id number] Director: Oswaldo Fenton MD, Phone: [phone] Health System Ben [facility] HospitalC-Reactive Mcgpdnj9315-53-08 23:04:00* Test Item Value Reference Range Interpretation Comments C-Reactive Protein (test code = 1987-5) 3 0-10 Performed at: [facility] [address] [id number] Director: Oswaldo Fenton MD, Phone: [phone] Health System [facility] HospitalClostridium Difficile Toxin A & W2046-00-25 13:18:00* Test Item Value Reference Range Interpretation Comments Clostridium Difficile Toxin A & B (test code = 535569252) NEGATIVE NEGATIVE Testing on stool aspirate specimens is outside water pumping station engineer claims since specime n type not validated on this assay.[facility] Dbzbzbd5737-57-17 11:02:00* Test Item Value Reference Range Interpretation Comments Blood Culture (test code = 27263158) NO GROWTH AFTER 5 DAYS, FINAL REPORT [facility] Mejdoqa6842-19-24 11:02:00* Test Item Value Reference Range Interpretation Comments Blood Culture (test code = 47893137) NO GROWTH AFTER 5 DAYS, FINAL REPORT [facility] Hythyvj4358-09-80 11:02:00* Test Item Value Reference Range Interpretation Comments Blood Culture (test code = 56729184) NO GROWTH AFTER 5 DAYS, FINAL REPORT [facility] Lactoferrin (LAB)2018-11-11 20:06:00* Test Item Value Reference Range Interpretation Comments Stool Lactoferrin (LAB) (test code = 22691-3) NEGATIVE NEGATIVE Testing on stool aspirate specimens is outside water pumping station engineer claims since specime n type not validated on this assay.[facility] Lactoferrin (LAB)2018-11-11 20:06:00* Test Item Value Reference Range Interpretation Comments Stool Lactoferrin (LAB) (test code = 11927-8) NEGATIVE NEGATIVE Testing on stool aspirate specimens is outside water pumping station engineer claims since specime n type not validated on this assay.[facility] Lactoferrin (LAB)2018-11-11 20:06:00* Test Item Value Reference Range Interpretation Comments Stool Lactoferrin (LAB) (test code = 01561-2) NEGATIVE NEGATIVE Testing on stool aspirate specimens is outside water pumping station engineer claims since specime n type not validated on this assay.[facility] Erythrocyte Sedimentation Rgey5426-82-26 07:59:00* Test Item Value Reference Range Interpretation Comments Erythrocyte Sedimentation Rate (test code = 4537-7) 13 0- 20 [facility] HospitalErythrocyte Sedimentation Ruvs3380-69-31 07:59:00* Test Item Value Reference Range Interpretation Comments Erythrocyte Sedimentation Rate (test code = 4537-7) 13 0- 20 [facility] HospitalErythrocyte Sedimentation Mlxq1202-85-08 07:59:00* Test Item Value Reference Range Interpretation Comments Erythrocyte Sedimentation Rate (test code = 4537-7) 13 0- 20 [facility] Cwkvs4077-32-05 06:53:00* Test Item Value Reference Range Interpretation Comments Stool Occult Blood (test code = 2335-8) NEGATIVE NEGATIVE [facility] Zahei5729-99-47 06:53:00* Test Item Value Reference Range Interpretation Comments Stool Occult Blood (test code = 2335-8) NEGATIVE NEGATIVE [facility] HospitalUrine Uilbaef6259-85-29 07:48:00* Test Item Value Reference Range Interpretation Comments Urine Culture (test code = 630-4) Organism: KLEBSIELLA OXYTOCA#2 [facility] HospitalUrine Cwvjdbc1009-89-34 07:48:00* Test Item Value Reference Range Interpretation Comments Urine Culture (test code = 630-4) Organism: KLEBSIELLA OXYTOCA#2 [facility] HospitalUrine Fvlowhj9128-88-18 07:48:00* Test Item Value Reference Range Interpretation Comments Urine Culture (test code = 630-4) No Result Data Provided [facility] Ttzcgkazz4155-65-07 07:17:00* Test Item Value Reference Range Interpretation Comments Total Bilirubin (test code = 1975-2) 0.7 0.2-1.2 [facility] HospitalAspartate Amino Transf (AST/SGOT) 2018-11-08 07:17:00* Test Item Value Reference Range Interpretation Comments Aspartate Amino Transf (AST/SGOT) (test code = Aspartate Amino Transf (AST/SGOT)) 13 5-34 [facility] HospitalAlanine Aminotransferase (ALT/SGPT) 2018-11-08 07:17:00* Test Item Value Reference Range Interpretation Comments Alanine Aminotransferase (ALT/SGPT) (test code = 1742-6) 12 0-55 [facility]tal Okwbsgx2001-10-10 07:17:00* Test Item Value Reference Range Interpretation Comments Total Protein (test code = 2885-2) 6.3 6.5-8.1 L [facility] HospitalAlbumin2019-07-31 07:17:00* Test Item Value Reference Range Interpretation Comments Albumin (test code = 1751-7) 3.8 3.5-5.0 [facility] HospitalGlobulin2019-07-31 07:17:00* Test Item Value Reference Range Interpretation Comments Globulin (test code = 09718-4) 2.5 2.3-3.5 [facility] HospitalAlbumin/Globulin Eacbw2597-65-24 07:17:00 * Test Item Value Reference Range Interpretation Comments Albumin/Globulin Ratio (test code = 1759-0) 1.5 0.8-2.0 [facility] HospitalAlkaline Kuhhqlyqrka7846-95-57 07:17:00* Test Item Value Reference Range Interpretation Comments Alkaline Phosphatase (test code = 6768-6) 53 40-150 [facility] HospitalLipase2019-07-31 07:17:00* Test Item Value Reference Range Interpretation Comments Lipase (test code = 3040-3) 37 8-78 [facility] HospitalUrine YPH2177-94-40 13:23:00* Test Item Value Reference Range Interpretation Comments Urine WBC (test code = 5821-4) 6-10 0-5 H [facility] HospitalUrine NUK0551-04-70 13:23:00* Test Item Value Reference Range Interpretation Comments Urine RBC (test code = 31796-4) 0-5 0-5 [facility] HospitalUrine Ngrcsloj1221-59-34 13:23:00* Test Item Value Reference Range Interpretation Comments Urine Bacteria (test code = 66897-1) MODERATE NONE H [facility] HospitalUrine Epithelial Nkgnr6908-80-59 13:23:00 * Test Item Value Reference Range Interpretation Comments Urine Epithelial Cells (test code = 89531-3) NONE NONE [facility] HospitalCT ABDOMEN/PELVIS U6903-69-11 13:22:00 [facility] [address] [address] Patient Name: JARVIS BETANCOURT MR #: [id number] : 1945 Age/Sex: 73/F Req #: [id number] Adm Physician: Ordered by: HAL SANTORO AGRICULTURE TECHNICIAN Report #: [id number] Location: ER Room/Bed: Procedure: [id number] CT/ CT ABDOMEN/PELVIS W Exam Date: 11/07/18 Exam Time: 1 245 REPORT STATUS: Signed EXAM: CT Abdomen and Pelvis WITH intravenous contrast INDICATION: Abdominal alysia n COMPARISON: None. TECHNIQUE: Abdomen and pelvis were scanned utilizi ng a multidetector helical scanner from the lung base to the pubic symphysis a fter administration of IV contrast. Coronal and sagittal reformations were obt ained. Routine protocol was performed. Scan was performed when during portal v enous phase. IV CONTRAST: 100mL of Isovue 370 ORAL CONTRAST: Thomas er COMPLICATIONS: None RADIATION DOSE: Total DLP: 751.9 mGy*cm Dose modulation, iterative reconstruction, and/or weight based adju stment of the mA/kV was utilized to reduce the radiation dose to as low as sherry sonably achievable. FINDINGS: LOWER THORAX: 9 mm right lower lobe late ral pleural nodularity. No focal consolidation. [place] pleural calcification a long the dome of the left hemidiaphragm. HEPATOBILIARY: No focal liver le sions. Common bile duct is dilated to 11 mm, which can be normal status post c holecystectomy. SPLEEN: No splenomegaly. PANCREAS: No focal masses or ductal dilatation. ADRENALS: No adrenal nodules. KIDNEYS/URETERS: Jamison us bilateral renal cysts, the largest of which measure up to 1.7 cm on the lef t and 1.1 cm on the right. No renal calculi or hydronephrosis. PELVIC ORGANS /BLADDER: Status post hysterectomy. PERITONEUM / RETROPERITONEUM: No free a ir or fluid. LYMPH NODES: No lymphadenopathy. VESSELS: Unremarkable. GI TRACT: Status post gastric bypass. No abnormal bowel wall thickening. No bowel obstruction. Sigmoid and descending colon diverticulosis with no CT evidence of diverticulitis. BONES AND SOFT TISSUES: No acute osseous injury. Diffuse osteopenia. Moderate degenerative changes of the visualized spine. No suspic ious lytic or blastic lesions. Partially visualized implanted neurostimulator device at the left flank with single lead terminating in the presacral soft ti ssues. IMPRESSION: No acute process in the abdomen or pelvis. Right lower lobe pleural nodularity and chunky pleural calcification along the dome of the left hemidiaphragm. Findings may be related to prior asbestos exposure. Signed by: Mary Ash MD on 11/07/2018 1:49 PM Dictated By: TEN ASH MD [id number] Transcribe d By: CLIFFORD on 11/07/18 1622 COPY TO: HAL SANTORO AGRICULTURE TECHNICIAN Urine Yyqor7398-83-34 13:16:00* Test Item Value Reference Range Interpretation Comments Urine Color (test code = 5778-6) YELLOW YELLOW [facility] HospitalUrine Qitawpc9746-94-35 13:16:00* Test Item Value Reference Range Interpretation Comments Urine Clarity (test code = 19460-7) SL CLOUDY CLEAR [facility] HospitalUrine Specific Fdcuafh3034-63-85 13:16:00 * Test Item Value Reference Range Interpretation Comments Urine Specific [place] (test code = 5811-5) 1.010 1.010-1.02 5 [facility] HospitalUrine uK7226-99-96 13:16:00* Test Item Value Reference Range Interpretation Comments Urine pH (test code = 81380-4) 6 5-7 [facility] HospitalUrine Leukocyte Fcysugbg5477-98-90 13:16:00* Test Item Value Reference Range Interpretation Comments Urine Leukocyte Esterase (test code = 37703-4) MODERATE NEGATIV E [facility] HospitalUrine Exgxpfb8195-74-79 13:16:00* Test Item Value Reference Range Interpretation Comments Urine Nitrite (test code = 54052-4) POSITIVE NEGATIVE H [facility] HospitalUrine Kqpizpf8709-84-93 13:16:00* Test Item Value Reference Range Interpretation Comments Urine Protein (test code = 86823-5) NEGATIVE NEGATIVE [facility] HospitalUrine Glucose (UA)2018-11-07 13:16:00* Test Item Value Reference Range Interpretation Comments Urine Glucose (UA) (test code = 68494-3) NEGATIVE NEGATIVE [facility] HospitalUrine Obwzehx9566-02-56 13:16:00* Test Item Value Reference Range Interpretation Comments Urine Ketones (test code = 24063-4) NEGATIVE NEGATIVE [facility] HospitalUrine Wsqsxbehvqkg2598-95-46 13:16:00* Test Item Value Reference Range Interpretation Comments Urine Urobilinogen (test code = 51369-2) 0.2 0.2-1 [facility] HospitalUrine Iytiuiatp3262-65-78 13:16:00* Test Item Value Reference Range Interpretation Comments Urine Bilirubin (test code = 1977-8) NEGATIVE NEGATIVE [facility] HospitalUrine Qtzwy4250-48-35 13:16:00* Test Item Value Reference Range Interpretation Comments Urine Blood (test code = 39454-8) TRACE NEGATIVE [facility] HospitalLactic Acid Zfsrr3736-14-37 12:55:00* Test Item Value Reference Range Interpretation Comments Lactic Acid Level (test code = Lactic Acid Level) 9.9 4.5- 19.8 [facility] HospitalLactic Acid Hwmvo7797-56-30 12:55:00* Test Item Value Reference Range Interpretation Comments Lactic Acid Level (test code = Lactic Acid Level) 9.9 4.5- 19.8 [facility] HospitalLactic Acid Nupae9072-74-73 12:55:00* Test Item Value Reference Range Interpretation Comments Lactic Acid Level (test code = Lactic Acid Level) 9.9 4.5- 19.8 [facility] HospitalB-Type Natriuretic Lrsbdjl3311-51-09 12:39:00* Test Item Value Reference Range Interpretation Comments B-Type Natriuretic Peptide (test code = 91746-0) 11.6 0-100 [facility] HospitalB-Type Natriuretic Wybnfch3801-28-66 12:39:00* Test Item Value Reference Range Interpretation Comments B-Type Natriuretic Peptide (test code = 22812-5) 11.6 0-100 [facility] HospitalB-Type Natriuretic Orbgiou0393-10-92 12:39:00* Test Item Value Reference Range Interpretation Comments B-Type Natriuretic Peptide (test code = 18352-5) 11.6 0-100 [facility] HospitalCreatine Kinase YX4409-97-21 12:32:00* Test Item Value Reference Range Interpretation Comments Creatine Kinase MB (test code = 77399-2) 1.30 0-5.0 [facility] HospitalTroponin X2500-65-23 12:32:00* Test Item Value Reference Range Interpretation Comments Troponin I (test code = YMY3192) 0.005 0-0.300 [facility] HospitalCreatine Kinase AJ7958-42-39 12:32:00* Test Item Value Reference Range Interpretation Comments Creatine Kinase MB (test code = 12663-9) 1.30 0-5.0 [facility] HospitalTrmusc health [facility] centern G7463-75-10 12:32:00* Test Item Value Reference Range Interpretation Comments Troponin I (test code = GYR4204) 0.005 0-0.300 [facility] HospitalCreatine Ctqkqc1704-52-62 12:24:00* Test Item Value Reference Range Interpretation Comments Creatine Kinase (test code = 2157-6) 85 29-168 [facility] HospitalCreatine Hlvrvr3498-93-69 12:24:00* Test Item Value Reference Range Interpretation Comments Creatine Kinase (test code = 2157-6) 85 29-168 [facility] HospitalCHEST SINGLE (PORTABLE)2018-11-07 11:22:[address] [address] Patient Name: JARVIS BETANCOURT MR #: [id number] : 1945 Age/Sex: 73/F Req #: [id number] Adm Physician: Ordered by: HAL SANTORO NP Report #: [id number] Location: ER Room/Bed: Procedure: [id number] DX/ CHEST SINGLE (PORTABLE) Exam Date: 11/07/18 Exam Walter e: 1107 REPORT STATUS: Signed EX AMINATION: CHEST SINGLE (PORTABLE) INDICATION: Pain COMPARISON: C hest radiograph of 08/11/2018 FINDINGS: LINES/TUBES:None LUNGS :The lungs are well-inflated. There is perihilar fullness and indistinctness o f the pulmonary vasculature. New approximately 1 cm nodular opacities at the r ight lung base. PLEURA:No pleural effusion or pneumothorax. MEDIASTINU M:Cardiomediastinal silhouette is stably enlarged. BONES/SOFT TISSUES:No ac mikal osseous injury. ABDOMEN:No free air under the diaphragm. IMPRES TAPAN: Mild pulmonary edema. Approximately 1 cm nodular opacities at the right lung base were nonvisualized on prior chest radiographs. Follow-up with chest CT on a nonurgent basis is recommended for further evaluation. Sign ed by: Mary Ash MD on 11/07/2018 11:27 AM Dictated By: MARY ASH MD E lectronically Signed By: MARY ASH MD on 11/07/18 1127 Transcribed By: CLIFFORD on 11/07/18 1127 COPY TO: HAL SANTORO AGRICULTURE TECHNICIAN Bedside Glucose 2018-11-03 07:31:00* Test Item Value Reference Range Interpretation Comments Bedside Glucose (test code = 32355-7) 136 70-120 H Meter ID: [id number] Health Allenodium Level 2018-11-02 06:42:00* Test Item Value Reference Range Interpretation Comments Sodium Level (test code = 2951-2) 142 136-145 [facility] HospitalPotassium Zhafd6695-10-18 06:42:00* Test Item Value Reference Range Interpretation Comments Potassium Level (test code = 2823-3) 3.5 3.5-5.1 [facility] HospitalChloride Jiisz9120-61-63 06:42:00* Test Item Value Reference Range Interpretation Comments Chloride Level (test code = 2075-0) 106 98-107 [facility] HospitalCarbon Dioxide Zmwle3942-60-41 06:42:00* Test Item Value Reference Range Interpretation Comments Carbon Dioxide Level (test code = 2028-9) 28 22-29 [facility] HospitalAnion Bgt0672-87-12 06:42:00* Test Item Value Reference Range Interpretation Comments Anion Gap (test code = 26328-4) 11.5 8-16 [facility] HospitalBlood Urea Gqqwrkwf1702-06-30 06:42:00* Test Item Value Reference Range Interpretation Comments Blood Urea Nitrogen (test code = 3094-0) 7 7- [facility] HospitalCreatinine2019-07-25 06:42:00* Test Item Value Reference Range Interpretation Comments Creatinine (test code = 2160-0) 0.74 0.57-1.11 [facility] HospitalBUN/Creatinine Rtwwl4198-29-77 06:42:00* Test Item Value Reference Range Interpretation Comments BUN/Creatinine Ratio (test code = 3097-3) 9 10-03 [facility] HospitalEstimat Glomerular Filtration Rate 2018-11-02 06:42:00* Test Item Value Reference Range Interpretation Comments Estimat Glomerular Filtration Rate (test code = 834346165) > 60 >60 Ranges were taken from the National Kidney Disease Education Program and the [facility] Kid[facility] Foundation literature.Reference ranges:60 or greater: Vqywef35-12 ( for 3 consecutive months): Chronic kidney disease 15 or less: Kidney failureHarris Health System Ben Taub HospitalGlucose Eguxv5879-61-55 06:42:00* Test Item Value Reference Range Interpretation Comments Glucose Level (test code = VMG0708) 141 74-118 H [facility] HospitalCalcium Rtoue4243-06-69 06:42:00* Test Item Value Reference Range Interpretation Comments Calcium Level (test code = 14717-9) 9.0 8.4-10.2 [facility] HospitalWhite Blood Vlwdo0547-98-69 06:47:00* Test Item Value Reference Range Interpretation Comments White Blood Count (test code = 6690-2) 6.12 4.8-10.8 [facility] HospitalRed Blood Zlhsc6968-12-42 06:47:00* Test Item Value Reference Range Interpretation Comments Red Blood Count (test code = 789-8) 4.29 3.6-5.1 [facility] HospitalHemoglobin2019-07-24 06:47:00* Test Item Value Reference Range Interpretation Comments Hemoglobin (test code = 13009-4) 12.5 12.0-16.0 [facility] HospitalHematocrit2019-07-24 06:47:00* Test Item Value Reference Range Interpretation Comments Hematocrit (test code = 4544-3) 37.8 34.2-44.1 [facility] HospitalMean Corpuscular Cktwlw7708-30-26 06:47:00* Test Item Value Reference Range Interpretation Comments Mean Corpuscular Volume (test code = 787-2) 88.1 81-99 [facility] HospitalMean Corpuscular Ewhdewdfgu9256-10-55 06:47:00* Test Item Value Reference Range Interpretation Comments Mean Corpuscular Hemoglobin (test code = 785-6) 29.1 28-32 [facility] Corp[facility] Hemoglobin Concent 2018-11-01 06:47:00* Test Item Value Reference Range Interpretation Comments Mean Corpuscular Hemoglobin Concent (test code = 786-4) 33.1 31-35 [facility] HospitalRed Cell Distribution Oecnv3782-75-96 06:47:00* Test Item Value Reference Range Interpretation Comments Red Cell Distribution Width (test code = 91817-6) 14.2 11.7 -14.4 [facility] HospitalPlatelet Hvxyr5531-68-34 06:47:00* Test Item Value Reference Range Interpretation Comments Platelet Count (test code = 777-3) 142 140-360 [facility] HospitalNeutrophils (%) (Auto)2018-11-01 06:47:00 * Test Item Value Reference Range Interpretation Comments Neutrophils (%) (Auto) (test code = 83422-8) 57.9 38.7-80.0 [facility] HospitalLymphocytes (%) (Auto)2018-11-01 06:47:00 * Test Item Value Reference Range Interpretation Comments Lymphocytes (%) (Auto) (test code = 736-9) 29.9 18.0-39.1 [facility] HospitalMonocytes (%) (Auto)2018-11-01 06:47:00* Test Item Value Reference Range Interpretation Comments Monocytes (%) (Auto) (test code = 5905-5) 10.1 4.4-11.3 [facility] HospitalEosinophils (%) (Auto)2018-11-01 06:47:00 * Test Item Value Reference Range Interpretation Comments Eosinophils (%) (Auto) (test code = 713-8) 1.5 0.0-6.0 [facility] HospitalBasophils (%) (Auto)2018-11-01 06:47:00* Test Item Value Reference Range Interpretation Comments Basophils (%) (Auto) (test code = 706-2) 0.3 0.0-1.0 [facility] HospitalIM GRANULOCYTES %2018-11-01 06:47:00* Test Item Value Reference Range Interpretation Comments IM GRANULOCYTES % (test code = IM GRANULOCYTES %) 0.3 0.0- 1.0 [facility] HospitalNeutrophils # (Auto)2018-11-01 06:47:00* Test Item Value Reference Range Interpretation Comments Neutrophils # (Auto) (test code = 751-8) 3.5 2.1-6.9 [facility] HospitalLymphocytes # (Auto)2018-11-01 06:47:00* Test Item Value Reference Range Interpretation Comments Lymphocytes # (Auto) (test code = 92603-3) 1.8 1.0-3.2 [facility] HospitalMonocytes # (Auto)2018-11-01 06:47:00* Test Item Value Reference Range Interpretation Comments Monocytes # (Auto) (test code = 742-7) 0.6 0.2-0.8 [facility] HospitalEosinophils # (Auto)2018-11-01 06:47:00* Test Item Value Reference Range Interpretation Comments Eosinophils # (Auto) (test code = 711-2) 0.1 0.0-0.4 [facility] HospitalBasophils # (Auto)2018-11-01 06:47:00* Test Item Value Reference Range Interpretation Comments Basophils # (Auto) (test code = 704-7) 0.0 0.0-0.1 [facility] HospitalAbsolute Immature Granulocyte (auto 2018-11-01 06:47:00* Test Item Value Reference Range Interpretation Comments Absolute Immature Granulocyte (auto (pia t code = Absolute Immature Granulocyte (auto) 0.02 0-0.1 [facility] HospitalTriglycerides Zxzat4406-88-86 18:05:00* Test Item Value Reference Range Interpretation Comments Triglycerides Level (test code = 2571-8) 132 0-149 [facility] HospitalCholesterol Omfwm6979-09-97 18:05:00* Test Item Value Reference Range Interpretation Comments Cholesterol Level (test code = 2093-3) 111 0-199 Less than 200 mg/dL Low Sxct875 - 239 mg/dL Borderline Mrzo818 m g/dl and greater High Risk [facility] HospitalLDL Pmbqpjsiirz9138-86-79 18:05:00* Test Item Value Reference Range Interpretation Comments LDL Cholesterol (test code = 2089-1) 8 60-130 L [facility] HospitalHDL Dutbraalnlo6533-60-78 18:05:00* Test Item Value Reference Range Interpretation Comments HDL Cholesterol (test code = 2085-9) 77 40-60 H [facility] HospitalCholesterol/HDL Lkbmj3501-32-26 18:05:00 * Test Item Value Reference Range Interpretation Comments Cholesterol/HDL Ratio (test code = 9830-1) 1.4 3.0-3.6 L [facility] HospitalTriglycerides Wwxjc3053-93-24 18:05:00* Test Item Value Reference Range Interpretation Comments Triglycerides Level (test code = 2571-8) 132 0-149 [facility] HospitalCholesterol Twqpu6293-00-58 18:05:00* Test Item Value Reference Range Interpretation Comments Cholesterol Level (test code = 2093-3) 111 0-199 Less than 200 mg/dL Low Rfbd942 - 239 mg/dL Borderline Tbuv821 m g/dl and greater High Risk [facility] HospitalLDL Ixxbagnducb8333-20-66 18:05:00* Test Item Value Reference Range Interpretation Comments LDL Cholesterol (test code = 2089-1) 8 60-130 L [facility] Mberkjhviar5165-13-80 18:05:00* Test Item Value Reference Range Interpretation Comments HDL Cholesterol (test code = 2085-9) 77 40-60 H [facility]Ch[facility]/HDL Ginyq3129-44-42 18:05:00 * Test Item Value Reference Range Interpretation Comments Cholesterol/HDL Ratio (test code = 9830-1) 1.4 3.0-3.6 L [facility] HospitalTriglycerides Defsw4832-09-67 18:05:00* Test Item Value Reference Range Interpretation Comments Triglycerides Level (test code = 2571-8) 132 0-149 [facility] HospitalCholesterol Qapde7387-68-39 18:05:00* Test Item Value Reference Range Interpretation Comments Cholesterol Level (test code = 2093-3) 111 0-199 Less than 200 mg/dL Low Uzeq506 - 239 mg/dL Borderline Ymet223 m g/dl and greater High Risk [facility] HospitalLDL Rucjivgqzkm0846-51-60 18:05:00* Test Item Value Reference Range Interpretation Comments LDL Cholesterol (test code = 2089-1) 8 60-130 L [facility] Kyircjynnoc5688-73-66 18:05:00* Test Item Value Reference Range Interpretation Comments HDL Cholesterol (test code = 2085-9) 77 40-60 H [facility] HospitalCholesterol/HDL Rpyfr3254-13-28 18:05:00 * Test Item Value Reference Range Interpretation Comments Cholesterol/HDL Ratio (test code = 9830-1) 1.4 3.0-3.6 L [facility] HospitalTriglycerides Fplrl1032-90-17 18:05:00* Test Item Value Reference Range Interpretation Comments Triglycerides Level (test code = 2571-8) 132 0-149 [facility] HospitalCholesterol Cnquc7104-56-66 18:05:00* Test Item Value Reference Range Interpretation Comments Cholesterol Level (test code = 2093-3) 111 0-199 Less than 200 mg/dL Low Mwxr337 - 239 mg/dL Borderline Zpei945 m g/dl and greater High Risk [facility] HospitalLDL Hyialmbkebj6901-28-36 18:05:00* Test Item Value Reference Range Interpretation Comments LDL Cholesterol (test code = 2089-1) 8 60-130 L [facility] HospitalHDL Qikfkphqpke2020-37-07 18:05:00* Test Item Value Reference Range Interpretation Comments HDL Cholesterol (test code = 2085-9) 77 40-60 H [facility] HospitalCholesterol/HDL Dvywn4375-72-49 18:05:00 * Test Item Value Reference Range Interpretation Comments Cholesterol/HDL Ratio (test code = 9830-1) 1.4 3.0-3.6 L [facility] HospitalHemoglobin A1c Iiwevfn5548-36-01 17:59:00 * Test Item Value Reference Range Interpretation Comments Hemoglobin A1c Percent (test code = Hemoglobin A1c Percent) 5.2 4.0-7.0 [facility] HospitalHemoglobin A1c Ncaifwi3398-71-91 17:59:00 * Test Item Value Reference Range Interpretation Comments Hemoglobin A1c Percent (test code = Hemoglobin A1c Percent) 5.2 4.0-7.0 [facility] HospitalHemoglobin A1c Obymzxb4271-62-58 17:59:00 * Test Item Value Reference Range Interpretation Comments Hemoglobin A1c Percent (test code = Hemoglobin A1c Percent) 5.2 4.0-7.0 [facility] HospitalHemoglobin A1c Jbvyaeo6527-66-82 17:59:00 * Test Item Value Reference Range Interpretation Comments Hemoglobin A1c Percent (test code = Hemoglobin A1c Percent) 5.2 4.0-7.0 [facility] HospitalUrine WMM5189-80-54 12:49:00* Test Item Value Reference Range Interpretation Comments Urine WBC (test code = 5821-4) >50 0-5 H [facility] HospitalUrine OHT3717-80-19 12:49:00* Test Item Value Reference Range Interpretation Comments Urine RBC (test code = 72912-6) 0-5 0-5 [facility] HospitalUrine Qidauors5419-29-75 12:49:00* Test Item Value Reference Range Interpretation Comments Urine Bacteria (test code = 35408-9) MANY NONE H [facility] HospitalUrine Epithelial Svhdq4560-27-67 12:49:00 * Test Item Value Reference Range Interpretation Comments Urine Epithelial Cells (test code = 40607-5) RARE NONE [facility] HospitalClostridium Difficile Toxin A & B 2018-10-31 12:40:00* Test Item Value Reference Range Interpretation Comments Clostridium Difficile Toxin A & B (test code = 019331870) POSI TIVE NEGATIVE H Results called to SRAVANTHI GRIDER at 1239 on 10/31/18 by Arturo Lomas. RB [place].Res ults called to LUKE GILLIAM in infection control at 1239 on 10/31/18 by Arturo dowell.Testing on stool aspirate specimens is outside water pumping station engineer claims since specimen type not validated on this assay.[facility] HospitalUrine Yqegt1915-92-72 12:33:00* Test Item Value Reference Range Interpretation Comments Urine Color (test code = 5778-6) YELLOW YELLOW [facility] HospitalUrine Sgmqcrv4550-76-37 12:33:00* Test Item Value Reference Range Interpretation Comments Urine Clarity (test code = 16232-4) CLOUDY CLEAR H [facility] HospitalUrine Specific Pmxeoba6750-04-13 12:33:00 * Test Item Value Reference Range Interpretation Comments Urine Specific Palmer (test code = 5811-5) 1.010 1.010-1.02 5 [facility] HospitalUrine dX7414-91-63 12:33:00* Test Item Value Reference Range Interpretation Comments Urine pH (test code = 89077-3) 6.5 5-7 [facility] HospitalUrine Leukocyte Lsvabldn8445-91-41 12:33:00* Test Item Value Reference Range Interpretation Comments Urine Leukocyte Esterase (test code = 33021-5) SMALL NEGATIV E [facility] HospitalUrine Wuumnos2674-72-57 12:33:00* Test Item Value Reference Range Interpretation Comments Urine Nitrite (test code = 63342-8) POSITIVE NEGATIVE H [facility] HospitalUrine Ixscoxp7287-61-22 12:33:00* Test Item Value Reference Range Interpretation Comments Urine Protein (test code = 53074-0) NEGATIVE NEGATIVE [facility] HospitalUrine Glucose (UA)2018-10-31 12:33:00* Test Item Value Reference Range Interpretation Comments Urine Glucose (UA) (test code = 43698-4) NEGATIVE NEGATIVE [facility] HospitalUrine Llgcbik3273-28-20 12:33:00* Test Item Value Reference Range Interpretation Comments Urine Ketones (test code = 83637-9) NEGATIVE NEGATIVE [facility] Qaypvuzuhadd4265-34-44 12:33:00* Test Item Value Reference Range Interpretation Comments Urine Urobilinogen (test code = 48126-4) 0.2 0.2-1 [facility] HospitalUrine Ztnhkabvo2362-59-69 12:33:00* Test Item Value Reference Range Interpretation Comments Urine Bilirubin (test code = 1977-8) NEGATIVE NEGATIVE [facility] HospitalUrine Wzcvt2764-91-49 12:33:00* Test Item Value Reference Range Interpretation Comments Urine Blood (test code = 10378-2) NEGATIVE NEGATIVE [facility] HospitalTotal Dyogzqwwl9522-80-37 11:21:00* Test Item Value Reference Range Interpretation Comments Total Bilirubin (test code = 1975-2) 0.9 0.2-1.2 [facility] HospitalAspartate Amino Transf (AST/SGOT) 2018-10-31 11:21:00* Test Item Value Reference Range Interpretation Comments Aspartate Amino Transf (AST/SGOT) (test code = Aspartate Amino Transf (AST/SGOT)) 15 5-34 [facility] HospitalAlanine Aminotransferase (ALT/SGPT) 2018-10-31 11:21:00* Test Item Value Reference Range Interpretation Comments Alanine Aminotransferase (ALT/SGPT) (test code = 1742-6) 11 0-55 [facility] HospitalTotal Vnomurt4304-77-65 11:21:00* Test Item Value Reference Range Interpretation Comments Total Protein (test code = 2885-2) 7.7 6.5-8.1 [facility] HospitalAlbumin2019-07-23 11:21:00* Test Item Value Reference Range Interpretation Comments Albumin (test code = 1751-7) 4.8 3.5-5.0 [facility] HospitalGlobulin2019-07-23 11:21:00* Test Item Value Reference Range Interpretation Comments Globulin (test code = 45182-9) 2.9 2.3-3.5 [facility] HospitalAlbumin/Globulin Ysxxn6680-33-74 11:21:00 * Test Item Value Reference Range Interpretation Comments Albumin/Globulin Ratio (test code = 1759-0) 1.7 0.8-2.0 [facility] HospitalAlkaline Oruipwneiuw3469-17-42 11:21:00* Test Item Value Reference Range Interpretation Comments Alkaline Phosphatase (test code = 6768-6) 67 40-150 [facility] HospitalUrine Culfjcp7755-02-59 08:12:00* Test Item Value Reference Range Interpretation Comments Urine Culture (test code = 630-4) Organism: KLEBSIELLA OXYTOCA [facility] HospitalUrine Eznnhlp1431-59-96 08:12:00* Test Item Value Reference Range Interpretation Comments Urine Culture (test code = 630-4) Organism: KLEBSIELLA OXYTOCA [facility] HospitalUrine Wqmuzjx2606-36-16 08:12:00* Test Item Value Reference Range Interpretation Comments Urine Culture (test code = 630-4) Organism: KLEBSIELLA OXYTOCA [facility] HospitalUrine Etpqlsd8669-16-12 08:12:00* Test Item Value Reference Range Interpretation Comments Urine Culture (test code = 630-4) No Result Data Provided [facility] HospitalInfluenza Virus Types A,B Antigen 2018-08-11 12:10:00* Test Item Value Reference Range Interpretation Comments Influenza Virus Types A,B Antigen (test code = 21332-5) NEGATIVE NEGATIVE [facility] HospitalGroup A Streptococcus Ilxssg0833-77-99 12:10:00* Test Item Value Reference Range Interpretation Comments Group A Streptococcus Screen (test code = 44891-7) NEGATIVE NEG ATIVE [facility] HospitalInfluenza Virus Types A,B Antigen 2018-08-11 12:10:00* Test Item Value Reference Range Interpretation Comments Influenza Virus Types A,B Antigen (test code = 97512-7) NEGATIVE NEGATIVE [facility] HospitalGroup A Streptococcus Hmhrmh5122-87-37 12:10:00* Test Item Value Reference Range Interpretation Comments Group A Streptococcus Screen (test code = 61548-9) NEGATIVE NEG ATIVE [facility] HospitalInfluenza Virus Types A,B Antigen 2018-08-11 12:10:00* Test Item Value Reference Range Interpretation Comments Influenza Virus Types A,B Antigen (test code = 90667-5) NEGATIVE NEGATIVE [facility] HospitalGroup A Streptococcus Jrlbcc3242-09-06 12:10:00* Test Item Value Reference Range Interpretation Comments Group A Streptococcus Screen (test code = 72194-6) NEGATIVE NEG ATIVE [facility] HospitalInfluenza Virus Types A,B Antigen 2018-08-11 12:10:00* Test Item Value Reference Range Interpretation Comments Influenza Virus Types A,B Antigen (test code = 52989-7) NEGATIVE NEGATIVE [facility] HospitalGroup A Streptococcus Nepynw4321-09-47 12:10:00* Test Item Value Reference Range Interpretation Comments Group A Streptococcus Screen (test code = 63733-0) NEGATIVE NEG ATIVE [facility] HospitalInfluenza Virus Types A,B Antigen 2018-08-11 12:10:00* Test Item Value Reference Range Interpretation Comments Influenza Virus Types A,B Antigen (test code = 81619-7) NEGATIVE NEGATIVE [facility] HospitalGroup A Streptococcus Qdxddz7774-51-17 12:10:00* Test Item Value Reference Range Interpretation Comments Group A Streptococcus Screen (test code = 94598-0) NEGATIVE NEG ATIVE [facility] HospitalUrine ASM4757-73-07 12:02:00* Test Item Value Reference Range Interpretation Comments Urine WBC (test code = 5821-4) 11-20 0-5 H [facility] HospitalUrine CBI3394-04-20 12:02:00* Test Item Value Reference Range Interpretation Comments Urine RBC (test code = 23485-1) 6-10 0-5 H [facility] HospitalUrine Seipkhce5989-19-04 12:02:00* Test Item Value Reference Range Interpretation Comments Urine Bacteria (test code = 80880-9) MODERATE NONE [facility] Edeuk5205-61-97 12:02:00 * Test Item Value Reference Range Interpretation Comments Urine Epithelial Cells (test code = 64730-6) MODERATE [facility] Transitional Epithelial Cells 2018-08-11 12:02:00* Test Item Value Reference Range Interpretation Comments Urine Transitional Epithelial Cells (test code = 8249-5) FEW NONE [facility] Transitional Epithelial Cells 2018-08-11 12:02:00* Test Item Value Reference Range Interpretation Comments Urine Transitional Epithelial Cells (test code = 8249-5) FEW NONE [facility] Transitional Epithelial Cells 2018-08-11 12:02:00* Test Item Value Reference Range Interpretation Comments Urine Transitional Epithelial Cells (test code = 8249-5) FEW NONE [facility] Transitional Epithelial Cells 2018-08-11 12:02:00* Test Item Value Reference Range Interpretation Comments Urine Transitional Epithelial Cells (test code = 8249-5) FEW NONE [facility] Transitional Epithelial Cells 2018-08-11 12:02:00* Test Item Value Reference Range Interpretation Comments Urine Transitional Epithelial Cells (test code = 8249-5) FEW NONE [facility] Oioxx3563-67-72 11:59:00* Test Item Value Reference Range Interpretation Comments Urine Color (test code = 5778-6) YELLOW YELLOW [facility] HospitalUrine Ypqdrxp2395-10-89 11:59:00* Test Item Value Reference Range Interpretation Comments Urine Clarity (test code = 75098-7) CLOUDY CLEAR [facility] Specific Uwtyput2340-02-78 11:59:00 * Test Item Value Reference Range Interpretation Comments Urine Specific Palmer (test code = 5811-5) 1.010 1.010-1.02 5 [facility] HospitalUrine lJ7403-55-65 11:59:00* Test Item Value Reference Range Interpretation Comments Urine pH (test code = 12884-4) 6 5-7 [facility] HospitalUrine Leukocyte Zqylmfsl9108-11-40 11:59:00* Test Item Value Reference Range Interpretation Comments Urine Leukocyte Esterase (test code = 5799-2) 1+ NEGATIVE H [facility] HospitalUrine Adsvhzh5222-20-90 11:59:00* Test Item Value Reference Range Interpretation Comments Urine Nitrite (test code = 92182-9) NEGATIVE NEGATIVE [facility] HospitalUrine Tyzfamx0515-02-50 11:59:00* Test Item Value Reference Range Interpretation Comments Urine Protein (test code = 5804-0) NEGATIVE NEGATIVE [facility] HospitalUrine Glucose (UA)2018-08-11 11:59:00* Test Item Value Reference Range Interpretation Comments Urine Glucose (UA) (test code = 2349-9) NEGATIVE NEGATIVE [facility] HospitalUrine Iorwdyo1435-66-01 11:59:00* Test Item Value Reference Range Interpretation Comments Urine Ketones (test code = 36476-4) NEGATIVE NEGATIVE [facility] HospitalUrine Cauenbqmlezu7505-73-92 11:59:00* Test Item Value Reference Range Interpretation Comments Urine Urobilinogen (test code = 72077-1) 0.2 0.2-1 [facility] HospitalUrine Zcpfsehqi6962-84-67 11:59:00* Test Item Value Reference Range Interpretation Comments Urine Bilirubin (test code = 1978-6) NEGATIVE NEGATIVE [facility] HospitalUrine Oyqjx9265-70-59 11:59:00* Test Item Value Reference Range Interpretation Comments Urine Blood (test code = 29794-4) 2+ NEGATIVE H [facility] HospitalCHEST 2 OBXFJ3512-96-12 11:58:00 [facility] [address] [place] [address] Patient Name: JARVIS BETANCOURT MR #: [id number] : 1945 Age/Sex: 73/F Req #: [id number] Adm Physician: Ordered by: PRISCILA ARREGUIN NP Report #: [id number] Location: ER Room/Bed: Procedure: [id number] DX/CH EST 2 VIEWS Exam Date: 08/11/18 Exam Time: 1143 REPORT STATUS: Signed EXAMINATION: CHEST 2 VIEWS INDICATION: Body aches. COMPARISON: Chest radiogra ph 06/08/2018. FINDINGS: TUBES and LINES: Interval removal of right arm PICC. LUNGS: Lungs are well inflated. Mild patchy bibasilar opacitie s. No evidence of pulmonary edema. PLEURA: No pleural effusion or pneum othorax. There is possible pleural thickening in the right mid thorax. Unchang ed pleural calcifications on the left. HEART AND MEDIASTINUM: The cardio mediastinal silhouette is mildly enlarged and unchanged. There is prominence o f the bilateral jeannette, unchanged from prior radiographs, and could reflect pulm onary arterial hypertension. BONES AND SOFT TISSUES: No acute osseous abno rmality. UPPER ABDOMEN: No free air under the diaphragm. IMPRESSIO N: Patchy bibasilar opacities, more likely atelectasis than pneumonia. Possible pleural thickening in the right mid thorax. Chest CT is suggested for further evaluation, and could be performed in the non urgent setting. Sign ed by: Dr. Ki Saenz MD on 08/11/2018 12:05 PM Dictated By: KI SAENZ MD 120 Transcribed By: PONCHO ROSARIO on 08/11/18 1205 COPY TO: PRISCILA ARREGUIN NP Bedside Glucose 2018-06-11 12:07:00* Test Item Value Reference Range Interpretation Comments Bedside Glucose (test code = 01287-7) 147 70-120 H Meter ID: [id number] [facility] 2018-06-11 12:07:00* Test Item Value Reference Range Interpretation Comments Bedside Glucose (test code = 93792-4) 147 70-120 H Meter ID: [id number] [facility] Qftci1510-75-70 13:06:00* Test Item Value Reference Range Interpretation Comments Urine Color (test code = 5778-6) YELLOW YELLOW [facility] HospitalUrine Ubyrstc8422-18-49 13:06:00* Test Item Value Reference Range Interpretation Comments Urine Clarity (test code = 08024-3) HAZY CLEAR [facility] HospitalUrine Specific Bvznhgg8623-51-14 13:06:00 * Test Item Value Reference Range Interpretation Comments Urine Specific Palmer (test code = 5811-5) 1.020 1.010-1.02 5 [facility] HospitalUrine cB9478-93-59 13:06:00* Test Item Value Reference Range Interpretation Comments Urine pH (test code = 40341-7) 5 5-7 [facility] HospitalUrine Leukocyte Inlkhrks5118-92-50 13:06:00* Test Item Value Reference Range Interpretation Comments Urine Leukocyte Esterase (test code = 5799-2) TRACE NEGATIVE H [facility] HospitalUrine Xtngiwa5665-33-61 13:06:00* Test Item Value Reference Range Interpretation Comments Urine Nitrite (test code = 32081-7) NEGATIVE NEGATIVE [facility] HospitalUrine Iadxoxl8019-75-47 13:06:00* Test Item Value Reference Range Interpretation Comments Urine Protein (test code = 5804-0) NEGATIVE NEGATIVE [facility] HospitalUrine Glucose (UA)2018-06-10 13:06:00* Test Item Value Reference Range Interpretation Comments Urine Glucose (UA) (test code = 2349-9) NEGATIVE NEGATIVE [facility] HospitalUrine Qmixikc5004-23-07 13:06:00* Test Item Value Reference Range Interpretation Comments Urine Ketones (test code = 78843-9) NEGATIVE NEGATIVE [facility] HospitalUrine Dxzwquhcolow8538-69-50 13:06:00* Test Item Value Reference Range Interpretation Comments Urine Urobilinogen (test code = 42201-3) 0.2 0.2-1 [facility] HospitalUrine Ufnvjwgxx2180-61-07 13:06:00* Test Item Value Reference Range Interpretation Comments Urine Bilirubin (test code = 1978-6) NEGATIVE NEGATIVE [facility] HospitalUrine Sibrf8366-68-35 13:06:00* Test Item Value Reference Range Interpretation Comments Urine Blood (test code = 47658-2) NEGATIVE [facility]GATIVE [facility] Ydejd0414-24-69 10:01:00* Test Item Value Reference Range Interpretation Comments Sodium Level (test code = 2951-2) 142 136-145 [facility] HospitalPotassium Jzegz8355-09-06 10:01:00* Test Item Value Reference Range Interpretation Comments Potassium Level (test code = 2823-3) 3.4 3.5-5.1 L [facility] HospitalChloride Gcsgx4228-37-25 10:01:00* Test Item Value Reference Range Interpretation Comments Chloride Level (test code = 2075-0) 110 98-107 H [facility] HospitalCarbon Dioxide Bgtuq7429-23-78 10:01:00* Test Item Value Reference Range Interpretation Comments Carbon Dioxide Level (test code = 2028-9) 22 22-29 [facility] HospitalAnion Ejy1222-61-03 10:01:00* Test Item Value Reference Range Interpretation Comments Anion Gap (test code = 44002-6) 13.4 8-16 [facility] HospitalBlood Urea Bztuzhry3329-00-20 10:01:00* Test Item Value Reference Range Interpretation Comments Blood Urea Nitrogen (test code = 3094-0) 8 7-26 [facility] HospitalCreatinine2019-03-02 10:01:00* Test Item Value Reference Range Interpretation Comments Creatinine (test code = 2160-0) 0.73 0.57-1.11 [facility] HospitalBUN/Creatinine Arkwt9198-00-54 10:01:00* Test Item Value Reference Range Interpretation Comments BUN/Creatinine Ratio (test code = 3097-3) 11 6-25 [facility] HospitalEstimat Glomerular Filtration Rate 2018-06-10 10:01:00* Test Item Value Reference Range Interpretation Comments Estimat Glomerular Filtration Rate (test code = 304287484) > 60 >60 Ranges were taken from the National Kidney Disease Education Program and the [facility] Foundation literature.Reference ranges:60 or greater: Haqkql88-71 ( for 3 consecutive months): Chronic kidney disease 15 or less: Kidney failureHarris Health System Ben Taub HospitalGlucose Abiif1007-20-42 10:01:00* Test Item Value Reference Range Interpretation Comments Glucose Level (test code = BQY6595) 180 74-118 H [facility] HospitalCalcium Bujek4022-36-37 10:01:00* Test Item Value Reference Range Interpretation Comments Calcium Level (test code = 42702-7) 9.0 8.4-10.2 [facility] Vcjts2195-82-64 10:01:00* Test Item Value Reference Range Interpretation Comments Sodium Level (test code = 2951-2) 142 136-145 [facility] HospitalPotassium Akmkc3909-40-74 10:01:00* Test Item Value Reference Range Interpretation Comments Potassium Level (test code = 2823-3) 3.4 3.5-5.1 L [facility] HospitalChloride Zuhyz2333-57-61 10:01:00* Test Item Value Reference Range Interpretation Comments Chloride Level (test code = 2075-0) 110 98-107 H [facility] HospitalCarbon Dioxide Fixnw7807-01-62 10:01:00* Test Item Value Reference Range Interpretation Comments Carbon Dioxide Level (test code = 2028-9) 22 22-29 [facility] HospitalAnion Uug9456-85-34 10:01:00* Test Item Value Reference Range Interpretation Comments Anion Gap (test code = 14029-2) 13.4 8-16 [facility] HospitalBlood Urea Xhkosjjp4656-35-62 10:01:00* Test Item Value Reference Range Interpretation Comments Blood Urea Nitrogen (test code = 3094-0) 8 7-26 [facility] HospitalCreatinine2019-03-02 10:01:00* Test Item Value Reference Range Interpretation Comments Creatinine (test code = 2160-0) 0.73 0.57-1.11 [facility] HospitalBUN/Creatinine Mhkrk0757-14-13 10:01:00* Test Item Value Reference Range Interpretation Comments BUN/Creatinine Ratio (test code = 3097-3) 11 10-03 [facility] HospitalEstimat Glomerular Filtration Rate 2018-06-10 10:01:00* Test Item Value Reference Range Interpretation Comments Estimat Glomerular Filtration Rate (test code = 463989118) > 60 >60 Ranges were taken from the National Kidney Disease Education Program and the [facility] literature.Reference ranges:60 or greater: Axpdbp97-11 ( for 3 consecutive months): Chronic kidney disease 15 or less: Kidney failureHarris Health System Ben Taub HospitalGlucose Eppnw9095-21-09 10:01:00* Test Item Value Reference Range Interpretation Comments Glucose Level (test code = VEN8494) 180 74-118 H [facility] HospitalCalcium Eagmj8673-55-63 10:01:00* Test Item Value Reference Range Interpretation Comments Calcium Level (test code = 03347-3) 9.0 8.4-10.2 [facility] HospitalWhite Blood Gphzc7732-67-92 09:46:00* Test Item Value Reference Range Interpretation Comments White Blood Count (test code = 6690-2) 7.55 4.8-10.8 [facility] HospitalRed Blood Zsmvc0189-26-81 09:46:00* Test Item Value Reference Range Interpretation Comments Red Blood Count (test code = 789-8) 4.70 3.6-5.1 [facility] HospitalHemoglobin2019-03-02 09:46:00* Test Item Value Reference Range Interpretation Comments Hemoglobin (test code = 49373-7) 13.4 12.0-16.0 [facility] HospitalHematocrit2019-03-02 09:46:00* Test Item Value Reference Range Interpretation Comments Hematocrit (test code = 4544-3) 40.9 34.2-44.1 [facility] HospitalMean Corpuscular Rkhano4091-04-62 09:46:00* Test Item Value Reference Range Interpretation Comments Mean Corpuscular Volume (test code = 787-2) 87.0 81-99 [facility] HospitalMean Corpuscular Tzocnmdnsf1369-54-34 09:46:00* Test Item Value Reference Range Interpretation Comments Mean Corpuscular Hemoglobin (test code = 785-6) 28.5 28-32 [facility] HospitalMean Corpuscular Hemoglobin Concent 2018-06-10 09:46:00* Test Item Value Reference Range Interpretation Comments Mean Corpuscular Hemoglobin Concent (test code = 786-4) 32.8 31-35 [facility] HospitalRed Cell Distribution Cgvdg1601-79-76 09:46:00* Test Item Value Reference Range Interpretation Comments Red Cell Distribution Width (test code = 31152-7) 14.1 11.7 -14.4 [facility] HospitalPlatelet Turae5478-37-27 09:46:00* Test Item Value Reference Range Interpretation Comments Platelet Count (test code = 777-3) 177 140-360 [facility] HospitalNeutrophils (%) (Auto)2018-06-10 09:46:00 * Test Item Value Reference Range Interpretation Comments Neutrophils (%) (Auto) (test code = 06401-5) 61.7 38.7-80.0 [facility] HospitalLymphocytes (%) (Auto)2018-06-10 09:46:00 * Test Item Value Reference Range Interpretation Comments Lymphocytes (%) (Auto) (test code = 736-9) 27.4 18.0-39.1 [facility] HospitalMonocytes (%) (Auto)2018-06-10 09:46:00* Test Item Value Reference Range Interpretation Comments Monocytes (%) (Auto) (test code = 5905-5) 6.0 4.4-11.3 [facility] HospitalEosinophils (%) (Auto)2018-06-10 09:46:00 * Test Item Value Reference Range Interpretation Comments Eosinophils (%) (Auto) (test code = 713-8) 4.2 0.0-6.0 [facility] HospitalBasophils (%) (Auto)2018-06-10 09:46:00* Test Item Value Reference Range Interpretation Comments Basophils (%) (Auto) (test code = 706-2) 0.4 0.0-1.0 [facility] HospitalIM GRANULOCYTES %2018-06-10 09:46:00* Test Item Value Reference Range Interpretation Comments IM GRANULOCYTES % (test code = IM GRANULOCYTES %) 0.3 0.0- 1.0 [facility] HospitalNeutrophils # (Auto)2018-06-10 09:46:00* Test Item Value Reference Range Interpretation Comments Neutrophils # (Auto) (test code = 751-8) 4.7 2.1-6.9 [facility] HospitalLymphocytes # (Auto)2018-06-10 09:46:00* Test Item Value Reference Range Interpretation Comments Lymphocytes # (Auto) (test code = 25371-4) 2.1 1.0-3.2 [facility] HospitalMonocytes # (Auto)2018-06-10 09:46:00* Test Item Value Reference Range Interpretation Comments Monocytes # (Auto) (test code = 742-7) 0.5 0.2-0.8 [facility] HospitalEosinophils # (Auto)2018-06-10 09:46:00* Test Item Value Reference Range Interpretation Comments Eosinophils # (Auto) (test code = 711-2) 0.3 0.0-0.4 [facility] HospitalBasophils # (Auto)2018-06-10 09:46:00* Test Item Value Reference Range Interpretation Comments Basophils # (Auto) (test code = 704-7) 0.0 0.0-0.1 [facility] HospitalAbsolute Immature Granulocyte (auto 2018-06-10 09:46:00* Test Item Value Reference Range Interpretation Comments Absolute Immature Granulocyte (auto (pia t code = Absolute Immature Granulocyte (auto) 0.02 0-0.1 [facility] HospitalWhite Blood Wstwi8566-77-03 09:46:00* Test Item Value Reference Range Interpretation Comments White Blood Count (test code = 6690-2) 7.55 4.8-10.8 [facility] HospitalRed Blood Hsequ5300-32-97 09:46:00* Test Item Value Reference Range Interpretation Comments Red Blood Count (test code = 789-8) 4.70 3.6-5.1 [facility] HospitalHemoglobin2019-03-02 09:46:00* Test Item Value Reference Range Interpretation Comments Hemoglobin (test code = 63872-2) 13.4 12.0-16.0 [facility] HospitalHematocrit2019-03-02 09:46:00* Test Item Value Reference Range Interpretation Comments Hematocrit (test code = 4544-3) 40.9 34.2-44.1 [facility] HospitalMean Corpuscular Rsxfuu9143-97-96 09:46:00* Test Item Value Reference Range Interpretation Comments Mean Corpuscular Volume (test code = 787-2) 87.0 81-99 [facility] HospitalMean Corpuscular Gpytfswbbt1995-31-32 09:46:00* Test Item Value Reference Range Interpretation Comments Mean Corpuscular Hemoglobin (test code = 785-6) 28.5 28-32 [facility] HospitalMean Corpuscular Hemoglobin Concent 2018-06-10 09:46:00* Test Item Value Reference Range Interpretation Comments Mean Corpuscular Hemoglobin Concent (test code = 786-4) 32.8 31-35 [facility] HospitalRed Cell Distribution Vfpre9178-34-11 09:46:00* Test Item Value Reference Range Interpretation Comments Red Cell Distribution Width (test code = 18315-2) 14.1 11.7 -14.4 [facility] HospitalPlatelet Glmcy8777-71-98 09:46:00* Test Item Value Reference Range Interpretation Comments Platelet Count (test code = 777-3) 177 140-360 [facility] HospitalNeutrophils (%) (Auto)2018-06-10 09:46:00 * Test Item Value Reference Range Interpretation Comments Neutrophils (%) (Auto) (test code = 48930-6) 61.7 38.7-80.0 [facility] HospitalLymphocytes (%) (Auto)2018-06-10 09:46:00 * Test Item Value Reference Range Interpretation Comments Lymphocytes (%) (Auto) (test code = 736-9) 27.4 18.0-39.1 [facility] HospitalMonocytes (%) (Auto)2018-06-10 09:46:00* Test Item Value Reference Range Interpretation Comments Monocytes (%) (Auto) (test code = 5905-5) 6.0 4.4-11.3 [facility] HospitalEosinophils (%) (Auto)2018-06-10 09:46:00 * Test Item Value Reference Range Interpretation Comments Eosinophils (%) (Auto) (test code = 713-8) 4.2 0.0-6.0 [facility] HospitalBasophils (%) (Auto)2018-06-10 09:46:00* Test Item Value Reference Range Interpretation Comments Basophils (%) (Auto) (test code = 706-2) 0.4 0.0-1.0 [facility] HospitalIM GRANULOCYTES %2018-06-10 09:46:00* Test Item Value Reference Range Interpretation Comments IM GRANULOCYTES % (test code = IM GRANULOCYTES %) 0.3 0.0- 1.0 [facility] HospitalNeutrophils # (Auto)2018-06-10 09:46:00* Test Item Value Reference Range Interpretation Comments Neutrophils # (Auto) (test code = 751-8) 4.7 2.1-6.9 [facility] HospitalLymphocytes # (Auto)2018-06-10 09:46:00* Test Item Value Reference Range Interpretation Comments Lymphocytes # (Auto) (test code = 56278-9) 2.1 1.0-3.2 [facility] HospitalMonocytes # (Auto)2018-06-10 09:46:00* Test Item Value Reference Range Interpretation Comments Monocytes # (Auto) (test code = 742-7) 0.5 0.2-0.8 [facility] HospitalEosinophils # (Auto)2018-06-10 09:46:00* Test Item Value Reference Range Interpretation Comments Eosinophils # (Auto) (test code = 711-2) 0.3 0.0-0.4 [facility] HospitalBasophils # (Auto)2018-06-10 09:46:00* Test Item Value Reference Range Interpretation Comments Basophils # (Auto) (test code = 704-7) 0.0 0.0-0.1 [facility] HospitalAbsolute Immature Granulocyte (auto 2018-06-10 09:46:00* Test Item Value Reference Range Interpretation Comments Absolute Immature Granulocyte (auto (pia t code = Absolute Immature Granulocyte (auto) 0.02 0-0.1 [facility] HospitalCHEST XRAY LINE JNQJJAJMC9529-27-37 17:01:00 [place] [address] Patient Name: JARVIS BETANCOURT MR #: [id number] : 1945 Age/Sex: 73/F Req #: [id number] Adm Physician: INA JIMENEZ MD Ordered by: JONAS BUCKLEY MD Report #: [id number] Location: [facility] Room/Bed: [facility] Procedure: [id number] DX/CHES T XRAY LINE PLACEMENT Exam Date: 06/08/18 Exam Time: 1643 REPORT STATUS: Signed EXAM INATION: CHEST XRAY LINE PLACEMENT INDICATION: Status post PICC COMPARISON: Chest radiograph 05/07/17. FINDINGS: TUBES and LINES: Interval placement of right-sided PICC which terminates in the lower SVC. LUNGS: Lungs are well inflated. Mild patchy bibasilar opacities. PLEURA: No pleural effusion or pneumothorax. HEART AND MEDIASTINUM: The cardiome diastinal silhouette is mildly enlarged and unchanged. There is prominence of the bilateral jeannette, unchanged from prior radiographs, and could reflect pulmon denzel arterial hypertension. BONES AND SOFT TISSUES: No acute osseous abnorm ality. UPPER ABDOMEN: No free air under the diaphragm. IMPRESSION: Interval placement of right-sided PICC, which terminates in the lower SVC. No evidence of pneumothorax. Patchy bibasilar opacities, more likely atele ctasis than pneumonia. Signed by: Dr. Ki Saenz MD on 06/08/2018 5:06 PM Dictated By: KI SAENZ MD 05 COPY TO: LEONEL BUCKLEY MD Urine Ltpeubd8423-09-74 07:24:00* Test Item Value Reference Range Interpretation Comments Urine Culture (test code = 630-4) Organism: ESCHERICHIA COLI-ESBL [facility] HospitalUrine Wrwhkru7355-39-94 07:24:00* Test Item Value Reference Range Interpretation Comments Urine Culture (test code = 630-4) Organism: ESCHERICHIA COLI-ESBL [facility] HospitalMagnesium Npast9438-36-17 06:39:00* Test Item Value Reference Range Interpretation Comments Magnesium Level (test code = 46544-4) 1.8 1.3-2.1 [facility] HospitalTotal Htjlvpsov9259-87-70 06:39:00* Test Item Value Reference Range Interpretation Comments Total Bilirubin (test code = 1975-2) 0.3 0.2-1.2 [facility] HospitalAspartate Amino Transf (AST/SGOT) 2018-06-06 06:39:00* Test Item Value Reference Range Interpretation Comments Aspartate Amino Transf (AST/SGOT) (test code = Aspartate Amino Transf (AST/SGOT)) 14 5-34 [facility] HospitalAlanine Aminotransferase (ALT/SGPT) 2018-06-06 06:39:00* Test Item Value Reference Range Interpretation Comments Alanine Aminotransferase (ALT/SGPT) (test code = 1742-6) 12 0-55 [facility] HospitalTotal Kxgwngv4907-69-72 06:39:00* Test Item Value Reference Range Interpretation Comments Total Protein (test code = 2885-2) 6.2 6.5-8.1 L [facility] HospitalAlbumin2019-02-26 06:39:00* Test Item Value Reference Range Interpretation Comments Albumin (test code = 1751-7) 3.9 3.5-5.0 [facility] HospitalGlobulin2019-02-26 06:39:00* Test Item Value Reference Range Interpretation Comments Globulin (test code = 25874-0) 2.3 2.3-3.5 [facility] HospitalAlbumin/Globulin Skxcj0095-67-13 06:39:00 * Test Item Value Reference Range Interpretation Comments Albumin/Globulin Ratio (test code = 1759-0) 1.7 0.8-2.0 [facility] HospitalAlkaline Qdxlxufyzyb4918-53-65 06:39:00* Test Item Value Reference Range Interpretation Comments Alkaline Phosphatase (test code = 6768-6) 60 40-150 [facility] HospitalMagnesium Gomsv7094-77-02 06:39:00* Test Item Value Reference Range Interpretation Comments Magnesium Level (test code = 40829-7) 1.8 1.3-2.1 [facility] HospitalTotal Fxltrwlgn9464-59-89 06:39:00* Test Item Value Reference Range Interpretation Comments Total Bilirubin (test code = 1975-2) 0.3 0.2-1.2 [facility] HospitalAspartate Amino Transf (AST/SGOT) 2018-06-06 06:39:00* Test Item Value Reference Range Interpretation Comments Aspartate Amino Transf (AST/SGOT) (test code = Aspartate Amino Transf (AST/SGOT)) 14 5-34 [facility] HospitalAlanine Aminotransferase (ALT/SGPT) 2018-06-06 06:39:00* Test Item Value Reference Range Interpretation Comments Alanine Aminotransferase (ALT/SGPT) (test code = 1742-6) 12 0-55 [facility] HospitalTotal Dcsdpaz9396-17-57 06:39:00* Test Item Value Reference Range Interpretation Comments Total Protein (test code = 2885-2) 6.2 6.5-8.1 L [facility] HospitalAlbumin2019-02-26 06:39:00* Test Item Value Reference Range Interpretation Comments Albumin (test code = 1751-7) 3.9 3.5-5.0 [facility] HospitalGlobulin2019-02-26 06:39:00* Test Item Value Reference Range Interpretation Comments Globulin (test code = 44247-9) 2.3 2.3-3.5 [facility] HospitalAlbumin/Globulin Zftqz1712-81-61 06:39:00 * Test Item Value Reference Range Interpretation Comments Albumin/Globulin Ratio (test code = 1759-0) 1.7 0.8-2.0 [facility] HospitalAlkaline Plbnkgutlsz7220-00-46 06:39:00* Test Item Value Reference Range Interpretation Comments Alkaline Phosphatase (test code = 6768-6) 60 40-150 [facility] HospitalMagnesium Mjfoi0301-74-36 06:39:00* Test Item Value Reference Range Interpretation Comments Magnesium Level (test code = 32729-5) 1.8 1.3-2.1 [facility] HospitalMagnesium Fllqj9916-40-77 06:39:00* Test Item Value Reference Range Interpretation Comments Magnesium Level (test code = 50722-8) 1.8 1.3-2.1 [facility] HospitalHemoglobin A1c Elyuotm0529-68-15 14:59:00 * Test Item Value Reference Range Interpretation Comments Hemoglobin A1c Percent (test code = Hemoglobin A1c Percent) 5.2 4.0-7.0 [facility] HospitalHemoglobin A1c Cdszwfa9094-52-14 14:59:00 * Test Item Value Reference Range Interpretation Comments Hemoglobin A1c Percent (test code = Hemoglobin A1c Percent) 5.2 4.0-7.0 [facility] HospitalCreatine Kinase JG4422-01-68 09:28:00* Test Item Value Reference Range Interpretation Comments Creatine Kinase MB (test code = 15014-9) 2.20 0-5.0 [place] [address]323019-02-24 09:28:00* Test Item Value Reference Range Interpretation Comments Troponin I (test code = TWL9117) 0.065 0-0.300 [facility] HospitalCreatine Kinase ZP5008-94-35 09:28:00* Test Item Value Reference Range Interpretation Comments Creatine Kinase MB (test code = 22023-3) 2.20 0-5.0 [facility] HospitalTrTracey [place]ille [address]G1309-02-11 09:28:00* Test Item Value Reference Range Interpretation Comments Troponin I (test code = TQG3566) 0.065 0-0.300 [facility] HospitalCreatine Kinase HS1709-90-94 09:28:00* Test Item Value Reference Range Interpretation Comments Creatine Kinase MB (test code = 99698-4) 2.20 0-5.0 [place] [address]323019-02-24 09:28:00* Test Item Value Reference Range Interpretation Comments Troponin I (test code = JNI6834) 0.065 0-0.300 [facility] HospitalCreatine Sgshfk8508-51-19 09:18:00* Test Item Value Reference Range Interpretation Comments Creatine Kinase (test code = 2157-6) 143 29-168 [facility] HospitalCreatine Iaxqgk4078-01-80 09:18:00* Test Item Value Reference Range Interpretation Comments Creatine Kinase (test code = 2157-6) 143 29-168 [facility] HospitalCreatine Epzose6299-13-35 09:18:00* Test Item Value Reference Range Interpretation Comments Creatine Kinase (test code = 2157-6) 143 29-168 [facility] HospitalTriglycerides Rqnfn3279-28-60 06:19:00* Test Item Value Reference Range Interpretation Comments Triglycerides Level (test code = 2571-8) 104 0-149 [facility] HospitalCholesterol Xnkku8638-56-75 06:19:00* Test Item Value Reference Range Interpretation Comments Cholesterol Level (test code = 2093-3) 82 0-199 Less than 200 mg/dL Low Ngip657 - 239 mg/dL Borderline Jlvn064 m g/dl and greater High Risk [facility] HospitalLDL Fnrqcqibljp0530-37-20 06:19:00* Test Item Value Reference Range Interpretation Comments LDL Cholesterol (test code = 2089-1) 10 60-130 L [facility] HospitalHDL Krelbldinui1930-35-56 06:19:00* Test Item Value Reference Range Interpretation Comments HDL Cholesterol (test code = 2085-9) 51 40-60 [facility] HospitalCholesterol/HDL Qqmze1814-79-49 06:19:00 * Test Item Value Reference Range Interpretation Comments Cholesterol/HDL Ratio (test code = 9830-1) 1.6 3.0-3.6 L [facility] HospitalTriglycerides Wzrzk2801-62-66 06:19:00* Test Item Value Reference Range Interpretation Comments Triglycerides Level (test code = 2571-8) 104 0-149 [facility] HospitalCholesterol Xdzgq5797-77-31 06:19:00* Test Item Value Reference Range Interpretation Comments Cholesterol Level (test code = 2093-3) 82 0-199 Less than 200 mg/dL Low Kykr436 - 239 mg/dL Borderline Bybv406 m g/dl and greater High Risk [facility] HospitalLDL Rpzlajgthoo4414-90-20 06:19:00* Test Item Value Reference Range Interpretation Comments LDL Cholesterol (test code = 2089-1) 10 60-130 L [facility] HospitalHDL Xyvtyongrlf6605-40-01 06:19:00* Test Item Value Reference Range Interpretation Comments HDL Cholesterol (test code = 2085-9) 51 40-60 [facility] HospitalCholesterol/HDL Hpspf1285-00-47 06:19:00 * Test Item Value Reference Range Interpretation Comments Cholesterol/HDL Ratio (test code = 9830-1) 1.6 3.0-3.6 L [facility] HospitalClostridium Difficile Toxin A & B 2018-06-03 13:10:00* Test Item Value Reference Range Interpretation Comments Clostridium Difficile Toxin A & B (test code = 488311420) POSI TIVE NEGATIVE H Results called to LIZA RAYMUNDO at 1308 on 06/03/18 by Ileana Tee. RB OK.Resu lts called to LUKE GILLIAM in infection control at 1308 on 06/03/18 by Ileana rubin.Testing on stool aspirate specimens is outside water pumping station engineer claims since sp ecimen type not validated on this assay.[facility] Clostridium Difficile Toxin A & H8454-90-35 13:10:00* Test Item Value Reference Range Interpretation Comments Clostridium Difficile Toxin A & B (test code = 741800439) POSI TIVE NEGATIVE H Results called to LIZA RAYMUNDO at 1308 on 06/03/18 by Ileana Tee. CASSY BANEGAS.Resu lts called to LUKE GILLIAM in infection control at 1308 on 06/03/18 by Ileana rubin.Testing on stool aspirate specimens is outside water pumping station engineer claims since sp ecimen type not validated on this assay.[facility] Stool Occult Ddklp9209-57-27 12:10:00* Test Item Value Reference Range Interpretation Comments Stool Occult Blood (test code = 2335-8) NEGATIVE [facility]GATIVE [facility] Rvvxn7359-80-96 12:10:00* Test Item Value Reference Range Interpretation Comments Stool Occult Blood (test code = 2335-8) [facility]GAT[facility] Uirmp7202-39-21 12:10:00* Test Item Value Reference Range Interpretation Comments Stool Occult Blood (test code = 2335-8) NEGATIVE NEGATIVE [facility] HospitalUrine PVO6288-95-44 12:06:00* Test Item Value Reference Range Interpretation Comments Urine WBC (test code = 5821-4) 11-20 0-5 H [facility] HospitalUrine GRW9191-82-94 12:06:00* Test Item Value Reference Range Interpretation Comments Urine RBC (test code = 34519-9) 0-5 0-5 [facility] HospitalUrine Uoffzmux7764-78-40 12:06:00* Test Item Value Reference Range Interpretation Comments Urine Bacteria (test code = 60343-9) MANY [facility] Epithelial Yyxko1831-87-32 12:06:00 * Test Item Value Reference Range Interpretation Comments Urine Epithelial Cells (test code = 69703-6) FEW [facility] Axhvb9780-50-34 12:06:00* Test Item Value Reference Range Interpretation Comments Urine Mucus (test code = 8247-9) FEW [facility] Npamz5874-88-81 12:06:00* Test Item Value Reference Range Interpretation Comments Urine Mucus (test code = 8247-9) FEW [facility] Gqzbj8727-12-49 12:06:00* Test Item Value Reference Range Interpretation Comments Urine Mucus (test code = 8247-9) FEW [facility] Sskhi7084-23-03 12:06:00* Test Item Value Reference Range Interpretation Comments Urine Mucus (test code = 8247-9) FEW [facility] Wisfu4817-97-22 12:06:00* Test Item Value Reference Range Interpretation Comments Urine Mucus (test code = 8247-9) FEW [facility] Dtrdv3189-73-62 12:06:00* Test Item Value Reference Range Interpretation Comments Urine Mucus (test code = 8247-9) [facility]Am[facility] Jtjby4341-52-89 10:47:00* Test Item Value Reference Range Interpretation Comments Amylase Level (test code = 1798-8) 32 25-125 [facility] HospitalLipase2019-02-23 10:47:00* Test Item Value Reference Range Interpretation Comments Lipase (test code = 3040-3) 41 -78 [facility] HospitalAmylase Eqjzk3643-19-43 10:47:00* Test Item Value Reference Range Interpretation Comments Amylase Level (test code = 1798-8) 32 25-125 [facility] HospitalLipase2019-02-23 10:47:00* Test Item Value Reference Range Interpretation Comments Lipase (test code = 3040-3) 41 78 [facility] HospitalAmylase Ohifv2024-08-57 10:47:00* Test Item Value Reference Range Interpretation Comments Amylase Level (test code = 1798-8) 32 25-125 [facility] HospitalLipase2019-02-23 10:47:00* Test Item Value Reference Range Interpretation Comments Lipase (test code = 3040-3) 41 8-78 [facility] HospitalAmylase Yklgl7850-09-05 10:47:00* Test Item Value Reference Range Interpretation Comments Amylase Level (test code = 1798-8) 32 25-125 [facility] HospitalBlood Zvoogzn2006-10-26 09:29:00* Test Item Value Reference Range Interpretation Comments Blood Culture (test code = 60297860) NO GROWTH AFTER 5 DAYS, FINAL REPORT [facility] HospitalBedside Kuxuqnm7470-21-57 07:24:00* Test Item Value Reference Range Interpretation Comments Bedside Glucose (test code = 77493-9) 116 70-120 Meter ID: [id number] Medical Centerodium Level 2017-05-09 07:45:00* Test Item Value Reference Range Interpretation Comments Sodium Level (test code = 2951-2) 143 136-145 [facility] HospitalPotassium Ljebo0364-55-64 07:45:00* Test Item Value Reference Range Interpretation Comments Potassium Level (test code = 2823-3) 3.5 3.5-5.1 [facility] HospitalChloride Oapuz7834-39-63 07:45:00* Test Item Value Reference Range Interpretation Comments Chloride Level (test code = 2075-0) 105 98-107 [facility] HospitalCarbon Dioxide Ofkkb5743-69-82 07:45:00* Test Item Value Reference Range Interpretation Comments Carbon Dioxide Level (test code = 2028-9) 27 22-29 [facility] HospitalAnion Ahh7447-38-27 07:45:00* Test Item Value Reference Range Interpretation Comments Anion Gap (test code = 80087-8) 14.5 8-16 [facility] HospitalBlood Urea Xqqtkton4632-27-37 07:45:00* Test Item Value Reference Range Interpretation Comments Blood Urea Nitrogen (test code = 3094-0) 5 7-26 L [facility] HospitalCreatinine2018-01-29 07:45:00* Test Item Value Reference Range Interpretation Comments Creatinine (test code = 2160-0) 0.64 0.57-1.11 [facility] HospitalBUN/Creatinine Mehlk3092-36-71 07:45:00* Test Item Value Reference Range Interpretation Comments BUN/Creatinine Ratio (test code = 3097-3) 8 6-25 [facility] HospitalEstimat Glomerular Filtration Rate 2017-05-09 07:45:00* Test Item Value Reference Range Interpretation Comments Estimat Glomerular Filtration Rate (test code = 25259-2) 60- >60 Ranges were taken from the National Kidney Disease Education Program and the [facility] literature.Reference ranges:60 or greater: Kbffyq62-01 ( for 3 consecutive months): Chronic kidney disease 15 or less: Kidney failureHarris Health System Ben Taub HospitalGlucose Pmmhq7678-68-63 07:45:00* Test Item Value Reference Range Interpretation Comments Glucose Level (test code = LZB8556) 112 74-118 [facility] HospitalCalcium Opbfc2245-52-43 07:45:00* Test Item Value Reference Range Interpretation Comments Calcium Level (test code = 89296-2) 8.6 8.4-10.2 [facility] HospitalWhite Blood Ygvik1387-01-33 07:23:00* Test Item Value Reference Range Interpretation Comments White Blood Count (test code = 6690-2) 5.42 4.8-10.8 [facility] HospitalRed Blood Gpovf8357-75-27 07:23:00* Test Item Value Reference Range Interpretation Comments Red Blood Count (test code = 789-8) 4.25 3.6-5.1 [facility] HospitalHemoglobin2018-01-29 07:23:00* Test Item Value Reference Range Interpretation Comments Hemoglobin (test code = 14425-6) 12.7 12.0-16.0 [facility] HospitalHematocrit2018-01-29 07:23:00* Test Item Value Reference Range Interpretation Comments Hematocrit (test code = 4544-3) 38.7 34.2-44.1 [facility] HospitalMean Corpuscular Ouxurb1933-95-92 07:23:00* Test Item Value Reference Range Interpretation Comments Mean Corpuscular Volume (test code = 787-2) 91.1 81-99 [facility] HospitalMean Corpuscular Bzklbejltq5281-12-62 07:23:00* Test Item Value Reference Range Interpretation Comments Mean Corpuscular Hemoglobin (test code = 785-6) 29.9 28-32 [facility] HospitalMean Corpuscular Hemoglobin Concent 2017-05-09 07:23:00* Test Item Value Reference Range Interpretation Comments Mean Corpuscular Hemoglobin Concent (test code = 786-4) 32.8 31-35 [facility] HospitalRed Cell Distribution Xvzwa6099-85-78 07:23:00* Test Item Value Reference Range Interpretation Comments Red Cell Distribution Width (test code = 10397-5) 13.7 11.7 -14.4 [facility] HospitalPlatelet Jkhha5285-69-39 07:23:00* Test Item Value Reference Range Interpretation Comments Platelet Count (test code = 777-3) 190 140-360 [facility] HospitalNeutrophils (%) (Auto)2017-05-09 07:23:00 * Test Item Value Reference Range Interpretation Comments Neutrophils (%) (Auto) (test code = 50005-6) 52.5 38.7-80.0 [facility] HospitalLymphocytes (%) (Auto)2017-05-09 07:23:00 * Test Item Value Reference Range Interpretation Comments Lymphocytes (%) (Auto) (test code = 736-9) 35.1 18.0-39.1 [facility] HospitalMonocytes (%) (Auto)2017-05-09 07:23:00* Test Item Value Reference Range Interpretation Comments Monocytes (%) (Auto) (test code = 5905-5) 7.2 4.4-11.3 [facility] HospitalEosinophils (%) (Auto)2017-05-09 07:23:00 * Test Item Value Reference Range Interpretation Comments Eosinophils (%) (Auto) (test code = 713-8) 4.4 0.0-6.0 [facility] HospitalBasophils (%) (Auto)2017-05-09 07:23:00* Test Item Value Reference Range Interpretation Comments Basophils (%) (Auto) (test code = 706-2) 0.2 0.0-1.0 [facility] HospitalIM GRANULOCYTES %2017-05-09 07:23:00* Test Item Value Reference Range Interpretation Comments IM GRANULOCYTES % (test code = IM GRANULOCYTES %) 0.6 0.0- 1.0 [facility] HospitalNeutrophils # (Auto)2017-05-09 07:23:00* Test Item Value Reference Range Interpretation Comments Neutrophils # (Auto) (test code = 751-8) 2.9 2.1-6.9 [facility] HospitalLymphocytes # (Auto)2017-05-09 07:23:00* Test Item Value Reference Range Interpretation Comments Lymphocytes # (Auto) (test code = 83610-5) 1.9 1.0-3.2 [facility] HospitalMonocytes # (Auto)2017-05-09 07:23:00* Test Item Value Reference Range Interpretation Comments Monocytes # (Auto) (test code = 742-7) 0.4 0.2-0.8 [facility] HospitalEosinophils # (Auto)2017-05-09 07:23:00* Test Item Value Reference Range Interpretation Comments Eosinophils # (Auto) (test code = 711-2) 0.2 0.0-0.4 [facility] HospitalBasophils # (Auto)2017-05-09 07:23:00* Test Item Value Reference Range Interpretation Comments Basophils # (Auto) (test code = 704-7) 0.0 0.0-0.1 [facility] HospitalAbsolute Immature Granulocyte (auto 2017-05-09 07:23:00* Test Item Value Reference Range Interpretation Comments Absolute Immature Granulocyte (auto (pia t code = Absolute Immature Granulocyte (auto) 0.03 0-0.1 [facility] HospitalHemoglobin A1c Srjwjyl9503-02-92 10:42:00 * Test Item Value Reference Range Interpretation Comments Hemoglobin A1c Percent (test code = Hemoglobin A1c Percent) 5.1 4.0-7.0 [facility] HospitalCreatine Kinase PC9901-91-08 02:29:00* Test Item Value Reference Range Interpretation Comments Creatine Kinase MB (test code = 60275-0) 1.30 0.00-5.00 [facility] HospitalTroponin W3476-88-62 02:29:00* Test Item Value Reference Range Interpretation Comments Troponin I (test code = 98957-5) 0.016 0-0.300 [facility] HospitalTotal Kqzeomqxh1314-30-18 02:23:00* Test Item Value Reference Range Interpretation Comments Total Bilirubin (test code = 1975-2) 0.9 0.2-1.2 [facility] HospitalAspartate Amino Transf (AST/SGOT) 2017-05-07 02:23:00* Test Item Value Reference Range Interpretation Comments Aspartate Amino Transf (AST/SGOT) (test code = Aspartate Amino Transf (AST/SGOT)) 15 5-34 [facility] HospitalAlanine Aminotransferase (ALT/SGPT) 2017-05-07 02:23:00* Test Item Value Reference Range Interpretation Comments Alanine Aminotransferase (ALT/SGPT) (test code = 1742-6) 10 0-55 [facility] HospitalTotal Qicpzdp2974-40-32 02:23:00* Test Item Value Reference Range Interpretation Comments Total Protein (test code = 2885-2) 6.2 6.5-8.1 L [facility] HospitalAlbumin2018-01-27 02:23:00* Test Item Value Reference Range Interpretation Comments Albumin (test code = 1751-7) 3.4 3.5-5.0 L [facility] HospitalGlobulin2018-01-27 02:23:00* Test Item Value Reference Range Interpretation Comments Globulin (test code = 35198-3) 2.8 2.3-3.5 [facility] HospitalAlbumin/Globulin Tdslk7700-48-10 02:23:00 * Test Item Value Reference Range Interpretation Comments Albumin/Globulin Ratio (test code = 1759-0) 1.2 0.8-2.0 [facility] HospitalAlkaline Enfvgckkzlg2283-05-37 02:23:00* Test Item Value Reference Range Interpretation Comments Alkaline Phosphatase (test code = 6768-6) 55 40-150 [facility] HospitalTriglycerides Ngduc4399-38-24 02:23:00* Test Item Value Reference Range Interpretation Comments Triglycerides Level (test code = 2571-8) 108 0-149 [facility] HospitalCholesterol Xjqxz7359-58-45 02:23:00* Test Item Value Reference Range Interpretation Comments Cholesterol Level (test code = 2093-3) 76 0-199 Less than 200 mg/dL Low Sbal130 - 239 mg/dL Borderline Jffo234 m g/dl and greater High Risk [facility] HospitalLDL Cahmqtjnveo0329-04-21 02:23:00* Test Item Value Reference Range Interpretation Comments LDL Cholesterol (test code = 2089-1) 9 60-130 L [facility] HospitalHDL Jawbewydpze3987-97-46 02:23:00* Test Item Value Reference Range Interpretation Comments HDL Cholesterol (test code = 2085-9) 45 40-60 [facility] HospitalCholesterol/HDL Yzknt9026-16-73 02:23:00 * Test Item Value Reference Range Interpretation Comments Cholesterol/HDL Ratio (test code = 9830-1) 1.7 3.0-3.6 L [facility] HospitalCreatine Btilzq7317-09-47 02:23:00* Test Item Value Reference Range Interpretation Comments Creatine Kinase (test code = 2157-6) 81 29-168 [facility] HospitalProthrombin Wnhn5826-53-66 02:13:00* Test Item Value Reference Range Interpretation Comments Prothrombin Time (test code = 5902-2) 13.4 11.9-14.5 [facility] HospitalProthromb Time International Ratio 2017-05-07 02:13:00* Test Item Value Reference Range Interpretation Comments Prothromb Time International Ratio (test code = 6301-6) 0.97 Oral Anticoagulant Therapy INR Values:1. Low Intensity Therapy 1.5 - 2.02 . Moderate Intensity Therapy 2.0 - 3.03. High Intensity Therapy(1) 2.5 - 3. 54. High Intensity Therapy(2) 3.0 - 4.05. Panic Value INR > 5.0 [facility] HospitalActivated Partial Thromboplast Time 2017-05-07 02:13:00* Test Item Value Reference Range Interpretation Comments Activated Partial Thromboplast Time (test code = 66198-6) 30.5 23.8-35.5 [facility] HospitalLactic Acid Hxdgv9691-18-08 09:39:00* Test Item Value Reference Range Interpretation Comments Lactic Acid Level (test code = Lactic Acid Level) 25.1 4.5- 19.8 H [facility] HospitalUrine RRJ4782-88-92 09:33:00* Test Item Value Reference Range Interpretation Comments Urine WBC (test code = 5821-4) NONE 0-5 [facility] HospitalUrine PMO1399-73-10 09:33:00* Test Item Value Reference Range Interpretation Comments Urine RBC (test code = 92589-7) NONE 0-5 [facility] HospitalUrine Bnsqvmwz4768-20-32 09:33:00* Test Item Value Reference Range Interpretation Comments Urine Bacteria (test code = 05791-4) NONE NONE [facility] HospitalUrine Epithelial Zqvwb8290-44-88 09:33:00 * Test Item Value Reference Range Interpretation Comments Urine Epithelial Cells (test code = 42533-0) RARE NONE [facility] HospitalUrine Svujd1978-61-58 09:22:00* Test Item Value Reference Range Interpretation Comments Urine Color (test code = 5778-6) YELLOW YELLOW [facility] HospitalUrine Bczxnpw6222-58-99 09:22:00* Test Item Value Reference Range Interpretation Comments Urine Clarity (test code = 57058-8) CLEAR CLEAR [facility] HospitalUrine Specific Wnlfikz8441-24-97 09:22:00 * Test Item Value Reference Range Interpretation Comments Urine Specific Palmer (test code = 5811-5) 1.015 1.010-1.02 5 [facility] HospitalUrine [id number] 09:22:00* Test Item Value Reference Range Interpretation Comments Urine pH (test code = 06447-2) 6 5-7 [facility] HospitalUrine Leukocyte Wnuqoash2404-81-67 09:22:00* Test Item Value Reference Range Interpretation Comments Urine Leukocyte Esterase (test code = 5799-2) NEGATIVE NEGATIVE [facility] HospitalUrine Dywuhba2862-82-24 09:22:00* Test Item Value Reference Range Interpretation Comments Urine Nitrite (test code = 50267-5) NEGATIVE NEGATIVE [facility] HospitalUrine Axmshyt7356-93-21 09:22:00* Test Item Value Reference Range Interpretation Comments Urine Protein (test code = 5804-0) NEGATIVE NEGATIVE [facility] HospitalUrine Glucose (UA)2017-05-06 09:22:00* Test Item Value Reference Range Interpretation Comments Urine Glucose (UA) (test code = 2349-9) NEGATIVE NEGATIVE [facility] HospitalUrine Speocii4226-15-86 09:22:00* Test Item Value Reference Range Interpretation Comments Urine Ketones (test code = 25697-4) 1+ NEGATIVE [facility] Rxbzwsttxwgb6154-19-95 09:22:00* Test Item Value Reference Range Interpretation Comments Urine Urobilinogen (test code = 01295-2) 0.2 0.2-1 [facility] HospitalUrine Efjbddqdj4117-77-56 09:22:00* Test Item Value Reference Range Interpretation Comments Urine Bilirubin (test code = 1978-6) NEGATIVE NEGATIVE [facility] HospitalUrine Qrztw7061-12-64 09:22:00* Test Item Value Reference Range Interpretation Comments Urine Blood (test code = 82731-1) NEGATIVE NEGATIVE [facility] HospitalB-Type Natriuretic Qqurczm9702-14-68 09:14:00* Test Item Value Reference Range Interpretation Comments B-Type Natriuretic Peptide (test code = 78532-1) 25.5 0-100 [facility] HospitalThyroid Stimulating Hormone (TSH) 2017-05-06 09:14:00* Test Item Value Reference Range Interpretation Comments Thyroid Stimulating Hormone (TSH) (test code = 72892-9) 1.904 0.350-4.940 [facility] HospitalPhosphorus Onzil8424-12-30 08:52:00* Test Item Value Reference Range Interpretation Comments Phosphorus Level (test code = MVW4638) 3.6 2.3-4.7 [facility] HospitalMagnesium Dprfd6009-05-32 08:52:00* Test Item Value Reference Range Interpretation Comments Magnesium Level (test code = 84269-6) 1.3 1.3-2.1 [facility] Test - Treadmill ONLY [facility] [address] [place] [address] Patient Name : JARVIS BETANCOURT MR #: [id number] : 1945 Age/Sex: 72/F Adm Physician : JONAS BUCKLEY MD Admit Date : 05/06/17 Location : [facility] Room/Bed : [facility] REPORT: Cardiology Report DATE OF STUDY: LEXISCAN NUCLEAR STRESS TEST INDICATION: Chest pain. DESCRIPTION OF PROCEDURE: After informed consent, patient was broug ht to the stress lab. She was given 28 mCi of technetium 99 Myoview and m yocardial perfusion SPECT images obtained in the horizontal long axis, short axis, and vertical long axis. The next day, patient was given 0.4 mg of Adali scan over 10 seconds. Patient was given 28 mCi of technetium 99 Myoview and myocardial perfusion SPECT images were obtained in horizontal long axis, shor t axis, and vertical long axis. Gating images were also obtained. Patient t olerated the procedure without any complications. A 2-day protocol was perfo rmed because patient was obese. REPORT: Baseline EKG shows sinus rhythm at 61 beats per minute. Normal axis. Normal intervals. No acute ST-T changes. PARAMETERS 1. Resting heart rate is 70 beats per minute. 2. Maximum h eart rate is 96 beats per minute. 3. Resting blood pressure 175/81 mmHg. 4. Maximum blood pressure 175/81 mmHg. REASON FOR TERMINATION: Endpoint obtai [place]. INTERPRETATION 1. Negative chest pain. 2. Negative for arrhythmias . 3. Blood pressure response consistent with Lexiscan. 4. No significant ST- T changes seen during Lexiscan infusion compared to baseline. 5. Analysis o f SPECT images reveals uniform radioisotope uptake in all segments of myocard ium without any significant perfusion defects. CONCLUSION 1. No evidence significant ischemia or infarction on this study. 2. No wall motion abnormalit ies. 3. Overall ejection fraction is 76%. D Job#: [id number] PAT Signature Date Dictated By: MAHAD ASHRAF MD Transcribed By: EDS on 05/10/17 < Electronically signed by MAHAD ASHRAF MD><<Signature on File>>05/18/17 0957 COPY TO: CHEST SINGLE (PORTABLE) [place] [address] Patient Name: JARVIS BETANCOURT MR #: [id number] : 1945 Age/Sex: 72/F Req #: [id number] Adm Physician: JONAS BUCKLEY MD Ordered by: CL QUILES MD Report #: [id number] Location: [facility] Room/Bed: [place] [address] Procedure: [id number] D X/CHEST SINGLE (PORTABLE) Exam Date: 05/07/17 Exam T michelle: 0605 REPORT STATUS: Signed CHEST SINGLE (PORTABLE), 05/07/2017 5:00 AM Technique: CHEST SINGLE (PORTABLE) Comparison: None available. Clin ical history: Shortness of breath Findings: See Impression Impressio n: 1. Mildly enlarged cardiac silhouette. 2. Bibasilar opacities which may r eflect atelectasis. Aspiration or infection could be considered in the proper clinical context. 3. No significant effusion. No pneumothorax. Signed by: Dr Marleny Amos MD on 05/07/2017 6:45 AM Dictated By: MARLENY AMOS MD 4 Transcribed By: CLIFFORD on 05/07/17644 COPY TO: CL QUILES MD CHEST SINGLE (PORTABLE) [place] [address] Patient Name: JARVIS BETANCOURT MR #: [id number] : 1945 Age/Sex: 72/F Req #: [id number] Adm Physician: Ordered by: CL QUILES MD Report #: [id number] Location: ER Room/Bed: Procedure: [id number] DX/CHEST SINGLE (PORTABLE) Exam Date: 05/06/17 Exam Time: 1000 REPORT STAT US: Signed PROCEDURE: A single AP view of the chest. COMPARISON: 12/19 INDICATIONS: SHORTNESS OF BREATH FINDINGS: Lines/tubes : None. Lungs: Bibasilar subsegmental atelectasis. No consolidation or ed beau. Pleura: There is no pleural effusion or pneumothorax. Heart an d mediastinum: Tortuous aorta. The pulmonary arteries are prominent. Tyler adán: No acute bony abnormality. IMPRESSION: No evidence of infecti on or edema. Dictated by: Arnaldo Jackson M.D. on 05/06/2017 at 11:33 Electronically approved by: Arnaldo Jackson M.D. on 05/06/2017 at 11:33 Dictated By: ARNALDO JACKSON MD 1133 Transcribed By: JIMMY on 05/06/17 1133 COPY TO: CL QUILES MD
[2019-11-15 10:38] LABS: BASOPHILS % 0.2 % (0.0-1.0); EOSINOPHILS % 0.2 % (0.0-6.0); HEMATOCRIT 45.6 % (34.2-44.1); LYMPHOCYTES # (AUTO) 2.3 (1.0-3.2); LYMPHOCYTES % 23.4 % (18.0-39.1); MEAN CORPUSCULAR HEMOGLOBIN 29.1 pg (28-32); MEAN CORPUSCULAR HGB CONC 32.9 g/dL (31-35); MEAN CORPUSCULAR VOLUME 88.5 fL (81-99); MONOCYTES # (AUTO) 0.8 (0.2-0.8); MONOCYTES % 7.9 % (4.4-11.3); NEUTROPHILS # (AUTO) 6.6 (2.1-6.9); NEUTROPHILS % 68.1 % (38.7-80.0); PLATELET COUNT 232 x10e3/uL (140-360); RED BLOOD COUNT 5.15 x10e6/uL (3.6-5.1); RED CELL DISTRIBUTION WIDTH 14.2 % (11.7-14.4)
--- NOTE | 2019-11-15 10:47 | Emergency Department Note ---
History of Present Illnes History of Present Illness Chief Complaint: Skin Rash or Abscess History of Present Illness This is a 74 year old female arrived to the ED with complaints of rash over her trunk and under her panus for 1 month- pt was put on topical anti- fungal with no relief. Patient states she had a punch biopsy done by dermatology with the results are still pending. Patient describes the rash is burning in nature Historian: Patient Arrival Mode: Car Onset (how long ago): month(s) Radiation: Reports back, Reports neck, Reports abdomen Severity: mild Duration (how long): month(s) Progression: unchanged Chronicity: new Exacerbating factors: none Past Medical/Family History Physician Review I have reviewed the patient's past medical and family history. Any updates have been documented here. Past Medical History Recent Fever: No Clinical Suspicion of Infectio: No New/Unexplained Change in Ment: No Past Medical History: Hypertension, Diabetes, COPD, CHF, A-Fib, Kidney Stones, UTI's, Anemia, GERD, Chronic Back Pain Other Medical History: apnea, pneumonia, c-diff, Past Surgical History: Cholecysctectomy, Hysterectomy Other Surgery: Medtonic for overactive bladder Other Last Tetanus: UTD Review of Systems Review of Systems Integumentary: Reports as per HPI, Reports lesions, Reports rash Review of other systems: All other systems negative Physical Exam Related Data Allergies: Coded Allergies: No Known Allergies (Unverified , 10/31/18) Triage Vital Signs Vital Signs Date Time Temp Pulse Resp B/P (MAP) Pulse Ox O2 Delivery O2 Flow Rate FiO2 11/15/19 09:35 97.3 76 16 165/71 98 Room Air Vital signs reviewed: Yes Physical Exam CONSTITUTIONAL Constitutional: Present well-developed, Present well-nourished HENT HENT: Present normocephalic, Present atraumatic, Present oropharynx clear/moist, Present nose normal HENT L/R: Present left ext ear normal, Present right ext ear normal EYES Eyes: Reports PERRL, Reports conjunctivae normal NECK Neck: Present ROM normal PULMONARY Pulmonary: Present effort normal, Present breath sounds normal CARDIOVASCULAR Cardiovascular: Present regular rhythm, Present heart sounds normal, Present capillary refill normal, Present normal rate GASTROINTESTINAL Abdominal: Present soft, Present nontender, Present bowel sounds normal GENITOURINARY Genitourinary: Present exam deferred SKIN Skin: Present warm, Present erythema, Present rash MUSCULOSKELETAL Musculoskeletal: Present ROM normal NEUROLOGICAL Neurological: Present alert, Present oriented x 3, Present no gross motor or sensory deficits PSYCHOLOGICAL Psychological: Present mood/affect normal, Present judgement normal Results Laboratory Lab results reviewed: Yes Imaging Imaging results reviewed: Yes Assessment & Plan Medical Decision Making MDM 74-year-old female arrives to the ED with complaints of body rash, and exam rash. Fungal with a superimposed bacterial infection. Basement membranes intact concerns of [place], staphylococcal skin syndrome or SJS at time of discharge. Assessment & Plan Final Impression: (1) Tinea corporis Depart Disposition: HOME, SELF-CARE Last Vital Signs Date Time Temp Pulse Resp B/P (MAP) Pulse Ox O2 Delivery O2 Flow Rate FiO2 11/15/19 09:35 97.3 76 16 165/71 98 Room Air Home Meds Active Scripts Sulfamethoxazole/Trimethoprim (BACTRIM DS TABLET) 1 Each Tablet, 1 TAB PO BID, #20 TAB 0 Refills Prov:MARINA HUTCHINSON, 11/15/19 Fluconazole (FLUCONAZOLE) 100 Mg Tablet, 100 MG PO DAILY for 7 Days, TAB Prov:MARINA HUTCHINSON, DO 11/15/19 Lactobac Cmb #3/Fos/Pantethine (PROBIOTIC & ACIDOPHILUS CAP) 1 Each Capsule, 1 TAB PO DAILY for 30 Days, #30 Prov:MARINA HUTCHINSON, DO 02/05/19 Ondansetron Hcl* (ZOFRAN*) 4 Mg Tablet, 4 MG SL Q6H PRN for NAUSEA, #14 MG 0 Refills Prov:MARINA HUTCHINSON, 02/05/19 Loperamide Hcl (LOPERAMIDE) 2 Mg Tablet, 2 MG PO Q6H PRN for DIARRHEA for 10 Days, #30 CAP Prov:NOVA ROBERTS MD 11/13/18 Lactobac Cmb #3/Fos/Pantethine (PROBIOTIC & ACIDOPHILUS CAP) 1 Each Capsule, 1 TAB PO Q12HR for 14 Days Prov:PRANAV BUCKLEY MD 11/03/18 Reported Medications Pantoprazole Sodium* (PROTONIX) 40 Mg Tablet.dr, 40 MG PO DAILY, TAB 04/13/19 Insulin Degludec (Tresiba) 100 Unit/1 Ml Vial, 36 UNITS SQ DAILY 04/13/19 Rivaroxaban (XARELTO) 20 Mg Tablet, MG PO DAILY 10/31/18 Liraglutide (VICTOZA 2-ZEFERINO) 0.6 Mg/0.1 Ml Pen.injctr, 1.25 UNITS SQ DAILY 10/31/18 Metformin Hcl (METFORMIN HCL) 500 Mg Tablet, 1000 MG PO BID, #60 TAB 10/31/18 Triamterene/Hctz (TRIAMTERENE-HCTZ 37.5-25 MG TB) 1 Ea Tab, 1 EACH PO DAILY, TAB 07/25/17 Gabapentin (GABAPENTIN) 300 Mg Capsule, 300 MG PO TID, #60 CAP 02/20/14 Simvastatin (SIMVASTATIN) 40 Mg Tablet, 10 MG PO HS, #30 TAB 02/20/14 Amlodipine Besylate (AMLODIPINE BESYLATE) 10 Mg Tablet, 10 MG PO DAILY 01/22/13 Metoprolol Succinate (TOPROL XL) 100 Mg Tab.er.24h, 100 MG PO BID 01/22/13 Isosorbide Mononitrate (ISOSORBIDE MONONITRATE) 30 Mg Tab.er.24h, 30 MG PO DAILY 01/22/13 Medications in the ED Clindamycin Phosphate 50 ml @ 50 mls/hr NOW STAT IV ; Start 11/15/19 at 10:04; Stop 11/15/19 at 11:03 Methylprednisolone Sodium Succinate 125 mg ONCE ONCE IV ; Start 11/15/19 at 10:15; Stop 11/15/19 at 10:16; Status MARINA KERN, Nov 15, 2019 10:47
[2019-11-15 11:05] LABS: ALANINE AMINOTRANSFERASE 12 IU/L (0-55); ALBUMIN 4.7 g/dL (3.5-5.0); ALBUMIN/GLOBULIN RATIO 1.3 (0.8-2.0); ALKALINE PHOSPHATASE 73 IU/L (40-150); ANION GAP 16.6 mmol/L (8-16); BLOOD UREA NITROGEN 17 mg/dL (7-26); BUN/CREATININE RATIO 21 (6-25); CALCIUM 9.9 mg/dL (8.4-10.2); CARBON DIOXIDE 29 mmol/L (22-29); CHLORIDE 100 mmol/L (98-107); EST GLOMERULAR FILTRATION RATE > 60 ML/MIN (60-); GLUCOSE 85 mg/dL (74-118); POTASSIUM 3.6 mmol/L (3.5-5.1); SODIUM 142 mmol/L (136-145)
[2019-11-15] MEDS ORDERED: FLUCONAZOLE100 MG PO (12:19)
[2019-11-15] MEDS ORDERED: BACTRIM DS TAB1 EACH PO (12:19)
[2019-11-15] MEDS ORDERED: LIDOCAINE HCL 2% JELLY 5 ML TUBE TOP ONE (13:45)
== END 2019-11-15 14:04 | disposition home or self-care (01) ==
LOC: ER 10:24
DX: B35.4 Tinea corporis (principal)
CPT/HCPCS: 36415; 80053; 85025; 99284; J2001; J2930

== ENCOUNTER 2020-01-28 09:31 | Observation (INO) | payer MEDICARE ==
[~2020-01-28] VITALS: Ht 162.6 cm; Wt 99.8 kg
[~2020-01-28 09:31] MED LIST changes: +BACTRIM DS TAB1 EACH PO; +FLUCONAZOLE100 MG PO
[2020-01-28 11:24] LABS: BASOPHILS % 0.2 % (0.0-1.0); EOSINOPHILS % 0.1 % (0.0-6.0); HEMATOCRIT 40.2 % (34.2-44.1); HEMOGLOBIN 12.8 g/dL (12.0-16.0); LYMPHOCYTES # (AUTO) 1.3 (1.0-3.2); MEAN CORPUSCULAR HEMOGLOBIN 29.3 pg (28-32); MEAN CORPUSCULAR HGB CONC 31.8 g/dL (31-35); MONOCYTES # (AUTO) 0.5 (0.2-0.8); MONOCYTES % 3.5 % (4.4-11.3); NEUTROPHILS % 86.7 % (38.7-80.0); PLATELET COUNT 178 x10e3/uL (140-360); RED BLOOD COUNT 4.37 x10e6/uL (3.6-5.1); RED CELL DISTRIBUTION WIDTH 15.2 % (11.7-14.4)
[2020-01-28 11:41] LABS: INR 1.66; PROTHROMBIN TIME 20.4 seconds (11.9-14.5)
[2020-01-28 11:49] LABS: ALANINE AMINOTRANSFERASE 15 IU/L (0-55); ALBUMIN 3.6 g/dL (3.5-5.0); ALBUMIN/GLOBULIN RATIO 1.4 (0.8-2.0); ALKALINE PHOSPHATASE 51 IU/L (40-150); ANION GAP 15.2 mmol/L (8-16); BLOOD UREA NITROGEN 16 mg/dL (7-26); BUN/CREATININE RATIO 19 (6-25); CALCIUM 8.7 mg/dL (8.4-10.2); CARBON DIOXIDE 31 mmol/L (22-29); CHLORIDE 98 mmol/L (98-107); CREATININE, SERUM 0.84 mg/dL (0.57-1.11); EST GLOMERULAR FILTRATION RATE > 60 ML/MIN (60-); GLUCOSE 124 mg/dL (74-118); POTASSIUM 4.2 mmol/L (3.5-5.1); SODIUM 140 mmol/L (136-145)
[2020-01-28] MEDS ORDERED: DIPHENHYDRAMINE HCL INJ 50 MG/ML VIAL IV ONE (12:45)
[2020-01-28] MEDS: METHYLPREDNISOLONE SOD SUCC 125 MG/2ML VIAL IV SCH ×2 (13:17→22:02)
[2020-01-28 13:35] VITALS: BP 145/83
[2020-01-28 13:51] VITALS: BP 145/83
[2020-01-28 14:09] VITALS: BP 145/83
[2020-01-28] MEDS ORDERED: ALCLOMETASONE D15 GM (14:44)
[2020-01-28] MEDS ORDERED: PREDNISONE20 MG PO (14:44)
[2020-01-28] MEDS ORDERED: LMX 45 G1 TOP (14:44)
[2020-01-28] MEDS ORDERED: KETOCONAZOLE15 GM TOP (14:44)
[2020-01-28] MEDS ORDERED: OTEZLA1 EACH PO (14:44)
[2020-01-28] MEDS ORDERED: TRESIBA100 UNIT/1 (14:44)
[2020-01-28] MEDS ORDERED: FLUOCINONIDE-E15 GM (14:44)
[2020-01-28] MEDS ORDERED: LOSARTAN POTAS100 MG PO (14:44)
[2020-01-28] MEDS ORDERED: HYDROXYZINE HCL25 MG PO (14:44)
[2020-01-28] MEDS ORDERED: MYRBETRIQ50 MG (14:44)
[2020-01-28 16:08] VITALS: BP 138/72
[2020-01-28 21:00] VITALS: BP 138/72
[2020-01-28] MEDS ORDERED: ACETAMINOPHEN/CODEINE 300MG - 30MG TAB PO PRN (23:30)
[2020-01-28] MEDS ORDERED: SODIUM CHLORIDE 0.9% 50ML 50 ML ONE (23:39)
[2020-01-29] VITALS (8 sets, daily range): BP systolic 129–167; BP diastolic 51–91
[2020-01-29] MEDS ORDERED: PIPER-TAZ 3.375 GM 50 ML IV SCH
[2020-01-29] MEDS: VANCOMYCIN 1GM/NS 250 ML 250 ML IV SCH ×2 (00:08→22:38)
[2020-01-29] MEDS ORDERED: DOCUSATE SODIUM 100 MG CAP PO PRN (06:45)
[2020-01-29] MEDS ORDERED: ACETAMINOPHEN 325 MG TAB PO PRN (06:45)
[2020-01-29] MEDS ORDERED: ZOLPIDEM TARTRATE 5 MG TAB PO PRN ×2 (06:45→21:00)
[2020-01-29 08:13] LABS: CHOL/HDL RATIO 1.4 (3.0-3.6)
[2020-01-29] MEDS: NYSTATIN 15 GM POWDER UD BTL TOP SCH ×3 (08:47→21:30)
[2020-01-29] MEDS: PIPER-TAZ 3.375 GM 50 ML IV SCH ×2 (08:47→15:07)
[2020-01-29] MEDS: METHYLPREDNISOLONE SOD SUCC 125 MG/2ML VIAL IV SCH ×2 (08:47→21:30)
[2020-01-29] MEDS ORDERED: SODIUM CHLORIDE 0.9% 250ML 250 ML ONE (08:49)
[2020-01-29] MEDS ORDERED: NYSTATIN 15 GM POWDER UD BTL TOP SCH (09:00)
[2020-01-29] MEDS: MORPHINE SULFATE INJ 4 MG/ML INJ 1ML IV PRN ×2 (16:20→22:12)
[2020-01-29] MEDS: ONDANSETRON HCL INJ 2MG/ML 2ML 2 MG/ML VIAL IV PRN ×2 (16:20→21:37)
[2020-01-30] VITALS: BP 147/79
[2020-01-30] MEDS: PIPER-TAZ 3.375 GM 50 ML IV SCH ×3 (00:42→15:46)
[2020-01-30 04:00] VITALS: BP 155/89
[2020-01-30] MEDS: ONDANSETRON HCL INJ 2MG/ML 2ML 2 MG/ML VIAL IV PRN ×2 (06:20→11:16)
[2020-01-30] MEDS: MORPHINE SULFATE INJ 4 MG/ML INJ 1ML IV PRN ×2 (06:20→11:16)
[2020-01-30 08:10] VITALS: BP 154/64
[2020-01-30 08:38] VITALS: BP 154/65
[2020-01-30] MEDS: NYSTATIN 15 GM POWDER UD BTL TOP SCH ×2 (09:00→15:46)
[2020-01-30] MEDS: METHYLPREDNISOLONE SOD SUCC 125 MG/2ML VIAL IV SCH (09:00)
[2020-01-30 11:15] VITALS: BP 153/84
[2020-01-30 16:01] VITALS: BP 135/55
== END 2020-01-30 16:34 ==
LOC: ER 10:00 → ERHOLD 10:02 → MED/SURG3 13:25
PROVIDERS: ADMIT Internal Medicine; ATTEND Internal Medicine
DX: L98.9 Disorder of the skin and subcutaneous tissue, unspecified (principal); E11.9 Type 2 diabetes mellitus without complications; I48.0 Paroxysmal atrial fibrillation; Z79.01 Long term (current) use of anticoagulants; E66.9 Obesity, unspecified; Z68.37 Body mass index [BMI] 37.0-37.9, adult; I11.9 Hypertensive heart disease without heart failure; Z11.59 Encounter for screening for other viral diseases
CPT/HCPCS: 36415 ×3; 80053; 80061; 82948 ×3; 83036; 85025; 85610; 85651; 86039; 86160 ×2; 86162; 86431; 97161; 99284; G0378 ×3; J1200; J2270 ×2; J2405 ×2; J2543 ×3; J2930 ×3; J3370 ×2; J7050; U0002

== ENCOUNTER 2020-06-09 10:27 | Emergency (ER) | payer MEDICARE ==
[~2020-06-09] VITALS: Ht 315 cm; Wt 99.8 kg
[~2020-06-09 10:27] MED LIST changes: +ALCLOMETASONE D15 GM; +FLUOCINONIDE-E15 GM; +HYDROXYZINE HCL25 MG PO; +KETOCONAZOLE15 GM TOP; +LMX 45 G1 TOP; +MYRBETRIQ50 MG; +OTEZLA1 EACH PO; +PREDNISONE20 MG PO; +TRESIBA100 UNIT/1
== END 2020-06-09 12:17 | disposition home or self-care (01) ==
LOC: ER 11:49
DX: M25.551 Pain in right hip (principal); M25.561 Pain in right knee; S00.83XA Contusion of other part of head, initial encounter; W01.0XXA Fall on same level from slipping, tripping and stumbling without subsequent striking against object, initial encounter; Y93.01 Activity, walking, marching and hiking; I10 Essential (primary) hypertension; E11.9 Type 2 diabetes mellitus without complications; E78.5 Hyperlipidemia, unspecified; M54.9 Dorsalgia, unspecified; G89.29 Other chronic pain
CPT/HCPCS: 70450; 72125; 99283

== ENCOUNTER 2020-08-31 10:33 | Inpatient (IN) | payer MEDICARE ==
[~2020-08-31] VITALS: Ht 162.6 cm; Wt 104.3 kg
[2020-08-31] MEDS ORDERED: ASPIRIN 81 MG CHEW TAB PO ONE (11:00)
[2020-08-31 11:04] LABS: BASOPHILS % 0.3 % (0.0-1.0); EOSINOPHILS # (AUTO) 0.1 (0.0-0.4); EOSINOPHILS % 1.1 % (0.0-6.0); HEMOGLOBIN 7.4 g/dL (12.0-16.0); LYMPHOCYTES # (AUTO) 1.5 (1.0-3.2); LYMPHOCYTES % 24.6 % (18.0-39.1); MEAN CORPUSCULAR HGB CONC 28.5 g/dL (31-35); MEAN CORPUSCULAR VOLUME 77.4 fL (81-99); MONOCYTES # (AUTO) 0.5 (0.2-0.8); MONOCYTES % 7.3 % (4.4-11.3); NEUTROPHILS # (AUTO) 4.2 (2.1-6.9); NEUTROPHILS % 66.2 % (38.7-80.0); PLATELET COUNT 303 x10e3/uL (140-360); RED BLOOD COUNT 3.36 x10e6/uL (3.6-5.1); RED CELL DISTRIBUTION WIDTH 18.1 % (11.7-14.4)
[2020-08-31 11:07] LABS: INR 1.1; PROTHROMBIN TIME 14.8 seconds (11.9-14.5)
[2020-08-31 11:08] LABS: PARTIAL THROMBOPLASTIN TIME 35.3 seconds (23.8-35.5)
[2020-08-31 11:20] LABS: ALANINE AMINOTRANSFERASE 9 IU/L (0-55); ALBUMIN 3.8 g/dL (3.5-5.0); ALBUMIN/GLOBULIN RATIO 1.3 (0.8-2.0); ALKALINE PHOSPHATASE 59 IU/L (40-150); ANION GAP 14.7 mmol/L (8-16); BLOOD UREA NITROGEN 13 mg/dL (7-26); BUN/CREATININE RATIO 17 (6-25); CARBON DIOXIDE 27 mmol/L (22-29); CHLORIDE 103 mmol/L (98-107); CREATINE KINASE 52 IU/L (29-168); CREATININE, SERUM 0.78 mg/dL (0.57-1.11); EST GLOMERULAR FILTRATION RATE > 60 ML/MIN (60-); GLUCOSE 101 mg/dL (74-118); POTASSIUM 3.7 mmol/L (3.5-5.1); SODIUM 141 mmol/L (136-145)
[2020-08-31] MEDS ORDERED: DYRENIUM50 MG PO (14:34)
[2020-08-31] MEDS ORDERED: victoza (14:34)
[2020-08-31] MEDS ORDERED: KETOCONAZOLE15 GM TOP (14:37)
[2020-08-31] MEDS ORDERED: FLUOCINONIDE-E15 GM (14:37)
[2020-08-31] MEDS ORDERED: PREDNISONE20 MG PO (14:37)
[2020-08-31] MEDS ORDERED: DOCUSATE SODIU100 MG PO (14:37)
[2020-08-31] MEDS ORDERED: HYDROXYZINE HCL10 MG PO (14:37)
[2020-08-31] MEDS ORDERED: ALCLOMETASONE D15 GM (14:37)
[2020-08-31] MEDS ORDERED: DOCUSATE SODIUM 100 MG CAP PO PRN (15:00)
[2020-08-31] MEDS ORDERED: ACETAMINOPHEN 325 MG TAB PO PRN (15:00)
[2020-08-31] MEDS ORDERED: DEXTROSE 50% SYRINGE 50 ML IV PRN (15:00)
[2020-08-31] MEDS ORDERED: BENZONATATE 100 MG CAP PO PRN (15:00)
[2020-08-31] MEDS: GABAPENTIN 300 MG CAP PO SCH ×2 (15:33→21:08)
[2020-08-31] MEDS: DOXYCYCLINE 100MG/NS 100ML 100 ML IV SCH (15:36)
[2020-08-31] MEDS: INSULIN REGULAR, HUMAN 100 UNIT/1 ML 3ML VIAL SQ SCH ×2 (16:30→20:28)
[2020-08-31 16:41] LABS: CHOL/HDL RATIO 1.3 (3.0-3.6)
[2020-08-31 17:09] LABS: FERRITIN 3.18 ng/mL (4.63-204.00)
[2020-08-31 19:14] LABS: CREATINE KINASE 47 IU/L (29-168)
[2020-08-31 20:20] VITALS: BP 130/65
[2020-08-31 21:07] VITALS: BP 130/65
[2020-08-31 21:17] VITALS: BP 130/65
[2020-08-31] MEDS: ZOLPIDEM TARTRATE 5 MG TAB PO PRN (22:16)
[2020-08-31 23:43] VITALS: BP 151/63
[2020-09-01] MEDS: TRAMADOL HCL 50 MG TAB PO PRN ×2 (00:28→10:49)
[2020-09-01 00:44] LABS: CREATINE KINASE MB 1.1 ng/mL (0-5.0)
[2020-09-01] MEDS: DOXYCYCLINE 100MG/NS 100ML 100 ML IV SCH ×2 (03:10→15:40)
[2020-09-01 05:13] LABS: BASOPHILS % 0.2 % (0.0-1.0); EOSINOPHILS # (AUTO) 0.1 (0.0-0.4); EOSINOPHILS % 1.6 % (0.0-6.0); HEMATOCRIT 24.9 % (34.2-44.1); HEMOGLOBIN 7.1 g/dL (12.0-16.0); LYMPHOCYTES # (AUTO) 1.8 (1.0-3.2); LYMPHOCYTES % 32.5 % (18.0-39.1); MEAN CORPUSCULAR HGB CONC 28.5 g/dL (31-35); MEAN CORPUSCULAR VOLUME 77.1 fL (81-99); MONOCYTES # (AUTO) 0.5 (0.2-0.8); MONOCYTES % 9.8 % (4.4-11.3); NEUTROPHILS # (AUTO) 3.1 (2.1-6.9); NEUTROPHILS % 55.5 % (38.7-80.0); PLATELET COUNT 267 x10e3/uL (140-360); RED BLOOD COUNT 3.23 x10e6/uL (3.6-5.1); RED CELL DISTRIBUTION WIDTH 17.9 % (11.7-14.4)
[2020-09-01 05:34] LABS: ALANINE AMINOTRANSFERASE 8 IU/L (0-55); ALBUMIN 3.5 g/dL (3.5-5.0); ALBUMIN/GLOBULIN RATIO 1.3 (0.8-2.0); ALKALINE PHOSPHATASE 54 IU/L (40-150); ANION GAP 13.3 mmol/L (8-16); BLOOD UREA NITROGEN 9 mg/dL (7-26); BUN/CREATININE RATIO 13 (6-25); CALCIUM 8.9 mg/dL (8.4-10.2); CARBON DIOXIDE 28 mmol/L (22-29); CHLORIDE 105 mmol/L (98-107); CHOL/HDL RATIO 1.4 (3.0-3.6); CHOLESTEROL 77 MD/DL (0-199); CREATININE, SERUM 0.67 mg/dL (0.57-1.11); EST GLOMERULAR FILTRATION RATE > 60 ML/MIN (60-); GLUCOSE 78 mg/dL (74-118); HDL CHOLESTEROL 54 MG/DL (40-60); POTASSIUM 3.3 mmol/L (3.5-5.1); SODIUM 143 mmol/L (136-145); TRIGLYCERIDES 74 MG/DL (0-149)
[2020-09-01 05:39] LABS: LDL CHOLESTEROL 8 MG/DL (60-130)
[2020-09-01 06:11] LABS: CREATINE KINASE MB 1.1 ng/mL (0-5.0)
[2020-09-01] MEDS: INSULIN REGULAR, HUMAN 100 UNIT/1 ML 3ML VIAL SQ SCH ×4 (07:30→21:58)
[2020-09-01] MEDS: AMLODIPINE BESYLATE 10 MG TAB PO SCH (08:09)
[2020-09-01] MEDS: LOSARTAN POTASSIUM 100 MG TAB PO SCH (08:10)
[2020-09-01] MEDS: ISOSORBIDE MONONITRATE 30 MG TAB CR PO SCH (08:10)
[2020-09-01] MEDS: GABAPENTIN 300 MG CAP PO SCH ×3 (08:10→21:21)
[2020-09-01] MEDS: RIVAROXABAN 20 MG TABLET PO SCH (08:12)
[2020-09-01] MEDS: HYDROXYZINE HCL 10 MG TAB PO SCH (08:12)
[2020-09-01 08:36] VITALS: BP 162/56
[2020-09-01 09:12] VITALS: BP 162/56
[2020-09-01 10:51] LABS: ANION GAP 15.6 mmol/L (8-16); BLOOD UREA NITROGEN 9 mg/dL (7-26); BUN/CREATININE RATIO 13 (6-25); CALCIUM 8.8 mg/dL (8.4-10.2); CARBON DIOXIDE 26 mmol/L (22-29); CHLORIDE 103 mmol/L (98-107); CREATININE, SERUM 0.68 mg/dL (0.57-1.11); EST GLOMERULAR FILTRATION RATE > 60 ML/MIN (60-); GLUCOSE 148 mg/dL (74-118); POTASSIUM 3.6 mmol/L (3.5-5.1); SODIUM 141 mmol/L (136-145)
[2020-09-01 12:02] VITALS: BP 168/56
[2020-09-01 16:42] VITALS: BP 136/82
[2020-09-01] MEDS: HYDROCODONE/APAP 5MG-325MG TAB PO PRN (18:18)
[2020-09-01 20:38] VITALS: BP 148/50
[2020-09-01 21:00] VITALS: BP 148/50
[2020-09-01] MEDS: ZOLPIDEM TARTRATE 5 MG TAB PO PRN (21:59)
[2020-09-02] VITALS (8 sets, daily range): BP systolic 112–151; BP diastolic 49–116
[2020-09-02] MEDS: HYDROCODONE/APAP 5MG-325MG TAB PO PRN ×3 (02:08→16:35)
[2020-09-02] MEDS: DOXYCYCLINE 100MG/NS 100ML 100 ML IV SCH ×2 (03:46→16:26)
[2020-09-02] MEDS: INSULIN REGULAR, HUMAN 100 UNIT/1 ML 3ML VIAL SQ SCH ×4 (07:30→21:00)
[2020-09-02] MEDS: HYDROXYZINE HCL 10 MG TAB PO SCH (08:54)
[2020-09-02] MEDS: GABAPENTIN 300 MG CAP PO SCH ×3 (08:55→21:00)
[2020-09-02] MEDS: ISOSORBIDE MONONITRATE 30 MG TAB CR PO SCH (08:55)
[2020-09-02] MEDS: LOSARTAN POTASSIUM 100 MG TAB PO SCH (08:55)
[2020-09-02] MEDS: AMLODIPINE BESYLATE 10 MG TAB PO SCH (08:55)
[2020-09-02] MEDS: RIVAROXABAN 20 MG TABLET PO SCH (08:56)
[2020-09-02 09:35] LABS: ANION GAP 13.6 mmol/L (8-16); BLOOD UREA NITROGEN 7 mg/dL (7-26); BUN/CREATININE RATIO 10 (6-25); CALCIUM 9.1 mg/dL (8.4-10.2); CARBON DIOXIDE 25 mmol/L (22-29); CHLORIDE 105 mmol/L (98-107); CREATININE, SERUM 0.73 mg/dL (0.57-1.11); EST GLOMERULAR FILTRATION RATE > 60 ML/MIN (60-); GLUCOSE 187 mg/dL (74-118); POTASSIUM 3.6 mmol/L (3.5-5.1); SODIUM 140 mmol/L (136-145)
[2020-09-02 11:56] LABS: HEMATOCRIT 25.9 % (34.2-44.1); HEMOGLOBIN 7.4 g/dL (12.0-16.0)
[2020-09-02] MEDS: SODIUM FERRIC GLUCONATE COMPLX 125 MG in SODIUM CHLORIDE 0.9% 100 ML 100 ML IV SCH (13:18)
[2020-09-02] MEDS: FERROUS SULFATE 325 MG TAB PO SCH (16:28)
[2020-09-02] MEDS ORDERED: DILTIAZEM HCL 5 MG/ML 5 ML VIAL IV STA (18:58)
[2020-09-02] MEDS ORDERED: DILTIAZEM HCL 5 MG/ML 5 ML VIAL IV NR (19:00)
[2020-09-02 19:29] LABS: BASOPHILS % 0.4 % (0.0-1.0); EOSINOPHILS # (AUTO) 0.3 (0.0-0.4); EOSINOPHILS % 5.7 % (0.0-6.0); HEMATOCRIT 27.5 % (34.2-44.1); HEMOGLOBIN 7.7 g/dL (12.0-16.0); LYMPHOCYTES # (AUTO) 1.6 (1.0-3.2); LYMPHOCYTES % 28.2 % (18.0-39.1); MEAN CORPUSCULAR HEMOGLOBIN 21.7 pg (28-32); MEAN CORPUSCULAR VOLUME 77.5 fL (81-99); MONOCYTES # (AUTO) 0.5 (0.2-0.8); MONOCYTES % 9.5 % (4.4-11.3); NEUTROPHILS # (AUTO) 3.1 (2.1-6.9); PLATELET COUNT 270 x10e3/uL (140-360); RED BLOOD COUNT 3.55 x10e6/uL (3.6-5.1); RED CELL DISTRIBUTION WIDTH 18.2 % (11.7-14.4)
[2020-09-02 19:48] LABS: ALANINE AMINOTRANSFERASE 6 IU/L (0-55); ALBUMIN 3.8 g/dL (3.5-5.0); ALBUMIN/GLOBULIN RATIO 1.4 (0.8-2.0); ALKALINE PHOSPHATASE 66 IU/L (40-150); ANION GAP 17.6 mmol/L (8-16); BLOOD UREA NITROGEN 8 mg/dL (7-26); BUN/CREATININE RATIO 10 (6-25); CALCIUM 9.1 mg/dL (8.4-10.2); CARBON DIOXIDE 23 mmol/L (22-29); CHLORIDE 104 mmol/L (98-107); CREATINE KINASE 56 IU/L (29-168); CREATININE, SERUM 0.77 mg/dL (0.57-1.11); EST GLOMERULAR FILTRATION RATE > 60 ML/MIN (60-); GLUCOSE 160 mg/dL (74-118); POTASSIUM 3.6 mmol/L (3.5-5.1); SODIUM 141 mmol/L (136-145)
[2020-09-02 20:11] LABS: MAGNESIUM 1.6 MG/DL (1.3-2.1)
[2020-09-02] MEDS: METOPROLOL TARTRATE 25 MG TAB PO SCH ×2 (20:20→21:59)
[2020-09-02] MEDS: ZOLPIDEM TARTRATE 5 MG TAB PO PRN (22:07)
[2020-09-03] VITALS (8 sets, daily range): BP systolic 104–151; BP diastolic 46–72
[2020-09-03] MEDS: HYDROCODONE/APAP 5MG-325MG TAB PO PRN ×3 (02:25→16:16)
[2020-09-03] MEDS: DOXYCYCLINE 100MG/NS 100ML 100 ML IV SCH ×2 (02:59→16:06)
[2020-09-03] MEDS: METOPROLOL TARTRATE 25 MG TAB PO SCH ×3 (06:25→21:29)
[2020-09-03] MEDS: INSULIN REGULAR, HUMAN 100 UNIT/1 ML 3ML VIAL SQ SCH ×4 (07:30→21:00)
[2020-09-03] MEDS: SODIUM FERRIC GLUCONATE COMPLX 125 MG in SODIUM CHLORIDE 0.9% 100 ML 100 ML IV SCH (10:19)
[2020-09-03] MEDS: DIGOXIN 0.125 MG TAB PO SCH (10:19)
[2020-09-03] MEDS: GABAPENTIN 300 MG CAP PO SCH ×3 (10:19→21:29)
[2020-09-03] MEDS: RIVAROXABAN 20 MG TABLET PO SCH (10:19)
[2020-09-03] MEDS: HYDROXYZINE HCL 10 MG TAB PO SCH (10:19)
[2020-09-03] MEDS: FERROUS SULFATE 325 MG TAB PO SCH ×2 (10:20→16:16)
[2020-09-03] MEDS: LOSARTAN POTASSIUM 100 MG TAB PO SCH (10:20)
[2020-09-03] MEDS: ISOSORBIDE MONONITRATE 30 MG TAB CR PO SCH (10:22)
[2020-09-04] VITALS (7 sets, daily range): BP systolic 115–163; BP diastolic 51–76
[2020-09-04] MEDS: HYDROCODONE/APAP 5MG-325MG TAB PO PRN ×3 (01:29→16:52)
[2020-09-04] MEDS: DOXYCYCLINE 100MG/NS 100ML 100 ML IV SCH ×2 (03:44→15:00)
[2020-09-04] MEDS: METOPROLOL TARTRATE 25 MG TAB PO SCH ×2 (05:42→16:46)
[2020-09-04] MEDS: INSULIN REGULAR, HUMAN 100 UNIT/1 ML 3ML VIAL SQ SCH ×4 (07:30→20:50)
[2020-09-04] MEDS: FERROUS SULFATE 325 MG TAB PO SCH ×2 (08:00→16:46)
[2020-09-04 08:30] LABS: BASOPHILS % 0.5 % (0.0-1.0); EOSINOPHILS # (AUTO) 0.4 (0.0-0.4); EOSINOPHILS % 7.5 % (0.0-6.0); HEMATOCRIT 26.1 % (34.2-44.1); HEMOGLOBIN 7.2 g/dL (12.0-16.0); LYMPHOCYTES # (AUTO) 1.6 (1.0-3.2); LYMPHOCYTES % 28.1 % (18.0-39.1); MEAN CORPUSCULAR HEMOGLOBIN 21.6 pg (28-32); MEAN CORPUSCULAR HGB CONC 27.6 g/dL (31-35); MEAN CORPUSCULAR VOLUME 78.4 fL (81-99); MONOCYTES # (AUTO) 0.5 (0.2-0.8); MONOCYTES % 8.9 % (4.4-11.3); NEUTROPHILS # (AUTO) 3.1 (2.1-6.9); NEUTROPHILS % 53.8 % (38.7-80.0); PLATELET COUNT 256 x10e3/uL (140-360); RED BLOOD COUNT 3.33 x10e6/uL (3.6-5.1); RED CELL DISTRIBUTION WIDTH 18.5 % (11.7-14.4)
[2020-09-04 08:45] LABS: BLOOD UREA NITROGEN 5 mg/dL (7-26); BUN/CREATININE RATIO 8 (6-25); CALCIUM 9.1 mg/dL (8.4-10.2); CARBON DIOXIDE 27 mmol/L (22-29); CHLORIDE 104 mmol/L (98-107); CREATININE, SERUM 0.65 mg/dL (0.57-1.11); EST GLOMERULAR FILTRATION RATE > 60 ML/MIN (60-); GLUCOSE 134 mg/dL (74-118); SODIUM 140 mmol/L (136-145)
[2020-09-04] MEDS: DIGOXIN 0.125 MG TAB PO SCH (09:00)
[2020-09-04] MEDS: HYDROXYZINE HCL 10 MG TAB PO SCH (09:07)
[2020-09-04] MEDS: LOSARTAN POTASSIUM 100 MG TAB PO SCH (09:08)
[2020-09-04] MEDS: GABAPENTIN 300 MG CAP PO SCH ×3 (09:09→21:21)
[2020-09-04] MEDS: ISOSORBIDE MONONITRATE 30 MG TAB CR PO SCH (09:09)
[2020-09-04] MEDS: RIVAROXABAN 20 MG TABLET PO SCH (09:09)
[2020-09-04] MEDS: SODIUM FERRIC GLUCONATE COMPLX 125 MG in SODIUM CHLORIDE 0.9% 100 ML 100 ML IV SCH (10:15)
[2020-09-04] MEDS ORDERED: SODIUM CHLORIDE 0.9% 50ML 0 ML ONE (11:56)
[2020-09-04] MEDS ORDERED: IOPAMIDOL 370 MG/ML 200 ML INFUS..BTL INJ ONE (11:56)
[2020-09-04] MEDS: FUROSEMIDE 40 MG TAB PO SCH (12:47)
[2020-09-04] MEDS ORDERED: SODIUM CHLORIDE 0.9% 250ML 250 ML IV ONE (15:15)
[2020-09-04] MEDS ORDERED: FUROSEMIDE INJ 10 MG/ML 2 ML VIAL IV ONE ×2 (17:30→21:45)
[2020-09-04] MEDS ORDERED: LORAZEPAM INJ 2 MG/ML VIAL IV PRN (19:45)
[2020-09-05] VITALS (7 sets, daily range): BP systolic 133–165; BP diastolic 55–93
[2020-09-05] MEDS: DOXYCYCLINE 100MG/NS 100ML 100 ML IV SCH ×2 (03:50→15:00)
[2020-09-05 04:54] LABS: BASOPHILS % 0.6 % (0.0-1.0); EOSINOPHILS # (AUTO) 0.4 (0.0-0.4); EOSINOPHILS % 5.8 % (0.0-6.0); HEMATOCRIT 27.9 % (34.2-44.1); LYMPHOCYTES # (AUTO) 1.7 (1.0-3.2); LYMPHOCYTES % 23.9 % (18.0-39.1); MEAN CORPUSCULAR HEMOGLOBIN 22.5 pg (28-32); MEAN CORPUSCULAR HGB CONC 28.7 g/dL (31-35); MEAN CORPUSCULAR VOLUME 78.4 fL (81-99); MONOCYTES # (AUTO) 0.6 (0.2-0.8); MONOCYTES % 8.7 % (4.4-11.3); NEUTROPHILS # (AUTO) 4.2 (2.1-6.9); NEUTROPHILS % 59.2 % (38.7-80.0); PLATELET COUNT 221 x10e3/uL (140-360); RED BLOOD COUNT 3.56 x10e6/uL (3.6-5.1); RED CELL DISTRIBUTION WIDTH 18.2 % (11.7-14.4)
[2020-09-05 05:13] LABS: ANION GAP 12.6 mmol/L (8-16); BLOOD UREA NITROGEN 5 mg/dL (7-26); BUN/CREATININE RATIO 8 (6-25); CALCIUM 9.1 mg/dL (8.4-10.2); CARBON DIOXIDE 29 mmol/L (22-29); CHLORIDE 104 mmol/L (98-107); CREATININE, SERUM 0.65 mg/dL (0.57-1.11); EST GLOMERULAR FILTRATION RATE > 60 ML/MIN (60-); GLUCOSE 116 mg/dL (74-118); POTASSIUM 3.6 mmol/L (3.5-5.1); SODIUM 142 mmol/L (136-145)
[2020-09-05] MEDS: HYDROCODONE/APAP 5MG-325MG TAB PO PRN ×2 (05:43→14:49)
[2020-09-05] MEDS: INSULIN REGULAR, HUMAN 100 UNIT/1 ML 3ML VIAL SQ SCH ×4 (07:30→20:29)
[2020-09-05] MEDS: FERROUS SULFATE 325 MG TAB PO SCH ×2 (08:00→16:39)
[2020-09-05] MEDS: GABAPENTIN 300 MG CAP PO SCH ×3 (09:00→20:28)
[2020-09-05] MEDS: FUROSEMIDE 40 MG TAB PO SCH (09:00)
[2020-09-05] MEDS: RIVAROXABAN 20 MG TABLET PO SCH (09:00)
[2020-09-05] MEDS: ISOSORBIDE MONONITRATE 30 MG TAB CR PO SCH (09:00)
[2020-09-05] MEDS: METOPROLOL TARTRATE 25 MG TAB PO SCH ×2 (09:00→16:39)
[2020-09-05] MEDS: LOSARTAN POTASSIUM 100 MG TAB PO SCH (09:00)
[2020-09-05] MEDS: HYDROXYZINE HCL 10 MG TAB PO SCH (09:00)
[2020-09-05] MEDS: SODIUM FERRIC GLUCONATE COMPLX 125 MG in SODIUM CHLORIDE 0.9% 100 ML 100 ML IV SCH (09:00)
[2020-09-06] MEDS ORDERED: FUROSEMIDE INJ 10 MG/ML 4 ML VIAL IV SCH (09:00)
== END 2020-09-05 21:18 | DRG 291 ==
LOC: ER 11:02 → ERHOLD 14:44 → MED/SURG2 19:53
PROVIDERS: ADMIT Internal Medicine; ATTEND Internal Medicine
PROC: 02HV33Z Insertion of Infusion Device into Superior Vena Cava, Percutaneous Approach (ICD-10-PCS; principal; 2020-09-04)
DX: I11.0 Hypertensive heart disease with heart failure (principal); J18.9 Pneumonia, unspecified organism; N39.0 Urinary tract infection, site not specified; I50.33 Acute on chronic diastolic (congestive) heart failure; E11.9 Type 2 diabetes mellitus without complications; I48.0 Paroxysmal atrial fibrillation; D64.9 Anemia, unspecified; K21.9 Gastro-esophageal reflux disease without esophagitis; E78.5 Hyperlipidemia, unspecified; E66.9 Obesity, unspecified; J44.9 Chronic obstructive pulmonary disease, unspecified; Z68.39 Body mass index [BMI] 39.0-39.9, adult; I49.1 Atrial premature depolarization; Z20.822 Contact with and (suspected) exposure to COVID-19
CPT/HCPCS: 36415; 36568; 71045; 71260; 80048; 80053; 80061; 82550; 82553; 82728; 82948; 83036; 83540; 83735; 83880; 84100; 84466; 84484; 85014; 85018; 85025; 85610; 85730; 86850; 86900; 86920; 93005; 93306; 96372; 97139; 99251; 99284; J1817; J1940; J2060; J2916; J3410; P9016; Q9967; U0002

== ENCOUNTER 2020-11-06 10:51 | Inpatient (IN) | payer MEDICARE ==
[~2020-11-06] VITALS: Ht 162.6 cm; Wt 108.0 kg
[~2020-11-06 10:51] MED LIST changes: +DOCUSATE SODIU100 MG PO; +DYRENIUM50 MG PO; +HYDROXYZINE HCL10 MG PO; +victoza
[2020-11-06 11:15] LABS: BASOPHILS % 0.1 % (0.0-1.0); EOSINOPHILS % 0.3 % (0.0-6.0); HEMATOCRIT 34.2 % (34.2-44.1); HEMOGLOBIN 10.3 g/dL (12.0-16.0); LYMPHOCYTES # (AUTO) 0.7 (1.0-3.2); LYMPHOCYTES % 8.2 % (18.0-39.1); MEAN CORPUSCULAR HEMOGLOBIN 25.2 pg (28-32); MEAN CORPUSCULAR HGB CONC 30.1 g/dL (31-35); MEAN CORPUSCULAR VOLUME 83.6 fL (81-99); MONOCYTES # (AUTO) 0.6 (0.2-0.8); MONOCYTES % 6.4 % (4.4-11.3); NEUTROPHILS # (AUTO) 7.4 (2.1-6.9); NEUTROPHILS % 84.5 % (38.7-80.0); PLATELET COUNT 191 x10e3/uL (140-360); RED BLOOD COUNT 4.09 x10e6/uL (3.6-5.1); RED CELL DISTRIBUTION WIDTH 19.9 % (11.7-14.4)
[2020-11-06 11:38] LABS: ALBUMIN 3.9 g/dL (3.5-5.0); ALBUMIN/GLOBULIN RATIO 1.4 (0.8-2.0); ANION GAP 14.5 mmol/L (8-16); CALCIUM 8.4 mg/dL (8.4-10.2); CREATININE, SERUM 0.68 mg/dL (0.57-1.11); POTASSIUM 3.5 mmol/L (3.5-5.1)
[2020-11-06] MEDS: ACETAMINOPHEN 325 MG TAB PO PRN (12:19)
[2020-11-06] MEDS ORDERED: SODIUM CHLORIDE 0.9% 50ML 50 ML ONE (13:36)
[2020-11-06] MEDS ORDERED: IOPAMIDOL 370 MG/ML 200 ML INFUS..BTL INJ ONE (13:36)
[2020-11-06] MEDS ORDERED: ALBUTEROL/IPRATROPIUM 3 ML NEB NEB ONE (14:00)
[2020-11-06 17:03] LABS: CLARITY,URINE SL CLOUDY (CLEAR); COLOR,URINE YELLOW (YELLOW); KETONES,URINE NEGATIVE (NEGATIVE); LEUKOCYTE ESTERASE ,URINE TRACE (NEGATIVE); NITRITE,URINE POSITIVE (NEGATIVE); PROTEIN,URINE DIPSTICK NEGATIVE (NEGATIVE); URINE UROBILINOGEN 0.2 mg/dL (0.2 - 1)
[2020-11-06 17:14] LABS: BACTERIA,URINE MANY /HPF; WBC,URINE (MAN) 0-5 /HPF (0-5)
[2020-11-06] MEDS ORDERED: ONDANSETRON HCL INJ 2MG/ML 2ML 2 MG/ML VIAL IV STA (18:27)
[2020-11-06 19:00] VITALS: BP 162/75
[2020-11-06 20:00] VITALS: BP 162/75
[2020-11-06] MEDS ORDERED: METFORMIN HCL500 MG PO (20:11)
[2020-11-06] MEDS ORDERED: TRESIBA100 UNIT/1 SQ (20:11)
[2020-11-06] MEDS: MORPHINE SULFATE INJ 4 MG/ML INJ 1ML IV PRN (21:05)
[2020-11-06] MEDS: ONDANSETRON HCL INJ 2MG/ML 2ML 2 MG/ML VIAL IV PRN (21:05)
[2020-11-06 22:29] VITALS: BP 162/75
[2020-11-06] MEDS ORDERED: GUAIFENESIN/DEXTROMETHORPHAN LIQD 5 ML UDC PO PRN (23:30)
[2020-11-07] VITALS (9 sets, daily range): BP systolic 107–147; BP diastolic 49–93
[2020-11-07] MEDS: ACETAMINOPHEN 325 MG TAB PO PRN (00:42)
[2020-11-07] MEDS: BENZONATATE 100 MG CAP PO SCH ×3 (05:14→21:00)
[2020-11-07 06:46] LABS: HEMATOCRIT 32.5 % (34.2-44.1); HEMOGLOBIN 9.9 g/dL (12.0-16.0); LYMPHOCYTES # (AUTO) 0.6 (1.0-3.2); LYMPHOCYTES % 10.8 % (18.0-39.1); MEAN CORPUSCULAR HEMOGLOBIN 25.5 pg (28-32); MEAN CORPUSCULAR HGB CONC 30.5 g/dL (31-35); MEAN CORPUSCULAR VOLUME 83.8 fL (81-99); MONOCYTES # (AUTO) 0.4 (0.2-0.8); MONOCYTES % 7.8 % (4.4-11.3); NEUTROPHILS # (AUTO) 4.3 (2.1-6.9); PLATELET COUNT 183 x10e3/uL (140-360); RED BLOOD COUNT 3.88 x10e6/uL (3.6-5.1); RED CELL DISTRIBUTION WIDTH 20.1 % (11.7-14.4)
[2020-11-07 07:15] LABS: ANION GAP 14.9 mmol/L (8-16); CALCIUM 8.2 mg/dL (8.4-10.2); CREATININE, SERUM 0.69 mg/dL (0.57-1.11)
[2020-11-07 07:17] LABS: POTASSIUM 2.9 mmol/L (3.5-5.1)
[2020-11-07] MEDS ORDERED: POTASSIUM CHLORIDE 20MEQ/100ML 100 ML IV ONE (08:45)
[2020-11-07] MEDS ORDERED: POTASSIUM CHLORIDE 10MEQ EA PO ONE ×2 (08:45)
[2020-11-07] MEDS ORDERED: DOCUSATE SODIUM 100 MG CAP PO PRN (09:30)
[2020-11-07] MEDS ORDERED: ACETAMINOPHEN 325 MG TAB PO PRN (09:30)
[2020-11-07] MEDS ORDERED: ZOLPIDEM TARTRATE 5 MG TAB PO PRN (09:30)
[2020-11-07] MEDS ORDERED: BENZONATATE 100 MG CAP PO PRN (09:30)
[2020-11-07] MEDS ORDERED: SODIUM CHLORIDE 0.9% 250ML 250 ML ONE (09:59)
[2020-11-07] MEDS ORDERED: SODIUM CHLORIDE 0.9% 100 ML ONE (10:45)
[2020-11-07] MEDS ORDERED: POTASSIUM CHLORIDE 10MEQ/100ML 100 ML IV ONE (10:45)
[2020-11-07] MEDS: FUROSEMIDE INJ 10 MG/ML 2 ML VIAL IV SCH ×2 (11:21→17:12)
[2020-11-07] MEDS: ONDANSETRON HCL INJ 2MG/ML 2ML 2 MG/ML VIAL IV PRN ×3 (11:22→23:29)
[2020-11-07] MEDS: MORPHINE SULFATE INJ 4 MG/ML INJ 1ML IV PRN ×3 (11:22→23:29)
[2020-11-07] MEDS: RIVAROXABAN 20 MG TABLET PO SCH (11:23)
[2020-11-07] MEDS: GABAPENTIN 300 MG CAP PO SCH ×2 (14:23→21:00)
[2020-11-07] MEDS: CEFTRIAXONE 1 GM in SODIUM CHLORIDE 0.9% 50ML 50 ML IV SCH (17:11)
[2020-11-07] MEDS ORDERED: METOPROLOL TARTRATE INJ 1 MG/ML VIAL IV ONE (18:45)
[2020-11-07] MEDS: METOPROLOL TARTRATE 25 MG TAB PO SCH (21:00)
[2020-11-08] VITALS (8 sets, daily range): BP systolic 108–135; BP diastolic 49–81
[2020-11-08] MEDS: MORPHINE SULFATE INJ 4 MG/ML INJ 1ML IV PRN ×4 (04:56→20:57)
[2020-11-08] MEDS: BENZONATATE 100 MG CAP PO SCH ×3 (05:16→20:57)
[2020-11-08] MEDS: METOPROLOL TARTRATE 25 MG TAB PO SCH ×4 (05:16→20:57)
[2020-11-08] MEDS: RIVAROXABAN 20 MG TABLET PO SCH (09:54)
[2020-11-08] MEDS: GABAPENTIN 300 MG CAP PO SCH ×3 (09:54→20:57)
[2020-11-08] MEDS: CEFTRIAXONE 1 GM in SODIUM CHLORIDE 0.9% 50ML 50 ML IV SCH (09:55)
[2020-11-08] MEDS: FUROSEMIDE INJ 10 MG/ML 2 ML VIAL IV SCH ×2 (10:01→16:33)
[2020-11-08] MEDS: ONDANSETRON HCL INJ 2MG/ML 2ML 2 MG/ML VIAL IV PRN ×3 (10:01→20:57)
[2020-11-08 16:06] LABS: ANION GAP 15.4 mmol/L (8-16); CALCIUM 8.3 mg/dL (8.4-10.2); CREATININE, SERUM 0.76 mg/dL (0.57-1.11); POTASSIUM 3.4 mmol/L (3.5-5.1)
[2020-11-09] VITALS: BP 121/61
[2020-11-09 04:00] VITALS: BP 130/66
[2020-11-09] MEDS: BENZONATATE 100 MG CAP PO SCH (05:56)
[2020-11-09] MEDS: MORPHINE SULFATE INJ 4 MG/ML INJ 1ML IV PRN (06:45)
[2020-11-09] MEDS: ONDANSETRON HCL INJ 2MG/ML 2ML 2 MG/ML VIAL IV PRN (06:45)
[2020-11-09] MEDS ORDERED: FUROSEMIDE40 MG PO (07:03)
[2020-11-09] MEDS ORDERED: CEPHALEXIN500 MG PO (07:03)
[2020-11-09 07:50] LABS: BASOPHILS % 0.2 % (0.0-1.0); EOSINOPHILS % 0.4 % (0.0-6.0); HEMATOCRIT 34.3 % (34.2-44.1); HEMOGLOBIN 10.4 g/dL (12.0-16.0); LYMPHOCYTES # (AUTO) 1.5 (1.0-3.2); LYMPHOCYTES % 31.5 % (18.0-39.1); MEAN CORPUSCULAR HEMOGLOBIN 25.6 pg (28-32); MEAN CORPUSCULAR HGB CONC 30.3 g/dL (31-35); MEAN CORPUSCULAR VOLUME 84.3 fL (81-99); MONOCYTES # (AUTO) 0.8 (0.2-0.8); MONOCYTES % 16.9 % (4.4-11.3); NEUTROPHILS # (AUTO) 2.4 (2.1-6.9); NEUTROPHILS % 50.8 % (38.7-80.0); PLATELET COUNT 189 x10e3/uL (140-360); RED BLOOD COUNT 4.07 x10e6/uL (3.6-5.1); RED CELL DISTRIBUTION WIDTH 19.9 % (11.7-14.4)
[2020-11-09 08:03] LABS: ANION GAP 16.6 mmol/L (8-16); CALCIUM 8.3 mg/dL (8.4-10.2); CREATININE, SERUM 0.81 mg/dL (0.57-1.11); POTASSIUM 3.6 mmol/L (3.5-5.1)
[2020-11-09] MEDS: RIVAROXABAN 20 MG TABLET PO SCH (09:12)
[2020-11-09] MEDS: METOPROLOL TARTRATE 25 MG TAB PO SCH (09:12)
[2020-11-09] MEDS: FUROSEMIDE INJ 10 MG/ML 2 ML VIAL IV SCH (09:12)
[2020-11-09] MEDS: GABAPENTIN 300 MG CAP PO SCH (09:12)
[2020-11-09] MEDS: CEFTRIAXONE 1 GM in SODIUM CHLORIDE 0.9% 50ML 50 ML IV SCH (09:12)
[2020-11-09 09:47] VITALS: BP 120/47
[2020-11-09 09:56] VITALS: BP 120/47
== END 2020-11-09 10:43 | disposition home or self-care (01) | DRG 871 ==
LOC: ER 12:25 → ERHOLD 18:34 → MED/SURG2 18:38 → OBSVTOIN 11-08 10:35
PROVIDERS: ADMIT Internal Medicine; ATTEND Internal Medicine
DX: A41.9 Sepsis, unspecified organism (principal); I50.33 Acute on chronic diastolic (congestive) heart failure; Z68.41 Body mass index [BMI] 40.0-44.9, adult; N39.0 Urinary tract infection, site not specified; I13.0 Hypertensive heart and chronic kidney disease with heart failure and stage 1 through stage 4 chronic kidney disease, or unspecified chronic kidney disease; R09.02 Hypoxemia; D64.9 Anemia, unspecified; E66.9 Obesity, unspecified; E87.6 Hypokalemia; I48.0 Paroxysmal atrial fibrillation; E11.22 Type 2 diabetes mellitus with diabetic chronic kidney disease; N18.9 Chronic kidney disease, unspecified; Z86.16 Personal history of COVID-19; J92.0 Pleural plaque with presence of asbestos
CPT/HCPCS: 36415; 71045; 71260; 80048; 80053; 81001; 82948; 83880; 84132; 84484; 85025; 93005; 94640; 99284; G0378; J0696; J1940; J2270; J2405; J3480; J7050; Q9967; U0002

== ENCOUNTER 2021-08-29 10:19 | Emergency (ER) | payer MEDICARE ==
[~2021-08-29] VITALS: Ht 162.6 cm; Wt 108.0 kg
[~2021-08-29 10:19] MED LIST changes: +CEPHALEXIN500 MG PO; +FUROSEMIDE40 MG PO
[2021-08-29] MEDS ORDERED: SODIUM CHLORIDE FLUSH 10 ML SYR IV PRN (11:00)
[2021-08-29] MEDS ORDERED: Morphine 2mg Syringe 2 MG/ML SYR IV NR (11:00)
[2021-08-29] MEDS ORDERED: ONDANSETRON HCL INJ 2MG/ML 2ML 2 MG/ML VIAL IV NR (11:15)
[2021-08-29 11:33] LABS: BASOPHILS % 0.3 % (0.0-1.0); EOSINOPHILS % 0.5 % (0.0-6.0); HEMATOCRIT 47.1 % (34.2-44.1); HEMOGLOBIN 15.1 g/dL (12.0-16.0); LYMPHOCYTES # (AUTO) 2.1 (1.0-3.2); MEAN CORPUSCULAR HEMOGLOBIN 29.3 pg (28-32); MEAN CORPUSCULAR HGB CONC 32.1 g/dL (31-35); MEAN CORPUSCULAR VOLUME 91.3 fL (81-99); MONOCYTES # (AUTO) 0.6 (0.2-0.8); NEUTROPHILS % 64.1 % (38.7-80.0); PLATELET COUNT 257 x10e3/uL (140-360); RED BLOOD COUNT 5.16 x10e6/uL (3.6-5.1); RED CELL DISTRIBUTION WIDTH 14.6 % (11.7-14.4)
[2021-08-29 11:46] LABS: INR 0.88; PROTHROMBIN TIME 12.8 seconds (11.9-14.5)
[2021-08-29 11:47] LABS: CLARITY,URINE CLEAR (CLEAR); COLOR,URINE YELLOW (YELLOW); PARTIAL THROMBOPLASTIN TIME 30.2 seconds (23.8-35.5)
[2021-08-29 11:48] LABS: BACTERIA,URINE RARE /HPF; EPITHELIAL CELLS,URINE FEW /LPF; KETONES,URINE NEGATIVE (NEGATIVE); LEUKOCYTE ESTERASE ,URINE MODERATE (NEGATIVE); NITRITE,URINE NEGATIVE (NEGATIVE); PROTEIN,URINE DIPSTICK NEGATIVE (NEGATIVE); URINE UROBILINOGEN 0.2 mg/dL (0.2 - 1)
[2021-08-29 12:30] LABS: ALANINE AMINOTRANSFERASE 13 IU/L (0-55); ALBUMIN 4.3 g/dL (3.5-5.0); ALBUMIN/GLOBULIN RATIO 1.3 (0.8-2.0); ALKALINE PHOSPHATASE 85 IU/L (40-150); ANION GAP 15.5 mmol/L (8-16); BLOOD UREA NITROGEN 14 mg/dL (7-26); BUN/CREATININE RATIO 17 (6-25); CALCIUM 9.6 mg/dL (8.4-10.2); CARBON DIOXIDE 27 mmol/L (22-29); CHLORIDE 103 mmol/L (98-107); CREATININE, SERUM 0.84 mg/dL (0.57-1.11); EST GLOMERULAR FILTRATION RATE 66 ML/MIN (60-); GLUCOSE 132 mg/dL (74-118); POTASSIUM 3.5 mmol/L (3.5-5.1); SODIUM 142 mmol/L (136-145)
[2021-08-29] MEDS ORDERED: ONDANSETRON ODT4 MG PO (14:12)
[2021-08-29] MEDS ORDERED: DICYCLOMINE HCL20 MG PO (14:12)
[2021-08-29] MEDS ORDERED: CEFDINIR300 MG PO (14:13)
== END 2021-08-29 15:38 | disposition home or self-care (01) ==
LOC: ER 10:30
DX: R11.2 Nausea with vomiting, unspecified (principal); R10.84 Generalized abdominal pain; N39.0 Urinary tract infection, site not specified; K57.90 Diverticulosis of intestine, part unspecified, without perforation or abscess without bleeding; E11.65 Type 2 diabetes mellitus with hyperglycemia; I10 Essential (primary) hypertension; I50.9 Heart failure, unspecified; E78.5 Hyperlipidemia, unspecified; D64.9 Anemia, unspecified; M54.9 Dorsalgia, unspecified; G89.29 Other chronic pain; Z20.822 Contact with and (suspected) exposure to COVID-19
CPT/HCPCS: 36415; 71045; 74176; 80053; 81001; 84484; 85025; 85610; 85730; 99284; J2270; J2405; U0002

== ENCOUNTER 2022-05-18 08:57 | Emergency (ER) | payer MEDICARE ==
[~2022-05-18] VITALS: Ht 162.6 cm; Wt 108.0 kg
[~2022-05-18 08:57] MED LIST changes: +DICYCLOMINE HCL20 MG PO; +ONDANSETRON ODT4 MG PO
[2022-05-18] MEDS ORDERED: ONDANSETRON HCL INJ 2MG/ML 2ML 2 MG/ML VIAL IV STA ×2 (09:52→11:34)
[2022-05-18] MEDS ORDERED: SODIUM CHLORIDE 0.9% 1000ML 1,000 ML IV STA (09:52)
[2022-05-18] MEDS ORDERED: DICYCLOMINE HCL 20 MG/2 ML VIAL IM ONE (10:30)
[2022-05-18 10:51] LABS: BASOPHILS % 0.3 % (0.0-1.0); EOSINOPHILS # (AUTO) 0.1 (0.0-0.4); EOSINOPHILS % 1.8 % (0.0-6.0); HEMATOCRIT 44.6 % (34.2-44.1); HEMOGLOBIN 13.3 g/dL (12.0-16.0); LYMPHOCYTES # (AUTO) 2.2 (1.0-3.2); LYMPHOCYTES % 31.8 % (18.0-39.1); MEAN CORPUSCULAR HEMOGLOBIN 29.6 pg (28-32); MEAN CORPUSCULAR HGB CONC 29.8 g/dL (31-35); MEAN CORPUSCULAR VOLUME 99.1 fL (81-99); MONOCYTES # (AUTO) 0.6 (0.2-0.8); MONOCYTES % 9.1 % (4.4-11.3); NEUTROPHILS # (AUTO) 3.9 (2.1-6.9); NEUTROPHILS % 56.7 % (38.7-80.0); PLATELET COUNT 176 x10e3/uL (140-360); RED CELL DISTRIBUTION WIDTH 13.5 % (11.7-14.4)
[2022-05-18 10:52] LABS: CLARITY,URINE SL CLOUDY (CLEAR); COLOR,URINE BROWN (YELLOW)
[2022-05-18 10:53] LABS: KETONES,URINE NEGATIVE (NEGATIVE); LEUKOCYTE ESTERASE ,URINE SMALL (NEGATIVE); NITRITE,URINE POSITIVE (NEGATIVE); PROTEIN,URINE DIPSTICK NEGATIVE (NEGATIVE); URINE UROBILINOGEN 0.2 mg/dL (0.2 - 1)
[2022-05-18 11:11] LABS: ALBUMIN 3.8 g/dL (3.5-5.0); ALBUMIN/GLOBULIN RATIO 1.5 (0.8-2.0); ANION GAP 11.6 mmol/L (8-16); CALCIUM 8.4 mg/dL (8.4-10.2); CREATININE, SERUM 0.71 mg/dL (0.57-1.11); POTASSIUM 3.6 mmol/L (3.5-5.1)
[2022-05-18 11:22] LABS: BACTERIA,URINE MANY /HPF; EPITHELIAL CELLS,URINE MANY /LPF; RBC,URINE 0-5 /HPF (0-5); TRANSITIONAL EPI CELLS,URINE MODERATE
[2022-05-18 11:31] LABS: CREATINE KINASE 94 IU/L (29-168); LIPASE 28 U/L (8-78)
[2022-05-18] MEDS ORDERED: Morphine 4mg INJECTION 4 MG/ML INJ IV STA (11:34)
[2022-05-18 14:01] VITALS: BP 152/73
[2022-05-18] MEDS ORDERED: IOPAMIDOL 370 MG/ML 100 ML INFUS..BTL INJ ONE (15:23)
== END 2022-05-18 14:03 | disposition home or self-care (01) ==
LOC: ER 09:22
DX: R19.7 Diarrhea, unspecified (principal); R11.0 Nausea; I10 Essential (primary) hypertension; E11.9 Type 2 diabetes mellitus without complications; I50.9 Heart failure, unspecified; E78.5 Hyperlipidemia, unspecified; I48.91 Unspecified atrial fibrillation; D64.9 Anemia, unspecified; K21.9 Gastro-esophageal reflux disease without esophagitis; M54.9 Dorsalgia, unspecified; G89.29 Other chronic pain
CPT/HCPCS: 36415; 74177; 80053; 81001; 82270; 82550; 82553; 83630; 83690; 84484; 85025; 87177; 87324; 87449; 99284; C9113; J0500; J2270; J2405; J7030; Q9967

== ENCOUNTER 2024-01-20 10:56 | Emergency (ER) | payer MEDICARE ==
[~2024-01-20] VITALS: Ht 162.6 cm; Wt 110.2 kg
[2024-01-20 11:06] VITALS: TEMP 98.7
[2024-01-20] MEDS ORDERED: MACROBID 100 M100 MG PO (11:46)
[2024-01-20] MEDS ORDERED: DIFLUCAN100 MG PO (11:46)
[2024-01-20] MEDS ORDERED: NYSTATIN1000000 UN EXT (11:46)
[2024-01-20 12:01] VITALS: PULSE 79; RESP 18; O2SAT 98
== END 2024-01-20 12:12 | disposition home or self-care (01) ==
LOC: ER 11:01
DX: Z46.6 Encounter for fitting and adjustment of urinary device (principal); N39.0 Urinary tract infection, site not specified; L30.4 Erythema intertrigo; R21 Rash and other nonspecific skin eruption
CPT/HCPCS: 87086; 87186; 99283

== ENCOUNTER 2024-01-22 11:23 | Inpatient (IN) | payer MEDICARE ==
[~2024-01-22] VITALS: Ht 162.6 cm; Wt 115.2 kg
[~2024-01-22 11:23] MED LIST changes: +DIFLUCAN100 MG PO; +MACROBID 100 M100 MG PO; +NYSTATIN1000000 UN EXT
[2024-01-22] MEDS ORDERED: SODIUM CHLORIDE FLUSH 10 ML SYR INJ PRN (12:15)
[2024-01-22] MEDS: TRAMADOL HCL 50 MG TAB PO ONE (13:27)
[2024-01-22 13:51] LABS: BASOPHILS % 0.4 % (0.0-1.0); EOSINOPHILS # (AUTO) 0.2 (0.0-0.4); EOSINOPHILS % 1.5 % (0.0-6.0); HEMATOCRIT 45.5 % (34.2-44.1); HEMOGLOBIN 14.2 g/dL (12.0-16.0); LYMPHOCYTES # (AUTO) 1.9 (1.0-3.2); LYMPHOCYTES % 19.1 % (18.0-39.1); MEAN CORPUSCULAR HEMOGLOBIN 30.1 pg (28-32); MEAN CORPUSCULAR HGB CONC 31.2 g/dL (31-35); MEAN CORPUSCULAR VOLUME 96.6 fL (81-99); MONOCYTES # (AUTO) 0.6 (0.2-0.8); MONOCYTES % 6.6 % (4.4-11.3); NEUTROPHILS # (AUTO) 7.1 (2.1-6.9); NEUTROPHILS % 72.2 % (38.7-80.0); PLATELET COUNT 197 x10e3/uL (140-360); RED BLOOD COUNT 4.71 x10e6/uL (3.6-5.1); RED CELL DISTRIBUTION WIDTH 14.5 % (11.7-14.4); WHITE BLOOD COUNT 9.77 x10e3/uL (4.8-10.8)
[2024-01-22 14:08] LABS: ALBUMIN 4.2 g/dL (3.5-5.0); ALBUMIN/GLOBULIN RATIO 1.4 (0.8-2.0); ANION GAP 17.3 mmol/L (8-16); BILIRUBIN,TOTAL 0.9 mg/dL (0.2-1.2); CALCIUM 9.4 mg/dL (8.4-10.2); CREATININE, SERUM 0.81 mg/dL (0.57-1.11); TOTAL PROTEIN 7.3 g/dL (6.5-8.1)
[2024-01-22 14:10] LABS: POTASSIUM 3.3 mmol/L (3.5-5.1)
[2024-01-22] MEDS: LABETALOL HCL 5 MG/ML 20ML VIAL IV STA (15:52)
[2024-01-22 19:01] VITALS: PULSE 65; RESP 19; TEMP 98.4
[2024-01-22] MEDS: Morphine 2mg Syringe 2 MG/ML SYR IV PRN (19:52)
[2024-01-22 20:00] VITALS: BP 166/86; PULSE 64; RESP 18; TEMP 98.6; O2SAT 96
[2024-01-22 21:00] VITALS: BP 166/66; PULSE 64; RESP 18; TEMP 98.6; O2SAT 96
[2024-01-22] MEDS ORDERED: SIMVASTATIN20 MG PO (22:31)
[2024-01-22] MEDS ORDERED: TRESIBA100 UNIT/1 (22:53)
[2024-01-22] MEDS: FUROSEMIDE 20 MG TAB PO SCH (23:30)
[2024-01-23] VITALS (8 sets, daily range): BP systolic 104–179; BP diastolic 44–80; PULSE 72–89; RESP 18–20; TEMP 97.7–98.7; O2SAT 92–95
[2024-01-23] MEDS: ONDANSETRON HCL INJ 2MG/ML 2ML 2 MG/ML VIAL IV PRN (00:24)
[2024-01-23] MEDS: PANTOPRAZOLE SOD 40 MG TABEC PO SCH (05:08)
[2024-01-23 06:00] LABS: BASOPHILS % 0.3 % (0.0-1.0); EOSINOPHILS # (AUTO) 0.3 (0.0-0.4); EOSINOPHILS % 3.5 % (0.0-6.0); HEMATOCRIT 42.1 % (34.2-44.1); HEMOGLOBIN 12.9 g/dL (12.0-16.0); LYMPHOCYTES # (AUTO) 1.9 (1.0-3.2); LYMPHOCYTES % 20.7 % (18.0-39.1); MEAN CORPUSCULAR HEMOGLOBIN 29.8 pg (28-32); MEAN CORPUSCULAR HGB CONC 30.6 g/dL (31-35); MEAN CORPUSCULAR VOLUME 97.2 fL (81-99); MONOCYTES # (AUTO) 0.8 (0.2-0.8); MONOCYTES % 9.1 % (4.4-11.3); NEUTROPHILS # (AUTO) 5.9 (2.1-6.9); NEUTROPHILS % 66.1 % (38.7-80.0); PLATELET COUNT 184 x10e3/uL (140-360); RED BLOOD COUNT 4.33 x10e6/uL (3.6-5.1); RED CELL DISTRIBUTION WIDTH 14.6 % (11.7-14.4); WHITE BLOOD COUNT 8.97 x10e3/uL (4.8-10.8)
[2024-01-23 06:17] LABS: ALBUMIN 3.8 g/dL (3.5-5.0); ALBUMIN/GLOBULIN RATIO 1.2 (0.8-2.0); ANION GAP 17.2 mmol/L (8-16); BILIRUBIN,TOTAL 0.8 mg/dL (0.2-1.2); CALCIUM 8.7 mg/dL (8.4-10.2); CREATININE, SERUM 0.92 mg/dL (0.57-1.11); TOTAL PROTEIN 6.9 g/dL (6.5-8.1)
[2024-01-23 06:18] LABS: POTASSIUM 3.2 mmol/L (3.5-5.1)
[2024-01-23] MEDS ORDERED: DEXTROSE 50% SYRINGE 50 ML IV PRN (09:00)
[2024-01-23] MEDS ORDERED: HYDRALAZINE HCL 20 MG/ML VIAL IV PRN (09:00)
[2024-01-23] MEDS: LOSARTAN POTASSIUM 100 MG TAB PO SCH (09:41)
[2024-01-23] MEDS: RIVAROXABAN 20 MG TABLET PO SCH (09:41)
[2024-01-23] MEDS: GABAPENTIN 300 MG CAP PO SCH (09:41)
[2024-01-23] MEDS: ISOSORBIDE MONONITRATE 30 MG TAB CR PO SCH (09:42)
[2024-01-23] MEDS: AMLODIPINE BESYLATE 10 MG TAB PO SCH (09:42)
[2024-01-23] MEDS: SODIUM CHLORIDE 0.9% 250ML 250 ML ONE (09:49)
[2024-01-23] MEDS: MEROPENEM 1 GM in SODIUM CHLORIDE 0.9% 100 ML IV SCH (09:53)
[2024-01-23] MEDS: INSULIN LISPRO 100 UNIT/1 ML 3ML VIAL SQ SCH (12:16)
[2024-01-23] MEDS: SIMVASTATIN 20 MG TAB PO SCH (20:44)
[2024-01-23] MEDS: INSULIN GLARGINE 100 UNITS/ML VIAL SC SCH (20:56)
[2024-01-23] MEDS: MELATONIN 5 MG TABLET PO PRN (21:02)
[2024-01-24] VITALS (8 sets, daily range): BP systolic 137–152; BP diastolic 59–73; PULSE 72–79; RESP 17–18; TEMP 98.3–98.5; O2SAT 91–94
[2024-01-24 09:55] LABS: BILIRUBIN,URINE NEGATIVE (NEGATIVE); CLARITY,URINE CLOUDY (CLEAR); COLOR,URINE AMBER (YELLOW); GLUCOSE, URINE NEGATIVE (NEGATIVE); KETONES,URINE NEGATIVE (NEGATIVE); LEUKOCYTE ESTERASE ,URINE MODERATE (NEGATIVE); NITRITE,URINE NEGATIVE (NEGATIVE); PH,URINE 6 (5 - 7); PROTEIN,URINE DIPSTICK 1+ (NEGATIVE); URINE UROBILINOGEN 0.2 mg/dL (0.2 - 1)
[2024-01-24 10:44] LABS: BACTERIA,URINE MANY /HPF; EPITHELIAL CELLS,URINE FEW /LPF; RBC,URINE >50 /HPF (0-5); TRANSITIONAL EPI CELLS,URINE FEW; WBC,URINE (MAN) 21-50 /HPF (0-5)
[2024-01-24] MEDS ORDERED: IOPAMIDOL 370 MG/ML 100 ML INFUS..BTL INJ ONE (16:18)
[2024-01-25] VITALS (8 sets, daily range): BP systolic 121–185; BP diastolic 59–84; PULSE 71–96; RESP 16–20; TEMP 97.5–98.5; O2SAT 94–96
[2024-01-25 09:36] LABS: BASOPHILS % 0.4 % (0.0-1.0); EOSINOPHILS # (AUTO) 0.2 (0.0-0.4); EOSINOPHILS % 2.7 % (0.0-6.0); HEMOGLOBIN 12.3 g/dL (12.0-16.0); LYMPHOCYTES # (AUTO) 1.5 (1.0-3.2); LYMPHOCYTES % 18.3 % (18.0-39.1); MEAN CORPUSCULAR HEMOGLOBIN 30.1 pg (28-32); MEAN CORPUSCULAR HGB CONC 30.8 g/dL (31-35); MONOCYTES # (AUTO) 0.7 (0.2-0.8); MONOCYTES % 8.7 % (4.4-11.3); NEUTROPHILS # (AUTO) 5.7 (2.1-6.9); NEUTROPHILS % 69.7 % (38.7-80.0); PLATELET COUNT 160 x10e3/uL (140-360); RED BLOOD COUNT 4.08 x10e6/uL (3.6-5.1); RED CELL DISTRIBUTION WIDTH 14.9 % (11.7-14.4); WHITE BLOOD COUNT 8.18 x10e3/uL (4.8-10.8)
[2024-01-25 09:52] LABS: ANION GAP 16.4 mmol/L (8-16); CALCIUM 8.7 mg/dL (8.4-10.2); CREATININE, SERUM 0.83 mg/dL (0.57-1.11)
[2024-01-25 09:56] LABS: POTASSIUM 3.4 mmol/L (3.5-5.1)
[2024-01-25] MEDS: METRONIDAZOLE 500MG/NS 100ML 100 ML IV SCH (16:10)
[2024-01-25] MEDS: CIPROFLOXACIN IV SCH (16:11)
[2024-01-25] MEDS: D5W IV SCH (16:11)
[2024-01-26 04:00] VITALS: BP 151/74; PULSE 64; RESP 17; TEMP 97.7; O2SAT 98
[2024-01-26 07:55] VITALS: BP 151/74; PULSE 64; RESP 17; TEMP 97.7; O2SAT 98
[2024-01-26 08:46] VITALS: BP 157/70; PULSE 65; RESP 20; TEMP 97.7; O2SAT 95
[2024-01-26] MEDS: SODIUM CHLORIDE 0.9% 250ML 250 ML ONE (09:02)
[2024-01-26 12:35] VITALS: BP 170/72; PULSE 74; RESP 20; TEMP 97.9; O2SAT 97
[2024-01-26] MEDS ORDERED: ACETAMINOPHEN 325 MG TAB PO PRN (15:45)
[2024-01-26] MEDS: MAGNESIUM HYDROXIDE 30 ML UDC PO PRN (16:02)
[2024-01-26] MEDS: HYDROCODONE/APAP 10MG-325MG TAB PO PRN (16:02)
[2024-01-26] MEDS: SENNA-S TABLET PO SCH (16:30)
[2024-01-26] MEDS: POLYETHYLENE GLYCOL 3350 17 GM PACK PO SCH (16:30)
[2024-01-26] MEDS: MUPIROCIN 2% OINT 22 GM TUBE TOP SCH (16:30)
[2024-01-26 17:01] VITALS: BP 150/75; PULSE 74; RESP 19; TEMP 97.9; O2SAT 96
[2024-01-26 20:00] VITALS: BP_SYST 148; BP_SYST 150; BP_SYST 164; BP_DIAS 55; BP_DIAS 75; PULSE 71; PULSE 74; RESP 19; RESP 20; TEMP 97.7; TEMP 97.9; O2SAT 96
[2024-01-27] VITALS (7 sets, daily range): BP systolic 126–172; BP diastolic 48–84; PULSE 64–69; RESP 17–20; TEMP 97.9–98.3; O2SAT 95–98
== END 2024-01-27 19:00 | DRG 699 ==
LOC: ER 11:36 → ERHOLD 12:03 → MED/SURG3 20:25
PROVIDERS: ADMIT Internal Medicine; ATTEND Internal Medicine
PROC: 02HV33Z Insertion of Infusion Device into Superior Vena Cava, Percutaneous Approach (ICD-10-PCS; principal; 2024-01-22)
DX: T83.511A Infection and inflammatory reaction due to indwelling urethral catheter, initial encounter (principal); I50.22 Chronic systolic (congestive) heart failure; K57.32 Diverticulitis of large intestine without perforation or abscess without bleeding; Z16.12 Extended spectrum beta lactamase (ESBL) resistance; Z16.24 Resistance to multiple antibiotics; Z68.41 Body mass index [BMI] 40.0-44.9, adult; N39.0 Urinary tract infection, site not specified; I11.0 Hypertensive heart disease with heart failure; N31.9 Neuromuscular dysfunction of bladder, unspecified; E66.01 Morbid (severe) obesity due to excess calories; E11.9 Type 2 diabetes mellitus without complications; E78.5 Hyperlipidemia, unspecified; B96.20 Unspecified Escherichia coli [E. coli] as the cause of diseases classified elsewhere; B96.1 Klebsiella pneumoniae [K. pneumoniae] as the cause of diseases classified elsewhere; K21.9 Gastro-esophageal reflux disease without esophagitis; M54.9 Dorsalgia, unspecified; I48.91 Unspecified atrial fibrillation; N32.81 Overactive bladder; N39.41 Urge incontinence; K76.0 Fatty (change of) liver, not elsewhere classified; Z79.4 Long term (current) use of insulin; Z79.01 Long term (current) use of anticoagulants; Z93.59 Other cystostomy status; Z90.49 Acquired absence of other specified parts of digestive tract; Z90.710 Acquired absence of both cervix and uterus
CPT/HCPCS: 36415; 36569; 71045; 74177; 80048; 80053; 81001; 82948; 85025; 87086; 87186; 96372; 99284; J0360; J1815; J2185; J2270; J2405; J2543; J7050; Q9967

== ENCOUNTER 2024-02-28 16:18 | Observation (INO) | payer MEDICARE ==
[~2024-02-28] VITALS: Ht 162.6 cm; Wt 110.0 kg
[2024-02-28 00:30] VITALS: BP 181/68; PULSE 70; RESP 20; TEMP 98.1; O2SAT 99
[~2024-02-28 16:18] MED LIST changes: +SIMVASTATIN20 MG PO
[2024-02-28 17:50] LABS: BASOPHILS % 0.2 % (0.0-1.0); EOSINOPHILS % 0.3 % (0.0-6.0); HEMATOCRIT 43.5 % (34.2-44.1); HEMOGLOBIN 13.5 g/dL (12.0-16.0); LYMPHOCYTES # (AUTO) 1.8 (1.0-3.2); LYMPHOCYTES % 15.5 % (18.0-39.1); MEAN CORPUSCULAR HEMOGLOBIN 29.5 pg (28-32); MONOCYTES # (AUTO) 0.6 (0.2-0.8); MONOCYTES % 5.2 % (4.4-11.3); NEUTROPHILS # (AUTO) 9.2 (2.1-6.9); NEUTROPHILS % 78.5 % (38.7-80.0); PLATELET COUNT 296 x10e3/uL (140-360); RED BLOOD COUNT 4.58 x10e6/uL (3.6-5.1); RED CELL DISTRIBUTION WIDTH 14.7 % (11.7-14.4); WHITE BLOOD COUNT 11.69 x10e3/uL (4.8-10.8)
[2024-02-28 17:58] LABS: BILIRUBIN,URINE NEGATIVE (NEGATIVE); CLARITY,URINE CLOUDY (CLEAR); COLOR,URINE YELLOW (YELLOW); GLUCOSE, URINE NEGATIVE (NEGATIVE); KETONES,URINE NEGATIVE (NEGATIVE); LEUKOCYTE ESTERASE ,URINE SMALL (NEGATIVE); NITRITE,URINE POSITIVE (NEGATIVE); PH,URINE 6.5 (5 - 7); PROTEIN,URINE DIPSTICK 2+ (NEGATIVE); URINE UROBILINOGEN 0.2 mg/dL (0.2 - 1)
[2024-02-28] MEDS: SODIUM CHLORIDE 0.9% 1000ML 1,000 ML IV STA (18:06)
[2024-02-28 18:10] LABS: BACTERIA,URINE MODERATE /HPF; EPITHELIAL CELLS,URINE FEW /LPF; RBC,URINE 21-50 /HPF (0-5)
[2024-02-28 18:10] LABS: ALBUMIN 4.4 g/dL (3.5-5.0); ALBUMIN/GLOBULIN RATIO 1.3 (0.8-2.0); ANION GAP 18.6 mmol/L (8-16); BILIRUBIN,TOTAL 0.5 mg/dL (0.2-1.2); CALCIUM 9.2 mg/dL (8.4-10.2); CREATININE, SERUM 1.18 mg/dL (0.57-1.11); POTASSIUM 3.6 mmol/L (3.5-5.1); TOTAL PROTEIN 7.8 g/dL (6.5-8.1)
[2024-02-28] MEDS ORDERED: IOPAMIDOL 370 MG/ML 100 ML INFUS..BTL INJ ONE (18:47)
[2024-02-28] MEDS: ONDANSETRON HCL INJ 2MG/ML 2ML 2 MG/ML VIAL IV STA (21:20)
[2024-02-28] MEDS: Morphine 4mg INJECTION 4 MG/ML INJ IV PRN (21:21)
[2024-02-28 21:40] VITALS: PULSE 72; RESP 18; O2SAT 94
[2024-02-28] MEDS ORDERED: TRIMETHOPRIM/SULFAMETHOXAZOLE 160 MG in DEXTROSE 5% 250ML 250 ML IV SCH (22:00)
[2024-02-28 23:43] VITALS: TEMP 98.1
[2024-02-28 23:50] VITALS: PULSE 74; RESP 17
[2024-02-29] VITALS (11 sets, daily range): BP systolic 121–181; BP diastolic 47–68; PULSE 68–79; RESP 18–23; TEMP 97.8–98.9; O2SAT 93–99
[2024-02-29] MEDS ORDERED: BISACODYL 10 MG SUPP PR PRN (00:30)
[2024-02-29] MEDS ORDERED: ACETAMINOPHEN 325 MG TAB PO PRN (00:30)
[2024-02-29] MEDS ORDERED: DEXTROSE 50% SYRINGE 50 ML IV PRN (00:45)
[2024-02-29] MEDS: INSULIN GLARGINE 100 UNITS/ML VIAL SQ SCH (01:49)
[2024-02-29] MEDS: BISACODYL 10 MG SUPP PR ONE (01:51)
[2024-02-29] MEDS: MAGNESIUM HYDROXIDE 30 ML UDC PO ONE (01:51)
[2024-02-29] MEDS: SENNA-S TABLET PO SCH (01:52)
[2024-02-29] MEDS: BISACODYL 5 MG TAB EC PO ONE (01:52)
[2024-02-29] MEDS: CIPROFLOXACIN 500 MG TAB PO SCH (01:52)
[2024-02-29] MEDS: HYDROCODONE/APAP 10MG-325MG TAB PO PRN (01:53)
[2024-02-29] MEDS: ISOSORBIDE MONONITRATE 30 MG TAB CR PO SCH (01:53)
[2024-02-29] MEDS: AMLODIPINE BESYLATE 10 MG TAB PO SCH (01:53)
[2024-02-29] MEDS: SODIUM CHLORIDE 0.9% 1000ML 1,000 ML IV SCH (01:54)
[2024-02-29] MEDS: MAGNESIUM HYDROXIDE 30 ML UDC PO SCH (06:23)
[2024-02-29 06:54] LABS: BASOPHILS % 0.4 % (0.0-1.0); EOSINOPHILS # (AUTO) 0.1 (0.0-0.4); EOSINOPHILS % 0.9 % (0.0-6.0); HEMATOCRIT 36.6 % (34.2-44.1); HEMOGLOBIN 11.7 g/dL (12.0-16.0); LYMPHOCYTES # (AUTO) 1.7 (1.0-3.2); LYMPHOCYTES % 21.5 % (18.0-39.1); MEAN CORPUSCULAR HEMOGLOBIN 29.5 pg (28-32); MEAN CORPUSCULAR VOLUME 92.4 fL (81-99); MONOCYTES # (AUTO) 0.6 (0.2-0.8); MONOCYTES % 8.1 % (4.4-11.3); NEUTROPHILS # (AUTO) 5.4 (2.1-6.9); NEUTROPHILS % 68.7 % (38.7-80.0); PLATELET COUNT 249 x10e3/uL (140-360); RED BLOOD COUNT 3.96 x10e6/uL (3.6-5.1); RED CELL DISTRIBUTION WIDTH 14.8 % (11.7-14.4); WHITE BLOOD COUNT 7.78 x10e3/uL (4.8-10.8)
[2024-02-29 07:17] LABS: CALCIUM 8.5 mg/dL (8.4-10.2); CREATININE, SERUM 0.85 mg/dL (0.57-1.11)
[2024-02-29] MEDS: INSULIN LISPRO 100 UNIT/1 ML 3ML VIAL SQ SCH (07:30)
[2024-02-29] MEDS: BISACODYL 5 MG TAB EC PO SCH (08:48)
[2024-02-29] MEDS: RIVAROXABAN 20 MG TABLET PO SCH (08:48)
[2024-02-29] MEDS: PANTOPRAZOLE SOD 40 MG TABEC PO SCH (08:48)
[2024-02-29] MEDS: GABAPENTIN 300 MG CAP PO SCH (08:48)
[2024-02-29] MEDS: FUROSEMIDE 40 MG TAB PO SCH (08:48)
[2024-02-29] MEDS: LOSARTAN POTASSIUM 100 MG TAB PO SCH (08:49)
[2024-02-29] MEDS: ONDANSETRON HCL 4 MG ORAL DISINTEGRATING TAB PO PRN (08:55)
[2024-02-29] MEDS: POTASSIUM CHLORIDE 20 MEQ TAB CR PO ONE (15:46)
[2024-02-29] MEDS: SIMVASTATIN 20 MG TAB PO SCH (21:03)
[2024-03-01] VITALS (7 sets, daily range): BP systolic 140–158; BP diastolic 53–82; PULSE 73–87; RESP 16–20; TEMP 97.4–98.8; O2SAT 94–100
[2024-03-01] MEDS: POTASSIUM CHLORIDE 10MEQ EA PO SCH (08:50)
[2024-03-02] VITALS: BP 138/54; PULSE 76; RESP 18; TEMP 98.5; O2SAT 96
[2024-03-02 04:00] VITALS: BP 129/53; PULSE 69; RESP 18; TEMP 98.2; O2SAT 95
[2024-03-02 08:00] VITALS: BP 173/73; PULSE 72; RESP 18; TEMP 97.8; O2SAT 100
[2024-03-02 08:04] VITALS: BP 173/73; PULSE 72; RESP 18; TEMP 97.8; O2SAT 100
[2024-03-02 08:06] VITALS: PULSE 79; RESP 18; O2SAT 97
[2024-03-02] MEDS: TRIMETHOPRIM/SULFAMETHOXAZOLE 160-800 MG TAB PO SCH (09:11)
[2024-03-02 12:00] VITALS: BP 137/58; PULSE 78; RESP 19; TEMP 98; O2SAT 95
[2024-03-02 13:32] LABS: CLARITY,URINE SL CLOUDY (CLEAR); COLOR,URINE YELLOW (YELLOW)
[2024-03-02 13:33] LABS: LEUKOCYTE ESTERASE ,URINE TRACE (NEGATIVE); NITRITE,URINE NEGATIVE (NEGATIVE); PH,URINE 6 (5 - 7)
[2024-03-02 13:34] LABS: BILIRUBIN,URINE NEGATIVE (NEGATIVE); GLUCOSE, URINE NEGATIVE (NEGATIVE); KETONES,URINE NEGATIVE (NEGATIVE); PROTEIN,URINE DIPSTICK 1+ (NEGATIVE); URINE UROBILINOGEN 0.2 mg/dL (0.2 - 1)
[2024-03-02 13:37] LABS: BACTERIA,URINE FEW /HPF; EPITHELIAL CELLS,URINE FEW /LPF; RBC,URINE 21-50 /HPF (0-5)
[2024-03-02] MEDS ORDERED: HIPREX1 GM PO (14:25)
[2024-03-02] MEDS ORDERED: KLOR-CON 1010 MEQ PO (14:25)
[2024-03-02] MEDS ORDERED: SENOKOT-S TABL1 EACH PO (14:26)
[2024-03-02] MEDS ORDERED: BACTRIM DS TAB1 EACH PO (14:27)
== END 2024-03-02 15:09 | disposition home or self-care (01) ==
LOC: ER 16:56 → ERHOLD 20:27 → MED/SURG3 23:59
PROVIDERS: ADMIT Internal Medicine; ATTEND Internal Medicine
DX: N39.0 Urinary tract infection, site not specified (principal); B95.62 Methicillin resistant Staphylococcus aureus infection as the cause of diseases classified elsewhere; R31.9 Hematuria, unspecified; Z16.24 Resistance to multiple antibiotics; N17.9 Acute kidney failure, unspecified; Z93.59 Other cystostomy status; I11.0 Hypertensive heart disease with heart failure; I50.9 Heart failure, unspecified; I48.91 Unspecified atrial fibrillation; Z79.01 Long term (current) use of anticoagulants; E78.5 Hyperlipidemia, unspecified; E11.9 Type 2 diabetes mellitus without complications; Z79.4 Long term (current) use of insulin; K21.9 Gastro-esophageal reflux disease without esophagitis; E66.01 Morbid (severe) obesity due to excess calories; Z68.41 Body mass index [BMI] 40.0-44.9, adult; Z71.3 Dietary counseling and surveillance; K57.30 Diverticulosis of large intestine without perforation or abscess without bleeding; K58.1 Irritable bowel syndrome with constipation; Q61.02 Congenital multiple renal cysts; Z79.899 Other long term (current) drug therapy
CPT/HCPCS: 36415 ×4; 74177; 80048; 80053; 81001 ×2; 82948 ×3; 83690; 85025 ×2; 87086; 87186; 94799 ×4; 96372; 99284; G0378 ×4; J0696; J2270; J2405; J2543; J7030 ×3; Q0162 ×2; Q9967; S0164 ×3

== ENCOUNTER 2024-06-25 19:10 | Emergency (ER) | payer MEDICARE ==
[~2024-06-25] VITALS: Ht 162.6 cm; Wt 109.8 kg
[~2024-06-25 19:10] MED LIST changes: +HIPREX1 GM PO; +KLOR-CON 1010 MEQ PO; +SENOKOT-S TABL1 EACH PO
[2024-06-25 19:12] VITALS: PULSE 71; RESP 18; TEMP 98.6
[2024-06-25 20:02] LABS: BASOPHILS % 0.3 % (0.0-1.0); EOSINOPHILS # (AUTO) 0.1 (0.0-0.4); EOSINOPHILS % 2.1 % (0.0-6.0); HEMATOCRIT 38.1 % (34.2-44.1); HEMOGLOBIN 12.5 g/dL (12.0-16.0); LYMPHOCYTES # (AUTO) 1.6 (1.0-3.2); MEAN CORPUSCULAR HEMOGLOBIN 29.1 pg (28-32); MEAN CORPUSCULAR HGB CONC 32.8 g/dL (31-35); MEAN CORPUSCULAR VOLUME 88.6 fL (81-99); MONOCYTES # (AUTO) 0.4 (0.2-0.8); MONOCYTES % 6.1 % (4.4-11.3); NEUTROPHILS # (AUTO) 4.5 (2.1-6.9); NEUTROPHILS % 67.2 % (38.7-80.0); PLATELET COUNT 297 x10e3/uL (140-360); RED CELL DISTRIBUTION WIDTH 14.7 % (11.7-14.4); WHITE BLOOD COUNT 6.68 x10e3/uL (4.8-10.8)
[2024-06-25 20:17] LABS: INR 0.92; PROTHROMBIN TIME 12.9 seconds (11.9-14.5)
[2024-06-25 20:18] LABS: PARTIAL THROMBOPLASTIN TIME 32.8 seconds (23.8-35.5)
[2024-06-25 20:24] LABS: ALBUMIN/GLOBULIN RATIO 1.3 (0.8-2.0); ANION GAP 15.7 mmol/L (8-16); BILIRUBIN,TOTAL 0.5 mg/dL (0.2-1.2); CALCIUM 9.1 mg/dL (8.4-10.2); CREATININE, SERUM 0.88 mg/dL (0.57-1.11); POTASSIUM 3.7 mmol/L (3.5-5.1)
[2024-06-25 22:20] VITALS: BP 141/84; PULSE 74; RESP 18; TEMP 98.3; O2SAT 98
== END 2024-06-25 20:10 | disposition home or self-care (01) ==
LOC: ER 19:55
DX: Z46.6 Encounter for fitting and adjustment of urinary device (principal); T83.83XA Hemorrhage due to genitourinary prosthetic devices, implants and grafts, initial encounter; I10 Essential (primary) hypertension; E11.65 Type 2 diabetes mellitus with hyperglycemia; I50.9 Heart failure, unspecified; E78.5 Hyperlipidemia, unspecified; I48.91 Unspecified atrial fibrillation; D64.9 Anemia, unspecified; K21.9 Gastro-esophageal reflux disease without esophagitis; Z79.01 Long term (current) use of anticoagulants; Z87.19 Personal history of other diseases of the digestive system
CPT/HCPCS: 36415; 80053; 85025; 85610; 85730; 99284

== ENCOUNTER 2024-08-02 10:18 | Emergency (ER) | payer MEDICARE ==
[~2024-08-02] VITALS: Ht 162.6 cm; Wt 109.8 kg
[2024-08-02 10:29] VITALS: TEMP 98.3
[2024-08-02] MEDS ORDERED: CEFDINIR300 MG PO (11:56)
[2024-08-02] MEDS ORDERED: NITROFURANTOIN100 MG PO (11:56)
[2024-08-02 12:00] VITALS: PULSE 59; RESP 18; O2SAT 98
== END 2024-08-02 12:00 | disposition home or self-care (01) ==
LOC: ER 10:24
DX: R31.9 Hematuria, unspecified (principal); I10 Essential (primary) hypertension; E11.9 Type 2 diabetes mellitus without complications; I50.9 Heart failure, unspecified; I48.91 Unspecified atrial fibrillation; E78.5 Hyperlipidemia, unspecified; D64.9 Anemia, unspecified; K21.9 Gastro-esophageal reflux disease without esophagitis; Z87.19 Personal history of other diseases of the digestive system
CPT/HCPCS: 87086; 87186; 99282